=== PATIENT | male | born 1940 | race Caucasian/White ===

== ENCOUNTER 2016-07-08 01:36 | Inpatient (IN) | payer MEDICARE ==
[2016-07-08] MEDS ORDERED: SODIUM CHLORIDE 0.9% 1,000 ML IV STA (01:37)
[2016-07-08] MEDS ORDERED: ONDANSETRON 4 MG/2 ML VIAL IVP STA (01:37)
[2016-07-08] MEDS ORDERED: SODIUM CHLORIDE 0.9% 500 ML IV STA (01:37)
[2016-07-08] MEDS ORDERED: PANTOPRAZOLE 40 MG/10 ML VIAL IVP STA (01:37)
[2016-07-08] MEDS ORDERED: SODIUM CHLORIDE 0.9% 1,000 ML IV ONE (01:37)
[2016-07-08 02:16] LABS: Basophils % (A) 0 %; CH 30.3; CHCM 32.5; Eosinophils # (A) 0.1 k/uL (0-0.7); Eosinophils % (A) 1 %; HCT 31.9 % (39.0-53.0); HDW 2.79; HGB 10.3 gm/dL (13.0-17.5); Luc # (Auto) 0.19; Luc % (Auto) 2; Lymphocytes # (A) 1.7 k/uL (1.0-4.8); Lymphocytes % (A) 16 %; MCH 30.3 pg (25.0-35.0); MCHC 32.3 g/dL (31.0-37.0); MCV 93.8 fL (80.0-100.0); Mean Platelet Volume 8.6; Monocytes # (A) 0.4 k/uL (0-1.0); Monocytes % (A) 4 %; Neutrophils # (A) 8.7 k/uL (1.3-7.7); Neutrophils % (A) 78 %; RDW 13.3 % (11.5-15.5); WBC 11.1 k/uL (3.8-10.6); WBC (Perox) 11.36
--- NOTE | 2016-07-08 02:27 | ED ---
General Adult HPI - General Chief complaint: GI Bleed Stated complaint: Syncope Time Seen by Provider: 07/08/16 01:37 Source: patient, EMS, RN notes reviewed, old records reviewed Mode of arrival: EMS Limitations: no limitations - History of Present Illness Initial comments: This is a 75-year-old male the ER status post syncopal event. Patient also admits to blood in his stool. States he has history of hemorrhoids, history of a flutter, recent secondary to dizziness was diagnosed with a TIA and started on low-dose aspirin. Patient states he hasn't been feeling well throughout the day. Mild headache from fall he did fall on his left forehead. Patient states he fell and passed out before hitting his head. Currently patient is complaining of mild headache, and just generalized overall weakness, states he tried to get up and walk to be very weak and likely pass out or fall again. - Related Data Allergies Allergy/AdvReac Type Severity Reaction Status Date / Time latex Allergy Unknown Verified 07/08/16 02:10 penicillin V Allergy Unknown Verified 07/08/16 02:10 Review of Systems ROS Statement: Those systems with pertinent positive or pertinent negative responses have been documented in the HPI. ROS Other: All systems not noted in ROS Statement are negative. Past Medical History Past Medical History: Atrial Flutter, Diabetes Mellitus, Hypertension Additional Past Medical History / Comment(s): hemorroids History of Any Multi-Drug Resistant Organisms: None Reported Past Surgical History: Cholecystectomy Past Psychological History: No Psychological Hx Reported Smoking Status: Never smoker Past Alcohol Use History: None Reported Past Drug Use History: None Reported General Exam Limitations: no limitations General appearance: alert, in no apparent distress Head exam: Present: normocephalic, normal inspection. Absent: atraumatic (Left thigh abrasion) Eye exam: Present: normal appearance, PERRL, EOMI. Absent: scleral icterus, conjunctival injection, periorbital swelling ENT exam: Present: normal exam, mucous membranes moist Neck exam: Present: normal inspection. Absent: tenderness, meningismus, lymphadenopathy Respiratory exam: Present: normal lung sounds bilaterally. Absent: respiratory distress, wheezes, rales, rhonchi, stridor Cardiovascular Exam: Present: regular rate, normal rhythm, normal heart sounds. Absent: systolic murmur, diastolic murmur, rubs, gallop, clicks GI/Abdominal exam: Present: soft, normal bowel sounds. Absent: distended, tenderness, guarding, rebound, rigid Extremities exam: Present: normal inspection, full ROM, normal capillary refill. Absent: tenderness, pedal edema, joint swelling, calf tenderness Back exam: Present: normal inspection Neurological exam: Present: alert, oriented X3, CN II-XII intact Psychiatric exam: Present: normal affect, normal mood Skin exam: Present: warm, dry, intact, normal color. Absent: rash Course Vital Signs 07/08/16 01:42 Temperature 96.9 F L Pulse Rate 99 Respiratory 20 Rate Blood Pressure 140/74 O2 Sat by Pulse 98 Oximetry - Reevaluation(s) Reevaluation #1: 07/08/16 03:06 no syncope here in ED, still feeling weak and lightheaded EKG Findings - EKG Comments: EKG Findings:: EKG shows sinus rhythm at 95, PA 138, QRS 112, QTC 467 Medical Decision Making - Medical Decision Making 75 no ear status post syncopal event with positive GI bleed. Hemoglobin from 15 -10, patient admitted for monitoring of bleeding, IV hydration and cardiac nurse specialist. - Lab Data Result diagrams: 07/08/16 02:03 07/08/16 02:03 Lab Results 07/08/16 07/08/16 07/08/16 Range/Units 02:03 02:03 02:03 WBC 11.1 H (3.8-10.6) k/uL RBC 3.40 L (4.30-5.90) m/uL Hgb 10.3 L (13.0-17.5) gm/dL Hct 31.9 L (39.0-53.0) % MCV 93.8 (80.0-100.0) fL MCH 30.3 (25.0-35.0) pg MCHC 32.3 (31.0-37.0) g/dL RDW 13.3 (11.5-15.5) % Plt Count 228 (150-450) k/uL Neutrophils % 78 % Lymphocytes % 16 % Monocytes % 4 % Eosinophils % 1 % Basophils % 0 % Neutrophils # 8.7 H (1.3-7.7) k/uL Lymphocytes # 1.7 (1.0-4.8) k/uL Monocytes # 0.4 (0-1.0) k/uL Eosinophils # 0.1 (0-0.7) k/uL Basophils # 0.0 (0-0.2) k/uL PT 11.1 (9.0-12.0) sec INR 1.1 (<1.1) APTT 21.0 L (22.0-30.0) sec Sodium 139 (137-145) mmol/L Potassium 5.0 (3.5-5.1) mmol/L Chloride 109 H (98-107) mmol/L Carbon Dioxide 20 L (22-30) mmol/L Anion Gap 10 mmol/L BUN 18 (9-20) mg/dL Creatinine 0.90 (0.66-1.25) mg/dL Est GFR (MDRD) Af Amer >60 (>60 ml/min/1.73 sqM) Est GFR (MDRD) Non-Af >60 (>60 ml/min/1.73 sqM) Glucose 258 H (74-99) mg/dL Calcium 8.7 (8.4-10.2) mg/dL Magnesium 1.8 (1.6-2.3) mg/dL Total Bilirubin 0.7 (0.2-1.3) mg/dL AST 32 (17-59) U/L ALT 44 (21-72) U/L Alkaline Phosphatase 42 (38-126) U/L Total Protein 5.5 L (6.3-8.2) g/dL Albumin 3.0 L (3.5-5.0) g/dL Lipase 102 (23-300) U/L - Radiology Data Radiology results: report reviewed (CT brain, CT c spine - negative for acute ) , image reviewed Disposition Clinical Impression: Syncope, Fall, Anemia, Gastrointestinal hemorrhage Disposition: HOME SELF-CARE Condition: Serious Referrals: Davy Eldridge MD [Primary Care Provider] - 1-2 days
[2016-07-08 02:31] LABS: Anion Gap 10 mmol/L; Calcium 8.7 mg/dL (8.4-10.2); Carbon Dioxide 20 mmol/L (22-30); Chloride 109 mmol/L (98-107); Glucose 258 mg/dL (74-99); Non-African American GFR(MDRD) >60 (>60 ml/min/1.73 sqM); Sodium 139 mmol/L (137-145); Total Bilirubin 0.7 mg/dL (0.2-1.3); Total Protein 5.5 g/dL (6.3-8.2)
[2016-07-08 02:33] LABS: ALT 44 U/L (21-72); AST 32 U/L (17-59); Alkaline Phosphatase 42 U/L (38-126); Blood Urea Nitrogen 18 mg/dL (9-20); INR 1.1 (<1.1); Magnesium 1.8 mg/dL (1.6-2.3); Prothrombin Time 11.1 sec (9.0-12.0)
[2016-07-08 02:50] LABS: Creatine Kinase 54 U/L (55-170)
--- NOTE | 2016-07-08 02:58 | CT ---
EXAM: CT Head Without Intravenous Contrast. CLINICAL HISTORY: Reason: Pain TECHNIQUE: Axial computed tomography images of the head/brain without intravenous contrast. CTDI is 57.40 mGy and DLP is 1150.50 mGy-cm This CT exam was performed using one or more of the following dose reduction techniques: automated exposure control, adjustment of the mA and/or kV according to patient size, and/or use of iterative reconstruction technique. COMPARISON: None FINDINGS: Brain: No acute infarct or hemorrhage idenitified. No extra-axial fluid collection. No mass effect or midline shift. Scattered areas of hypoattenuation in the supratentorial white matter likely represent chronic small vessel ischemic changes. Involutional changes. Ventricles and sulci: Prominence of the ventricles and sulci is likely secondary to cerebral volume loss. Skull: Normal. No bony lesion or fracture. Subcutaneous tissues: Normal. Sinuses: Opacification of the maxillary sinuses with hyperdense polyp versus mucous retention cyst in the left maxillary sinus. Fluid seen in the nasal cavity and nasopharynx with multiple round hyperdensities which may represent polyps. Moderate to severe opacification of the ethmoid air cells. Mucosal thickening of left sphenoid sinus. Opacification of the right frontal sinus with hyperdense material which may represent inspissated secretions. Orbits: Bilateral lens implants. IMPRESSION: 1. No acute intracranial abnormality. 2. Chronic small vessel ischemic changes and cerebral volume loss. 3. Paranasal sinus disease as described above. Hyperdense material within the sinuses may represent inspissated secretions. Fungal disease is a consideration, but no bony erosion identified. EXAM: CT Cervical Spine Without Intravenous Contrast. CLINICAL HISTORY: Reason: Pain TECHNIQUE: Axial computed tomography images of the cervical spine without intravenous contrast. CTDI is 21.80 mGy and DLP is 464.50 mGy-cm This CT exam was performed using one or more of the following dose reduction techniques: automated exposure control, adjustment of the mA and/or kV according to patient size, and/or use of iterative reconstruction technique. COMPARISON: None FINDINGS: Bones: No acute fracture or bony lesion. Disc spaces: No subluxation. Multilevel degenerative disc disease. No spinal canal stenosis. Multiple levels of neural foraminal stenoses. Soft tissues: Normal. Other: Paranasal sinus disease, better evaluated on accompanying CT head. IMPRESSION: 1. No acute traumatic abnormality. 2. Multilevel degenerative disc disease without spinal canal stenosis. Multiple levels of neural foraminal stenoses.
[2016-07-08 03:01] LABS: Troponin I <0.012 ng/mL (0.000-0.034)
--- NOTE | 2016-07-08 04:07 | ED ---
Medical Decision Making - Lab Data Result diagrams: 07/08/16 02:03 07/08/16 02:03 Lab Results 07/08/16 07/08/16 07/08/16 Range/Units 02:03 02:03 02:03 WBC 11.1 H (3.8-10.6) k/uL RBC 3.40 L (4.30-5.90) m/uL Hgb 10.3 L (13.0-17.5) gm/dL Hct 31.9 L (39.0-53.0) % MCV 93.8 (80.0-100.0) fL MCH 30.3 (25.0-35.0) pg MCHC 32.3 (31.0-37.0) g/dL RDW 13.3 (11.5-15.5) % Plt Count 228 (150-450) k/uL Neutrophils % 78 % Lymphocytes % 16 % Monocytes % 4 % Eosinophils % 1 % Basophils % 0 % Neutrophils # 8.7 H (1.3-7.7) k/uL Lymphocytes # 1.7 (1.0-4.8) k/uL Monocytes # 0.4 (0-1.0) k/uL Eosinophils # 0.1 (0-0.7) k/uL Basophils # 0.0 (0-0.2) k/uL PT (9.0-12.0) sec INR (<1.1) APTT (22.0-30.0) sec Sodium 139 (137-145) mmol/L Potassium 5.0 (3.5-5.1) mmol/L Chloride 109 H (98-107) mmol/L Carbon Dioxide 20 L (22-30) mmol/L Anion Gap 10 mmol/L BUN 18 (9-20) mg/dL Creatinine 0.90 (0.66-1.25) mg/dL Est GFR (MDRD) Af Amer >60 (>60 ml/min/1.73 sqM) Est GFR (MDRD) Non-Af >60 (>60 ml/min/1.73 sqM) Glucose 258 H (74-99) mg/dL Calcium 8.7 (8.4-10.2) mg/dL Magnesium 1.8 (1.6-2.3) mg/dL Total Bilirubin 0.7 (0.2-1.3) mg/dL AST 32 (17-59) U/L ALT 44 (21-72) U/L Alkaline Phosphatase 42 (38-126) U/L Total Creatine Kinase 54 L (55-170) U/L CK-MB (CK-2) 1.0 (0.0-2.4) ng/mL CK-MB (CK-2) Rel Index 1.9 Troponin I <0.012 (0.000-0.034) ng/mL Total Protein 5.5 L (6.3-8.2) g/dL Albumin 3.0 L (3.5-5.0) g/dL Lipase 102 (23-300) U/L 07/08/16 Range/Units 02:03 WBC (3.8-10.6) k/uL RBC (4.30-5.90) m/uL Hgb (13.0-17.5) gm/dL Hct (39.0-53.0) % MCV (80.0-100.0) fL MCH (25.0-35.0) pg MCHC (31.0-37.0) g/dL RDW (11.5-15.5) % Plt Count (150-450) k/uL Neutrophils % % Lymphocytes % % Monocytes % % Eosinophils % % Basophils % % Neutrophils # (1.3-7.7) k/uL Lymphocytes # (1.0-4.8) k/uL Monocytes # (0-1.0) k/uL Eosinophils # (0-0.7) k/uL Basophils # (0-0.2) k/uL PT 11.1 (9.0-12.0) sec INR 1.1 (<1.1) APTT 21.0 L (22.0-30.0) sec Sodium (137-145) mmol/L Potassium (3.5-5.1) mmol/L Chloride (98-107) mmol/L Carbon Dioxide (22-30) mmol/L Anion Gap mmol/L BUN (9-20) mg/dL Creatinine (0.66-1.25) mg/dL Est GFR (MDRD) Af Amer (>60 ml/min/1.73 sqM) Est GFR (MDRD) Non-Af (>60 ml/min/1.73 sqM) Glucose (74-99) mg/dL Calcium (8.4-10.2) mg/dL Magnesium (1.6-2.3) mg/dL Total Bilirubin (0.2-1.3) mg/dL AST (17-59) U/L ALT (21-72) U/L Alkaline Phosphatase (38-126) U/L Total Creatine Kinase (55-170) U/L CK-MB (CK-2) (0.0-2.4) ng/mL CK-MB (CK-2) Rel Index Troponin I (0.000-0.034) ng/mL Total Protein (6.3-8.2) g/dL Albumin (3.5-5.0) g/dL Lipase (23-300) U/L Disposition Clinical Impression: Syncope, Fall, Anemia, Gastrointestinal hemorrhage Disposition: ADMITTED IP TO THIS HOSP Condition: Serious Referrals: Davy Eldridge MD [Primary Care Provider] - 1-2 days
[2016-07-08] MEDS: SODIUM CHLORIDE 0.9% 1,000 ML IV SCH ×2 (08:00→18:32)
[2016-07-08] MEDS ORDERED: ONDANSETRON 4 MG/2 ML VIAL IVP PRN (08:43)
[2016-07-08] MEDS ORDERED: amLODIPine 5 MG TAB PO SCH (09:00)
--- NOTE | 2016-07-08 10:29 | P.HPIM ---
History of Present Illness H&P Date: 07/08/16 Chief Complaint: Blood in stools and passing out This is a 75-year-old male with a known past medical history of TIA, diabetes mellitus type 2, hypertension, hemorrhoids and a previous episode of atrial flutter. Patient presents to the emergency room with complaints of blood in his stool and passing out. Around 10:00 last night patient reports she started having bloody bowel movements. He had about 4 stools with large amounts of bright red blood. He was in the bathroom having another BM. He got up to leave the bathroom and passed out. He lost consciousness for just a few seconds. His came to help him. EMS was called. Patient did have also a small pool of blood near his rectum on the floor. There is no loss of bowel or bladder control. No seizure activity. Patient does have large hemorrhoids she is told. And does use Anusol at home. On admission he did have a hemoglobin of 10.3. He's had no further bloody stools. GI service has been consulted for possible colonoscopy. Last colonoscopy was about [address] Tejeda and at that time he was told he had severe large hemorrhoids. No surgical intervention was done in hemorrhoids. Cardiology will also be consulted in regards to the syncopal episode. He's been placed on telemetry monitoring. Echo and carotid have been ordered. Patient denies any chest pain or shortness of breath. Denies any headache or vision changes. Denies any nausea or vomiting. Denies any burning with urination. Denies any fevers chills or sweats. Patient is still having some dizziness with sitting up in bed. He did have a computed tomography scan of the brain completed showing no acute intracranial abnormality. Chronic small vessel ischemic changes and cerebral volume loss. Paranasal sinus disease. Hyperdense material within the sinuses. He also had a computed tomography scan of the cervical spine showing no acute abnormality. Does reveal multilevel degenerative disc disease without spinal canal stenosis. Noted have multiple level of neural foraminal stenosis. Patient denies any numbness or tingling in his arms or hands. Denies any weakness in his hands. Denies any neck pain. Does report having generalized weakness throughout the body. Note the patient did have an episode of nausea in the emergency room and received Zofran. Nausea resolved. Review of Systems Please refer to HPI otherwise unremarkable Past Medical History Past Medical History: Atrial Flutter, Cancer, CVA/TIA, Diabetes Mellitus, Hypertension Additional Past Medical History / Comment(s): A couple weeks ago-difficulty getting OOB and was leaning to one side-pt saw physician who thought possible TIA, NIDDM type II, lower GI bleed yrs ago, divertiulitis, colon polypectomy, melanoma removals head and nose, hemorroids History of Any Multi-Drug Resistant Organisms: None Reported Past Surgical History: Cholecystectomy Additional Past Surgical History / Comment(s): colonoscopies/benign polypectomies, 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 Past Anesthesia/Blood Transfusion Reactions: No Reported Reaction Past Psychological History: No Psychological Hx Reported Additional Psychological History / Comment(s): Pt resides with his spouse of 55 yrs. He used a walker a couple weeks ago for a brief time. He drives. Smoking Status: Never smoker Past Alcohol Use History: Rare Past Drug Use History: None Reported - Past Family History Father Additional Family Medical History / Comment(s): Father at the age of 33 yrs from encephalitis. Mother Family Medical History: Myocardial Infarction (MN) Additional Family Medical History / Comment(s): Mother had a MN at the age of 60yrs. She at the age of 90yrs. Medications and Allergies Home Medications Medication Instructions Recorded Confirmed Type Aspirin EC [Ecotrin Low Dose] 81 mg PO DAILY 07/08/16 07/08/16 History Atenolol 25 mg PO DAILY 07/08/16 07/08/16 History Colesevelam [Welchol] 625 mg PO BID 07/08/16 07/08/16 History Ergocalciferol [Vitamin D2] 50,000 unit PO TU 07/08/16 07/08/16 History Ramipril [Altace] 5 mg PO DAILY 07/08/16 07/08/16 History amLODIPine BESYLATE/BENAZEPRIL 1 cap PO DAILY 07/08/16 07/08/16 History [Amlodipine-Benazepril 5-10 mg] glipiZIDE [Glipizide Xl] 5 mg PO AC-BID 07/08/16 07/08/16 History metFORMIN HCL [Glucophage] 1,000 mg PO AC-BRKFST 07/08/16 07/08/16 History metFORMIN HCL [Glucophage] 500 mg PO AC-SUPPER 07/08/16 07/08/16 History Allergies Allergy/AdvReac Type Severity Reaction Status Date / Time latex Allergy Unknown Verified 07/08/16 08:05 penicillin V Allergy Unknown Verified 07/08/16 08:05 Physical Exam Vitals: Vital Signs Temp Pulse Pulse Resp BP BP Pulse Ox 07/08/16 07:47 97.7 F 54 L 16 124/75 98 07/08/16 06:37 98 16 147/82 98 07/08/16 05:02 92 16 156/79 100 07/08/16 03:56 94 18 154/62 99 07/08/16 01:42 96.9 F L 99 20 140/74 98 Intake and Output 07/07/16 07/08/16 07/08/16 22:59 06:59 14:59 Other: Weight 100 kg Head normocephalic. 1 cm laceration above the left eyebrow. Scabbing in place. No swelling or drainage. Some mild bruising. Neck supple Lungs clear to auscultation bilaterally no wheezing or crackles Heart regular rate and rhythm S1-S2, no rub or gallop Abdomen is soft nontender nondistended positive bowel sounds no hepatosplenomegaly Extremities no edema Neuro alert and orientated to 3 Results CBC & Chem 7: 07/08/16 02:03 07/08/16 02:03 Labs: Abnormal Lab Results - Last 24 Hours (Table) 07/08/16 07/08/16 07/08/16 Range/Units 02:03 02:03 02:03 WBC 11.1 H (3.8-10.6) k/uL RBC 3.40 L (4.30-5.90) m/uL Hgb 10.3 L (13.0-17.5) gm/dL Hct 31.9 L (39.0-53.0) % Neutrophils # 8.7 H (1.3-7.7) k/uL APTT (22.0-30.0) sec Chloride 109 H (98-107) mmol/L Carbon Dioxide 20 L (22-30) mmol/L Glucose 258 H (74-99) mg/dL Total Creatine Kinase 54 L (55-170) U/L Total Protein 5.5 L (6.3-8.2) g/dL Albumin 3.0 L (3.5-5.0) g/dL 07/08/16 Range/Units 02:03 WBC (3.8-10.6) k/uL RBC (4.30-5.90) m/uL Hgb (13.0-17.5) gm/dL Hct (39.0-53.0) % Neutrophils # (1.3-7.7) k/uL APTT 21.0 L (22.0-30.0) sec Chloride (98-107) mmol/L Carbon Dioxide (22-30) mmol/L Glucose (74-99) mg/dL Total Creatine Kinase (55-170) U/L Total Protein (6.3-8.2) g/dL Albumin (3.5-5.0) g/dL Thrombosis Risk Factor Assmnt - Choose All That Apply Any of the Below Risk Factors Present?: Yes Each Factor Represents 1 point: Obesity (BMI >25) Other Risk Factors: Yes Each Risk Factor Represents 2 Points: Malignancy Each Risk Factor Represents 3 Points: Elevated anticardiolipin antibodies Other congenital or acquired thrombophilia - If yes, enter type in comment: No Thrombosis Risk Factor Assessment Total Risk Factor Score: 6 Thrombosis Risk Factor Assessment Level: High Risk Assessment and Plan Plan: 1. Syncopal episode: Possibly related to acute blood loss from GI bleed. However will monitor. Cardiology has been consulted. Check echo and carotid. Continue with telemetry monitoring. EKG shows sinus rhythm with PVCs and incomplete left bundle branch block. 2. Acute lower GI bleed with known history of hemorrhoids. GI service has been consulted for possible colonoscopy. Start patient on Anusol suppository. Hold aspirin. Hemoglobin 10.3 on admission. Continue to monitor CBC. Check stool for occult blood. Continue IV Protonix 3. Acute blood loss anemia: Hemoglobin 10.3 continue to monitor. Secondary to GI bleed 4. History of TIA: Aspirin placed on hold 5. Diabetes mellitus type 2: Resume glipizide. Hold metformin during hospitalization. Add sliding scale coverage. 6. Essential hypertension: Blood pressure stable continue with the lisinopril and Norvasc 7. Acute sinusitis: With paranasal sinus disease noted on CAT scan as well as hyperdense material within the sinuses. We'll place patient on Rocephin 1 g IV daily. Likely will discharge him home with Ceftin. And will have him follow up with Dr. Gutierrez, ENT specialist in the outpatient setting. Penicillin ALLERGY listed. However, patient reports never actually taking penicillin. 8. Leukocytosis: Possibly related to the sinusitis or reactive from the GI bleed and syncope. We'll repeat CBC in a.m. GI prophylaxis IV Protonix daily. DVT prophylaxis SCDs. Time with Patient: Greater than 30 (Greater than 50% of the total time spent in counseling and coordination of care.I performed an examination of the patient and discussed their management with the physician Infantry Officer. I have reviewed the Physician Infantry Officer's notes and agree with the documented findings and plan of care)
[2016-07-08] MEDS: HYDROCORTISONE SUPPOSITORY 25 MG SUPP RECTAL SCH (11:20)
[2016-07-08 11:56] LABS: Glucose,Whole Blood 241 mg/dL (75-99)
[2016-07-08] MEDS: PANTOPRAZOLE 40 MG/10 ML VIAL IVP SCH (12:24)
--- NOTE | 2016-07-08 12:29 | US ---
EXAMINATION TYPE: US carotid duplex BILAT DATE OF EXAM: 07/08/2016 12:08 PM COMPARISON: US on PACS CLINICAL HISTORY: syncope. EXAM MEASUREMENTS: RIGHT: Peak Systolic Velocity (PSV) cm/sec ----- Right CCA: 108.1 ----- Right ICA: 164.7 ----- Right ECA: 143.7 ICA/CCA ratio: 1.5 RIGHT: End Diastole cm/sec ----- Right CCA: 25.7 ----- Right ICA: 46.2 ----- Right ECA: 9.7 LEFT: Peak Systolic Velocity (PSV) cm/sec ----- Left CCA: 120.6 ----- Left ICA: 183.3 ----- Left ECA: 141.5 ICA/CCA ratio: 1.5 LEFT: End Diastole cm/sec ----- Left CCA: 25.3 ----- Left ICA: 36.9 ----- Left ECA: 6.7 VERTEBRALS (direction of flow): Right Vertebral: antegrade Left Vertebral: antegrade bilateral calcified plaque in bulbs and ICA's R>L. IMPRESSION: 1. 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 2. ELEVATED FLOW, BOTH ECAS. Criteria for Assigning % of Stenosis / Diameter reduction (Estimation based on the indirect measurements of the internal carotid artery velocities (ICA PSV). 1. Normal (no stenosis)=ICA PSV < 125 cm/s: ratio < 2.0: ICA EDV<40 cm/s. 2. Less than 50% stenosis=ICA PSV < 125 cm/s: ratio < 2.0: ICA EDV<40 cm/s. 3. 50 to 69% stenosis=ICA PSV of 125 to 230 cm/s: ration 2.0 ? 4.0: ICA EDV 40-100 cm/s. 4. Greater than 70% stenosis to near occlusion= ICA PSV > 230 cm/s: ratio > 4.0: ICA EDV > 100 cm/s. 5. Near occlusion= ICA PSV velocities may be low or undetectable: variable ratio and ICA EDV. 6. Total occlusion=unable to detect flow.
[2016-07-08] MEDS: INSULIN LISPRO (humaLOG) 300 UNIT/3 ML VIAL SQ SCH ×3 (13:31→21:49)
[2016-07-08] MEDS: ATENOLOL 25 MG TAB PO SCH (13:45)
[2016-07-08] MEDS: LISINOPRIL 20 MG TAB PO SCH (13:46)
[2016-07-08] MEDS: amLODIPine 5 MG TAB PO SCH (13:46)
[2016-07-08 14:09] LABS: Hemoglobin A1C 7.7 % (4.2-6.1)
[2016-07-08 17:10] LABS: Glucose,Whole Blood 187 mg/dL (75-99)
[2016-07-08] MEDS: glipiZIDE 5 MG TAB PO SCH (17:14)
[2016-07-08] MEDS: COLESEVELAM 625 MG TAB PO SCH (17:14)
--- NOTE | 2016-07-08 17:30 | CONS ---
DATE OF CONSULTATION: Mr. Pace is a 75-year-old male who presented with syncopal episode. He was at home and had evidence of lower gastrointestinal bleeding from hemorrhoids, he was in the bathroom had a bowel movement that was bleeding and when he got up he had a syncopal episode lasting for a few seconds not associated with any palpitation. He had no change in his breathing. He had no tonic-clonic activity afterward or loss of bladder control. He denies any history of cardiac disease. He is not very active physically, but he has no dyspnea on exertion. No chest pain. No palpitation. No syncope except an episode similar to this a few years ago. He has no PND. No orthopnea. Prior episode of lower GI bleeding related to the hemorrhoids and has been followed by Dr. Tejeda in the past. He has no PND or orthopnea. No peripheral edema. His coronary risk factors are remarkable for diabetes, hyperlipidemia and hypertension. He is a nonsmoker. His medications include: 1. Atenolol. 2. Amlodipine. 3. Benazepril 5 to 10 mg daily. 4. Metformin. 5. Glipizide. 6. WelChol. 7. Vitamin D. 8. Atenolol 25 mg daily. 9. Aspirin 81 mg daily. REVIEW OF SYSTEMS: RESPIRATORY SYSTEM: He has no recent wheezing. No cough. No history of obstructive lung disease. GI system: He had a hemorrhoids and GI bleeding. system: No dysuria or hematuria. Nervous system: No stroke or seizure. PHYSICAL EXAMINATION: A 75-year-old male, alert, oriented, in no apparent distress. Blood pressure 124/70 with a heart in the 60s. HEAD: Normocephalic. EYES: Sclerae anicteric. NECK: Good upstroke. No bruit. No jugular venous distention. LUNGS: Clear to auscultation. HEART: Regular rate and rhythm. S1, S2, no S3, with systolic murmur at the base. No diastolic murmur. No rub. ABDOMEN: Soft, nontender, positive bowel sounds. No organomegaly. EXTREMITIES: No edema. Intact distal pulses. 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 His EKG revealed a sinus mechanism with frequent PVCs, left axis deviation and borderline intraventricular conduction delay. His lab data revealed troponin less than 0.012. BUN and creatinine of 18 and 0.9. Potassium 5.0. Hemoglobin of 10.3. IMPRESSION: 1. Syncopal episode, most likely related to gastrointestinal bleeding and orthostatic hypotension. 2. History of hypertension. 3. History of hyperlipidemia. 4. Diabetes mellitus. RECOMMENDATIONS: From the cardiac standpoint, I do not see any evidence to suggest active ischemic issue. I agree with your plan of obtaining an echocardiogram and depending on those results further recommendations will be made. Thank you for this consult. We will follow with you.
[2016-07-08 21:16] LABS: Glucose,Whole Blood 221 mg/dL (75-99)
[2016-07-09 07:24] LABS: Glucose,Whole Blood 184 mg/dL (75-99)
[2016-07-09] MEDS: COLESEVELAM 625 MG TAB PO SCH ×2 (08:20→18:00)
[2016-07-09] MEDS: LISINOPRIL 20 MG TAB PO SCH (08:21)
[2016-07-09] MEDS: ATENOLOL 25 MG TAB PO SCH (08:21)
[2016-07-09] MEDS: amLODIPine 5 MG TAB PO SCH (08:21)
[2016-07-09] MEDS: HYDROCORTISONE SUPPOSITORY 25 MG SUPP RECTAL SCH (08:21)
[2016-07-09] MEDS: PANTOPRAZOLE 40 MG/10 ML VIAL IVP SCH (08:21)
[2016-07-09] MEDS: glipiZIDE 5 MG TAB PO SCH ×2 (08:21→18:00)
[2016-07-09] MEDS: INSULIN LISPRO (humaLOG) 300 UNIT/3 ML VIAL SQ SCH ×4 (08:22→21:05)
--- NOTE | 2016-07-09 08:30 | CONS ---
DATE OF CONSULTATION: 07/08/2016 REASON FOR CONSULTATION: Acute GI bleed. HISTORY OF PRESENT ILLNESS: The patient is a 75-year-old pleasant white male who was admitted to the hospital with multiple episodes of bright red blood per rectum. His symptoms started around 10:00 p.m. the night before and he had at least 5 or 6 large amount of bright red blood per rectum and apparently he passed out. After a few seconds he regained consciousness. His called the EMS. In the meantime he had another 2 or 3 episodes of bright red blood per rectum. ( ) subsequently admitted to the hospital with hemoglobin of 10.3 g/dL. Patient says that these episodes of bleeding continued for another 4 or 5 times and then since yesterday afternoon he did not have any further episodes of bleeding. He denies any abdominal pain. He reports no nausea or vomiting. Denies any fever, chills or night sweats. He states that he had similar episode about 4 years ago and a colonoscopy done by Dr. Tejeda and was told that he had large ( ). Past medical history is significant for atrial flutter, diabetes mellitus, CVA/TIA in the past, hypertension, diabetes mellitus. PAST SURGICAL HISTORY: Removal of melanoma, colonoscopy 4 years ago, bilateral cataract surgery. SOCIAL HISTORY: No history of smoking, no alcohol. FAMILY HISTORY: Unremarkable. REVIEW OF SYSTEMS: CARDIOPULMONARY: No chest pain or shortness of breath. GENITOURINARY: No dysuria. MUSCULOSKELETAL: Unremarkable. ( ) PSYCHIATRIC: Unremarkable. NEUROLOGY: Unremarkable. ENT/VISION: Unremarkable. CONSTITUTIONAL: No recent weight loss. No recent night sweats. Medications at home include aspirin, atenolol, WelChol, vitamin D3, ( ), glipizide, metformin. ALLERGIES: LATEX AND PENICILLIN. PHYSICAL EXAMINATION: He appears comfortable in no apparent distress. Vitals as are stable. Blood pressure is 143/74, pulse rate 99, temperature 96. HEENT EXAMINATION: Unremarkable. Conjunctivae pink. Sclerae anicteric. Oral cavity no lesions. NECK: No JVD or lymph node enlargement. CHEST: Clear to auscultation. HEART: Regular rate and rhythm. ABDOMEN: Soft. It was nontender, nondistended. Liver and spleen were not palpable. Bowel sounds are positive. No organomegaly. EXTREMITIES: No pedal edema. SKIN: No rashes. NEURO: He is alert and oriented x3. No focal deficits. LABS: WBC 11.1, hemoglobin 10.2, platelets are normal. BUN and creatinine are within normal limits. Basic metabolic panel is normal. PT, INR is within normal. IMPRESSION: Acute lower gastrointestinal bleed. Most likely diverticular in nature, but possibility of colitis or colorectal neoplasia cannot be excluded. The patient said that he had a colonoscopy about [address] Tejeda ( ) neoplasms, internal hemorrhoids and ( ) hemorrhoids; however, ( ). I doubt that we are dealing with internal hemorrhoid bleeding at the present time; however he has been stable for the last 12 hours, no further episodes of bleeding. Last hemoglobin was 10.3 g/dL. RECOMMENDATIONS: I discussed with the patient possibility of colonoscopy tomorrow, however, after discussing the risks, benefits, and complications, the patient elected to have this done on an outpatient basis. ( ) if he does not have any further episodes of bleeding. Hence, I will start him on a clear liquid diet today. Repeat CBC in the morning and if he remains stable and he has no further episodes of bleeding he can be discharged home with outpatient colonoscopy in the next 1 or 2 weeks. Thank you for this consultation.
[2016-07-09 08:44] LABS: Basophils # (A) 0.1 k/uL (0-0.2); Basophils % (A) 1 %; CH 30.4; CHCM 32.6; Eosinophils # (A) 0.1 k/uL (0-0.7); Eosinophils % (A) 1 %; HCT 24.2 % (39.0-53.0); HDW 2.81; Luc # (Auto) 0.13; Luc % (Auto) 2; Lymphocytes # (A) 1.2 k/uL (1.0-4.8); Lymphocytes % (A) 17 %; MCH 29.9 pg (25.0-35.0); MCHC 31.8 g/dL (31.0-37.0); Mean Platelet Volume 8.3; Monocytes # (A) 0.2 k/uL (0-1.0); Monocytes % (A) 3 %; Neutrophils # (A) 5.2 k/uL (1.3-7.7); Neutrophils % (A) 76 %; RBC 2.57 m/uL (4.30-5.90); RDW 13.7 % (11.5-15.5); WBC 6.8 k/uL (3.8-10.6); WBC (Perox) 7.13
[2016-07-09 08:46] LABS: HGB 7.7 gm/dL (13.0-17.5)
[2016-07-09 08:50] LABS: ALT 40 U/L (21-72); AST 21 U/L (17-59); Alkaline Phosphatase 50 U/L (38-126); Anion Gap 7 mmol/L; Blood Urea Nitrogen 10 mg/dL (9-20); Calcium 7.8 mg/dL (8.4-10.2); Carbon Dioxide 23 mmol/L (22-30); Chloride 111 mmol/L (98-107); Glucose 168 mg/dL (74-99); Non-African American GFR(MDRD) >60 (>60 ml/min/1.73 sqM); Potassium 4.2 mmol/L (3.5-5.1); Sodium 141 mmol/L (137-145); Total Bilirubin 0.5 mg/dL (0.2-1.3); Total Protein 5.1 g/dL (6.3-8.2)
--- NOTE | 2016-07-09 09:57 | P.PN ---
Subjective Principal diagnosis: Rectal bleeding 75-year-old male with a history of large hemorrhoids presents with rectal bleeding suspect diverticular in nature. Last colonoscopy 4 years ago however upon review of [facility] medical records colonoscopy was performed in 2007 with findings of extensive diverticulosis of the entire colon. No recurrence of GI bleeding for more than 24 hours. Tolerating clear liquids. Colonoscopy recommended and discussed yesterday however patient declined and once to proceed on an outpatient basis. Hemoglobin 7.7 today down from 10.3 yesterday. Objective - Vital Signs Vital signs: Vital Signs Temp 98.5 F 07/09/16 07:00 Pulse 62 07/09/16 07:00 Resp 16 07/09/16 07:00 BP 150/78 07/09/16 07:00 Pulse Ox 95 07/09/16 07:00 Intake & Output 07/08/16 07/09/16 07/09/16 18:59 06:59 18:59 Intake Total 800 Balance 800 Intake: Intake, IV Titration 800 Amount Sodium Chloride 0.9% 1, 800 000 ml @ 100 mls/hr IV . Q10H [facility] Rx#:[id number] Other: Voiding Method Urinal Urinal Urinal # Voids 1 1 - Exam General appearance: The patient is alert, oriented, in no acute distress. HET: Head is normocephalic and atraumatic. Pupils are equal and reactive. Oropharynx is clear without lesions. Neck: Supple without lymphadenopathy. Trachea midline. Heart: S1 S2. Regular rate and rhythm. Lungs: No crackles or wheezes are heard. Abdomen: Soft, nontender, nondistended with bowel sounds. No peritoneal signs. No palpable organomegaly or masses. Extremities: Normal skin color and turgor. No cyanosis, rash, ulceration, clubbing, or edema. Radial and pedal pulses are 2/4 bilaterally. Neurological: No focal deficits. Strength and sensation are grossly intact. - Labs CBC & Chem 7: 07/09/16 08:02 07/09/16 08:02 Labs: Abnormal Lab Results - Last 24 Hours (Table) 07/08/16 07/08/16 07/08/16 Range/Units 07:01 11:34 17:08 RBC (4.30-5.90) m/uL Hgb (13.0-17.5) gm/dL Hct (39.0-53.0) % Chloride (98-107) mmol/L Glucose (74-99) mg/dL POC Glucose (mg/dL) 241 H 187 H (75-99) mg/dL Hemoglobin A1c 7.7 H (4.2-6.1) % Calcium (8.4-10.2) mg/dL Total Protein (6.3-8.2) g/dL Albumin (3.5-5.0) g/dL 07/08/16 07/09/16 07/09/16 Range/Units 21:11 07:15 08:02 RBC 2.57 L (4.30-5.90) m/uL Hgb 7.7 L D (13.0-17.5) gm/dL Hct 24.2 L (39.0-53.0) % Chloride (98-107) mmol/L Glucose (74-99) mg/dL POC Glucose (mg/dL) 221 H 184 H (75-99) mg/dL Hemoglobin A1c (4.2-6.1) % Calcium (8.4-10.2) mg/dL Total Protein (6.3-8.2) g/dL Albumin (3.5-5.0) g/dL 07/09/16 Range/Units 08:02 RBC (4.30-5.90) m/uL Hgb (13.0-17.5) gm/dL Hct (39.0-53.0) % Chloride 111 H (98-107) mmol/L Glucose 168 H (74-99) mg/dL POC Glucose (mg/dL) (75-99) mg/dL Hemoglobin A1c (4.2-6.1) % Calcium 7.8 L (8.4-10.2) mg/dL Total Protein 5.1 L (6.3-8.2) g/dL Albumin 2.8 L (3.5-5.0) g/dL Assessment and Plan (1) Acute lower GI bleeding Narrative/Plan: Suspect diverticular in nature however other pathology cannot be excluded. Patient reports a colonoscopy performed in 2003 however medical records indicate colonoscopy performed in 2007 with findings of extensive diverticulosis of the entire colon Status: Acute (2) Acute blood loss anemia Status: Acute (3) History of hemorrhoids Status: Acute Plan: 1. Hold discharge today. Outpatient colonoscopy tentatively scheduled for 07/12/2016; pending clinical course may need to be done sooner. 2. Clear liquid diet. 3. Blood Transfusion if agreeable with attending. 4. CBC at 1800. Assessment and plan a care discussed with Dr. Pulido.
[2016-07-09] MEDS: SODIUM CHLORIDE 0.9% 1,000 ML IV SCH ×3 (10:45→23:16)
[2016-07-09 11:39] LABS: Glucose,Whole Blood 172 mg/dL (75-99)
[2016-07-09] MEDS ORDERED: ERGOCALCIFEROL 50,000 UNIT CAP PO SCH (12:00)
--- NOTE | 2016-07-09 13:30 | P.PN ---
Subjective Principal diagnosis: syncope and lower gastrointestinal bleeding patient is a 75-year-old male who presented to [facility] after having a bloody bowel movement and having an episode of syncope was falling to the floor on his bathroom he was evaluated in the emergency room and was admitted to medical floor he was evaluated by gastroenterology. Since yesterday hemoglobin has dropped from 10.3-7.7 patient denies having any further bleeding at this time Objective - Vital Signs Vital signs: Vital Signs Temp 98.5 F 07/09/16 07:00 Pulse 62 07/09/16 07:00 Resp 16 07/09/16 07:00 BP 150/78 07/09/16 07:00 Pulse Ox 95 07/09/16 07:00 Intake & Output 07/08/16 07/09/16 07/09/16 18:59 06:59 18:59 Intake Total 800 Balance 800 Intake: Intake, IV Titration 800 Amount Sodium Chloride 0.9% 1, 800 000 ml @ 100 mls/hr IV . Q10H [facility] Rx#:[id number] Other: Voiding Method Urinal Urinal Urinal # Voids 1 1 - Exam HEENT head normocephalic and atraumatic Neck is supple no JVD no goiter no lymphadenopathy Chest is clear to auscultation no wheezing Cardiac exam reveals regular heart sounds no murmurs Abdomen is soft nontender no organomegaly Extremity exam reveals no edema no cyanosis or clubbing - Labs CBC & Chem 7: 07/09/16 08:02 07/09/16 08:02 Labs: Abnormal Lab Results - Last 24 Hours (Table) 07/08/16 07/08/16 07/08/16 Range/Units 07:01 17:08 21:11 RBC (4.30-5.90) m/uL Hgb (13.0-17.5) gm/dL Hct (39.0-53.0) % Chloride (98-107) mmol/L Glucose (74-99) mg/dL POC Glucose (mg/dL) 187 H 221 H (75-99) mg/dL Hemoglobin A1c 7.7 H (4.2-6.1) % Calcium (8.4-10.2) mg/dL Total Protein (6.3-8.2) g/dL Albumin (3.5-5.0) g/dL 07/09/16 07/09/16 07/09/16 Range/Units 07:15 08:02 08:02 RBC 2.57 L (4.30-5.90) m/uL Hgb 7.7 L D (13.0-17.5) gm/dL Hct 24.2 L (39.0-53.0) % Chloride 111 H (98-107) mmol/L Glucose 168 H (74-99) mg/dL POC Glucose (mg/dL) 184 H (75-99) mg/dL Hemoglobin A1c (4.2-6.1) % Calcium 7.8 L (8.4-10.2) mg/dL Total Protein 5.1 L (6.3-8.2) g/dL Albumin 2.8 L (3.5-5.0) g/dL 07/09/16 Range/Units 11:25 RBC (4.30-5.90) m/uL Hgb (13.0-17.5) gm/dL Hct (39.0-53.0) % Chloride (98-107) mmol/L Glucose (74-99) mg/dL POC Glucose (mg/dL) 172 H (75-99) mg/dL Hemoglobin A1c (4.2-6.1) % Calcium (8.4-10.2) mg/dL Total Protein (6.3-8.2) g/dL Albumin (3.5-5.0) g/dL Assessment and Plan Plan: 1. Syncopal episode: Possibly related to acute blood loss from GI bleed. However will monitor. Cardiology has been consulted. patient was seen by Dr. Campoverde consult reviewed Check echo and carotid. Continue with telemetry monitoring. EKG shows sinus rhythm with PVCs and incomplete left bundle branch block. 2. Acute lower GI bleed with known history of hemorrhoids. GI service has been consulted for possible colonoscopy. Start patient on Anusol suppository. Hold aspirin. Hemoglobin 10.3 on admission. down to 7.7 today Will transfuse 1 unit of red blood cells, Continue to monitor CBC. Continue IV Protonix 3. Acute blood loss anemia: Hemoglobin 10.3 continue to monitor. Secondary to GI bleed 4. History of TIA: Aspirin placed on hold 5. Diabetes mellitus type 2: Resume glipizide. Hold metformin during hospitalization. Add sliding scale coverage. 6. Essential hypertension: Blood pressure stable continue with the lisinopril and Norvasc 7. Acute sinusitis: With paranasal sinus disease noted on CAT scan as well as hyperdense material within the sinuses. We'll place patient on Rocephin 1 g IV daily. Likely will discharge him home with Ceftin. And will have him follow up with Dr. Gutierrez, ENT specialist in the outpatient setting. Penicillin ALLERGY listed. However, patient reports never actually taking penicillin. 8. Leukocytosis: Possibly related to the sinusitis or reactive from the GI bleed and syncope. We'll repeat CBC in a.m. GI prophylaxis IV Protonix daily. DVT prophylaxis SCDs.
--- NOTE | 2016-07-09 15:02 | PN ---
Mr. Pace is a 75-year-old male who presented with significant lower GI bleeding and had a syncopal episode after a bowel movement. He is doing well this morning. He denies any symptoms of chest pain. He has no further active bleeding. He has got out of the bed and did not feel dizzy. He denies any dizziness, palpitation. He denies any syncope. He denies any nausea or vomiting. He continues to be at this time on atenolol 25 mg daily, lisinopril 20 mg daily, Protonix, amlodipine 5 mg daily and glipizide. PHYSICAL EXAMINATION: Blood pressure running in the 150s with a heart rate in the 60s. LUNGS: Clear. HEART: Regular rate and rhythm. S1, S2 with extrasystole and a systolic murmur. No diastolic murmur. ABDOMEN: Soft, nontender. EXTREMITIES: No edema. Lab data revealed hemoglobin of 7.7, BUN and creatinine 10 and 0.85. IMPRESSION: 1. Syncopal episode related to orthostatic hypotension and possible an element of vasovagal syncope after gastrointestinal bleeding. 2. Acute gastrointestinal bleeding with significant anemia. 3. Hypertension. 4. Hyperlipidemia. RECOMMENDATION: Will review the results of his echocardiogram. On the monitor, he had occasional PVCs. Will follow that and depending on his blood pressure and his heart rate, further adjustment of his medical regimen will be done.
[2016-07-09 17:01] LABS: Glucose,Whole Blood 158 mg/dL (75-99)
[2016-07-09 19:33] LABS: Basophils % (A) 1 %; CH 30.7; CHCM 33.5; Eosinophils # (A) 0.2 k/uL (0-0.7); Eosinophils % (A) 2 %; HCT 26.4 % (39.0-53.0); HDW 3.12; HGB 8.9 gm/dL (13.0-17.5); Luc # (Auto) 0.15; Luc % (Auto) 2; Lymphocytes # (A) 1.5 k/uL (1.0-4.8); Lymphocytes % (A) 20 %; MCH 31.2 pg (25.0-35.0); MCHC 33.9 g/dL (31.0-37.0); MCV 92.2 fL (80.0-100.0); Mean Platelet Volume 8.2; Monocytes # (A) 0.3 k/uL (0-1.0); Monocytes % (A) 4 %; Neutrophils # (A) 5.3 k/uL (1.3-7.7); Neutrophils % (A) 71 %; RBC 2.87 m/uL (4.30-5.90); RDW 14.3 % (11.5-15.5); WBC 7.5 k/uL (3.8-10.6); WBC (Perox) 7.86
[2016-07-09 19:56] LABS: Glucose,Whole Blood 227 mg/dL (75-99)
[2016-07-10 01:06] LABS: Basophils % (A) 1 %; CH 30.6; CHCM 33.2; Eosinophils # (A) 0.2 k/uL (0-0.7); Eosinophils % (A) 2 %; HDW 3.24; HGB 8.5 gm/dL (13.0-17.5); Luc # (Auto) 0.14; Luc % (Auto) 2; Lymphocytes # (A) 1.7 k/uL (1.0-4.8); Lymphocytes % (A) 23 %; MCH 31.5 pg (25.0-35.0); MCV 92.8 fL (80.0-100.0); Mean Platelet Volume 7.4; Monocytes # (A) 0.5 k/uL (0-1.0); Monocytes % (A) 6 %; Neutrophils # (A) 4.8 k/uL (1.3-7.7); Neutrophils % (A) 66 %; RBC 2.69 m/uL (4.30-5.90); RDW 14.3 % (11.5-15.5); WBC 7.2 k/uL (3.8-10.6); WBC (Perox) 7.19
[2016-07-10] MEDS: SODIUM CHLORIDE 0.9% 1,000 ML IV SCH ×2 (01:45→22:23)
[2016-07-10 07:37] LABS: Glucose,Whole Blood 142 mg/dL (75-99)
[2016-07-10 07:56] LABS: Basophils % (A) 1 %; CH 30.7; CHCM 33.2; Eosinophils # (A) 0.2 k/uL (0-0.7); Eosinophils % (A) 3 %; HCT 29.2 % (39.0-53.0); HDW 3.32; HGB 9.6 gm/dL (13.0-17.5); Luc # (Auto) 0.17; Luc % (Auto) 3; Lymphocytes # (A) 1.3 k/uL (1.0-4.8); Lymphocytes % (A) 19 %; MCH 30.8 pg (25.0-35.0); MCV 93.4 fL (80.0-100.0); Mean Platelet Volume 8.3; Monocytes # (A) 0.3 k/uL (0-1.0); Monocytes % (A) 5 %; Neutrophils # (A) 4.8 k/uL (1.3-7.7); Neutrophils % (A) 71 %; RBC 3.12 m/uL (4.30-5.90); RDW 14.8 % (11.5-15.5); WBC 6.7 k/uL (3.8-10.6); WBC (Perox) 7.23
[2016-07-10 08:02] LABS: ALT 41 U/L (21-72); AST 24 U/L (17-59); Alkaline Phosphatase 62 U/L (38-126); Anion Gap 10 mmol/L; Blood Urea Nitrogen 5 mg/dL (9-20); Calcium 8.3 mg/dL (8.4-10.2); Carbon Dioxide 24 mmol/L (22-30); Chloride 110 mmol/L (98-107); Glucose 139 mg/dL (74-99); Non-African American GFR(MDRD) >60 (>60 ml/min/1.73 sqM); Potassium 3.9 mmol/L (3.5-5.1); Sodium 144 mmol/L (137-145); Total Bilirubin 0.9 mg/dL (0.2-1.3); Total Protein 5.8 g/dL (6.3-8.2)
[2016-07-10] MEDS: COLESEVELAM 625 MG TAB PO SCH ×2 (08:47→18:12)
[2016-07-10] MEDS: INSULIN LISPRO (humaLOG) 300 UNIT/3 ML VIAL SQ SCH ×4 (08:48→21:28)
[2016-07-10] MEDS: PANTOPRAZOLE 40 MG TABLET PO SCH (08:48)
[2016-07-10] MEDS: amLODIPine 5 MG TAB PO SCH (08:48)
[2016-07-10] MEDS: ATENOLOL 25 MG TAB PO SCH ×2 (08:48→21:28)
[2016-07-10] MEDS: glipiZIDE 5 MG TAB PO SCH ×2 (08:48→18:12)
[2016-07-10] MEDS: LISINOPRIL 20 MG TAB PO SCH (08:49)
--- NOTE | 2016-07-10 09:58 | P.PN ---
Subjective Principal diagnosis: Rectal bleeding 75-year-old male with a history of large hemorrhoids presents with rectal bleeding suspect diverticular in nature. Last colonoscopy 4 years ago at [facility]: novoa diverticulosis. Denies abdominal pain. Bloody BM x 1 last night; asymptomatic. Transfused 1 unit blood. Tolerating clear liquids. Objective - Vital Signs Vital signs: Vital Signs Temp 98.2 F 07/10/16 07:00 Pulse 86 07/10/16 07:00 Resp 18 07/10/16 07:00 BP 125/70 07/10/16 07:00 Pulse Ox 93 L 07/10/16 07:00 Intake & Output 07/09/16 07/10/16 07/10/16 18:59 06:59 18:59 Intake Total 310 1150 Balance 310 1150 Intake: Intake, IV Titration 1150 Amount Sodium Chloride 0.9% 1, 750 000 ml @ 100 mls/hr IV . Q10H [facility] Rx#:[id number] cefTRIAXone 1,000 mg In 400 Sodium Chloride 0.9% 50 ml @ 100 mls/hr IVPB Q24HR [facility] Rx#:[id number] Blood Product 310 Rc As-3 Unit 310 [id number] Other: Voiding Method Urinal Toilet Toilet Urinal Urinal # Voids 2 1 # Bowel Movements 1 - Exam General appearance: The patient is alert, oriented, in no acute distress. HET: Head is normocephalic and atraumatic. Pupils are equal and reactive. Oropharynx is clear without lesions. Neck: Supple without lymphadenopathy. Trachea midline. Heart: S1 S2. Regular rate and rhythm. Lungs: No crackles or wheezes are heard. Abdomen: Soft, nontender, nondistended with bowel sounds. No peritoneal signs. No palpable organomegaly or masses. Extremities: Normal skin color and turgor. No cyanosis, rash, ulceration, clubbing, or edema. Radial and pedal pulses are 2/4 bilaterally. Neurological: No focal deficits. Strength and sensation are grossly intact. - Labs CBC & Chem 7: 07/10/16 07:00 07/10/16 07:00 Labs: Abnormal Lab Results - Last 24 Hours (Table) 07/08/16 07/09/16 07/09/16 Range/Units 07:01 11:25 16:52 RBC (4.30-5.90) m/uL Hgb (13.0-17.5) gm/dL Hct (39.0-53.0) % Chloride (98-107) mmol/L BUN (9-20) mg/dL Glucose (74-99) mg/dL POC Glucose (mg/dL) 172 H 158 H (75-99) mg/dL Calcium (8.4-10.2) mg/dL Total Protein (6.3-8.2) g/dL Albumin (3.5-5.0) g/dL Crossmatch See Detail 07/09/16 07/09/16 07/10/16 Range/Units 19:17 19:53 00:55 RBC 2.87 L 2.69 L (4.30-5.90) m/uL Hgb 8.9 L 8.5 L (13.0-17.5) gm/dL Hct 26.4 L 25.0 L (39.0-53.0) % Chloride (98-107) mmol/L BUN (9-20) mg/dL Glucose (74-99) mg/dL POC Glucose (mg/dL) 227 H (75-99) mg/dL Calcium (8.4-10.2) mg/dL Total Protein (6.3-8.2) g/dL Albumin (3.5-5.0) g/dL Crossmatch 07/10/16 07/10/16 07/10/16 Range/Units 07:00 07:00 07:09 RBC 3.12 L (4.30-5.90) m/uL Hgb 9.6 L (13.0-17.5) gm/dL Hct 29.2 L (39.0-53.0) % Chloride 110 H (98-107) mmol/L BUN 5 L (9-20) mg/dL Glucose 139 H (74-99) mg/dL POC Glucose (mg/dL) 142 H (75-99) mg/dL Calcium 8.3 L (8.4-10.2) mg/dL Total Protein 5.8 L (6.3-8.2) g/dL Albumin 3.2 L (3.5-5.0) g/dL Crossmatch Assessment and Plan (1) Acute lower GI bleeding Narrative/Plan: Suspect diverticular in nature. Novoa colonic diverticulosis. Status: Acute (2) Acute blood loss anemia Status: Acute (3) History of hemorrhoids Status: Acute Plan: 1. Colonoscopy tomorrow. 2. Clear liquid diet. 3. Blood Transfusion as indicated. 4. CBC am. Assessment and plan a care discussed with Dr. Pulido.
[2016-07-10] MEDS ORDERED: MAGNESIUM CITRATE 296 ML BOTTLE PO ONE (10:12)
[2016-07-10] MEDS ORDERED: BISACODYL 5 MG TABLET.DR PO STA (10:12)
[2016-07-10] MEDS: HYDROCORTISONE SUPPOSITORY 25 MG SUPP RECTAL SCH (10:17)
[2016-07-10 12:05] LABS: Glucose,Whole Blood 226 mg/dL (75-99)
--- NOTE | 2016-07-10 12:45 | PN ---
Mr. Pace is a 75-year-old male who presented with syncope following a bowel movement and large GI bleeding. He is feeling better this morning. He had an episode of bleeding yesterday that could be old blood. He denies any more dizziness. No palpitation. His breathing has been stable. He denies any nausea. He is scheduled to undergo colonoscopy tomorrow. On the monitor, he has been having single PVCs. He continues on Tenormin 25 mg daily, Welchol, lisinopril 20 mg daily and amlodipine 5 mg a day in addition to glipizide. PHYSICAL EXAMINATION: Blood pressure 125/70 with the heart rate in the 80s. LUNGS: Clear. HEART: Regular rate rhythm. S1, S2, no S3, with an extrasystole and a systolic murmur. ABDOMEN: Soft, nontender. EXTREMITIES: No edema. Lab data revealed a hemoglobin of 9.6. BUN and creatinine are 5 and 0.67. IMPRESSION: 1. Episode of gastrointestinal bleeding related to hemorrhoids. Could be diverticular disease. Scheduled to undergo colonoscopy tomorrow. 2. Ventricular ectopic activity, asymptomatic. 3. Hypertension. 4. Diabetes. 5. Hyperlipidemia. RECOMMENDATION: I will increase the dose of his beta vashti and follow his rhythm and depending on his progress, further recommendation will be made.
[2016-07-10] MEDS ORDERED: PEG 3350-NA SULF,BICARB,CL/KCL 4,000 ML BOTTLE PO ONE (15:00)
--- NOTE | 2016-07-10 16:09 | P.PN ---
Subjective Principal diagnosis: syncope and lower gastrointestinal bleeding patient is a 75-year-old male who presented to [facility] after having a bloody bowel movement and having an episode of syncope was falling to the floor on his bathroom he was evaluated in the emergency room and was admitted to medical floor he was evaluated by gastroenterology. Since yesterday hemoglobin has dropped from 10.3-7.7 patient denies having any further bleeding at this time Objective - Vital Signs Vital signs: Vital Signs Temp 98.2 F 07/10/16 15:00 Pulse 71 07/10/16 15:00 Resp 18 07/10/16 15:00 BP 158/72 07/10/16 15:00 Pulse Ox 95 07/10/16 15:00 Intake & Output 07/09/16 07/10/16 07/10/16 18:59 06:59 18:59 Intake Total 310 1150 Balance 310 1150 Intake: Intake, IV Titration 1150 Amount Sodium Chloride 0.9% 1, 750 000 ml @ 100 mls/hr IV . Q10H [facility] Rx#:[id number] cefTRIAXone 1,000 mg In 400 Sodium Chloride 0.9% 50 ml @ 100 mls/hr IVPB Q24HR [facility] Rx#:[id number] Blood Product 310 Rc As-3 Unit 310 [id number] Other: Voiding Method Urinal Toilet Toilet Urinal Urinal # Voids 2 1 # Bowel Movements 1 - Exam HEENT head normocephalic and atraumatic Neck is supple no JVD no goiter no lymphadenopathy Chest is clear to auscultation no wheezing Cardiac exam reveals regular heart sounds no murmurs Abdomen is soft nontender no organomegaly Extremity exam reveals no edema no cyanosis or clubbing - Labs CBC & Chem 7: 07/10/16 07:00 07/10/16 07:00 Labs: Abnormal Lab Results - Last 24 Hours (Table) 07/08/16 07/09/16 07/09/16 Range/Units 07:01 16:52 19:17 RBC 2.87 L (4.30-5.90) m/uL Hgb 8.9 L (13.0-17.5) gm/dL Hct 26.4 L (39.0-53.0) % Chloride (98-107) mmol/L BUN (9-20) mg/dL Glucose (74-99) mg/dL POC Glucose (mg/dL) 158 H (75-99) mg/dL Calcium (8.4-10.2) mg/dL Total Protein (6.3-8.2) g/dL Albumin (3.5-5.0) g/dL Crossmatch See Detail 07/09/16 07/10/16 07/10/16 Range/Units 19:53 00:55 07:00 RBC 2.69 L 3.12 L (4.30-5.90) m/uL Hgb 8.5 L 9.6 L (13.0-17.5) gm/dL Hct 25.0 L 29.2 L (39.0-53.0) % Chloride (98-107) mmol/L BUN (9-20) mg/dL Glucose (74-99) mg/dL POC Glucose (mg/dL) 227 H (75-99) mg/dL Calcium (8.4-10.2) mg/dL Total Protein (6.3-8.2) g/dL Albumin (3.5-5.0) g/dL Crossmatch 07/10/16 07/10/16 07/10/16 Range/Units 07:00 07:09 11:55 RBC (4.30-5.90) m/uL Hgb (13.0-17.5) gm/dL Hct (39.0-53.0) % Chloride 110 H (98-107) mmol/L BUN 5 L (9-20) mg/dL Glucose 139 H (74-99) mg/dL POC Glucose (mg/dL) 142 H 226 H (75-99) mg/dL Calcium 8.3 L (8.4-10.2) mg/dL Total Protein 5.8 L (6.3-8.2) g/dL Albumin 3.2 L (3.5-5.0) g/dL Crossmatch Assessment and Plan Plan: 1. Syncopal episode: Possibly related to acute blood loss from GI bleed. However will monitor. Cardiology has been consulted. patient was seen by Dr. Campoverde consult reviewed Check echo and carotid. Continue with telemetry monitoring. EKG shows sinus rhythm with PVCs and incomplete left bundle branch block. 2. Acute lower GI bleed with known history of hemorrhoids. Start patient on Anusol suppository. Hold aspirin. Hemoglobin 10.3 on admission. down to 7.7 today Will transfuse 1 unit of red blood cells, Continue to monitor CBC. Continue IV Protonix, plan is to proceed was colonoscopy tomorrow 3. Acute blood loss anemia: Hemoglobin 9.7 continue to monitor. Secondary to GI bleed 4. History of TIA: Aspirin placed on hold 5. Diabetes mellitus type 2: Resume glipizide. Hold metformin during hospitalization. Add sliding scale coverage. 6. Essential hypertension: Blood pressure stable continue with the lisinopril and Norvasc 7. Acute sinusitis: With paranasal sinus disease noted on CAT scan as well as hyperdense material within the sinuses. We'll place patient on Rocephin 1 g IV daily. Likely will discharge him home with Ceftin. And will have him follow up with Dr. Gutierrez, ENT specialist in the outpatient setting. Penicillin ALLERGY listed. However, patient reports never actually taking penicillin. 8. Leukocytosis: Possibly related to the sinusitis or reactive from the GI bleed and syncope. We'll repeat CBC in a.m. GI prophylaxis IV Protonix daily. DVT prophylaxis SCDs.
[2016-07-10 16:55] LABS: Glucose,Whole Blood 150 mg/dL (75-99)
[2016-07-10 17:40] LABS: Basophils % (A) 1 %; CH 30.4; CHCM 32.5; Eosinophils # (A) 0.1 k/uL (0-0.7); Eosinophils % (A) 2 %; HCT 29.5 % (39.0-53.0); HDW 3.25; HGB 9.9 gm/dL (13.0-17.5); Luc % (Auto) 3; Lymphocytes # (A) 1.3 k/uL (1.0-4.8); Lymphocytes % (A) 19 %; MCH 31.8 pg (25.0-35.0); MCHC 33.7 g/dL (31.0-37.0); MCV 94.4 fL (80.0-100.0); Mean Platelet Volume 8.4; Monocytes # (A) 0.4 k/uL (0-1.0); Monocytes % (A) 6 %; Neutrophils # (A) 4.7 k/uL (1.3-7.7); Neutrophils % (A) 69 %; RBC 3.12 m/uL (4.30-5.90); RDW 14.8 % (11.5-15.5); WBC 6.8 k/uL (3.8-10.6); WBC (Perox) 6.61
[2016-07-10 20:52] LABS: Glucose,Whole Blood 133 mg/dL (75-99)
[2016-07-11 00:51] LABS: Basophils % (A) 1 %; CH 30.9; CHCM 33.4; Eosinophils # (A) 0.3 k/uL (0-0.7); Eosinophils % (A) 4 %; HCT 27.4 % (39.0-53.0); HDW 3.22; Luc # (Auto) 0.14; Luc % (Auto) 2; Lymphocytes # (A) 1.6 k/uL (1.0-4.8); Lymphocytes % (A) 22 %; MCH 30.7 pg (25.0-35.0); Mean Platelet Volume 7.2; Monocytes # (A) 0.4 k/uL (0-1.0); Monocytes % (A) 6 %; Neutrophils # (A) 4.9 k/uL (1.3-7.7); Neutrophils % (A) 67 %; RBC 2.94 m/uL (4.30-5.90); RDW 15.4 % (11.5-15.5); WBC 7.3 k/uL (3.8-10.6); WBC (Perox) 7.24
[2016-07-11 07:59] LABS: Glucose,Whole Blood 132 mg/dL (75-99)
[2016-07-11] MEDS: SODIUM CHLORIDE 0.9% 1,000 ML IV SCH ×2 (08:14→18:05)
[2016-07-11] MEDS: glipiZIDE 5 MG TAB PO SCH ×2 (08:15→18:35)
[2016-07-11] MEDS: INSULIN LISPRO (humaLOG) 300 UNIT/3 ML VIAL SQ SCH ×4 (08:15→21:33)
[2016-07-11] MEDS: COLESEVELAM 625 MG TAB PO SCH ×2 (08:16→18:35)
[2016-07-11] MEDS: amLODIPine 5 MG TAB PO SCH (08:16)
[2016-07-11] MEDS: ATENOLOL 25 MG TAB PO SCH ×2 (08:16→21:34)
[2016-07-11] MEDS: HYDROCORTISONE SUPPOSITORY 25 MG SUPP RECTAL SCH (08:17)
[2016-07-11] MEDS: PANTOPRAZOLE 40 MG TABLET PO SCH (08:17)
[2016-07-11] MEDS: LISINOPRIL 20 MG TAB PO SCH (08:17)
[2016-07-11 08:37] LABS: Basophils % (A) 1 %; CH 30.6; CHCM 32.8; Eosinophils # (A) 0.3 k/uL (0-0.7); Eosinophils % (A) 4 %; HCT 27.9 % (39.0-53.0); HDW 3.23; HGB 9.3 gm/dL (13.0-17.5); Luc # (Auto) 0.17; Luc % (Auto) 2; Lymphocytes # (A) 1.2 k/uL (1.0-4.8); Lymphocytes % (A) 17 %; MCH 31.5 pg (25.0-35.0); MCHC 33.5 g/dL (31.0-37.0); Mean Platelet Volume 7.5; Monocytes # (A) 0.3 k/uL (0-1.0); Monocytes % (A) 4 %; Neutrophils % (A) 72 %; RBC 2.96 m/uL (4.30-5.90); RDW 15.7 % (11.5-15.5); WBC 6.9 k/uL (3.8-10.6); WBC (Perox) 7.33
[2016-07-11 08:48] LABS: ALT 37 U/L (21-72); AST 22 U/L (17-59); Alkaline Phosphatase 63 U/L (38-126); Anion Gap 12 mmol/L; Blood Urea Nitrogen 4 mg/dL (9-20); Calcium 8.2 mg/dL (8.4-10.2); Carbon Dioxide 23 mmol/L (22-30); Chloride 109 mmol/L (98-107); Glucose 125 mg/dL (74-99); Non-African American GFR(MDRD) >60 (>60 ml/min/1.73 sqM); Potassium 3.5 mmol/L (3.5-5.1); Sodium 144 mmol/L (137-145); Total Bilirubin 0.8 mg/dL (0.2-1.3); Total Protein 5.7 g/dL (6.3-8.2)
[2016-07-11] MEDS ORDERED: LIDOCAINE 1% INJ 10MG/ML (20 ML MDV) ONE (10:28)
[2016-07-11] MEDS ORDERED: PROPOFOL 10 MG/ML 20 ML VIAL IV ONE (10:28)
[2016-07-11] MEDS ORDERED: LACTATED RINGERS 1,000 ML IV ONE (10:28)
--- NOTE | 2016-07-11 10:37 | ECHOF ---
Referral Reason:syncope MEASUREMENTS -------- HEIGHT: 180.3 cm WEIGHT: 99.8 kg BP: 145/78 RVIDd: 3.0 cm (< 3.3) IVSd: 1.4 cm (0.6 - 1.1) LVIDd: 5.0 cm (3.9 - 5.3) LVPWd: 1.4 cm (0.6 - 1.1) IVSs: 1.9 cm LVIDs: 3.8 cm LVPWs: 1.9 cm LA Diam: 3.7 cm (2.7 - 3.8) LAESV Index (A-L): 29.93 ml/m Ao Diam: 3.5 cm (2.0 - 3.7) AV Cusp: 2.1 cm (1.5 - 2.6) MV EXCURSION: 11.453 mm (> 18.000) MV EF SLOPE: 42 mm/s (70 - 150) EPSS: 1.5 cm MV E Jordan: 0.86 m/s MV DecT: 297 ms MV A Jordan: 1.09 m/s MV E/A Ratio: 0.79 AR PHT: 792 ms RAP: 5.00 mmHg RVSP: 36.87 mmHg FINDINGS -------- Sinus rhythm with extra systolic beats. This was a technically adequate study. The left ventricular size is normal. There is moderate concentric left ventricular hypertrophy. There is mild global hypokinesis of LV . Overall left ventricular systolic function is mildly impaired with, an EF between 45 - 50 %. The right ventricle is normal in size. LA is midly dilated 29-33ml/m2. The right atrium is normal in size. 1.5mg of Definity was utilized for enhancement of images There is mild aortic valve sclerosis. There is mild aortic regurgitation. Mild mitral annular calcification present. No mitral regurgitation. Mild tricuspid regurgitation present. There is mild pulmonary hypertension. The right ventricular systolic pressure, as measured by Doppler, is 36.87mmHg. The pulmonic valve was not well visualized. The aortic root size is normal. There is no pericardial effusion. CONCLUSIONS -------- 1. Sinus rhythm with extra systolic beats. 2. Mild mitral annular calcification present. 3. Mild tricuspid regurgitation present. 4. There is mild pulmonary hypertension. 5. The right ventricular systolic pressure, as measured by Doppler, is 36.87mmHg. 6. The pulmonic valve was not well visualized. 7. The aortic root size is normal. 8. There is no pericardial effusion. 9. This was a technically adequate study. 10. There is moderate concentric left ventricular hypertrophy. 11. There is mild global hypokinesis of LV . 12. Overall left ventricular systolic function is mildly impaired with, an EF between 45 - 50 %. 13. LA is midly dilated 29-33ml/m2. 14. 1.5mg of Definity was utilized for enhancement of images 15. There is mild aortic valve sclerosis. 16. There is mild aortic regurgitation. MEDICAL RECORDS ASSISTANT: Stephanie Case RDCS
--- NOTE | 2016-07-11 10:54 | P.PCN ---
Date of Procedure: 07/11/16 Procedure(s) Performed: BRIEF HISTORY: Patient is a 75-year-old pleasant white male, scheduled for a colonoscopy as a part of evaluation of acute lower GI bleed. He presented to the hospital 3 days ago with multiple episodes of bright red blood per rectum and drop his hemoglobin from 12-7.5 requiring 2 units of blood transfusion. His last hemoglobin is 9.5 g/dL. His and scheduled for colonoscopy to evaluate further. PROCEDURE PERFORMED: Colonoscopy with snare polypectomy. PREOPERATIVE DIAGNOSIS: Acute lower GI bleed. IV sedation per Anesthesia. PROCEDURE: After informed consent was obtained, the patient, was brought into the endoscopy unit. IV conscious sedation was administered by Anesthesia under continuous monitoring. Initially the Olympus CF-160 flexible video colonoscope was then inserted in the rectum, gradually advanced into the cecum without any difficulty. Careful examination was performed as the scope was gradually being withdrawn. Ileocecal valve and the appendiceal orifice were visualized and appeared normal. Prep was excellent. There was a dilated red blood noted throughout the entire colon but no active bleeding seen. Thorough irrigation was performed as the scope was gradually being withdrawn. Mucosa of the cecum, ascending colon, transverse colon, descending colon, sigmoid colon, and rectum appeared normal. There were diffuse diverticulosis noted throughout the entire colon. In the rectum just proximal to the dentate line there was a 1 cm polyp that was removed by snare polypectomy. Retroflexion was performed in the rectum and grade 2 internal hemorrhoids were seen. The patient tolerated the procedure well. IMPRESSION: Diffuse diverticulosis noted throughout the entire colon which appears to be the possible source of bleeding but no active bleeding noted 1 cm distal rectal polyp status post polypectomy Small internal hemorrhoids. RECOMMENDATIONS: Findings of this examination were discussed with the patient as well as his family. Most likely patient had a diverticular bleed which spontaneously resolved. He was advised to follow with the biopsy results. In the meantime his diet will be advanced as tolerated and repeat CBC tomorrow morning.
[2016-07-11] MEDS: LACTATED RINGERS 1,000 ML IV SCH (11:15)
[2016-07-11 12:19] LABS: Glucose,Whole Blood 146 mg/dL (75-99)
--- NOTE | 2016-07-11 13:27 | PN ---
Mr. Pace is a 75-year-old male who presented with severe GI bleeding and as well as evidence of syncope related to most likely vasovagal and orthostatic hypotension. He is feeling well today. He underwent endoscopy and was found to have diffuse diverticulosis with no active bleeding with small internal hemorrhoids. He is doing well. He is denying any chest pain. His breathing has been stable. He denies any dizziness or palpitation, although on the monitor, he has frequent ventricular ectopic activity that is asymptomatic. An echocardiogram has shown an ejection fraction of 45% to 50% with global hypokinesis of unknown etiology. He continues to be on atenolol 25 mg twice a day, WelChol, lisinopril 20 mg daily and glipizide. PHYSICAL EXAMINATION: Blood pressure 140/60 with a heart rate in the 60s and 70s. LUNGS: Clear. HEART: Regular rate and rhythm. S1, S2 with extrasystole. No rub. ABDOMEN: Soft, nontender. EXTREMITIES: No edema. Lab data revealed BUN and creatinine 4 and 0.67, hemoglobin of 9.3. IMPRESSION: 1. Gastrointestinal bleeding, stabilizing with diverticulosis. 2. Ventricular ectopic activity. 3. Cardiomyopathy of unclear etiology, could be hypertensive cardiomyopathy. 4. History of hypertension. 5. History of diabetes. 6. History of hyperlipidemia. RECOMMENDATION: From the cardiac standpoint, I will continue on the present dose of beta vashti. Patient will be followed as an outpatient to further evaluate his arrhythmia and guide his treatment. I have discussed those findings with the patient.
[2016-07-11 16:51] LABS: Glucose,Whole Blood 189 mg/dL (75-99)
[2016-07-11 17:31] VITALS: RESP 18
--- NOTE | 2016-07-11 17:55 | P.PN ---
Subjective Principal diagnosis: syncope and lower gastrointestinal bleeding patient is a 75-year-old male who presented to [facility] after having a bloody bowel movement and having an episode of syncope was falling to the floor on his bathroom he was evaluated in the emergency room and was admitted to medical floor he was evaluated by gastroenterology. Since yesterday hemoglobin has dropped from 10.3-7.7 patient denies having any further bleeding at this time Objective - Vital Signs Vital signs: Vital Signs Temp 98.1 F 07/11/16 15:40 Pulse 66 07/11/16 15:40 Resp 18 07/11/16 17:20 BP 142/68 07/11/16 15:40 Pulse Ox 94 L 07/11/16 15:40 Intake & Output 07/10/16 07/11/16 07/11/16 18:59 06:59 18:59 Intake Total 800 1150 1350 Balance 800 1150 1350 Weight 100 kg Intake: IV 800 1150 1350 Sodium Chloride 0.9% 1, 800 1150 800 000 ml @ 100 mls/hr IV . Q10H [facility] Rx#:[id number] Other: Voiding Method Toilet Toilet Toilet Urinal Urinal # Voids 1 2 - Exam HEENT head normocephalic and atraumatic Neck is supple no JVD no goiter no lymphadenopathy Chest is clear to auscultation no wheezing Cardiac exam reveals regular heart sounds no murmurs Abdomen is soft nontender no organomegaly Extremity exam reveals no edema no cyanosis or clubbing - Labs CBC & Chem 7: 07/11/16 07:54 07/11/16 07:54 Labs: Abnormal Lab Results - Last 24 Hours (Table) 07/10/16 07/11/16 07/11/16 Range/Units 20:44 00:18 07:35 RBC 2.94 L (4.30-5.90) m/uL Hgb 9.0 L (13.0-17.5) gm/dL Hct 27.4 L (39.0-53.0) % RDW (11.5-15.5) % Chloride (98-107) mmol/L BUN (9-20) mg/dL Glucose (74-99) mg/dL POC Glucose (mg/dL) 133 H 132 H (75-99) mg/dL Calcium (8.4-10.2) mg/dL Total Protein (6.3-8.2) g/dL Albumin (3.5-5.0) g/dL 07/11/16 07/11/16 07/11/16 Range/Units 07:54 07:54 12:14 RBC 2.96 L (4.30-5.90) m/uL Hgb 9.3 L (13.0-17.5) gm/dL Hct 27.9 L (39.0-53.0) % RDW 15.7 H (11.5-15.5) % Chloride 109 H (98-107) mmol/L BUN 4 L (9-20) mg/dL Glucose 125 H (74-99) mg/dL POC Glucose (mg/dL) 146 H (75-99) mg/dL Calcium 8.2 L (8.4-10.2) mg/dL Total Protein 5.7 L (6.3-8.2) g/dL Albumin 3.2 L (3.5-5.0) g/dL 07/11/16 Range/Units 16:48 RBC (4.30-5.90) m/uL Hgb (13.0-17.5) gm/dL Hct (39.0-53.0) % RDW (11.5-15.5) % Chloride (98-107) mmol/L BUN (9-20) mg/dL Glucose (74-99) mg/dL POC Glucose (mg/dL) 189 H (75-99) mg/dL Calcium (8.4-10.2) mg/dL Total Protein (6.3-8.2) g/dL Albumin (3.5-5.0) g/dL Assessment and Plan Plan: 1. Syncopal episode: Possibly related to acute blood loss from GI bleed. However will monitor. Cardiology has been consulted. patient was seen by Dr. Campoverde consult reviewed Check echo and carotid. Continue with telemetry monitoring. EKG shows sinus rhythm with PVCs and incomplete left bundle branch block. 2. Acute lower GI bleed with known history of hemorrhoids. Start patient on Anusol suppository. Hold aspirin. Hemoglobin 10.3 on admission. down to 7.7 today Will transfuse 1 unit of red blood cells, Continue to monitor CBC. Continue IV Protonix, patient had a colonoscopy today which revealed evidence of extensive diverticulosis and a distal rectal polyp which was removed currently no evidence of bleeding will recheck CBC in a.m. if stable patient can be discharged home 3. Acute blood loss anemia: Hemoglobin 9.3 continue to monitor. Secondary to GI bleed 4. History of TIA: Aspirin placed on hold 5. Diabetes mellitus type 2: Resume glipizide. Hold metformin during hospitalization. Add sliding scale coverage. 6. Essential hypertension: Blood pressure stable continue with the lisinopril and Norvasc 7. Acute sinusitis: With paranasal sinus disease noted on CAT scan as well as hyperdense material within the sinuses. We'll place patient on Rocephin 1 g IV daily. Likely will discharge him home with Ceftin. And will have him follow up with Dr. Gutierrez, ENT specialist in the outpatient setting. Penicillin ALLERGY listed. However, patient reports never actually taking penicillin. 8. Leukocytosis: Possibly related to the sinusitis or reactive from the GI bleed and syncope. We'll repeat CBC in a.m. GI prophylaxis IV Protonix daily. DVT prophylaxis SCDs.
[2016-07-11 21:06] LABS: Glucose,Whole Blood 243 mg/dL (75-99)
[2016-07-12] MEDS: SODIUM CHLORIDE 0.9% 1,000 ML IV SCH ×2 (05:16→12:01)
[2016-07-12 07:26] LABS: Glucose,Whole Blood 130 mg/dL (75-99)
[2016-07-12 07:41] VITALS: BP 143/84; PULSE 78; TEMP 97.7
[2016-07-12] MEDS: LACTATED RINGERS 1,000 ML IV SCH (07:55)
--- NOTE | 2016-07-12 07:56 | P.PN ---
Subjective Principal diagnosis: Rectal bleeding 75-year-old male admitted with rectal bleeding status post colonoscopy yesterday with findings of novoa diverticulosis felt to be the source of his bleeding with rectal polypectomy. No recurrence of bleeding since procedure. Denies abdominal pain. Tolerating full liquids. CBC pending. Objective - Vital Signs Vital signs: Vital Signs Temp 97.7 F 07/12/16 07:00 Pulse 78 07/12/16 07:00 Resp 18 07/12/16 07:00 BP 143/84 07/12/16 07:00 Pulse Ox 96 07/12/16 07:00 Intake & Output 07/11/16 07/12/16 07/12/16 18:59 06:59 18:59 Intake Total 1350 1150 Output Total 200 Balance 1150 1150 Intake: IV 1350 1150 Sodium Chloride 0.9% 1, 800 1150 000 ml @ 100 mls/hr IV . Q10H [facility] Rx#:[id number] Output: Urine 200 Other: Voiding Method Toilet Toilet # Voids 1 2 - Exam General appearance: The patient is alert, oriented, in no acute distress. HET: Head is normocephalic and atraumatic. Pupils are equal and reactive. Oropharynx is clear without lesions. Neck: Supple without lymphadenopathy. Trachea midline. Heart: S1 S2. Regular rate and rhythm. Lungs: No crackles or wheezes are heard. Abdomen: Soft, nontender, nondistended with bowel sounds. No peritoneal signs. No palpable organomegaly or masses. Extremities: Normal skin color and turgor. No cyanosis, rash, ulceration, clubbing, or edema. Radial and pedal pulses are 2/4 bilaterally. Neurological: No focal deficits. Strength and sensation are grossly intact. - Labs CBC & Chem 7: 07/11/16 07:54 07/11/16 07:54 Labs: Abnormal Lab Results - Last 24 Hours (Table) 07/11/16 07/11/16 07/11/16 Range/Units 07:35 07:54 07:54 RBC 2.96 L (4.30-5.90) m/uL Hgb 9.3 L (13.0-17.5) gm/dL Hct 27.9 L (39.0-53.0) % RDW 15.7 H (11.5-15.5) % Chloride 109 H (98-107) mmol/L BUN 4 L (9-20) mg/dL Glucose 125 H (74-99) mg/dL POC Glucose (mg/dL) 132 H (75-99) mg/dL Calcium 8.2 L (8.4-10.2) mg/dL Total Protein 5.7 L (6.3-8.2) g/dL Albumin 3.2 L (3.5-5.0) g/dL 07/11/16 07/11/16 07/11/16 Range/Units 12:14 16:48 21:00 RBC (4.30-5.90) m/uL Hgb (13.0-17.5) gm/dL Hct (39.0-53.0) % RDW (11.5-15.5) % Chloride (98-107) mmol/L BUN (9-20) mg/dL Glucose (74-99) mg/dL POC Glucose (mg/dL) 146 H 189 H 243 H (75-99) mg/dL Calcium (8.4-10.2) mg/dL Total Protein (6.3-8.2) g/dL Albumin (3.5-5.0) g/dL 07/12/16 Range/Units 07:21 RBC (4.30-5.90) m/uL Hgb (13.0-17.5) gm/dL Hct (39.0-53.0) % RDW (11.5-15.5) % Chloride (98-107) mmol/L BUN (9-20) mg/dL Glucose (74-99) mg/dL POC Glucose (mg/dL) 130 H (75-99) mg/dL Calcium (8.4-10.2) mg/dL Total Protein (6.3-8.2) g/dL Albumin (3.5-5.0) g/dL Assessment and Plan (1) Acute lower GI bleeding Narrative/Plan: Diverticular in nature. Novoa colonic diverticulosis. Status: Acute (2) Acute blood loss anemia Status: Acute (3) History of hemorrhoids Status: Acute Plan: 1. Agreeable for discharge of CBC is stable today. 2. Low residue diet. 3. Return to office in 2 weeks for reevaluation and discussion of biopsy results. Assessment and plan of care discussed with Dr. Khalil.
[2016-07-12] MEDS: COLESEVELAM 625 MG TAB PO SCH (07:57)
[2016-07-12] MEDS: HYDROCORTISONE SUPPOSITORY 25 MG SUPP RECTAL SCH ×2 (07:57→08:03)
[2016-07-12] MEDS: amLODIPine 5 MG TAB PO SCH (07:57)
[2016-07-12] MEDS: PANTOPRAZOLE 40 MG TABLET PO SCH (07:57)
[2016-07-12] MEDS: LISINOPRIL 20 MG TAB PO SCH (07:57)
[2016-07-12] MEDS: glipiZIDE 5 MG TAB PO SCH (07:57)
[2016-07-12] MEDS: INSULIN LISPRO (humaLOG) 300 UNIT/3 ML VIAL SQ SCH ×2 (07:58→12:04)
[2016-07-12] MEDS: ATENOLOL 25 MG TAB PO SCH (07:58)
[2016-07-12 08:16] LABS: Anisocytosis Slight; Basophils % (A) 1 %; CHCM 33.2; Eosinophils # (A) 0.4 k/uL (0-0.7); Eosinophils % (A) 6 %; HCT 29.8 % (39.0-53.0); HDW 3.31; HGB 9.7 gm/dL (13.0-17.5); Luc % (Auto) 1; Lymphocytes # (A) 1.5 k/uL (1.0-4.8); Lymphocytes % (A) 21 %; MCH 30.8 pg (25.0-35.0); MCHC 32.6 g/dL (31.0-37.0); MCV 94.5 fL (80.0-100.0); Mean Platelet Volume 8.6; Monocytes # (A) 0.4 k/uL (0-1.0); Monocytes % (A) 6 %; Neutrophils # (A) 4.7 k/uL (1.3-7.7); Neutrophils % (A) 66 %; RBC 3.15 m/uL (4.30-5.90); RDW 16.9 % (11.5-15.5); WBC 7.2 k/uL (3.8-10.6); WBC (Perox) 7.55
[2016-07-12 08:52] LABS: ALT 40 U/L (21-72); AST 20 U/L (17-59); Alkaline Phosphatase 60 U/L (38-126); Anion Gap 10 mmol/L; Blood Urea Nitrogen 4 mg/dL (9-20); Calcium 8.6 mg/dL (8.4-10.2); Carbon Dioxide 23 mmol/L (22-30); Chloride 111 mmol/L (98-107); Glucose 137 mg/dL (74-99); Non-African American GFR(MDRD) >60 (>60 ml/min/1.73 sqM); Potassium 3.9 mmol/L (3.5-5.1); Sodium 144 mmol/L (137-145); Total Bilirubin 0.7 mg/dL (0.2-1.3); Total Protein 5.8 g/dL (6.3-8.2)
[2016-07-12 11:53] LABS: Glucose,Whole Blood 199 mg/dL (75-99)
--- NOTE | 2016-07-12 13:15 | P.DS ---
Providers Date of admission: 07/08/16 01:38 Expected date of discharge: 07/12/16 Attending physician: Davy Eldridge Consults: 07/08/16 10:15 Consult Physician Routine Consulting Provider: Allie Campoverde Consult Reason/Comments: syncope Do you want consulting provider notified?: Yes Primary care physician: Davy Chente [facility] Course: diagnosis on discharge #1 lower gastrointestinal bleeding likely related to diverticulosis #2 anemia, Acute blood loss #3 acute sinusitis #4 syncopal episode on admission #5 cardiomyopathy was decreased ejection fraction to 45-50% with global hypokinesis unknown etiology #6 underlying history of hypertension #7 underlying history of diabetes mellitus Hospital course patient is a 75-year-old male who presented to [facility] emergency room was a chief complaint of lower gastrointestinal bleeding patient states that he had a bloody bowel movement at home shortly thereafter he had a syncopal episode when he fell to the floor in his home his called EMS patient regained consciousness spontaneously within less than 1 minute he was brought into the emergency room and was admitted to medical floor he was seen by gastroenterology and underwent a colonoscopy which revealed evidence of rectal polyp which was removed and evidence of extensive diverticulosis which may be the cause of his bleeding. Bleeding stopped spontaneously CBC was stable for 2 days and patient was discharged home. During this admission patient was evaluated by cardiology due to episode of syncope he underwent and echocardiograms that revealed evidence of cardiomyopathy with decreased ejection fraction to 45-50% cause is unclear most likely related to remote history of untreated hypertension patient was evaluated by Dr. Campoverde he would follow up with him in the next couple of weeks On admission patient had a computed tomography scan of the brain due to episode of syncope and he had evidence of extensive sinusitis he was given Rocephin 1 g IV every 24 hours during this admission. At the time of discharge he was given a prescription for Ceftin 500 mg twice daily for 10 days will reevaluate as outpatient and recheck computed tomography scan of the sinuses as outpatient. Follow-up with me in the office within 1 week Patient Condition at Discharge: Serious Plan - Discharge Summary New Discharge Prescriptions: Cefuroxime Axetil [Ceftin] 500 mg PO BID #20 tab Peg 3350-Na Sulf,Bicarb,Cl/KCl [Golytely Lavage] 4,000 ml PO DIRECTED #1 bottle Discharge Medication List Aspirin EC [Ecotrin Low Dose] 81 mg PO DAILY 07/08/16 [History] Atenolol 25 mg PO DAILY 07/08/16 [History] Colesevelam [Welchol] 625 mg PO BID 07/08/16 [History] Ergocalciferol [Vitamin D2 (DRISDOL)] 50,000 unit PO TU 07/08/16 [History] Ramipril [Altace] 5 mg PO DAILY 07/08/16 [History] amLODIPine BESYLATE/BENAZEPRIL [Amlodipine-Benazepril 5-10 mg] 1 cap PO DAILY [History] glipiZIDE [Glipizide Xl] 5 mg PO AC-BID 07/08/16 [History] metFORMIN HCL [Glucophage] 1,000 mg PO AC-BRKFST 07/08/16 [History] metFORMIN HCL [Glucophage] 500 mg PO AC-SUPPER 07/08/16 [History] Peg 3350-Na Sulf,Bicarb,Cl/KCl [Golytely Lavage] 4,000 ml PO DIRECTED #1 bottle 07/09/16 [Rx] Cefuroxime Axetil [Ceftin] 500 mg PO BID #20 tab 07/12/16 [Rx] Follow up Appointment(s)/Referral(s): Allie Campoverde MD [STAFF PHYSICIAN] - 3 Weeks Lou Pulido MD [STAFF PHYSICIAN] - 2 Weeks Davy Eldridge MD [Primary Care Provider] - 1-2 days Activity/Diet/Wound Care/Special Instructions: Soft diet until then start clear liquids for breakfast. Nothing by mouth after midnight for colonoscopy on 07/12/[email or web address]. Presurgical screening to notify patient with additional instructions and time. No aspirin or NSAIDs prior to colonoscopy.
== END 2016-07-12 14:35 | disposition home or self-care (01) | DRG 378 ==
LOC: EC 01:36 → 4MS4W 01:38 → 5MS5E 06:18
PROVIDERS: ADMIT Internal Medicine; ATTEND Internal Medicine
PROC: 30233N1 Transfusion of Nonautologous Red Blood Cells into Peripheral Vein, Percutaneous Approach (ICD-10-PCS; 2016-07-09)
PROC: 0DBP8ZX Excision of Rectum, Via Natural or Artificial Opening Endoscopic, Diagnostic (ICD-10-PCS; principal; 2016-07-11 12:05)
DX: K57.31 Diverticulosis of large intestine without perforation or abscess with bleeding (principal); D62 Acute posthemorrhagic anemia; I48.92 Unspecified atrial flutter; I43 Cardiomyopathy in diseases classified elsewhere; I11.9 Hypertensive heart disease without heart failure; E11.9 Type 2 diabetes mellitus without complications; J01.90 Acute sinusitis, unspecified; E78.5 Hyperlipidemia, unspecified; I44.7 Left bundle-branch block, unspecified; K64.1 Second degree hemorrhoids; K62.1 Rectal polyp; I95.1 Orthostatic hypotension; M48.00 Spinal stenosis, site unspecified; Z88.0 Allergy status to penicillin; Z86.73 Personal history of transient ischemic attack (TIA), and cerebral infarction without residual deficits; Z85.820 Personal history of malignant melanoma of skin; Z90.49 Acquired absence of other specified parts of digestive tract; Z79.84 Long term (current) use of oral hypoglycemic drugs; Z79.82 Long term (current) use of aspirin; Z79.899 Other long term (current) drug therapy; W18.30XA Fall on same level, unspecified, initial encounter
CPT/HCPCS: 36415; 45385; 70450; 72125; 80053; 82272; 82550; 82553; 83036; 83690; 83735; 84484; 85025; 85610; 85730; 86850; 86900; 86901; 86920; 88305; 93005; 93306; 93880; 96361; 96374; 96375; 99285

== ENCOUNTER → 2016-09-18 | Outpatient (CLI) | payer MEDICARE ==
[2016-09-18 10:45] LABS: CH 27.7; CHCM 30.4; HCT 46.2 % (39.0-53.0); HDW 2.87; HGB 14.6 gm/dL (13.0-17.5); Hypochromasia Moderate; MCH 28.8 pg (25.0-35.0); MCHC 31.5 g/dL (31.0-37.0); MCV 91.3 fL (80.0-100.0); RBC 5.06 m/uL (4.30-5.90); RDW 13.7 % (11.5-15.5)
[2016-09-18 11:06] LABS: Anion Gap 11 mmol/L; Blood Urea Nitrogen 15 mg/dL (9-20); Carbon Dioxide 26 mmol/L (22-30); Chloride 105 mmol/L (98-107); Non-African American GFR(MDRD) >60 (>60 ml/min/1.73 sqM); Potassium 4.6 mmol/L (3.5-5.1); Sodium 142 mmol/L (137-145)
== END | disposition home or self-care (01) ==
LOC: LABPAT 09:28
PROVIDERS: ATTEND Internal Medicine Interventional Cardiology
DX: Z01.812 Encounter for preprocedural laboratory examination (principal); I42.9 Cardiomyopathy, unspecified
CPT/HCPCS: 80051; 82565; 84520; 85027

== ENCOUNTER 2016-10-03 06:22 | Day surgery (SDC) | payer MEDICARE ==
[~2016-10-03 06:22] MED LIST: ALPRAZolam 0.25 MG TAB PO PRN; ALPRAZolam 0.5 MG TAB PO PRN; ASPIRIN 325 MG TAB PO STA; ATORVASTATIN 80 MG TAB PO STA; NITROGLYCERIN SL TABS 0.4 MG TAB SUBLINGUAL PRN; SODIUM CHLORIDE 0.9% 1,000 ML in EMPTY BAG 1 BAG IV ONE
[2016-10-03 07:12] LABS: Glucose,Whole Blood 197 mg/dL (75-99)
[2016-10-03] MEDS ORDERED: LIDOCAINE 2% INJ 20 MG/ML (20 ML MDV) ONE (07:20)
[2016-10-03] MEDS ORDERED: fentaNYL (PF) 50 MCG/ML 2 ML AMP ONE (07:21)
[2016-10-03] MEDS ORDERED: VERAPAMIL 2.5 MG/ML 2 ML AMP ONE (07:22)
[2016-10-03] MEDS ORDERED: fentaNYL (PF) 50 MCG/ML 2 ML AMP IV ONE (08:02)
[2016-10-03] MEDS ORDERED: LIDOCAINE 2% INJ 20 MG/ML SQ ONE (08:07)
[2016-10-03] MEDS ORDERED: VERAPAMIL SYRINGE (5 MG/10 ML) INTRAARTER ONE (08:08)
[2016-10-03] MEDS ORDERED: HEPARIN SODIUM 1,000 UN/ML (10ML VL) ONE (08:09)
[2016-10-03] MEDS ORDERED: HEPARIN SODIUM 1,000 UN/ML (10ML VL) IV ONE (08:10)
[2016-10-03] MEDS ORDERED: IOHEXOL 350 MG/ML 125ML BOTTLE INJ ONE (08:17)
[2016-10-03] MEDS ORDERED: RX INFO: IV CONTRAST WAS GIVEN 1 EACH MISC MISCELLANE PRN (08:38)
[2016-10-03] MEDS ORDERED: SODIUM CHLORIDE 0.9% 1,000 ML IV SCH (08:45)
[2016-10-03 10:25] VITALS: BP 168/86; PULSE 73; RESP 18
[2016-10-03 11:49] LABS: Appearance,Urine Clear (Clear); Bilirubin,Urine Negative (Negative); Glucose,Urine (UA) 2+ (Negative); Leukocyte Esterase,Urine Negative (Negative); Nitrite,Urine Negative (Negative); PH, Urine 7.5 (5.0-8.0); Protein,Urine Negative (Negative); Specific Gravity,Urine 1.017 (1.001-1.035); UA Billing (MACRO vs. MICRO) CHEM; Urobilinogen,Urine <2.0 mg/dL (<2.0)
[2016-10-03 12:10] LABS: ALT 51 U/L (21-72); AST 37 U/L (17-59); Alkaline Phosphatase 72 U/L (38-126); Anion Gap 11 mmol/L; Blood Urea Nitrogen 10 mg/dL (9-20); Calcium 8.9 mg/dL (8.4-10.2); Carbon Dioxide 24 mmol/L (22-30); Chloride 107 mmol/L (98-107); Cholesterol 177 mg/dL (<200); Glucose 178 mg/dL (74-99); HDL Cholesterol 42 mg/dL (40-60); Magnesium 1.9 mg/dL (1.6-2.3); Non-African American GFR(MDRD) >60 (>60 ml/min/1.73 sqM); Sodium 142 mmol/L (137-145); Total Bilirubin 0.6 mg/dL (0.2-1.3); Total Protein 6.8 g/dL (6.3-8.2); Triglycerides 92 mg/dL (<150)
[2016-10-03 12:13] LABS: Partial Thromboplastin Time 25.3 sec (22.0-30.0); Prothrombin Time 10.5 sec (9.0-12.0)
--- NOTE | 2016-10-03 12:26 | ECHOF ---
Referral Reason:preop cabg MEASUREMENTS -------- HEIGHT: 181.6 cm WEIGHT: 99.8 kg BP: 168/86 RVIDd: 3.1 cm (< 3.3) IVSd: 1.2 cm (0.6 - 1.1) LVIDd: 5.6 cm (3.9 - 5.3) LVPWd: 1.2 cm (0.6 - 1.1) IVSs: 1.8 cm LVIDs: 3.9 cm LVPWs: 1.7 cm LA Diam: 4.0 cm (2.7 - 3.8) LAESV Index (A-L): 30.28 ml/m Ao Diam: 3.8 cm (2.0 - 3.7) AV Cusp: 2.2 cm (1.5 - 2.6) MV EXCURSION: 15.987 mm (> 18.000) MV EF SLOPE: 50 mm/s (70 - 150) EPSS: 1.8 cm MV E Jordan: 0.75 m/s MV DecT: 287 ms MV A Jordan: 0.75 m/s MV E/A Ratio: 0.99 RAP: 5.00 mmHg RVSP: 44.77 mmHg FINDINGS -------- Sinus rhythm with extra systolic beats. This was a technically adequate study. The left ventricular size is normal. There is borderline concentric left ventricular hypertrophy. Overall left ventricular systolic function is mild-moderately impaired with, an EF between 40 - 45 %. The right ventricle is normal in size. LA is midly dilated 29-33ml/m2. The right atrium is normal in size. 1.5mg of Definity was utilized for enhancement of images There is mild aortic valve sclerosis. There is mild aortic regurgitation. Mild mitral annular calcification present. There is trace to mild mitral regurgitation. Mild tricuspid regurgitation present. There is mild pulmonary hypertension. The right ventricular systolic pressure, as measured by Doppler, is 44.77mmHg. Trace/mild (physiologic) pulmonic regurgitation. The aortic root is dilated measuring 3.8cm. IVC Not well visulized. The pericardium is normal. CONCLUSIONS -------- 1. Sinus rhythm with extra systolic beats. 2. Mild mitral annular calcification present. 3. There is trace to mild mitral regurgitation. 4. Mild tricuspid regurgitation present. 5. There is mild pulmonary hypertension. 6. The right ventricular systolic pressure, as measured by Doppler, is 44.77mmHg. 7. Trace/mild (physiologic) pulmonic regurgitation. 8. The aortic root is dilated measuring 3.8cm. 9. The pericardium is normal. 10. This was a technically adequate study. 11. The left ventricular size is normal. 12. There is borderline concentric left ventricular hypertrophy. 13. The right ventricle is normal in size. 14. LA is midly dilated 29-33ml/m2. 15. 1.5mg of Definity was utilized for enhancement of images 16. There is mild aortic valve sclerosis. 17. There is mild aortic regurgitation. [employer]SEMBLY LINE DRIVER: Stephanie Case RDCS
[2016-10-03 12:39] LABS: Basophils % (A) 1 %; CH 28.4; CHCM 30.8; Eosinophils # (A) 0.1 k/uL (0-0.7); Eosinophils % (A) 1 %; HCT 46.8 % (39.0-53.0); HDW 2.57; HGB 14.4 gm/dL (13.0-17.5); Hypochromasia Slight; Luc % (Auto) 1; Lymphocytes # (A) 1.2 k/uL (1.0-4.8); Lymphocytes % (A) 17 %; MCH 28.4 pg (25.0-35.0); MCHC 30.8 g/dL (31.0-37.0); MCV 92.2 fL (80.0-100.0); Mean Platelet Volume 8.1; Monocytes # (A) 0.2 k/uL (0-1.0); Monocytes % (A) 3 %; Neutrophils # (A) 5.5 k/uL (1.3-7.7); Neutrophils % (A) 77 %; RBC 5.08 m/uL (4.30-5.90); RDW 14.5 % (11.5-15.5); WBC 7.1 k/uL (3.8-10.6); WBC (Perox) 6.88
--- NOTE | 2016-10-03 12:44 | XR ---
EXAMINATION TYPE: XR chest 2V DATE OF EXAM: 10/03/2016 COMPARISON: NONE TECHNIQUE: PA and lateral views submitted. HISTORY: PreOp Cardiac Surgery FINDINGS: The lungs are clear and there is no pneumothorax, pleural effusion, or focal pneumonia. The heart i s prominent. Surgical clips in the right upper quadrant of the abdomen. Atherosclerotic change aorta. No overt failure. Hypertrophic and mild degenerative change of the spine. 5 mm nodular density right apex. IMPRESSION: 1. No acute process. 5 mm nodular density right apex could be correlated with chest.
[2016-10-03 13:15] LABS: Hemoglobin A1C 7.1 % (4.2-6.1)
[2016-10-03 13:23] LABS: Hepatitis B Surface Ag Index 0.05
[2016-10-03 13:29] LABS: Hepatitis B Core IgM Index 0.02
[2016-10-03 13:41] LABS: Hepatitis C Virus IgG Ab Negative (Negative); Hepatitis C Virus IgG Index 0.02
[2016-10-03 15:05] LABS: Ketones,Urine 2+ (Negative)
--- NOTE | 2016-10-03 15:43 | P.GSCN ---
History of Present Illness Consult date: 10/03/16 Reason for Consult: Multivessel coronary artery disease, recommendations for surgical revascularization. Requesting physician: Allie Campoverde History of present illness: This 76-year-old gentleman with a history of diabetes, hyperlipidemia, hypertension, prior TIA, atrial flutter as a young man, and family history of premature coronary artery disease was admitted in June, for GI bleed with syncopal episode. Part of his workup included an echocardiogram which demonstrated an ejection fraction of 45-50%, mildly impaired left ventricular systolic function with mild global hypokinesia of the left ventricle and moderate concentric left ventricular hypertrophy. His cardiomyopathy was from an unknown origin, possibly from hypertension per cardiology. He also had carotid Dopplers done demonstrating 50-69% stenosis of bilateral internal carotid arteries. Once discharged he followed up in the office with Dr. Campoverde and had a stress test which demonstrated an abnormal myocardial perfusion with evidence of global hypokinesis and no clear evidence of a defect that could be suggestive of nonischemic cardiomyopathy as well as frequent PVCs with couplets and triplets. Due to the results of the stress test a heart catheterization was recommended and was completed this morning. Heart catheterization demonstrated left main stenosis 50-60%, right coronary artery stenosis 30%, circumflex stenosis 40%, proximal LAD stenosis 80%, mid LAD stenosis 30%. Dr. Gonzales from cardiothoracic surgery was consulted regarding recommendations for surgical revascularization. Review of Systems 14 point review systems was completed and was negative except as noted. - Cardiovascular Denies chest pain, Denies claudication, Denies decreased exercise tolerance, Denies dyspnea on exertion, Denies edema, Denies leg edema, Denies lightheadedness, Denies paroxysmal nocturnal dyspnea, Denies shortness of breath Past Medical History Past Medical History: Atrial Flutter, Cancer, CVA/TIA, Diabetes Mellitus, Hypertension Additional Past Medical History / Comment(s): June: IP ADM FOR GI BLEED. Possible TIA, NIDDM type II, lower GI bleed yrs ago, divertiulitis, colon polypectomy, melanoma removals head and nose, hemorroids History of Any Multi-Drug Resistant Organisms: None Reported Past Surgical History: Cholecystectomy Additional Past Surgical History / Comment(s): colonoscopies/benign polypectomies, 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 Past Anesthesia/Blood Transfusion Reactions: No Reported Reaction Past Psychological History: No Psychological Hx Reported Additional Psychological History / Comment(s): Pt resides with his spouse of 55 yrs. He used a walker a couple weeks ago for a brief time. He drives. Smoking Status: Never smoker Past Alcohol Use History: Rare Past Drug Use History: None Reported - Past Family History Father Additional Family Medical History / Comment(s): Father at the age of 33 yrs from encephalitis. Mother Family Medical History: Myocardial Infarction (CA) Additional Family Medical History / Comment(s): Mother had a CA at the age of 60yrs. She at the age of 90yrs. Medications and Allergies Home Medications Medication Instructions Recorded Confirmed Type Aspirin EC [Ecotrin Low Dose] 81 mg PO DAILY 07/08/16 10/03/16 History Atenolol 25 mg PO DAILY 07/08/16 10/03/16 History Colesevelam [Welchol] 625 mg PO BID 07/08/16 10/03/16 History Ergocalciferol [Vitamin D2 50,000 unit PO TU 07/08/16 10/03/16 History (DRISDOL)] amLODIPine BESYLATE/BENAZEPRIL 1 cap PO DAILY 07/08/16 10/03/16 History [Amlodipine-Benazepril 5-10 mg] glipiZIDE [Glipizide Xl] 5 mg PO AC-BID 07/08/16 10/02/16 History metFORMIN HCL [Glucophage] 1,000 mg PO AC-BRKFST 07/08/16 10/02/16 History metFORMIN HCL [Glucophage] 500 mg PO AC-SUPPER 07/08/16 10/02/16 History Allergies Allergy/AdvReac Type Severity Reaction Status Date / Time latex Allergy Unknown Verified 10/02/16 08:19 penicillin V Allergy Unknown Verified 10/02/16 08:19 Surgical - Exam Vital Signs Pulse Resp BP Pulse Ox 68 18 186/91 96 10/03/16 07:03 10/03/16 07:03 10/03/16 07:03 10/03/16 07:03 - General well developed, well nourished, no distress, no pain - Eyes PERRL, normal ocular movement - ENT no hearing loss - Neck trachea midline - Respiratory normal expansion, normal respiratory effort, clear to auscultation - Cardiovascular Rhythm: regular Heart Sounds: normal: S1, S2 - Abdomen Abdomen: soft, non tender, bowel sounds - Genitourinary Deferred - Rectum Deferred - Integumentary no rash, no growths - Neurologic normal coordination, normal sensation - Musculoskeletal normal gait, normal posture - Psychiatric oriented to time, oriented to person, oriented to place, speech is normal, memory intact Results - Labs 10/03/16 11:21 10/03/16 11:21 Abnormal Lab Results - Last 24 Hours (Table) 10/03/16 10/03/16 10/03/16 Range/Units 06:57 10:30 11:21 MCHC 30.8 L (31.0-37.0) g/dL Glucose (74-99) mg/dL POC Glucose (mg/dL) 197 H (75-99) mg/dL Hemoglobin A1c (4.2-6.1) % LDL Cholesterol, Calc (0-99) mg/dL Urine Glucose (UA) 2+ H (Negative) Urine Ketones 2+ H (Negative) 10/03/16 10/03/16 Range/Units 11:21 11:21 MCHC (31.0-37.0) g/dL Glucose 178 H (74-99) mg/dL POC Glucose (mg/dL) (75-99) mg/dL Hemoglobin A1c 7.1 H (4.2-6.1) % LDL Cholesterol, Calc 117 H (0-99) mg/dL Urine Glucose (UA) (Negative) Urine Ketones (Negative) Diabetes panel 10/03/16 10/03/16 Range/Units 11:21 11:21 Sodium 142 (137-145) mmol/L Potassium 4.0 (3.5-5.1) mmol/L Chloride 107 (98-107) mmol/L Carbon Dioxide 24 (22-30) mmol/L BUN 10 (9-20) mg/dL Creatinine 0.70 (0.66-1.25) mg/dL Glucose 178 H (74-99) mg/dL Hemoglobin A1c 7.1 H (4.2-6.1) % Calcium 8.9 (8.4-10.2) mg/dL AST 37 (17-59) U/L ALT 51 (21-72) U/L Alkaline Phosphatase 72 (38-126) U/L Total Protein 6.8 (6.3-8.2) g/dL Albumin 4.1 (3.5-5.0) g/dL Triglycerides 92 (<150) mg/dL HDL Cholesterol 42 (40-60) mg/dL Thyroid panel 10/03/16 Range/Units 11:21 TSH 3.070 (0.465-4.680) mIU/L Calcium panel 10/03/16 Range/Units 11:21 Calcium 8.9 (8.4-10.2) mg/dL Albumin 4.1 (3.5-5.0) g/dL Pituitary panel 10/03/16 Range/Units 11:21 Sodium 142 (137-145) mmol/L Potassium 4.0 (3.5-5.1) mmol/L Chloride 107 (98-107) mmol/L Carbon Dioxide 24 (22-30) mmol/L BUN 10 (9-20) mg/dL Creatinine 0.70 (0.66-1.25) mg/dL Glucose 178 H (74-99) mg/dL Calcium 8.9 (8.4-10.2) mg/dL TSH 3.070 (0.465-4.680) mIU/L Adrenal panel 10/03/16 Range/Units 11:21 Sodium 142 (137-145) mmol/L Potassium 4.0 (3.5-5.1) mmol/L Chloride 107 (98-107) mmol/L Carbon Dioxide 24 (22-30) mmol/L BUN 10 (9-20) mg/dL Creatinine 0.70 (0.66-1.25) mg/dL Glucose 178 H (74-99) mg/dL Calcium 8.9 (8.4-10.2) mg/dL Total Bilirubin 0.6 (0.2-1.3) mg/dL AST 37 (17-59) U/L ALT 51 (21-72) U/L Alkaline Phosphatase 72 (38-126) U/L Total Protein 6.8 (6.3-8.2) g/dL Albumin 4.1 (3.5-5.0) g/dL - Imaging Chest x-ray: image reviewed Additional studies: PFTs, vein mapping, prior carotid Dopplers reviewed Assessment and Plan (1) Coronary artery disease Status: Acute (2) Hypertension Status: Acute (3) Hyperlipidemia Status: Acute (4) History of syncope Status: Acute (5) History of atrial flutter Status: Acute (6) Diabetes mellitus type 2 in obese Status: Acute (7) Family history of coronary artery disease in mother Status: Acute (8) History of TIA (transient ischemic attack) Status: Acute Plan: 1. Continue aspirin, statin, beta vashti, [place]. 2. Preoperative testing ordered. 3. Preoperative teaching initiated and reinforced. 4. Plan for coronary artery bypass grafting surgery 10/17/2016 pending testing results. 5. Patient did have 5 mm nodule in his right lung per radiologist read on his chest x-ray, CT of the chest with contrast prescription given to patient, scheduled for 10/11/2016. Thank you Dr. Campoverde for the consult. We look forward to working with you in the care of your patient. Time with Patient: Greater than 30
[2016-10-03] MEDS ORDERED: GLIPIZIDE 5 MG PO SCH (17:30)
--- NOTE | 2016-10-03 18:42 | CC ---
DATE OF SERVICE: Mr. Pace is a 76-year-old male with a history of hypertension, hyperlipidemia, diabetes mellitus, who had evidence of cardiomyopathy and frequent ventricular ectopic activity. In view of that, he underwent a stress test which revealed global hypokinesis. Because of his multiple risk factors and his presentation, recommendation was made regarding cardiac catheterization. The procedure as well as its risks and complications were discussed with the patient, who was in full understanding and agreement. PROCEDURE: Patient was brought to the cardiac cathead operator in a fasting, semi-sedated state after receiving fentanyl and Benadryl and achieving moderate conscious sedated state. Using Xylocaine anesthesia and Seldinger technique, a 6 [place] sheath was introduced in the right radial artery. Selective right and left coronary angiography was performed using 5 [place] 3-1/2 [place] right and left Fidelia catheters. Multiple views were taken of the arteries, including hemiaxial views. Following that, a 5 [place] tight pigtail catheter was introduced in the left ventricle and a 30-degree LUNA view of the left ventricle was obtained. Following that, catheter and sheath were removed. Hemostasis was obtained with deployment of a TR band. There were no immediate complications. Patient was returned to his room in stable condition. Of note, the patient received 5000 units of intravenous heparin as well as intra-arterial Verapamil. FINDINGS FLUOROSCOPY: There is calcification involving the left main, LAD and the right coronary artery. LEFT MAIN: This is a large-sized vessel bifurcating into left circumflex, left anterior descending artery. Left main coronary artery has a 50% to 60% plaque distally at the bifurcation. LAD: This is a large-sized vessel reaching toward the apex giving rise to 3 diagonal branches. The third one is the largest in caliber. The left anterior descending artery at the ostium has an 80% stenosis. The rest of the vessel has no high-grade stenosis. LEFT CIRCUMFLEX: This is a non-dominant vessel giving rise to a large obtuse marginal branch. The left circumflex obtuse marginal branch has a 30% to 40% plaque proximally. The rest of the vessel has no high-grade stenosis. RIGHT CORONARY ARTERY: This is a large dominant vessel bifurcating distally into PDA, posterolateral segment and branches. The right coronary artery in its mid segment has a 20% to 30% plaque. There is mild intimal disease throughout the arteries. LEFT VENTRICULOGRAM: Left ventriculogram was performed in 30-degree LUNA view and revealed global hypokinesis with an ejection fraction estimated at 40% to 45%. There was 1+ mitral regurgitation. HEMODYNAMICS: There was no gradient across the aortic valve. The left ventricular end-diastolic pressure was 20 mmHg. CONCLUSION: 1. Calcified coronary arteries. 2. Significant distal left main disease. 3. Critical ostial LAD lesion. 4. Mild disease in the right coronary artery and left circumflex. 5. Mildly impaired left ventricular systolic function. RECOMMENDATIONS: In view of the findings and the anatomy, I have recommended proceeding with evaluation for coronary artery bypass grafting. Those findings and recommendations were discussed with the patient and his family, who are in full understanding and agreement.
--- NOTE | 2016-10-03 18:44 | LTR ---
October 03, 2016 RE: KatelynnCoopery Ubaldo Dear Dr. Eldridge, I had the pleasure of performing cardiac catheterization on Mr. Pace at [facility] on October 03, and a full copy of the procedure note will be forwarded to you. In brief, he was found to have significant distal left main and critical ostial LAD lesion. Based on those findings, I have recommended proceeding with evaluation for coronary artery bypass grafting. I will keep you updated on his progress. Thank you again for allowing me to participate in his care. Please feel free to call with any questions. Sincerely, CAITY PIKE MD
[2016-10-03] MEDS ORDERED: COLESEVELAM 625 MG TAB PO SCH (21:00)
[2016-10-04] MEDS ORDERED: [UNRECOGNIZED DRUG - OTHER] PO SCH (09:00)
[2016-10-04] MEDS ORDERED: NON-FORMULARY DRUG (Aspirin Ec 81 MG) PO SCH (09:00)
[2016-10-04] MEDS ORDERED: ATORVASTATIN 40 MG TAB PO SCH (09:00)
[2016-10-04] MEDS ORDERED: BENAZEPRIL PO SCH (09:00)
[2016-10-04] MEDS ORDERED: AMLODIPINE BESYLATE PO SCH (09:00)
[2016-10-04] MEDS ORDERED: ATENOLOL 25 MG TAB PO SCH (09:00)
[2016-10-08] MEDS ORDERED: ERGOCALCIFEROL 50,000 UNIT CAP PO SCH (09:00)
--- NOTE | 2016-10-09 16:23 | P.VSCSTY ---
Greater Saphenous Vein Mapping This is bilateral lower extremity greater saphenous vein mapping. Date of service 10/03/2016 Vein quality and ultrasound appearance pre-CABG. Vein size groin right 6.9 x 9.8 groin left 5.5 x 6.2 High thigh right 3.9 x 4.8 high thigh left 3.2 x 3.5 Mid thigh right 3.5 x 4.0 mid thigh left 2.6 x 2.8 Above-knee right 3.4 x 4.4 above- knee left 2.8 x 3.8 Below knee right 2.7 x 3.3 below-knee left 2.6 x 3.4 Mid calf right 2.9 x 2.9 mid calf left 3.0 x 3.5 Ankle right 3.1 x 2.7 ankle left 2.6 x 3.8 Impression usable bilateral great saphenous vein.
== END 2016-10-03 13:55 | disposition home or self-care (01) ==
LOC: CATHCVL 06:22
PROVIDERS: ATTEND Internal Medicine Interventional Cardiology
DX: I25.10 Atherosclerotic heart disease of native coronary artery without angina pectoris (principal); I10 Essential (primary) hypertension; I25.84 Coronary atherosclerosis due to calcified coronary lesion; I51.7 Cardiomegaly; I49.3 Ventricular premature depolarization; I08.3 Combined rheumatic disorders of mitral, aortic and tricuspid valves; I27.2 Other secondary pulmonary hypertension; I37.1 Nonrheumatic pulmonary valve insufficiency; E78.2 Mixed hyperlipidemia; Z82.49 Family history of ischemic heart disease and other diseases of the circulatory system; E11.9 Type 2 diabetes mellitus without complications; Z79.84 Long term (current) use of oral hypoglycemic drugs; I73.9 Peripheral vascular disease, unspecified; Z79.82 Long term (current) use of aspirin; Z79.899 Other long term (current) drug therapy; Z88.0 Allergy status to penicillin; Z91.040 Latex allergy status; R91.1 Solitary pulmonary nodule
CPT/HCPCS: 94150; 93458; 86900; 86901; 83880; 80061; 80053; 80074; 84443; 83036; 83735; 85025; 85610; 85730; 86850; 81003; 87070; 87086; 71020; 93970; C8929; C1769 ×2; C1894; J2001; J3010; Q9957; J1644; Q9967; 93306

== ENCOUNTER → 2016-10-11 | Outpatient (CLI) | payer MEDICARE ==
--- NOTE | 2016-10-11 21:12 | CT ---
EXAMINATION TYPE: CT chest w con DATE OF EXAM: 10/11/2016 COMPARISON: 05/15/2012 HISTORY: Nodule on CXR. CT DLP: 942.3 mGycm Automated exposure control for dose reduction was used. CONTRAST: CT scan of the chest is performed with IV Contrast, patient injected with 100 mL of Omnipaque 300. FINDINGS: There is patchy linear density at the lung bases consistent with scarring and atelectasis. There is n o sign of a pulmonary mass. I see no evidence of a pulmonary nodule. There is no mediastinal adenopat hy. Thoracic aorta is atheromatous. There is atherosclerotic vascular calcification. There are no hil ar masses. There is no pericardial effusion. Heart size is normal. IMPRESSION: Fibrotic changes and atelectasis at the lung bases are increased compared to old CT scan . No evidence of a right upper lobe nodule.
== END | disposition home or self-care (01) ==
LOC: RADCTMAIN 19:16
PROVIDERS: ATTEND Nurse Practitioner Acute Care
DX: J98.11 Atelectasis (principal); J84.10 Pulmonary fibrosis, unspecified
CPT/HCPCS: 71260; Q9967

== ENCOUNTER 2016-10-16 05:48 | Inpatient (IN) | payer MEDICARE ==
[~2016-10-16 05:48] MED LIST changes: +ALBUMIN HUMAN 25% 50 ML IV ONE; +ALBUMIN HUMAN 5% 500 ML IVPB ONE; -ALPRAZolam 0.25 MG TAB PO PRN; -ALPRAZolam 0.5 MG TAB PO PRN; +AMINOCAPROIC ACID 250 MG/ML 20 ML VIAL IV ONE; +AMINOCAPROIC ACID 5,000 MG in DEXTROSE 5% IN WATER 50 ML IV ONE; +ASPIRIN 325 MG TAB PO ONE; -ASPIRIN 325 MG TAB PO STA; +ATORVASTATIN 10 MG TAB PO ONE; -ATORVASTATIN 80 MG TAB PO STA; +CALCIUM CHLORIDE 100 MG/ML 10 ML SYRINGE IV ONE; +CHLORHEXIDINE GLUCONATE 15 ML CUP MUCOUS MEM ONE; +CLEVIDIPINE BUTYRATE 25 MG in EMPTY BAG 1 BAG IV ONE; +DEXTROSE 5% IN WATER 1,000 ML with POTASSIUM CHLORIDE 110 MEQ, MAGNESIUM SULFATE 16 MEQ... IV ONE; +DEXTROSE 5% IN WATER 1,000 ML with POTASSIUM CHLORIDE 25 MEQ, SODIUM CHLORIDE 4MEQ/ML V... IV ONE; +HEPARIN SODIUM 1,000 UN/ML (10ML VL) IV ONE; +HEPARIN SODIUM,PORCINE 5,000 UNIT in SODIUM CHLORIDE 0.9% 500 ML IV ONE; +INSULIN REGULAR 100 UNIT in SODIUM CHLORIDE 0.9% 100 ML IV ONE; +LACTATED RINGERS 1,000 ML IV ONE; +LACTATED RINGERS 1,000 ML IV SCH; +MAGNESIUM SULFATE MG 500 MG/ML VIAL IV ONE; +MANNITOL 25% 12.5 GM/50 ML VIAL IV ONE; +MIDAZOLAM 2 MG/2 ML VIAL IV PRN; +MUPIROCIN 2% OINT 22 GM TUBE NASAL ONE; -NITROGLYCERIN SL TABS 0.4 MG TAB SUBLINGUAL PRN; +NITROGLYCERIN-D5W PMX 25 MG/250 ML BTL IV ONE; +NITROGLYCERIN-D5W PMX 50 MG in DEXTROSE/WATER 1 250ML.BAG IV ONE; +NOREPINEPHRIN 4 MG-0.9% NS PMX 4 MG/250 ML ML IV ONE; +PAPAVERINE 360 MG in SODIUM CHLORIDE 0.9% 90 ML IV ONE; +PHENYLEPHRINE 40 MG in SODIUM CHLORIDE 0.9% 250 ML IV ONE; +PHENYLEPHRINE-0.9% NACL SYG 1 MG/10 ML SYRINGE IV ONE; +PROPOFOL 50 ML IV ONE; +PROTAMINE SULFATE 10 MG/ML 25 ML VIAL IV ONE; +PROTAMINE SULFATE 250 MG in EMPTY BAG 1 BAG IV ONE; +SODIUM BICARB 8.4% 50 ML SYR (1 MEQ/ML) IV ONE; +SODIUM CHLORIDE 0.9% 1,000 ML IV ONE; -SODIUM CHLORIDE 0.9% 1,000 ML in EMPTY BAG 1 BAG IV ONE; +ceFAZolin 1,000 MG in SODIUM CHLORIDE 0.9% IRRIGATIO 1,000 ML IRRIGATION ONE; +ceFAZolin 2,000 MG in SODIUM CHLORIDE 0.9% 30 ML IVPB ONE
[2016-10-16 06:34] LABS: Glucose,Whole Blood 151 mg/dL (75-99)
[2016-10-16] MEDS: METOPROLOL TARTRATE 12.5 MG TAB PO ONE ×2 (06:50→07:15)
[2016-10-16] MEDS ORDERED: MIDAZOLAM 2 MG/2 ML VIAL ONE (08:27)
[2016-10-16] MEDS ORDERED: LIDOCAINE 2% SYG (PF) 100 MG/5 ML ONE (08:27)
[2016-10-16] MEDS ORDERED: HEPARIN SODIUM 1,000 UN/ML (10ML VL) ONE (08:27)
[2016-10-16] MEDS ORDERED: fentaNYL (PF) 50 MCG/ML 50 ML VIAL ONE (08:27)
[2016-10-16] MEDS ORDERED: VECURONIUM 10 MG VIAL IV ONE (08:27)
[2016-10-16] MEDS ORDERED: PROTAMINE SULFATE 10 MG/ML 25 ML VIAL IV ONE (08:27)
[2016-10-16] MEDS ORDERED: ALBUMIN HUMAN 5% 500 ML VIAL IVPB ONE (08:27)
[2016-10-16] MEDS ORDERED: PROPOFOL 10 MG/ML 20 ML VIAL IV ONE (08:27)
[2016-10-16] MEDS ORDERED: HEPARIN SODIUM,PORCINE 10,000 UNIT/ML 1 ML VIAL ONE (08:27)
[2016-10-16] MEDS ORDERED: CALCIUM CHLORIDE 100 MG/ML 10 ML SYRINGE ONE (08:27)
[2016-10-16] MEDS ORDERED: fentaNYL (PF) 50 MCG/ML 2 ML AMP ONE (08:27)
[2016-10-16] MEDS ORDERED: MAGNESIUM SULFATE 4 MEQ/ML 2 ML VIAL ONE (08:27)
[2016-10-16 09:07] LABS: Glucose,Whole Blood 173 mg/dL (75-99)
[2016-10-16 10:23] LABS: Glucose,Whole Blood 206 mg/dL (75-99)
[2016-10-16 11:27] LABS: Glucose,Whole Blood 265 mg/dL (75-99)
[2016-10-16 12:05] LABS: Glucose,Whole Blood 244 mg/dL (75-99)
[2016-10-16 12:41] LABS: Glucose,Whole Blood 263 mg/dL (75-99)
[2016-10-16 14:11] LABS: Glucose,Whole Blood 173 mg/dL (75-99)
[2016-10-16] MEDS ORDERED: METOCLOPRAMIDE 5 MG/ML 2 ML VIAL IVP PRN (14:11)
[2016-10-16] MEDS ORDERED: MORPHINE SULFATE 2 MG/ML SYRINGE IVP PRN (14:11)
[2016-10-16] MEDS ORDERED: Potassium Replacement Protocol 1 EACH MISC MISCELLANE PRN (14:11)
[2016-10-16] MEDS ORDERED: Magnesium Replacement Protocol 1 EACH MISC MISCELLANE PRN (14:11)
[2016-10-16] MEDS ORDERED: ONDANSETRON 4 MG/2 ML VIAL IVP PRN (14:11)
[2016-10-16] MEDS ORDERED: NITROGLYCERIN-D5W PMX 50 MG in DEXTROSE/WATER 1 250ML.BAG IV SCH (14:11)
[2016-10-16] MEDS ORDERED: BENZOCAINE/MENTHOL LOZENG 1 EACH LOZENGE MUCOUS MEM PRN (14:11)
[2016-10-16] MEDS ORDERED: PROPOFOL 500 MG in EMPTY BAG 1 BAG IV SCH (14:11)
[2016-10-16] MEDS ORDERED: CALCIUM GLUCONATE 2,000 MG in SODIUM CHLORIDE 0.9% 100 ML IVPB PRN (14:11)
[2016-10-16] MEDS ORDERED: Phosphorus Replacement Protoco 1 EACH MISC MISCELLANE PRN (14:11)
--- NOTE | 2016-10-16 16:03 | XR ---
EXAMINATION TYPE: XR chest 1V portable DATE OF EXAM: 10/16/2016 HISTORY: Post Op CABG COMPARISON: 10/03/2016 TECHNIQUE: Single view of the chest is submitted. FINDINGS: Endotracheal tube, NG tube, SG catheter, mediastianal drains and chest tubes are appropriately placed . Post operative changes of CABG. No sizeable pneumothorax. Scattered Pleural-parencymal opacities may reflect atelectasis. The heart is not enlarged. IMPRESSION: 1. Post operative changes of CABG.
[2016-10-16 16:12] LABS: Ionized Calcium 5.1 mg/dL (4.5-5.3)
[2016-10-16 16:12] LABS: Glucose,Whole Blood 90 mg/dL (75-99)
[2016-10-16 16:13] LABS: Basophils % (A) 0 %; CH 27.3; CHCM 31.4; Eosinophils # (A) 0.1 k/uL (0-0.7); Eosinophils % (A) 1 %; HCT 27.2 % (39.0-53.0); HDW 2.61; Hypochromasia Slight; Luc # (Auto) 0.07; Luc % (Auto) 1; Lymphocytes # (A) 0.9 k/uL (1.0-4.8); Lymphocytes % (A) 14 %; MCH 28.7 pg (25.0-35.0); MCHC 32.9 g/dL (31.0-37.0); MCV 87.3 fL (80.0-100.0); Mean Platelet Volume 9.4; Monocytes # (A) 0.2 k/uL (0-1.0); Monocytes % (A) 4 %; Neutrophils # (A) 5.6 k/uL (1.3-7.7); Neutrophils % (A) 81 %; RBC 3.12 m/uL (4.30-5.90); RDW 14.5 % (11.5-15.5); WBC 6.9 k/uL (3.8-10.6); WBC (Perox) 7.07
[2016-10-16 16:18] LABS: INR 1.3 (<1.1); Partial Thromboplastin Time 30.6 sec (22.0-30.0)
[2016-10-16] MEDS: CLEVIDIPINE BUTYRATE 25 MG in EMPTY BAG 1 BAG IV SCH (16:20)
[2016-10-16 16:21] LABS: ALT 34 U/L (21-72); AST 47 U/L (17-59); Alkaline Phosphatase 33 U/L (38-126); Anion Gap 7 mmol/L; Blood Urea Nitrogen 10 mg/dL (9-20); Carbon Dioxide 23 mmol/L (22-30); Chloride 111 mmol/L (98-107); Glucose 81 mg/dL (74-99); Magnesium 2.5 mg/dL (1.6-2.3); Non-African American GFR(MDRD) >60 (>60 ml/min/1.73 sqM); Potassium 3.7 mmol/L (3.5-5.1); Sodium 141 mmol/L (137-145); Total Bilirubin 0.5 mg/dL (0.2-1.3); Total Protein 4.3 g/dL (6.3-8.2)
[2016-10-16] MEDS: LACTATED RINGERS 1,000 ML IV SCH (16:21)
[2016-10-16] MEDS: ceFAZolin 2 GM in SODIUM CHLORIDE 0.9% 100 ML IVPB SCH (16:22)
[2016-10-16] MEDS: ALBUMIN HUMAN 5% 250 ML in EMPTY BAG 1 BAG IVPB PRN ×2 (16:26→20:47)
[2016-10-16 16:29] LABS: ABG Base Excess -1.3 mmol/L; ABG HCO3 23 mmol/L (21-25); ABG PCO2 40 mmHg (35-45); ABG PH 7.38 (7.35-7.45); ABG PO2 215 mmHg (83-108); ABG TCO2 24 mmol/L (19-24)
[2016-10-16 16:55] LABS: Glucose,Whole Blood 70 mg/dL (75-99)
[2016-10-16] MEDS ORDERED: POTASSIUM CHLORIDE ORAL LIQUID 40 MEQ/30 ML CUP NG-TUBE SCH (17:00)
[2016-10-16 17:44] LABS: Glucose,Whole Blood 93 mg/dL (75-99)
[2016-10-16] MEDS: ACETAMINOPHEN IV (For NPO) 1,000 MG in EMPTY BAG 1 BAG IVPB SCH (18:27)
[2016-10-16 18:53] LABS: Glucose,Whole Blood 139 mg/dL (75-99)
[2016-10-16] MEDS: INSULIN REGULAR 100 UNIT in SODIUM CHLORIDE 0.9% 100 ML IV SCH (18:59)
[2016-10-16] MEDS: IPRATROPIUM-ALBUTEROL 3 ML NEB INHALATION SCH ×2 (19:13)
[2016-10-16 19:35] LABS: Basophils % (A) 0 %; CH 27.7; CHCM 31.4; Eosinophils # (A) 0.1 k/uL (0-0.7); Eosinophils % (A) 1 %; HCT 30.4 % (39.0-53.0); HGB 9.9 gm/dL (13.0-17.5); Hypochromasia Slight; Luc # (Auto) 0.13; Luc % (Auto) 1; Lymphocytes # (A) 1.4 k/uL (1.0-4.8); Lymphocytes % (A) 13 %; MCH 28.7 pg (25.0-35.0); MCHC 32.4 g/dL (31.0-37.0); MCV 88.6 fL (80.0-100.0); Mean Platelet Volume 8.3; Monocytes # (A) 0.5 k/uL (0-1.0); Monocytes % (A) 5 %; Neutrophils # (A) 8.3 k/uL (1.3-7.7); Neutrophils % (A) 80 %; RBC 3.43 m/uL (4.30-5.90); RDW 14.7 % (11.5-15.5); WBC 10.5 k/uL (3.8-10.6); WBC (Perox) 10.12
[2016-10-16 20:11] LABS: Glucose,Whole Blood 179 mg/dL (75-99)
[2016-10-16 21:06] LABS: Glucose,Whole Blood 198 mg/dL (75-99)
--- NOTE | 2016-10-16 21:26 | OP ---
DATE OF SURGERY: 10/16/2016 PREOPERATIVE DIAGNOSIS: Coronary artery disease. POSTOPERATIVE DIAGNOSIS: Coronary artery disease. PROCEDURE: 1. Coronary artery bypass grafting x3 vessels (left internal mammary artery to left anterior descending artery, saphenous vein graft to diagonal artery, saphenous vein graft to obtuse marginal artery). 2. Endoscopic vein harvest, right greater saphenous vein. 3. Epiaortic ultrasound. 4. Transesophageal echocardiogram. SURGEON: Dong Gonzales M.D. ASSISTANTS: 1. ISHA Villalobos 2. ISHA Guido 3. Alise Leone, Nurse Practitioner ANESTHESIA: General. SPECIMEN: None. COMPLICATIONS: None. INDICATION: The patient is a 76-year-old male whose past medical history is significant for diabetes mellitus, hypertension, hyperlipidemia, prior TIA, and GI bleed who was diagnosed with multi-vessel coronary artery disease, including left main artery disease. A coronary artery bypass was recommended. The risks, benefits and alternatives of this procedure were discussed with the patient. All questions were answered. Informed consent was obtained. FINDINGS: The left internal mammary artery was a good conduit with brisk flow. The saphenous vein was a good conduit. All coronary arteries had diffuse calcification. The left anterior descending artery measured 1.5 mm. The obtuse marginal artery measured 1.5 mm. The diagonal artery measured 1.3 mm. PROCEDURE IN DETAIL: The patient was taken to the operating room and placed supine on the operating room table. After the induction of general anesthesia, he was prepped and draped in the usual sterile fashion. Transesophageal echocardiogram was performed which revealed preserved ejection fraction of the left ventricle. There was trivial to mild mitral regurgitation. A median sternotomy was performed. The left internal mammary artery was harvested in the standard fashion, taking care to clip all branches. Intravenous heparin was administered and the vessel was transected distally revealing brisk flow. Simultaneously, greater saphenous vein was harvested from the right lower extremity using endoscopic technique. All branches were tied. The vein was of good caliber. A pericardial cradle was created. The ascending aorta was palpated. It was soft to touch. There were no calcific deposits appreciated. Epiaortic ultrasound was then performed. There was no significant atheromatous disease or calcific plaque noted. An arterial cannula was placed in the distal ascending aorta. A venous cannula was placed into the right atrial appendage and directed into the IVC. Both antegrade and retrograde catheters were placed as well. The patient was then placed on cardiopulmonary bypass with good decompression of the heart. The aortic crossclamp was applied. Cold blood potassium cardioplegia was delivered in both antegrade and retrograde fashion to achieve arrest of the heart. Of note, cardioplegia was delivered every 15 to 20 minutes while the patient remained under crossclamp. I began by inspecting the lateral wall. The obtuse marginal artery was identified. A soft spot for bypass was chosen. A small arteriotomy was created. A 1.5 probe was passed both proximally and distally. Using saphenous vein in a reverse fashion, an end-to-side anastomosis was created. This was performed using running 7-0 Prolene suture. The anastomosis was hemostatic and the graft had great flow. Next I identified both the diagonal artery and the LAD. The LAD had a significant amount of calcium and stuttering disease. A soft spot for bypass was noted in the mid portion. I also identified the diagonal artery. I could also palpate calcium in this vessel proximally. A soft spot was noted distally in the diagonal artery. An arteriotomy was created here. Using saphenous vein in a reverse fashion, an end-to-side anastomosis was created. This was performed using a running 7-0 Prolene suture. The vessel accepted a 1 mm proximally and distally. The graft was hemostatic and had great flow. Finally, the LAD was opened. This vessel accepted a 1.5 mm probe. Using the left internal mammary artery, an end-to-side anastomosis was created. This was performed using running 8-0 Prolene suture. The graft was hemostatic. The mammary pedicle was tacked down to the anterior surface of the heart. Attention was then turned to the proximal anastomoses. These were performed to the ascending aorta in an end-to-side fashion using running 6-0 Prolene sutures. Both grafts were hemostatic. One liter of warm blood was infiltrated in retrograde fashion. Both lidocaine and magnesium were administered as well. The aortic crossclamp was removed. The grafts were de-aired in the standard fashion. Distal anastomoses were inspected and appeared to be hemostatic. Temporary atrial and ventricular pacing wires were placed. The retrograde catheter was removed. The patient was then weaned off cardiopulmonary bypass. He without difficulty. The antegrade catheter was removed. Follow-up transesophageal echocardiogram revealed a preserved left ventricular ejection fraction with no change in the mitral regurgitation. Protamine was administered. There were no adverse reactions. The remaining cannulas were removed. The mediastinum was then copiously irrigated with warm saline solution. All surgical sites were inspected and appeared to be hemostatic. Reinforcement sutures were placed as needed. Soft tissue was reapproximated over the apex of the heart as well as over the ascending aorta. A straight 32 [place] chest tube was placed in the left pleural space. Two additional straight 32 [place] chest tubes were placed and directed into the mediastinum. These were all secured to the skin. The sternum was then reapproximated with stainless steel wires in a [id number] fashion. The remainder of the wound was closed in layers. A sterile dressing was applied. The patient appeared to tolerate the procedure well. There were no immediate complications. He returned to the ICU in critical but stable condition. TRACEY
[2016-10-16 22:14] LABS: Glucose,Whole Blood 182 mg/dL (75-99)
[2016-10-16] MEDS: HEPARIN SODIUM,PORCINE 5,000 UNIT/ML 1 ML VIAL SQ SCH (22:16)
[2016-10-16 22:30] LABS: CH 27.1; CHCM 30.9; HCT 29.4 % (39.0-53.0); HDW 2.65; HGB 9.5 gm/dL (13.0-17.5); Hypochromasia Slight; MCH 28.4 pg (25.0-35.0); MCHC 32.2 g/dL (31.0-37.0); MCV 88.1 fL (80.0-100.0); Mean Platelet Volume 9.1; RBC 3.33 m/uL (4.30-5.90); RDW 14.4 % (11.5-15.5); WBC (Perox) 9.19
[2016-10-16 22:41] LABS: INR 1.2 (<1.1); Partial Thromboplastin Time 33.3 sec (22.0-30.0); Prothrombin Time 11.9 sec (9.0-12.0)
[2016-10-16 22:47] LABS: Ionized Calcium 4.9 mg/dL (4.5-5.3)
[2016-10-16 22:54] LABS: ALT 24 U/L (21-72); AST 48 U/L (17-59); Alkaline Phosphatase 46 U/L (38-126); Anion Gap 9 mmol/L; Blood Urea Nitrogen 10 mg/dL (9-20); Calcium 8.1 mg/dL (8.4-10.2); Carbon Dioxide 21 mmol/L (22-30); Chloride 109 mmol/L (98-107); Glucose 169 mg/dL (74-99); Magnesium 2.1 mg/dL (1.6-2.3); Non-African American GFR(MDRD) >60 (>60 ml/min/1.73 sqM); Phosphorous 3.1 mg/dL (2.5-4.5); Potassium 4.1 mmol/L (3.5-5.1); Sodium 139 mmol/L (137-145); Total Bilirubin 1.3 mg/dL (0.2-1.3); Total Protein 5.1 g/dL (6.3-8.2)
[2016-10-16 23:06] LABS: Add Differential Manual Differential
[2016-10-16 23:07] LABS: Glucose,Whole Blood 175 mg/dL (75-99)
[2016-10-16 23:08] LABS: Nucleated Red Blood Cells 0 /100 WBC (0-0); Total Cells Counted 100
[2016-10-16 23:31] LABS: ABG Base Excess -3.7 mmol/L; ABG HCO3 21 mmol/L (21-25); ABG PCO2 36 mmHg (35-45); ABG PH 7.38 (7.35-7.45); ABG PO2 91 mmHg (83-108); ABG TCO2 22 mmol/L (19-24)
[2016-10-16 23:32] LABS: ABG Oxygen Saturation 96.9 % (94-97)
[2016-10-17 00:24] LABS: Glucose,Whole Blood 157 mg/dL (75-99)
[2016-10-17] MEDS: ACETAMINOPHEN IV (For NPO) 1,000 MG in EMPTY BAG 1 BAG IVPB SCH ×4 (00:26→18:57)
[2016-10-17] MEDS: ceFAZolin 2 GM in SODIUM CHLORIDE 0.9% 100 ML IVPB SCH ×2 (00:26→08:44)
[2016-10-17 01:13] LABS: Glucose,Whole Blood 157 mg/dL (75-99)
[2016-10-17 02:03] LABS: Glucose,Whole Blood 165 mg/dL (75-99)
[2016-10-17 03:10] LABS: Glucose,Whole Blood 165 mg/dL (75-99)
[2016-10-17 04:12] LABS: Glucose,Whole Blood 179 mg/dL (75-99)
[2016-10-17 05:08] LABS: Glucose,Whole Blood 180 mg/dL (75-99)
[2016-10-17 05:15] LABS: Basophils % (A) 0 %; CH 27.3; CHCM 30.8; Eosinophils % (A) 0 %; HCT 30.3 % (39.0-53.0); HDW 2.66; HGB 9.7 gm/dL (13.0-17.5); Hypochromasia Slight; Luc # (Auto) 0.06; Luc % (Auto) 1; Lymphocytes # (A) 0.3 k/uL (1.0-4.8); Lymphocytes % (A) 3 %; MCH 28.5 pg (25.0-35.0); MCV 88.9 fL (80.0-100.0); Mean Platelet Volume 9.1; Monocytes # (A) 0.4 k/uL (0-1.0); Monocytes % (A) 4 %; Neutrophils # (A) 9.9 k/uL (1.3-7.7); Neutrophils % (A) 93 %; RDW 14.4 % (11.5-15.5); WBC 10.7 k/uL (3.8-10.6); WBC (Perox) 11.02
[2016-10-17 05:36] LABS: Ionized Calcium 5.1 mg/dL (4.5-5.3)
[2016-10-17 05:47] LABS: ALT 35 U/L (21-72); AST 47 U/L (17-59); Alkaline Phosphatase 44 U/L (38-126); Anion Gap 9 mmol/L; Blood Urea Nitrogen 9 mg/dL (9-20); Calcium 8.4 mg/dL (8.4-10.2); Carbon Dioxide 23 mmol/L (22-30); Chloride 109 mmol/L (98-107); Glucose 172 mg/dL (74-99); Non-African American GFR(MDRD) >60 (>60 ml/min/1.73 sqM); Potassium 4.6 mmol/L (3.5-5.1); Sodium 141 mmol/L (137-145); Total Bilirubin 0.8 mg/dL (0.2-1.3); Total Protein 5.1 g/dL (6.3-8.2)
--- NOTE | 2016-10-17 07:08 | XR ---
EXAMINATION TYPE: XR chest 1V portable DATE OF EXAM: 10/17/2016 HISTORY: Post Operative Cardiac Surgery. REFERENCE: Previous study dated 10/16/2016. FINDINGS: There has been a midline sternotomy. 3 left pleural drains remain in place. The [place]-Fabian c atheter is in place via a right internal jugular approach. Its tip is in the pulmonary outflow tract. Patient has been extubated. The patient is NG tube is been removed. The heart is enlarged. There is left basilar airspace disease. There are bilateral effusions. There i s vascular congestion without kwabena edema. IMPRESSION: CONTINUING POSTOPERATIVE CHANGE.
[2016-10-17 07:12] LABS: Glucose,Whole Blood 208 mg/dL (75-99)
[2016-10-17 08:07] LABS: Glucose,Whole Blood 193 mg/dL (75-99)
[2016-10-17] MEDS ORDERED: CALCIUM CHLORIDE 100 MG/ML 10 ML SYRINGE ONE (08:27)
[2016-10-17] MEDS ORDERED: fentaNYL (PF) 50 MCG/ML 50 ML VIAL ONE (08:27)
[2016-10-17] MEDS ORDERED: PROPOFOL 10 MG/ML 20 ML VIAL IV ONE (08:27)
[2016-10-17] MEDS ORDERED: HEPARIN SODIUM 1,000 UN/ML (10ML VL) ONE (08:27)
[2016-10-17] MEDS ORDERED: ELECTROLYTE-R (PH 7.4) 1,000 ML IV.SOLN IV ONE (08:27)
[2016-10-17] MEDS ORDERED: ALBUMIN HUMAN 5% 500 ML VIAL IVPB ONE (08:27)
[2016-10-17] MEDS ORDERED: MIDAZOLAM 2 MG/2 ML VIAL ONE (08:27)
[2016-10-17] MEDS ORDERED: LIDOCAINE 2% SYG (PF) 100 MG/5 ML ONE (08:27)
[2016-10-17] MEDS ORDERED: PROTAMINE SULFATE 10 MG/ML 5 ML VIAL IV ONE (08:27)
[2016-10-17] MEDS ORDERED: SODIUM CHLORIDE 0.9% IRRIG 1,000 ML BTL IRRIGATION ONE (08:27)
[2016-10-17] MEDS ORDERED: HEPARIN SODIUM,PORCINE 10,000 UNIT/ML 1 ML VIAL ONE (08:27)
[2016-10-17] MEDS ORDERED: fentaNYL (PF) 50 MCG/ML 2 ML AMP ONE (08:27)
[2016-10-17] MEDS ORDERED: VECURONIUM 10 MG VIAL IV ONE (08:27)
[2016-10-17] MEDS ORDERED: MAGNESIUM SULFATE 4 MEQ/ML 2 ML VIAL ONE (08:27)
[2016-10-17] MEDS: ASPIRIN 325 MG TAB PO SCH (08:44)
[2016-10-17] MEDS: HEPARIN SODIUM,PORCINE 5,000 UNIT/ML 1 ML VIAL SQ SCH ×2 (08:44→18:38)
[2016-10-17] MEDS: CLOPIDOGREL 75 MG TAB PO SCH (08:44)
[2016-10-17] MEDS: ATORVASTATIN 40 MG TAB PO SCH (08:45)
[2016-10-17] MEDS: PANTOPRAZOLE 40 MG TABLET PO SCH (08:47)
[2016-10-17] MEDS ORDERED: METOPROLOL TARTRATE 12.5 MG TAB PO SCH (09:00)
[2016-10-17] MEDS ORDERED: PANTOPRAZOLE 40 MG/10 ML VIAL IVP SCH (09:00)
[2016-10-17 09:10] LABS: Glucose,Whole Blood 206 mg/dL (75-99)
--- NOTE | 2016-10-17 09:29 | P.CONS ---
History of Present Illness - Reason for Consult Consult date: 10/17/16 Medical management Requesting physician: Dong Gonzales - Chief Complaint Status post triple-vessel coronary artery bypass graft - History of Present Illness This is a 76-year-old male with a known history of diabetes, hypertension, hyperlipidemia, TIA, and multivessel coronary artery disease. And therefore was scheduled for coronary artery bypass graft. Patient underwent triple- vessel coronary artery bypass graft with Dr. Gonzales on 10/16/2016. Tolerated surgery well. Currently in the ICU sitting at bedside chair. We have been consulted for medical management. Patient denies any chest pain. Denies any shortness of breath. Denies any nausea or vomiting. Had a bowel movement yesterday prior to procedure. Patient is on insulin drip. Blood sugars have been ranging in the high 100s to 200. His oral hypoglycemics are currently on hold Review of Systems Please refer to HPI otherwise unremarkable Past Medical History Past Medical History: Atrial Flutter, Cancer, CVA/TIA, Diabetes Mellitus, Hypertension Additional Past Medical History / Comment(s): Possible TIA, lower GI bleed yrs ago, diverticulitis, colon polypectomy, melanoma removals head and nose, hemorroids History of Any Multi-Drug Resistant Organisms: None Reported Past Surgical History: Cholecystectomy, Heart Catheterization Additional Past Surgical History / Comment(s): colonoscopies/benign polypectomies, bilateral cataract removal. Past Anesthesia/Blood Transfusion Reactions: No Reported Reaction Smoking Status: Never smoker - Past Family History Father Additional Family Medical History / Comment(s): Father at the age of 33 yrs from encephalitis. Mother Family Medical History: Myocardial Infarction (AZ) Additional Family Medical History / Comment(s): Mother had a AZ at the age of 60yrs. She at the age of 90yrs. Medications and Allergies Home Medications Medication Instructions Recorded Confirmed Type Aspirin EC [Ecotrin Low Dose] 81 mg PO DAILY 07/08/16 10/16/16 History Atenolol 25 mg PO DAILY 07/08/16 10/16/16 History Colesevelam [Welchol] 625 mg PO BID 07/08/16 10/16/16 History Ergocalciferol [Vitamin D2 50,000 unit PO TU 07/08/16 10/16/16 History (PIA)] amLODIPine BESYLATE/BENAZEPRIL 1 cap PO DAILY 07/08/16 10/16/16 History [Amlodipine-Benazepril 5-10 mg] glipiZIDE [Glipizide Xl] 5 mg PO AC-BID 07/08/16 10/16/16 History metFORMIN HCL [Glucophage] 1,000 mg PO AC-BRKFST 07/08/16 10/16/16 History metFORMIN HCL [Glucophage] 500 mg PO AC-SUPPER 07/08/16 10/16/16 History Aspirin 364 mg PO ONCE 10/16/16 10/16/16 History Allergies Allergy/AdvReac Type Severity Reaction Status Date / Time latex Allergy Unknown Verified 10/16/16 06:09 penicillin V Allergy Unknown Verified 10/16/16 06:09 Physical Exam Vitals: Vital Signs Temp Pulse Resp BP Pulse Ox 10/17/16 07:00 84 14 94 L 10/17/16 06:45 81 20 90 L 10/17/16 06:30 85 26 H 97 10/17/16 06:15 88 16 98 10/17/16 06:00 88 14 99 10/17/16 05:45 82 15 97 10/17/16 05:30 83 16 98 10/17/16 05:15 85 12 97 10/17/16 05:00 87 12 97 10/17/16 04:45 81 9 L 96 10/17/16 04:30 81 18 95 10/17/16 04:15 84 13 96 10/17/16 04:00 98.9 F 81 13 96 10/17/16 03:45 78 16 96 10/17/16 03:30 82 14 96 10/17/16 03:15 80 10 L 96 10/17/16 03:00 75 13 96 10/17/16 02:45 77 12 96 10/17/16 02:30 81 16 95 10/17/16 02:15 80 14 97 10/17/16 02:00 79 14 96 10/17/16 01:45 77 13 94 L 10/17/16 01:30 81 15 93 L 10/17/16 01:15 80 11 L 93 L 10/17/16 01:00 71 22 94 L 10/17/16 00:45 84 18 94 L 10/17/16 00:30 82 18 94 L 10/17/16 00:15 77 20 94 L 10/17/16 00:00 78 16 94 L 10/16/16 23:45 81 20 95 10/16/16 23:30 80 22 96 10/16/16 23:22 95 10/16/16 23:15 75 20 95 10/16/16 23:00 71 18 95 10/16/16 22:45 81 18 95 10/16/16 22:30 77 16 95 10/16/16 22:15 75 20 95 10/16/16 22:00 73 18 95 10/16/16 21:45 75 18 95 10/16/16 21:30 75 14 95 10/16/16 21:15 76 18 96 10/16/16 21:00 75 22 95 10/16/16 20:45 75 20 94 L 10/16/16 20:30 71 20 95 10/16/16 20:15 77 20 94 L 10/16/16 20:00 73 18 95 10/16/16 19:45 74 18 96 10/16/16 19:30 75 14 96 10/16/16 19:27 76 10/16/16 19:15 82 14 93 L 10/16/16 19:00 97.3 F L 84 22 102/53 97 10/16/16 18:45 58 L 20 91/57 99 10/16/16 18:30 70 22 91/57 100 10/16/16 18:15 73 17 91/57 99 10/16/16 18:00 96.8 F L 72 14 91/57 99 10/16/16 17:45 68 14 91/57 99 10/16/16 17:30 71 17 91/57 100 10/16/16 17:15 69 16 100 10/16/16 17:00 95.9 F L 68 14 100 10/16/16 16:45 64 14 99 10/16/16 16:30 61 14 100 10/16/16 16:15 61 14 100 10/16/16 16:00 96.1 F L 57 L 14 100 10/16/16 15:45 95.5 F L 82 14 100 10/16/16 15:43 14 99 10/16/16 15:40 100 Intake and Output 10/16/16 10/17/16 10/17/16 22:59 06:59 14:59 Intake Total 1166.854 779.225 87.191 Output Total 1427 1043 232 Balance -260.146 -263.775 -144.809 Intake: IV 1135.5 746.0 54.5 ACETAMINOPHEN IV (For NPO 100 200 ) 1,000 mg In Empty Bag 1 bag @ 400 mls/hr IVPB Q6HR [facility] Rx#:[id number] Albumin Human 5% 250 ml 500 In Empty Bag 1 bag @ 250 mls/hr IVPB Q1HR PRN Rx#: [id number] Kate 15 24 3 CO/CI 60 10 Lactated Ringers 1,000 ml 350 400 50 @ 50 mls/hr IV .Q20H [facility] Rx#:[id number] Nitroglycerin-D5w Pmx 50 10.5 12.0 1.5 mg In Dextrose/Water 1 250ml.bag @ 5 MCG/MIN 1.5 mls/hr IV .Q24H [facility]IG[facility] Rx#: [id number] ceFAZolin 2 gm In Sodium 100 100 Chloride 0.9% 100 ml @ 100 mls/hr IVPB Q8HR [facility] Rx#:[id number] Intake, IV Titration 31.354 33.225 32.691 Amount Insulin Regular 100 unit 3.631 33.225 32.691 In Sodium Chloride 0.9% 100 ml @ Per Protocol IV .Q0M [facility] Rx#:[id number] Propofol 500 mg In Empty 27.723 Bag 1 bag @ Titrate IV . Q0M [facility] Rx#:[id number] Output: Chest Tube Drainage 447 346 200 Bilateral Mediastinal 332 290 140 Left Lateral Chest 115 56 60 Gastric Drainage 350 150 Urine 630 547 32 Other: Voiding Method Indwelling Catheter Indwelling Catheter Weight 102 kg ABP, PAP, CO, CI - Last 8 Hours Arterial Blood Pressure 116/30 Arterial Blood Pressure 150/50 Arterial Blood Pressure 149/54 Arterial Blood Pressure 162/57 Arterial Blood Pressure 162/66 Arterial Blood Pressure 156/58 Arterial Blood Pressure 146/57 Arterial Blood Pressure 137/60 Arterial Blood Pressure 150/58 Arterial Blood Pressure 119/52 Arterial Blood Pressure 95/63 Arterial Blood Pressure 131/51 Arterial Blood Pressure 137/54 Arterial Blood Pressure 145/52 Arterial Blood Pressure 121/51 Arterial Blood Pressure 119/48 Arterial Blood Pressure 131/54 Arterial Blood Pressure 123/48 Arterial Blood Pressure 123/50 Arterial Blood Pressure 113/49 Arterial Blood Pressure 119/51 Arterial Blood Pressure 106/61 Arterial Blood Pressure 131/55 Pulmonary Artery Pressure 21/7 Pulmonary Artery Pressure 28/8 Pulmonary Artery Pressure 30/11 Pulmonary Artery Pressure 36/17 Pulmonary Artery Pressure 39/20 Pulmonary Artery Pressure 38/18 Pulmonary Artery Pressure 37/18 Pulmonary Artery Pressure 37/20 Pulmonary Artery Pressure 38/20 Pulmonary Artery Pressure 41/21 Pulmonary Artery Pressure 40/20 Pulmonary Artery Pressure 38/21 Pulmonary Artery Pressure 42/22 Pulmonary Artery Pressure 44/22 Pulmonary Artery Pressure 45/22 Pulmonary Artery Pressure 44/21 Pulmonary Artery Pressure 36/15 Pulmonary Artery Pressure 39/18 Pulmonary Artery Pressure 46/23 Pulmonary Artery Pressure 42/21 Pulmonary Artery Pressure 36/16 Pulmonary Artery Pressure 39/21 Pulmonary Artery Pressure 38/20 Cardiac Output 8.7 Cardiac Output 8.7 Cardiac Output 8.7 Cardiac Output 8.7 Cardiac Output 8.7 Cardiac Output 8.7 Cardiac Output 8.7 Cardiac Output 8.7 Cardiac Output 8.7 Cardiac Output 8 Cardiac Output 8 Cardiac Output 8 Cardiac Output 8 Cardiac Output 8 Cardiac Output 8 Cardiac Output 8 Cardiac Output 8 Cardiac Output 8 Cardiac Output 8 Cardiac Output 8 Cardiac Output 8 Cardiac Output 8 Cardiac Output 8 Cardiac Index 3.9 Head normocephalic Neck supple Lungs clear to auscultation bilaterally no wheezing or crackles. 2 chest tubes Heart regular rate and rhythm S1-S2, no rub or gallop Abdomen is soft nontender nondistended positive bowel sounds no hepatosplenomegaly Extremities no edema. DENISSE hose in place Neuro alert and orientated to 3. Sitting up in bedside chair Results CBC & Chem 7: 10/17/16 05:05 10/17/16 05:05 Labs: Abnormal Lab Results - Last 24 Hours (Table) 10/11/16 10/16/16 10/16/16 Range/Units 20:30 10:19 11:25 WBC (3.8-10.6) k/uL RBC (4.30-5.90) m/uL Hgb (13.0-17.5) gm/dL Hct (39.0-53.0) % Plt Count (150-450) k/uL Neutrophils # (1.3-7.7) k/uL Neutrophils # (Manual) (1.3-7.7) k/uL Lymphocytes # (1.0-4.8) k/uL Lymphocytes # (Manual) (1.0-4.8) k/uL PT (9.0-12.0) sec APTT (22.0-30.0) sec ABG pO2 (83-108) mmHg ABG O2 Saturation (94-97) % Chloride (98-107) mmol/L Carbon Dioxide (22-30) mmol/L Glucose (74-99) mg/dL POC Glucose (mg/dL) 206 H 265 H (75-99) mg/dL Calcium (8.4-10.2) mg/dL Magnesium (1.6-2.3) mg/dL Alkaline Phosphatase (38-126) U/L Total Protein (6.3-8.2) g/dL Albumin (3.5-5.0) g/dL Crossmatch See Detail 10/16/16 10/16/16 10/16/16 Range/Units 11:50 12:26 13:57 WBC (3.8-10.6) k/uL RBC (4.30-5.90) m/uL Hgb (13.0-17.5) gm/dL Hct (39.0-53.0) % Plt Count (150-450) k/uL Neutrophils # (1.3-7.7) k/uL Neutrophils # (Manual) (1.3-7.7) k/uL Lymphocytes # (1.0-4.8) k/uL Lymphocytes # (Manual) (1.0-4.8) k/uL PT (9.0-12.0) sec APTT (22.0-30.0) sec ABG pO2 (83-108) mmHg ABG O2 Saturation (94-97) % Chloride (98-107) mmol/L Carbon Dioxide (22-30) mmol/L Glucose (74-99) mg/dL POC Glucose (mg/dL) 244 H 263 H 173 H (75-99) mg/dL Calcium (8.4-10.2) mg/dL Magnesium (1.6-2.3) mg/dL Alkaline Phosphatase (38-126) U/L Total Protein (6.3-8.2) g/dL Albumin (3.5-5.0) g/dL Crossmatch 10/16/16 10/16/16 10/16/16 Range/Units 15:50 15:50 15:50 WBC (3.8-10.6) k/uL RBC 3.12 L (4.30-5.90) m/uL Hgb 9.0 L D (13.0-17.5) gm/dL Hct 27.2 L (39.0-53.0) % Plt Count 88 L (150-450) k/uL Neutrophils # (1.3-7.7) k/uL Neutrophils # (Manual) (1.3-7.7) k/uL Lymphocytes # 0.9 L (1.0-4.8) k/uL Lymphocytes # (Manual) (1.0-4.8) k/uL PT 13.0 H (9.0-12.0) sec APTT 30.6 H (22.0-30.0) sec ABG pO2 (83-108) mmHg ABG O2 Saturation (94-97) % Chloride 111 H (98-107) mmol/L Carbon Dioxide (22-30) mmol/L Glucose (74-99) mg/dL POC Glucose (mg/dL) (75-99) mg/dL Calcium 8.0 L (8.4-10.2) mg/dL Magnesium 2.5 H (1.6-2.3) mg/dL Alkaline Phosphatase 33 L (38-126) U/L Total Protein 4.3 L (6.3-8.2) g/dL Albumin 2.5 L (3.5-5.0) g/dL Crossmatch 10/16/16 10/16/16 10/16/16 Range/Units 16:20 16:35 18:50 WBC (3.8-10.6) k/uL RBC (4.30-5.90) m/uL Hgb (13.0-17.5) gm/dL Hct (39.0-53.0) % Plt Count (150-450) k/uL Neutrophils # (1.3-7.7) k/uL Neutrophils # (Manual) (1.3-7.7) k/uL Lymphocytes # (1.0-4.8) k/uL Lymphocytes # (Manual) (1.0-4.8) k/uL PT (9.0-12.0) sec APTT (22.0-30.0) sec ABG pO2 215 H (83-108) mmHg ABG O2 Saturation 99.0 H (94-97) % Chloride (98-107) mmol/L Carbon Dioxide (22-30) mmol/L Glucose (74-99) mg/dL POC Glucose (mg/dL) 70 L 139 H (75-99) mg/dL Calcium (8.4-10.2) mg/dL Magnesium (1.6-2.3) mg/dL Alkaline Phosphatase (38-126) U/L Total Protein (6.3-8.2) g/dL Albumin (3.5-5.0) g/dL Crossmatch 10/16/16 10/16/16 10/16/16 Range/Units 19:32 20:08 21:04 WBC (3.8-10.6) k/uL RBC 3.43 L (4.30-5.90) m/uL Hgb 9.9 L (13.0-17.5) gm/dL Hct 30.4 L (39.0-53.0) % Plt Count 111 L (150-450) k/uL Neutrophils # 8.3 H (1.3-7.7) k/uL Neutrophils # (Manual) (1.3-7.7) k/uL Lymphocytes # (1.0-4.8) k/uL Lymphocytes # (Manual) (1.0-4.8) k/uL PT (9.0-12.0) sec APTT (22.0-30.0) sec ABG pO2 (83-108) mmHg ABG O2 Saturation (94-97) % Chloride (98-107) mmol/L Carbon Dioxide (22-30) mmol/L Glucose (74-99) mg/dL POC Glucose (mg/dL) 179 H 198 H (75-99) mg/dL Calcium (8.4-10.2) mg/dL Magnesium (1.6-2.3) mg/dL Alkaline Phosphatase (38-126) U/L Total Protein (6.3-8.2) g/dL Albumin (3.5-5.0) g/dL Crossmatch 10/16/16 10/16/16 10/16/16 Range/Units 22:13 22:13 22:13 WBC (3.8-10.6) k/uL RBC 3.33 L (4.30-5.90) m/uL Hgb 9.5 L (13.0-17.5) gm/dL Hct 29.4 L (39.0-53.0) % Plt Count 97 L (150-450) k/uL Neutrophils # (1.3-7.7) k/uL Neutrophils # (Manual) 8.6 H (1.3-7.7) k/uL Lymphocytes # (1.0-4.8) k/uL Lymphocytes # (Manual) 0.1 L (1.0-4.8) k/uL PT (9.0-12.0) sec APTT (22.0-30.0) sec ABG pO2 (83-108) mmHg ABG O2 Saturation (94-97) % Chloride 109 H (98-107) mmol/L Carbon Dioxide 21 L (22-30) mmol/L Glucose 169 H (74-99) mg/dL POC Glucose (mg/dL) 182 H (75-99) mg/dL Calcium 8.1 L (8.4-10.2) mg/dL Magnesium (1.6-2.3) mg/dL Alkaline Phosphatase (38-126) U/L Total Protein 5.1 L (6.3-8.2) g/dL Albumin 3.2 L (3.5-5.0) g/dL Crossmatch 10/16/16 10/16/16 10/17/16 Range/Units 22:13 23:06 00:22 WBC (3.8-10.6) k/uL RBC (4.30-5.90) m/uL Hgb (13.0-17.5) gm/dL Hct (39.0-53.0) % Plt Count (150-450) k/uL Neutrophils # (1.3-7.7) k/uL Neutrophils # (Manual) (1.3-7.7) k/uL Lymphocytes # (1.0-4.8) k/uL Lymphocytes # (Manual) (1.0-4.8) k/uL PT (9.0-12.0) sec APTT 33.3 H (22.0-30.0) sec ABG pO2 (83-108) mmHg ABG O2 Saturation (94-97) % Chloride (98-107) mmol/L Carbon Dioxide (22-30) mmol/L Glucose (74-99) mg/dL POC Glucose (mg/dL) 175 H 157 H (75-99) mg/dL Calcium (8.4-10.2) mg/dL Magnesium (1.6-2.3) mg/dL Alkaline Phosphatase (38-126) U/L Total Protein (6.3-8.2) g/dL Albumin (3.5-5.0) g/dL Crossmatch 10/17/16 10/17/16 10/17/16 Range/Units 01:11 02:02 03:06 WBC (3.8-10.6) k/uL RBC (4.30-5.90) m/uL Hgb (13.0-17.5) gm/dL Hct (39.0-53.0) % Plt Count (150-450) k/uL Neutrophils # (1.3-7.7) k/uL Neutrophils # (Manual) (1.3-7.7) k/uL Lymphocytes # (1.0-4.8) k/uL Lymphocytes # (Manual) (1.0-4.8) k/uL PT (9.0-12.0) sec APTT (22.0-30.0) sec ABG pO2 (83-108) mmHg ABG O2 Saturation (94-97) % Chloride (98-107) mmol/L Carbon Dioxide (22-30) mmol/L Glucose (74-99) mg/dL POC Glucose (mg/dL) 157 H 165 H 165 H (75-99) mg/dL Calcium (8.4-10.2) mg/dL Magnesium (1.6-2.3) mg/dL Alkaline Phosphatase (38-126) U/L Total Protein (6.3-8.2) g/dL Albumin (3.5-5.0) g/dL Crossmatch 10/17/16 10/17/16 10/17/16 Range/Units 04:11 05:05 05:05 WBC 10.7 H (3.8-10.6) k/uL RBC 3.40 L (4.30-5.90) m/uL Hgb 9.7 L (13.0-17.5) gm/dL Hct 30.3 L (39.0-53.0) % Plt Count 94 L (150-450) k/uL Neutrophils # 9.9 H (1.3-7.7) k/uL Neutrophils # (Manual) (1.3-7.7) k/uL Lymphocytes # 0.3 L (1.0-4.8) k/uL Lymphocytes # (Manual) (1.0-4.8) k/uL PT (9.0-12.0) sec APTT (22.0-30.0) sec ABG pO2 (83-108) mmHg ABG O2 Saturation (94-97) % Chloride 109 H (98-107) mmol/L Carbon Dioxide (22-30) mmol/L Glucose 172 H (74-99) mg/dL POC Glucose (mg/dL) 179 H (75-99) mg/dL Calcium (8.4-10.2) mg/dL Magnesium (1.6-2.3) mg/dL Alkaline Phosphatase (38-126) U/L Total Protein 5.1 L (6.3-8.2) g/dL Albumin 3.2 L (3.5-5.0) g/dL Crossmatch 10/17/16 10/17/16 10/17/16 Range/Units 05:05 07:11 08:04 WBC (3.8-10.6) k/uL RBC (4.30-5.90) m/uL Hgb (13.0-17.5) gm/dL Hct (39.0-53.0) % Plt Count (150-450) k/uL Neutrophils # (1.3-7.7) k/uL Neutrophils # (Manual) (1.3-7.7) k/uL Lymphocytes # (1.0-4.8) k/uL Lymphocytes # (Manual) (1.0-4.8) k/uL PT (9.0-12.0) sec APTT (22.0-30.0) sec ABG pO2 (83-108) mmHg ABG O2 Saturation (94-97) % Chloride (98-107) mmol/L Carbon Dioxide (22-30) mmol/L Glucose (74-99) mg/dL POC Glucose (mg/dL) 180 H 208 H 193 H (75-99) mg/dL Calcium (8.4-10.2) mg/dL Magnesium (1.6-2.3) mg/dL Alkaline Phosphatase (38-126) U/L Total Protein (6.3-8.2) g/dL Albumin (3.5-5.0) g/dL Crossmatch 10/17/16 Range/Units 09:07 WBC (3.8-10.6) k/uL RBC (4.30-5.90) m/uL Hgb (13.0-17.5) gm/dL Hct (39.0-53.0) % Plt Count (150-450) k/uL Neutrophils # (1.3-7.7) k/uL Neutrophils # (Manual) (1.3-7.7) k/uL Lymphocytes # (1.0-4.8) k/uL Lymphocytes # (Manual) (1.0-4.8) k/uL PT (9.0-12.0) sec APTT (22.0-30.0) sec ABG pO2 (83-108) mmHg ABG O2 Saturation (94-97) % Chloride (98-107) mmol/L Carbon Dioxide (22-30) mmol/L Glucose (74-99) mg/dL POC Glucose (mg/dL) 206 H (75-99) mg/dL Calcium (8.4-10.2) mg/dL Magnesium (1.6-2.3) mg/dL Alkaline Phosphatase (38-126) U/L Total Protein (6.3-8.2) g/dL Albumin (3.5-5.0) g/dL Crossmatch Assessment and Plan Plan: 1. 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 Diabetes mellitus type 2: Continue insulin drip for tight blood pressure control. Metformin and glipizide on hold for now 3. Essential hypertension: Blood pressure stable. Continue metoprolol 4. Hyperlipidemia continue Lipitor 5. History of TIA continue aspirin 6. History of a diverticular bleed. Active bleeding at this time. Hemoglobin 9.7 GI prophylaxis Protonix and DVT prophylaxis subcu heparin Thank you for this consultation. We will continue to follow along with. Time with Patient: Greater than 30 (Greater than 50% of the total time spent in counseling and coordination of care.I performed an examination of the patient and discussed their management with the physician Seal Skinner. I have reviewed the Physician Seal Skinner's notes and agree with the documented findings and plan of care)
[2016-10-17 10:10] LABS: Glucose,Whole Blood 176 mg/dL (75-99)
[2016-10-17] MEDS: ALBUMIN HUMAN 5% 250 ML in EMPTY BAG 1 BAG IVPB PRN (10:17)
[2016-10-17] MEDS: INSULIN REGULAR 100 UNIT in SODIUM CHLORIDE 0.9% 100 ML IV SCH (10:19)
--- NOTE | 2016-10-17 10:19 | P.CNPUL ---
History of Present Illness Consult date: 10/17/16 Requesting physician: Dong Gonzales Reason for consult: other (Patient is status post CABG, ICU management.) Chief complaint: Status post triple vessel coronary artery bypass graft History of present illness: This is a 76-year-old white male with multiple medical problems including hypertension and diabetes, and multivessel coronary artery disease. Patient underwent triple vessel coronary artery bypass surgery on 10/16/2016, postoperatively I was asked to see the patient on consultation. I reviewed his chest x-ray I also reviewed his ventilator settings, a few hours after arrival to the ICU, patient was extubated to nasal cannula. His postoperative course has been relatively uneventful. Patient is sitting in a chair, in no form of respiratory distress, doing quite well with incentive spirometry. Denies any chest pain, no shortness of breath, no fever, no chills. No nausea no vomiting. Chest x-ray showed minimal left basilar atelectasis. Review of Systems Constitutional: No weight loss, no fever, no chills. HEENT: No headache, no blurred vision, no dizziness, no diplopia, no sore throat. No earaches. Pulmonary: No cough no wheezing no shortness of breath. Cardiac: No chest pain, no palpitations, patient is status post CABG. GI: No nausea no vomiting no abdominal pain no melena no hematemesis. Genitourinary: No dysuria, no frequency, no urgency. Muscular skeletal: No aches and pains. Neurologic: No headache, no blurred vision, no ataxia. No seizures. Hematologic: No bleeding, no clubbing, no bruising. Psychiatric: No symptoms of active depression. Endocrine: History of diabetes, well-controlled. Past Medical History Past Medical History: Atrial Flutter, Cancer, CVA/TIA, Diabetes Mellitus, Hypertension Additional Past Medical History / Comment(s): Possible TIA, lower GI bleed yrs ago, diverticulitis, colon polypectomy, melanoma removals head and nose, hemorroids History of Any Multi-Drug Resistant Organisms: None Reported Past Surgical History: Cholecystectomy, Heart Catheterization Additional Past Surgical History / Comment(s): colonoscopies/benign polypectomies, bilateral cataract removal. Past Anesthesia/Blood Transfusion Reactions: No Reported Reaction Smoking Status: Never smoker - Past Family History Father Additional Family Medical History / Comment(s): Father at the age of 33 yrs from encephalitis. Mother Family Medical History: Myocardial Infarction (SC) Additional Family Medical History / Comment(s): Mother had a SC at the age of 60yrs. She at the age of 90yrs. Medications and Allergies Home Medications Medication Instructions Recorded Confirmed Type Aspirin EC [Ecotrin Low Dose] 81 mg PO DAILY 07/08/16 10/16/16 History Atenolol 25 mg PO DAILY 07/08/16 10/16/16 History Colesevelam [Welchol] 625 mg PO BID 07/08/16 10/16/16 History Ergocalciferol [Vitamin D2 50,000 unit PO TU 07/08/16 10/16/16 History (DRISDOL)] amLODIPine BESYLATE/BENAZEPRIL 1 cap PO DAILY 07/08/16 10/16/16 History [Amlodipine-Benazepril 5-10 mg] glipiZIDE [Glipizide Xl] 5 mg PO AC-BID 07/08/16 10/16/16 History metFORMIN HCL [Glucophage] 1,000 mg PO AC-BRKFST 07/08/16 10/16/16 History metFORMIN HCL [Glucophage] 500 mg PO AC-SUPPER 07/08/16 10/16/16 History Aspirin 364 mg PO ONCE 10/16/16 10/16/16 History Allergies Allergy/AdvReac Type Severity Reaction Status Date / Time latex Allergy Unknown Verified 10/16/16 06:09 penicillin V Allergy Unknown Verified 10/16/16 06:09 Physical Exam Vitals: Vital Signs Temp Pulse Resp BP Pulse Ox 10/17/16 09:00 84 16 95 10/17/16 08:00 80 9 L 94 L 10/17/16 07:00 84 14 94 L 10/17/16 06:45 81 20 90 L 10/17/16 06:30 85 26 H 97 10/17/16 06:15 88 16 98 10/17/16 06:00 88 14 99 10/17/16 05:45 82 15 97 10/17/16 05:30 83 16 98 10/17/16 05:15 85 12 97 10/17/16 05:00 87 12 97 10/17/16 04:45 81 9 L 96 10/17/16 04:30 81 18 95 10/17/16 04:15 84 13 96 10/17/16 04:00 98.9 F 81 13 96 10/17/16 03:45 78 16 96 10/17/16 03:30 82 14 96 10/17/16 03:15 80 10 L 96 10/17/16 03:00 75 13 96 10/17/16 02:45 77 12 96 10/17/16 02:30 81 16 95 10/17/16 02:15 80 14 97 10/17/16 02:00 79 14 96 10/17/16 01:45 77 13 94 L 10/17/16 01:30 81 15 93 L 10/17/16 01:15 80 11 L 93 L 10/17/16 01:00 71 22 94 L 10/17/16 00:45 84 18 94 L 10/17/16 00:30 82 18 94 L 10/17/16 00:15 77 20 94 L 10/17/16 00:00 78 16 94 L 10/16/16 23:45 81 20 95 10/16/16 23:30 80 22 96 10/16/16 23:22 95 10/16/16 23:15 75 20 95 10/16/16 23:00 71 18 95 10/16/16 22:45 81 18 95 10/16/16 22:30 77 16 95 10/16/16 22:15 75 20 95 10/16/16 22:00 73 18 95 10/16/16 21:45 75 18 95 10/16/16 21:30 75 14 95 10/16/16 21:15 76 18 96 10/16/16 21:00 75 22 95 10/16/16 20:45 75 20 94 L 10/16/16 20:30 71 20 95 10/16/16 20:15 77 20 94 L 10/16/16 20:00 73 18 95 10/16/16 19:45 74 18 96 10/16/16 19:30 75 14 96 10/16/16 19:27 76 05 19:15 82 14 93 L 10/16/16 19:00 97.3 F L 84 22 102/53 97 10/16/16 18:45 58 L 20 91/57 99 10/16/16 18:30 70 22 91/57 100 10/16/16 18:15 73 17 91/57 99 10/16/16 18:00 96.8 F L 72 14 91/57 99 10/16/16 17:45 68 14 91/57 99 10/16/16 17:30 71 17 91/57 100 10/16/16 17:15 69 16 100 10/16/16 17:00 95.9 F L 68 14 100 10/16/16 16:45 64 14 99 10/16/16 16:30 61 14 100 10/16/16 16:15 61 14 100 10/16/16 16:00 96.1 F L 57 L 14 100 10/16/16 15:45 95.5 F L 82 14 100 10/16/16 15:43 14 99 10/16/16 15:40 100 Intake and Output 10/16/16 10/17/16 10/17/16 22:59 06:59 14:59 Intake Total 1166.854 779.225 296.191 Output Total 1427 1043 262 Balance -260.146 -263.775 34.191 Intake: IV 1135.5 746.0 263.5 ACETAMINOPHEN IV (For NPO 100 200 ) 1,000 mg In Empty Bag 1 bag @ 400 mls/hr IVPB Q6HR [facility] Rx#:[id number] Albumin Human 5% 250 ml 500 In Empty Bag 1 bag @ 250 mls/hr IVPB Q1HR PRN Rx#: [id number] Kate 15 24 12 CO/CI 60 10 30 Lactated Ringers 1,000 ml 350 400 120 @ 20 mls/hr IV .Q24H [facility]IG[facility] Rx#:[id number] Nitroglycerin-D5w Pmx 50 10.5 12.0 1.5 mg In Dextrose/Water 1 250ml.bag @ 5 MCG/MIN 1.5 mls/hr IV .Q24H [facility]IG[facility] Rx#: [id number] ceFAZolin 2 gm In Sodium 100 100 100 Chloride 0.9% 100 ml @ 100 mls/hr IVPB Q8HR [facility] Rx#:[id number] Intake, IV Titration 31.354 33.225 32.691 Amount Insulin Regular 100 unit 3.631 33.225 32.691 In Sodium Chloride 0.9% 100 ml @ Per Protocol IV .Q0M [facility] Rx#:[id number] Propofol 500 mg In Empty 27.723 Bag 1 bag @ Titrate IV . Q0M [facility] Rx#:[id number] Output: Chest Tube Drainage 447 346 210 Bilateral Mediastinal 332 290 150 Left Lateral Chest 115 56 60 Gastric Drainage 350 150 Urine 630 547 52 Other: Voiding Method Indwelling Catheter Indwelling Catheter Indwelling Catheter Weight 102 kg ABP, PAP, CO, CI - Last 8 Hours Arterial Blood Pressure 132/49 Arterial Blood Pressure 116/30 Arterial Blood Pressure 150/50 Arterial Blood Pressure 149/54 Arterial Blood Pressure 162/57 Arterial Blood Pressure 162/66 Arterial Blood Pressure 156/58 Arterial Blood Pressure 146/57 Arterial Blood Pressure 137/60 Arterial Blood Pressure 150/58 Arterial Blood Pressure 119/52 Arterial Blood Pressure 95/63 Arterial Blood Pressure 131/51 Arterial Blood Pressure 137/54 Arterial Blood Pressure 145/52 Arterial Blood Pressure 121/51 Arterial Blood Pressure 119/48 Arterial Blood Pressure 131/54 Arterial Blood Pressure 123/48 Arterial Blood Pressure 123/50 Arterial Blood Pressure 113/49 Pulmonary Artery Pressure 30/13 Pulmonary Artery Pressure 21/7 Pulmonary Artery Pressure 28/8 Pulmonary Artery Pressure 30/11 Pulmonary Artery Pressure 36/17 Pulmonary Artery Pressure 39/20 Pulmonary Artery Pressure 38/18 Pulmonary Artery Pressure 37/18 Pulmonary Artery Pressure 37/20 Pulmonary Artery Pressure 38/20 Pulmonary Artery Pressure 41/21 Pulmonary Artery Pressure 40/20 Pulmonary Artery Pressure 38/21 Pulmonary Artery Pressure 42/22 Pulmonary Artery Pressure 44/22 Pulmonary Artery Pressure 45/22 Pulmonary Artery Pressure 44/21 Pulmonary Artery Pressure 36/15 Pulmonary Artery Pressure 39/18 Pulmonary Artery Pressure 46/23 Pulmonary Artery Pressure 42/21 Cardiac Output 5.3 Cardiac Output 8.7 Cardiac Output 8.7 Cardiac Output 8.7 Cardiac Output 8.7 Cardiac Output 8.7 Cardiac Output 8.7 Cardiac Output 8.7 Cardiac Output 8.7 Cardiac Output 8.7 Cardiac Output 8.7 Cardiac Output 8 Cardiac Output 8 Cardiac Output 8 Cardiac Output 8 Cardiac Output 8 Cardiac Output 8 Cardiac Output 8 Cardiac Output 8 Cardiac Output 8 Cardiac Output 8 Cardiac Output 8 Cardiac Index 2.4 Cardiac Index 3.9 Physical Exam: Revealed a 76-year-old white male, in no form of respiratory distress. 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: [Diminished breath sounds and crackles at the left base, no rhonchi, no wheezes.] Cardiac Exam: [Normal S1 and S2, no S3 gallop, no murmur.] Abdomen: [Soft, nontender, no megaly, no rebound, no guarding, normal bowel sounds.] Extremities: [No clubbing, no edema, no cyanosis. DENISSE hose in place.] Neurological Exam: [No focal neurologic deficit.] Results - Laboratory Findings CBC and BMP: 10/17/16 05:05 10/17/16 05:05 ABG ABG pH 7.38 (7.35-7.45) 10/16/16 23:05 ABG pCO2 36 mmHg (35-45) 10/16/16 23:05 ABG pO2 91 mmHg (83-108) 10/16/16 23:05 ABG O2 Saturation 96.9 % (94-97) 10/16/16 23:05 PT/INR, D-dimer PT 11.9 sec (9.0-12.0) 10/16/16 22:13 INR 1.2 (<1.1) 10/16/16 22:13 Abnormal lab findings: Abnormal Labs 10/11/16 10/16/16 10/16/16 20:30 06:32 09:03 WBC RBC Hgb Hct Plt Count Neutrophils # Neutrophils # (Manual) Lymphocytes # Lymphocytes # (Manual) PT APTT ABG pO2 ABG O2 Saturation Chloride Carbon Dioxide Glucose POC Glucose (mg/dL) 151 H 173 H Calcium Magnesium Alkaline Phosphatase Total Protein Albumin Crossmatch See Detail 10/16/16 10/16/16 10/16/16 10:19 11:25 11:50 WBC RBC Hgb Hct Plt Count Neutrophils # Neutrophils # (Manual) Lymphocytes # Lymphocytes # (Manual) PT APTT ABG pO2 ABG O2 Saturation Chloride Carbon Dioxide Glucose POC Glucose (mg/dL) 206 H 265 H 244 H Calcium Magnesium Alkaline Phosphatase Total Protein Albumin Crossmatch 10/16/16 10/16/16 10/16/16 12:26 13:57 15:50 WBC RBC 3.12 L Hgb 9.0 L D Hct 27.2 L Plt Count 88 L Neutrophils # Neutrophils # (Manual) Lymphocytes # 0.9 L Lymphocytes # (Manual) PT APTT ABG pO2 ABG O2 Saturation Chloride Carbon Dioxide Glucose POC Glucose (mg/dL) 263 H 173 H Calcium Magnesium Alkaline Phosphatase Total Protein Albumin Crossmatch 10/16/16 10/16/16 10/16/16 15:50 15:50 16:20 WBC RBC Hgb Hct Plt Count Neutrophils # Neutrophils # (Manual) Lymphocytes # Lymphocytes # (Manual) PT 13.0 H APTT 30.6 H ABG pO2 215 H ABG O2 Saturation 99.0 H Chloride 111 H Carbon Dioxide Glucose POC Glucose (mg/dL) Calcium 8.0 L Magnesium 2.5 H Alkaline Phosphatase 33 L Total Protein 4.3 L Albumin 2.5 L Crossmatch 10/16/16 10/16/16 10/16/16 16:35 18:50 19:32 WBC RBC 3.43 L Hgb 9.9 L Hct 30.4 L Plt Count 111 L Neutrophils # 8.3 H Neutrophils # (Manual) Lymphocytes # Lymphocytes # (Manual) PT APTT ABG pO2 ABG O2 Saturation Chloride Carbon Dioxide Glucose POC Glucose (mg/dL) 70 L 139 H Calcium Magnesium Alkaline Phosphatase Total Protein Albumin Crossmatch 10/16/16 10/16/16 10/16/16 20:08 21:04 22:13 WBC RBC Hgb Hct Plt Count Neutrophils # Neutrophils # (Manual) Lymphocytes # Lymphocytes # (Manual) PT APTT ABG pO2 ABG O2 Saturation Chloride Carbon Dioxide Glucose POC Glucose (mg/dL) 179 H 198 H 182 H Calcium Magnesium Alkaline Phosphatase Total Protein Albumin Crossmatch 10/16/16 10/16/16 10/16/16 22:13 22:13 22:13 WBC RBC 3.33 L Hgb 9.5 L Hct 29.4 L Plt Count 97 L Neutrophils # Neutrophils # (Manual) 8.6 H Lymphocytes # Lymphocytes # (Manual) 0.1 L PT APTT 33.3 H ABG pO2 ABG O2 Saturation Chloride 109 H Carbon Dioxide 21 L Glucose 169 H POC Glucose (mg/dL) Calcium 8.1 L Magnesium Alkaline Phosphatase Total Protein 5.1 L Albumin 3.2 L Crossmatch 10/16/16 10/17/16 10/17/16 23:06 00:22 01:11 WBC RBC Hgb Hct Plt Count Neutrophils # Neutrophils # (Manual) Lymphocytes # Lymphocytes # (Manual) PT APTT ABG pO2 ABG O2 Saturation Chloride Carbon Dioxide Glucose POC Glucose (mg/dL) 175 H 157 H 157 H Calcium Magnesium Alkaline Phosphatase Total Protein Albumin Crossmatch 10/17/16 10/17/16 10/17/16 02:02 03:06 04:11 WBC RBC Hgb Hct Plt Count Neutrophils # Neutrophils # (Manual) Lymphocytes # Lymphocytes # (Manual) PT APTT ABG pO2 ABG O2 Saturation Chloride Carbon Dioxide Glucose POC Glucose (mg/dL) 165 H 165 H 179 H Calcium Magnesium Alkaline Phosphatase Total Protein Albumin Crossmatch 10/17/16 10/17/16 10/17/16 05:05 05:05 05:05 WBC 10.7 H RBC 3.40 L Hgb 9.7 L Hct 30.3 L Plt Count 94 L Neutrophils # 9.9 H Neutrophils # (Manual) Lymphocytes # 0.3 L Lymphocytes # (Manual) PT APTT ABG pO2 ABG O2 Saturation Chloride 109 H Carbon Dioxide Glucose 172 H POC Glucose (mg/dL) 180 H Calcium Magnesium Alkaline Phosphatase Total Protein 5.1 L Albumin 3.2 L Crossmatch 10/17/16 10/17/16 10/17/16 07:11 08:04 09:07 WBC RBC Hgb Hct Plt Count Neutrophils # Neutrophils # (Manual) Lymphocytes # Lymphocytes # (Manual) PT APTT ABG pO2 ABG O2 Saturation Chloride Carbon Dioxide Glucose POC Glucose (mg/dL) 208 H 193 H 206 H Calcium Magnesium Alkaline Phosphatase Total Protein Albumin Crossmatch 10/17/16 10:09 WBC RBC Hgb Hct Plt Count Neutrophils # Neutrophils # (Manual) Lymphocytes # Lymphocytes # (Manual) PT APTT ABG pO2 ABG O2 Saturation Chloride Carbon Dioxide Glucose POC Glucose (mg/dL) 176 H Calcium Magnesium Alkaline Phosphatase Total Protein Albumin Crossmatch - Diagnostic Findings Chest x-ray: image reviewed (Postoperative changes, otherwise unremarkable, minimal postoperative left lower lobe atelectasis is noted. Small bilateral effusions also noted.) Assessment and Plan Plan: Impression: 1 status post CABG, triple-vessel coronary artery disease, postoperative day #1. 2 multiple comorbidities including diabetes, essential hypertension, hyperlipidemia, history of atrial flutter, history of TIA, history of diverticular disease. 3 postoperative atelectasis and small pleural effusions. Recommendation: Patient was extubated last night uneventfully, tolerated the extubation quite well, presently, relatively asymptomatic, hence the patient will be continued on incentive spirometry, bronchodilators, early ambulation, and we will continue to follow. Time with Patient: Greater than 30
[2016-10-17] MEDS ORDERED: METOPROLOL TARTRATE 12.5 MG TAB PO STA (10:36)
[2016-10-17] MEDS ORDERED: FUROSEMIDE 10 MG/ML 2 ML VIAL IV ONE (10:36)
[2016-10-17 10:38] LABS: Hemoglobin A1C 7.6 % (4.2-6.1)
--- NOTE | 2016-10-17 10:44 | P.PN ---
<Alise Leone - Last Filed: 10/17/16 10:43> Subjective Principal diagnosis: Coronary artery disease. History of paroxysmal atrial flutter. History of CVA. Type 2 diabetes mellitus. Hypertension. History of lower GI bleed. Diverticulitis. History of melanoma with removal. POD #1 coronary artery bypass grafting 3 vessels (left internal mammary artery to left anterior descending artery, reverse saphenous vein graft to diagonal artery, reverse saphenous vein graft to obtuse marginal artery). Endoscopic vein harvest, right greater saphenous vein. Epi-aortic ultrasound. Intraoperative transesophageal echocardiogram. Patient currently sitting up in a recliner in no acute distress. Was extubated last night to a Ventimask, now on room air. States he has no pain. Objective - Vital Signs Vital signs: Vital Signs Temp 98.9 F 10/17/16 04:00 Pulse 84 10/17/16 07:00 Resp 14 10/17/16 07:00 BP 102/53 10/16/16 19:00 Pulse Ox 94 L 10/17/16 07:00 Intake & Output 10/16/16 10/17/16 10/17/16 18:59 06:59 18:59 Intake Total 411.548 6617.630 69.465 Output Total 3064 1906 232 Balance -2476.551 -484.370 -162.535 Weight 102 kg Intake: IV 567.5 1377.0 54.5 ACETAMINOPHEN IV (For NPO 300 ) 1,000 mg In Empty Bag 1 bag @ 400 mls/hr IVPB Q6HR [facility] Rx#:[id number] Albumin Human 5% 250 ml 250 250 In Empty Bag 1 bag @ 250 mls/hr IVPB Q1HR PRN Rx#: [id number] Kate 39 3 CO/CI 70 Lactated Ringers 1,000 ml 150 600 50 @ 50 mls/hr IV .Q20H [facility] Rx#:[id number] Nitroglycerin-D5w Pmx 50 4.5 18.0 1.5 mg In Dextrose/Water 1 250ml.bag @ 5 MCG/MIN 1.5 mls/hr IV .Q24H [facility] Rx#: [id number] ceFAZolin 2 gm In Sodium 100 100 Chloride 0.9% 100 ml @ 100 mls/hr IVPB Q8HR [facility] Rx#:[id number] Intake, IV Titration 19.949 44.630 14.965 Amount Insulin Regular 100 unit 36.856 14.965 In Sodium Chloride 0.9% 100 ml @ Per Protocol IV .Q0M [facility] Rx#:[id number] Propofol 500 mg In Empty 19.949 7.774 Bag 1 bag @ Titrate IV . Q0M [facility] Rx#:[id number] Output: Chest Tube Drainage 237 556 200 Bilateral Mediastinal 162 460 140 Left Lateral Chest 75 96 60 Gastric Drainage 500 Urine 1327 850 32 Estimated Blood Loss 1500 Other: Voiding Method Indwelling Catheter Indwelling Catheter ABP, PAP, CO, CI - Last Documented Arterial Blood Pressure 116/30 Pulmonary Artery Pressure 21/7 Cardiac Output 8.7 Cardiac Index 3.9 - Constitutional General appearance: Present: cooperative, no acute distress - Respiratory Details: Lungs sounds diminished bilaterally. Respirations even, nonlabored. Currently on room air with oxygen saturation 93-94%. Able to achieve 1500 mL on his incentive spirometer. Mediastinal chest tube to -20 cm wall suction, 210 mL serosanguineous drainage overnight, 600 mL since surgery, positive intermittent air leak present. Left pleural chest tube to -20 cm wall suction, 45 mL serosanguineous drainage overnight, 210 mL since surgery, no air leak present. - Cardiovascular Details: Hancock, S2 present. Regular rate and rhythm, sinus rhythm with occasional PVCs on telemetry. Sternum stable. Heart hugger in place with patient demonstrating appropriate use. A/V epicardial pacemaker wires present, attached to generator, VVI with backup rate 50 bpm. Left radial arterial line, right IJ/Hancock-Fabian catheter present. Teds/SCDs present. - Gastrointestinal Gastrointestinal Comment(s): Plan soft, nontender, nondistended. Hypoactive bowel sounds present. Tolerating clear liquids. - Genitourinary Genitourinary Comment(s): Tyson present draining clear, yellow urine. Output 25-30 mL/h overnight with 350 mL output at 6 AM. - Integumentary Integumentary Comment(s): Anterior chest incision well approximated and covered with dry intact dressing. Right lower extremity EVH site well approximated. - Musculoskeletal Musculoskeletal: Present: strength equal bilaterally - Psychiatric Psychiatric: Present: A&O x's 3, appropriate affect, intact judgment & insight - Allied health notes Allied health notes reviewed: nursing - Labs CBC & Chem 7: 10/17/16 05:05 10/17/16 05:05 Labs: Abnormal Lab Results - Last 24 Hours (Table) 10/11/16 10/16/16 10/16/16 Range/Units 20:30 09:03 10:19 WBC (3.8-10.6) k/uL RBC (4.30-5.90) m/uL Hgb (13.0-17.5) gm/dL Hct (39.0-53.0) % Plt Count (150-450) k/uL Neutrophils # (1.3-7.7) k/uL Neutrophils # (Manual) (1.3-7.7) k/uL Lymphocytes # (1.0-4.8) k/uL Lymphocytes # (Manual) (1.0-4.8) k/uL PT (9.0-12.0) sec APTT (22.0-30.0) sec ABG pO2 (83-108) mmHg ABG O2 Saturation (94-97) % Chloride (98-107) mmol/L Carbon Dioxide (22-30) mmol/L Glucose (74-99) mg/dL POC Glucose (mg/dL) 173 H 206 H (75-99) mg/dL Calcium (8.4-10.2) mg/dL Magnesium (1.6-2.3) mg/dL Alkaline Phosphatase (38-126) U/L Total Protein (6.3-8.2) g/dL Albumin (3.5-5.0) g/dL Crossmatch See Detail 10/16/16 10/16/16 10/16/16 Range/Units 11:25 11:50 12:26 WBC (3.8-10.6) k/uL RBC (4.30-5.90) m/uL Hgb (13.0-17.5) gm/dL Hct (39.0-53.0) % Plt Count (150-450) k/uL Neutrophils # (1.3-7.7) k/uL Neutrophils # (Manual) (1.3-7.7) k/uL Lymphocytes # (1.0-4.8) k/uL Lymphocytes # (Manual) (1.0-4.8) k/uL PT (9.0-12.0) sec APTT (22.0-30.0) sec ABG pO2 (83-108) mmHg ABG O2 Saturation (94-97) % Chloride (98-107) mmol/L Carbon Dioxide (22-30) mmol/L Glucose (74-99) mg/dL POC Glucose (mg/dL) 265 H 244 H 263 H (75-99) mg/dL Calcium (8.4-10.2) mg/dL Magnesium (1.6-2.3) mg/dL Alkaline Phosphatase (38-126) U/L Total Protein (6.3-8.2) g/dL Albumin (3.5-5.0) g/dL Crossmatch 10/16/16 10/16/16 10/16/16 Range/Units 13:57 15:50 15:50 WBC (3.8-10.6) k/uL RBC 3.12 L (4.30-5.90) m/uL Hgb 9.0 L D (13.0-17.5) gm/dL Hct 27.2 L (39.0-53.0) % Plt Count 88 L (150-450) k/uL Neutrophils # (1.3-7.7) k/uL Neutrophils # (Manual) (1.3-7.7) k/uL Lymphocytes # 0.9 L (1.0-4.8) k/uL Lymphocytes # (Manual) (1.0-4.8) k/uL PT (9.0-12.0) sec APTT (22.0-30.0) sec ABG pO2 (83-108) mmHg ABG O2 Saturation (94-97) % Chloride 111 H (98-107) mmol/L Carbon Dioxide (22-30) mmol/L Glucose (74-99) mg/dL POC Glucose (mg/dL) 173 H (75-99) mg/dL Calcium 8.0 L (8.4-10.2) mg/dL Magnesium 2.5 H (1.6-2.3) mg/dL Alkaline Phosphatase 33 L (38-126) U/L Total Protein 4.3 L (6.3-8.2) g/dL Albumin 2.5 L (3.5-5.0) g/dL Crossmatch 10/16/16 10/16/1617 Range/Units 15:50 16:20 16:35 WBC (3.8-10.6) k/uL RBC (4.30-5.90) m/uL Hgb (13.0-17.5) gm/dL Hct (39.0-53.0) % Plt Count (150-450) k/uL Neutrophils # (1.3-7.7) k/uL Neutrophils # (Manual) (1.3-7.7) k/uL Lymphocytes # (1.0-4.8) k/uL Lymphocytes # (Manual) (1.0-4.8) k/uL PT 13.0 H (9.0-12.0) sec APTT 30.6 H (22.0-30.0) sec ABG pO2 215 H (83-108) mmHg ABG O2 Saturation 99.0 H (94-97) % Chloride (98-107) mmol/L Carbon Dioxide (22-30) mmol/L Glucose (74-99) mg/dL POC Glucose (mg/dL) 70 L (75-99) mg/dL Calcium (8.4-10.2) mg/dL Magnesium (1.6-2.3) mg/dL Alkaline Phosphatase (38-126) U/L Total Protein (6.3-8.2) g/dL Albumin (3.5-5.0) g/dL Crossmatch 10/16/16 10/16/16 10/16/16 Range/Units 18:50 19:32 20:08 WBC (3.8-10.6) k/uL RBC 3.43 L (4.30-5.90) m/uL Hgb 9.9 L (13.0-17.5) gm/dL Hct 30.4 L (39.0-53.0) % Plt Count 111 L (150-450) k/uL Neutrophils # 8.3 H (1.3-7.7) k/uL Neutrophils # (Manual) (1.3-7.7) k/uL Lymphocytes # (1.0-4.8) k/uL Lymphocytes # (Manual) (1.0-4.8) k/uL PT (9.0-12.0) sec APTT (22.0-30.0) sec ABG pO2 (83-108) mmHg ABG O2 Saturation (94-97) % Chloride (98-107) mmol/L Carbon Dioxide (22-30) mmol/L Glucose (74-99) mg/dL POC Glucose (mg/dL) 139 H 179 H (75-99) mg/dL Calcium (8.4-10.2) mg/dL Magnesium (1.6-2.3) mg/dL Alkaline Phosphatase (38-126) U/L Total Protein (6.3-8.2) g/dL Albumin (3.5-5.0) g/dL Crossmatch 10/16/16 10/16/16 10/16/16 Range/Units 21:04 22:13 22:13 WBC (3.8-10.6) k/uL RBC 3.33 L (4.30-5.90) m/uL Hgb 9.5 L (13.0-17.5) gm/dL Hct 29.4 L (39.0-53.0) % Plt Count 97 L (150-450) k/uL Neutrophils # (1.3-7.7) k/uL Neutrophils # (Manual) 8.6 H (1.3-7.7) k/uL Lymphocytes # (1.0-4.8) k/uL Lymphocytes # (Manual) 0.1 L (1.0-4.8) k/uL PT (9.0-12.0) sec APTT (22.0-30.0) sec ABG pO2 (83-108) mmHg ABG O2 Saturation (94-97) % Chloride (98-107) mmol/L Carbon Dioxide (22-30) mmol/L Glucose (74-99) mg/dL POC Glucose (mg/dL) 198 H 182 H (75-99) mg/dL Calcium (8.4-10.2) mg/dL Magnesium (1.6-2.3) mg/dL Alkaline Phosphatase (38-126) U/L Total Protein (6.3-8.2) g/dL Albumin (3.5-5.0) g/dL Crossmatch 10/16/16 10/16/16 10/16/16 Range/Units 22:13 22:13 23:06 WBC (3.8-10.6) k/uL RBC (4.30-5.90) m/uL Hgb (13.0-17.5) gm/dL Hct (39.0-53.0) % Plt Count (150-450) k/uL Neutrophils # (1.3-7.7) k/uL Neutrophils # (Manual) (1.3-7.7) k/uL Lymphocytes # (1.0-4.8) k/uL Lymphocytes # (Manual) (1.0-4.8) k/uL PT (9.0-12.0) sec APTT 33.3 H (22.0-30.0) sec ABG pO2 (83-108) mmHg ABG O2 Saturation (94-97) % Chloride 109 H (98-107) mmol/L Carbon Dioxide 21 L (22-30) mmol/L Glucose 169 H (74-99) mg/dL POC Glucose (mg/dL) 175 H (75-99) mg/dL Calcium 8.1 L (8.4-10.2) mg/dL Magnesium (1.6-2.3) mg/dL Alkaline Phosphatase (38-126) U/L Total Protein 5.1 L (6.3-8.2) g/dL Albumin 3.2 L (3.5-5.0) g/dL Crossmatch 10/17/16 10/17/16 10/17/16 Range/Units 00:22 01:11 02:02 WBC (3.8-10.6) k/uL RBC (4.30-5.90) m/uL Hgb (13.0-17.5) gm/dL Hct (39.0-53.0) % Plt Count (150-450) k/uL Neutrophils # (1.3-7.7) k/uL Neutrophils # (Manual) (1.3-7.7) k/uL Lymphocytes # (1.0-4.8) k/uL Lymphocytes # (Manual) (1.0-4.8) k/uL PT (9.0-12.0) sec APTT (22.0-30.0) sec ABG pO2 (83-108) mmHg ABG O2 Saturation (94-97) % Chloride (98-107) mmol/L Carbon Dioxide (22-30) mmol/L Glucose (74-99) mg/dL POC Glucose (mg/dL) 157 H 157 H 165 H (75-99) mg/dL Calcium (8.4-10.2) mg/dL Magnesium (1.6-2.3) mg/dL Alkaline Phosphatase (38-126) U/L Total Protein (6.3-8.2) g/dL Albumin (3.5-5.0) g/dL Crossmatch 10/17/16 10/17/16 10/17/16 Range/Units 03:06 04:11 05:05 WBC 10.7 H (3.8-10.6) k/uL RBC 3.40 L (4.30-5.90) m/uL Hgb 9.7 L (13.0-17.5) gm/dL Hct 30.3 L (39.0-53.0) % Plt Count 94 L (150-450) k/uL Neutrophils # 9.9 H (1.3-7.7) k/uL Neutrophils # (Manual) (1.3-7.7) k/uL Lymphocytes # 0.3 L (1.0-4.8) k/uL Lymphocytes # (Manual) (1.0-4.8) k/uL PT (9.0-12.0) sec APTT (22.0-30.0) sec ABG pO2 (83-108) mmHg ABG O2 Saturation (94-97) % Chloride (98-107) mmol/L Carbon Dioxide (22-30) mmol/L Glucose (74-99) mg/dL POC Glucose (mg/dL) 165 H 179 H (75-99) mg/dL Calcium (8.4-10.2) mg/dL Magnesium (1.6-2.3) mg/dL Alkaline Phosphatase (38-126) U/L Total Protein (6.3-8.2) g/dL Albumin (3.5-5.0) g/dL Crossmatch 10/17/16 10/17/16 10/17/16 Range/Units 05:05 05:05 07:11 WBC (3.8-10.6) k/uL RBC (4.30-5.90) m/uL Hgb (13.0-17.5) gm/dL Hct (39.0-53.0) % Plt Count (150-450) k/uL Neutrophils # (1.3-7.7) k/uL Neutrophils # (Manual) (1.3-7.7) k/uL Lymphocytes # (1.0-4.8) k/uL Lymphocytes # (Manual) (1.0-4.8) k/uL PT (9.0-12.0) sec APTT (22.0-30.0) sec ABG pO2 (83-108) mmHg ABG O2 Saturation (94-97) % Chloride 109 H (98-107) mmol/L Carbon Dioxide (22-30) mmol/L Glucose 172 H (74-99) mg/dL POC Glucose (mg/dL) 180 H 208 H (75-99) mg/dL Calcium (8.4-10.2) mg/dL Magnesium (1.6-2.3) mg/dL Alkaline Phosphatase (38-126) U/L Total Protein 5.1 L (6.3-8.2) g/dL Albumin 3.2 L (3.5-5.0) g/dL Crossmatch - Imaging and Cardiology Chest x-ray: report reviewed, image reviewed Assessment and Plan (1) History of melanoma Status: Acute (2) Coronary artery disease Status: Acute (3) Family history of coronary artery disease in mother Status: Acute (4) History of TIA (transient ischemic attack) Status: Acute (5) History of atrial flutter Status: Acute (6) History of hemorrhoids Status: Acute (7) History of syncope Status: Acute (8) Hyperlipidemia Status: Acute (9) Hypertension Status: Acute Plan: 1. Continue aspirin, Lipitor, Plavix, heparin, Lopressor. Will maximize beta vashti therapy as tolerated. 2. Encourage incentive spirometry use. Will give lasix 20 mg IVP x 1 today 3. Increase activity, out of bed to chair. Physical therapy to follow. 4. Will discontinue Hancock. Will ground epicardial pacemaker wires. 5. Insulin drip/diabetic management per primary care service. 6. GI/DVT prophylaxis. 7. Will monitor daily labs, chest x-rays. 8. More recommendations as patient progresses. Time with Patient: Greater than 30 <Dong Gonzales - Last Filed: 10/17/16 17:33> Objective - Vital Signs Vital signs: Vital Signs Temp 98.9 F 10/17/16 04:00 Pulse 74 10/17/16 15:00 Resp 12 10/17/16 15:00 BP 121/55 10/17/16 12:00 Pulse Ox 96 10/17/16 15:53 Intake & Output 10/16/16 10/17/16 10/17/16 18:59 06:59 18:59 Intake Total 409.730 7033.630 465.298 Output Total 3064 1906 590 Balance -2476.551 -484.370 -124.702 Weight 102 kg Intake: IV 567.5 1377.0 383.5 ACETAMINOPHEN IV (For NPO 300 ) 1,000 mg In Empty Bag 1 bag @ 400 mls/hr IVPB Q6HR [facility] Rx#:[id number] Albumin Human 5% 250 ml 250 250 In Empty Bag 1 bag @ 250 mls/hr IVPB Q1HR PRN Rx#: [id number] [place] 39 12 CO/CI 70 30 Lactated Ringers 1,000 ml 150 600 240 @ 20 mls/hr IV .Q24H [facility] Rx#:[id number] Nitroglycerin-D5w Pmx 50 4.5 18.0 1.5 mg In Dextrose/Water 1 250ml.bag @ 5 MCG/MIN 1.5 mls/hr IV .Q24H [facility] Rx#: [id number] ceFAZolin 2 gm In Sodium 100 100 100 Chloride 0.9% 100 ml @ 100 mls/hr IVPB Q8HR [facility] Rx#:[id number] Intake, IV Titration 19.949 44.630 81.798 Amount Insulin Regular 100 unit 36.856 71.798 In Sodium Chloride 0.9% 100 ml @ Per Protocol IV .Q0M [facility] Rx#:[id number] Insulin Regular 100 unit 10 In Sodium Chloride 0.9% 100 ml @ Per Protocol IV ONCE ONE Rx#:[id number] Propofol 500 mg In Empty 19.949 7.774 Bag 1 bag @ Titrate IV . Q0M [facility] Rx#:[id number] Output: Chest Tube Drainage 237 556 350 Bilateral Mediastinal 162 460 230 Left Lateral Chest 75 96 120 Gastric Drainage 500 Urine 1327 850 240 Estimated Blood Loss 1500 Other: Voiding Method Indwelling Catheter Indwelling Catheter Indwelling Catheter ABP, PAP, CO, CI - Last Documented Arterial Blood Pressure 118/43 Pulmonary Artery Pressure 27/14 Cardiac Output 5.3 Cardiac Index 2.4 - Labs CBC & Chem 7: 10/17/16 05:05 10/17/16 05:05 Labs: Abnormal Lab Results - Last 24 Hours (Table) 10/11/16 10/16/16 10/16/16 Range/Units 20:30 18:50 19:32 WBC (3.8-10.6) k/uL RBC 3.43 L (4.30-5.90) m/uL Hgb 9.9 L (13.0-17.5) gm/dL Hct 30.4 L (39.0-53.0) % Plt Count 111 L (150-450) k/uL Neutrophils # 8.3 H (1.3-7.7) k/uL Neutrophils # (Manual) (1.3-7.7) k/uL Lymphocytes # (1.0-4.8) k/uL Lymphocytes # (Manual) (1.0-4.8) k/uL APTT (22.0-30.0) sec Chloride (98-107) mmol/L Carbon Dioxide (22-30) mmol/L Glucose (74-99) mg/dL POC Glucose (mg/dL) 139 H (75-99) mg/dL Hemoglobin A1c (4.2-6.1) % Calcium (8.4-10.2) mg/dL Total Protein (6.3-8.2) g/dL Albumin (3.5-5.0) g/dL Crossmatch See Detail 10/16/16 10/16/16 10/16/16 Range/Units 20:08 21:04 22:13 WBC (3.8-10.6) k/uL RBC (4.30-5.90) m/uL Hgb (13.0-17.5) gm/dL Hct (39.0-53.0) % Plt Count (150-450) k/uL Neutrophils # (1.3-7.7) k/uL Neutrophils # (Manual) (1.3-7.7) k/uL Lymphocytes # (1.0-4.8) k/uL Lymphocytes # (Manual) (1.0-4.8) k/uL APTT (22.0-30.0) sec Chloride (98-107) mmol/L Carbon Dioxide (22-30) mmol/L Glucose (74-99) mg/dL POC Glucose (mg/dL) 179 H 198 H 182 H (75-99) mg/dL Hemoglobin A1c (4.2-6.1) % Calcium (8.4-10.2) mg/dL Total Protein (6.3-8.2) g/dL Albumin (3.5-5.0) g/dL Crossmatch 10/16/16 10/16/16 10/16/16 Range/Units 22:13 22:13 22:13 WBC (3.8-10.6) k/uL RBC 3.33 L (4.30-5.90) m/uL Hgb 9.5 L (13.0-17.5) gm/dL Hct 29.4 L (39.0-53.0) % Plt Count 97 L (150-450) k/uL Neutrophils # (1.3-7.7) k/uL Neutrophils # (Manual) 8.6 H (1.3-7.7) k/uL Lymphocytes # (1.0-4.8) k/uL Lymphocytes # (Manual) 0.1 L (1.0-4.8) k/uL APTT 33.3 H (22.0-30.0) sec Chloride 109 H (98-107) mmol/L Carbon Dioxide 21 L (22-30) mmol/L Glucose 169 H (74-99) mg/dL POC Glucose (mg/dL) (75-99) mg/dL Hemoglobin A1c (4.2-6.1) % Calcium 8.1 L (8.4-10.2) mg/dL Total Protein 5.1 L (6.3-8.2) g/dL Albumin 3.2 L (3.5-5.0) g/dL Crossmatch 10/16/16 10/17/16 10/17/16 Range/Units 23:06 00:22 01:11 WBC (3.8-10.6) k/uL RBC (4.30-5.90) m/uL Hgb (13.0-17.5) gm/dL Hct (39.0-53.0) % Plt Count (150-450) k/uL Neutrophils # (1.3-7.7) k/uL Neutrophils # (Manual) (1.3-7.7) k/uL Lymphocytes # (1.0-4.8) k/uL Lymphocytes # (Manual) (1.0-4.8) k/uL APTT (22.0-30.0) sec Chloride (98-107) mmol/L Carbon Dioxide (22-30) mmol/L Glucose (74-99) mg/dL POC Glucose (mg/dL) 175 H 157 H 157 H (75-99) mg/dL Hemoglobin A1c (4.2-6.1) % Calcium (8.4-10.2) mg/dL Total Protein (6.3-8.2) g/dL Albumin (3.5-5.0) g/dL Crossmatch 10/17/16 10/17/16 10/17/16 Range/Units 02:02 03:06 04:11 WBC (3.8-10.6) k/uL RBC (4.30-5.90) m/uL Hgb (13.0-17.5) gm/dL Hct (39.0-53.0) % Plt Count (150-450) k/uL Neutrophils # (1.3-7.7) k/uL Neutrophils # (Manual) (1.3-7.7) k/uL Lymphocytes # (1.0-4.8) k/uL Lymphocytes # (Manual) (1.0-4.8) k/uL APTT (22.0-30.0) sec Chloride (98-107) mmol/L Carbon Dioxide (22-30) mmol/L Glucose (74-99) mg/dL POC Glucose (mg/dL) 165 H 165 H 179 H (75-99) mg/dL Hemoglobin A1c (4.2-6.1) % Calcium (8.4-10.2) mg/dL Total Protein (6.3-8.2) g/dL Albumin (3.5-5.0) g/dL Crossmatch 10/17/16 10/17/16 10/17/16 Range/Units 05:05 05:05 05:05 WBC 10.7 H (3.8-10.6) k/uL RBC 3.40 L (4.30-5.90) m/uL Hgb 9.7 L (13.0-17.5) gm/dL Hct 30.3 L (39.0-53.0) % Plt Count 94 L (150-450) k/uL Neutrophils # 9.9 H (1.3-7.7) k/uL Neutrophils # (Manual) (1.3-7.7) k/uL Lymphocytes # 0.3 L (1.0-4.8) k/uL Lymphocytes # (Manual) (1.0-4.8) k/uL APTT (22.0-30.0) sec Chloride 109 H (98-107) mmol/L Carbon Dioxide (22-30) mmol/L Glucose 172 H (74-99) mg/dL POC Glucose (mg/dL) (75-99) mg/dL Hemoglobin A1c 7.6 H (4.2-6.1) % Calcium (8.4-10.2) mg/dL Total Protein 5.1 L (6.3-8.2) g/dL Albumin 3.2 L (3.5-5.0) g/dL Crossmatch 10/17/16 10/17/16 10/17/16 Range/Units 05:05 07:11 08:04 WBC (3.8-10.6) k/uL RBC (4.30-5.90) m/uL Hgb (13.0-17.5) gm/dL Hct (39.0-53.0) % Plt Count (150-450) k/uL Neutrophils # (1.3-7.7) k/uL Neutrophils # (Manual) (1.3-7.7) k/uL Lymphocytes # (1.0-4.8) k/uL Lymphocytes # (Manual) (1.0-4.8) k/uL APTT (22.0-30.0) sec Chloride (98-107) mmol/L Carbon Dioxide (22-30) mmol/L Glucose (74-99) mg/dL POC Glucose (mg/dL) 180 H 208 H 193 H (75-99) mg/dL Hemoglobin A1c (4.2-6.1) % Calcium (8.4-10.2) mg/dL Total Protein (6.3-8.2) g/dL Albumin (3.5-5.0) g/dL Crossmatch 10/17/16 10/17/16 10/17/16 Range/Units 09:07 10:09 11:10 WBC (3.8-10.6) k/uL RBC (4.30-5.90) m/uL Hgb (13.0-17.5) gm/dL Hct (39.0-53.0) % Plt Count (150-450) k/uL Neutrophils # (1.3-7.7) k/uL Neutrophils # (Manual) (1.3-7.7) k/uL Lymphocytes # (1.0-4.8) k/uL Lymphocytes # (Manual) (1.0-4.8) k/uL APTT (22.0-30.0) sec Chloride (98-107) mmol/L Carbon Dioxide (22-30) mmol/L Glucose (74-99) mg/dL POC Glucose (mg/dL) 206 H 176 H 147 H (75-99) mg/dL Hemoglobin A1c (4.2-6.1) % Calcium (8.4-10.2) mg/dL Total Protein (6.3-8.2) g/dL Albumin (3.5-5.0) g/dL Crossmatch 10/17/16 10/17/16 10/17/16 Range/Units 11:53 12:57 14:59 WBC (3.8-10.6) k/uL RBC (4.30-5.90) m/uL Hgb (13.0-17.5) gm/dL Hct (39.0-53.0) % Plt Count (150-450) k/uL Neutrophils # (1.3-7.7) k/uL Neutrophils # (Manual) (1.3-7.7) k/uL Lymphocytes # (1.0-4.8) k/uL Lymphocytes # (Manual) (1.0-4.8) k/uL APTT (22.0-30.0) sec Chloride (98-107) mmol/L Carbon Dioxide (22-30) mmol/L Glucose (74-99) mg/dL POC Glucose (mg/dL) 129 H 102 H 114 H (75-99) mg/dL Hemoglobin A1c (4.2-6.1) % Calcium (8.4-10.2) mg/dL Total Protein (6.3-8.2) g/dL Albumin (3.5-5.0) g/dL Crossmatch 10/17/16 10/17/16 Range/Units 16:05 17:05 WBC (3.8-10.6) k/uL RBC (4.30-5.90) m/uL Hgb (13.0-17.5) gm/dL Hct (39.0-53.0) % Plt Count (150-450) k/uL Neutrophils # (1.3-7.7) k/uL Neutrophils # (Manual) (1.3-7.7) k/uL Lymphocytes # (1.0-4.8) k/uL Lymphocytes # (Manual) (1.0-4.8) k/uL APTT (22.0-30.0) sec Chloride (98-107) mmol/L Carbon Dioxide (22-30) mmol/L Glucose (74-99) mg/dL POC Glucose (mg/dL) 119 H 147 H (75-99) mg/dL Hemoglobin A1c (4.2-6.1) % Calcium (8.4-10.2) mg/dL Total Protein (6.3-8.2) g/dL Albumin (3.5-5.0) g/dL Crossmatch Assessment and Plan Plan: The patient was seen and examined. I agree with the above assessment and plan. Overall he looks good. We will discontinue his Hancock-Fabian catheter. We will increase his beta vashti. We will give him a dose of Lasix this morning. We will get him up to a chair. His pain appears to be well controlled today.
[2016-10-17 11:11] LABS: Glucose,Whole Blood 147 mg/dL (75-99)
[2016-10-17 11:55] LABS: Glucose,Whole Blood 129 mg/dL (75-99)
[2016-10-17 13:03] LABS: Glucose,Whole Blood 102 mg/dL (75-99)
[2016-10-17] MEDS ORDERED: HYDROcodone/APAP 5-325MG 1 EACH TAB PO PRN (13:33)
[2016-10-17] MEDS ORDERED: IPRATROPIUM-ALBUTEROL 3 ML NEB INHALATION PRN (13:34)
[2016-10-17] MEDS ORDERED: BISACODYL 10 MG SUPP RECTAL PRN (13:34)
[2016-10-17] MEDS ORDERED: MAGNESIUM HYDROXIDE 2,400 MG/10 ML CUP PO PRN (13:34)
[2016-10-17 13:54] LABS: Glucose,Whole Blood 96 mg/dL (75-99)
[2016-10-17 15:00] LABS: Glucose,Whole Blood 114 mg/dL (75-99)
[2016-10-17] MEDS: CLEVIDIPINE BUTYRATE 25 MG in EMPTY BAG 1 BAG IV SCH (15:25)
[2016-10-17 16:07] LABS: Glucose,Whole Blood 119 mg/dL (75-99)
[2016-10-17 17:06] LABS: Glucose,Whole Blood 147 mg/dL (75-99)
[2016-10-17 18:09] LABS: Glucose,Whole Blood 127 mg/dL (75-99)
[2016-10-17] MEDS: LACTATED RINGERS 1,000 ML IV SCH (18:33)
[2016-10-17 18:53] LABS: Glucose,Whole Blood 164 mg/dL (75-99)
[2016-10-17 20:03] LABS: Glucose,Whole Blood 126 mg/dL (75-99)
[2016-10-17] MEDS: METOPROLOL TARTRATE 25 MG TAB PO SCH (21:32)
[2016-10-17] MEDS: SENNOSIDES-DOCUSATE SODIUM 1 EACH TAB PO SCH (21:35)
[2016-10-17 22:00] LABS: Glucose,Whole Blood 59 mg/dL (75-99)
[2016-10-17 22:05] LABS: Glucose,Whole Blood 58 mg/dL (75-99)
[2016-10-17 22:16] LABS: Glucose,Whole Blood 56 mg/dL (75-99)
[2016-10-17 22:30] LABS: Glucose,Whole Blood 86 mg/dL (75-99)
[2016-10-17 23:16] LABS: Glucose,Whole Blood 124 mg/dL (75-99)
[2016-10-18 00:09] LABS: Glucose,Whole Blood 164 mg/dL (75-99)
[2016-10-18] MEDS: HEPARIN SODIUM,PORCINE 5,000 UNIT/ML 1 ML VIAL SQ SCH ×4 (00:42→23:39)
[2016-10-18 01:09] LABS: Glucose,Whole Blood 156 mg/dL (75-99)
[2016-10-18 02:20] LABS: Glucose,Whole Blood 143 mg/dL (75-99)
[2016-10-18 03:05] LABS: Glucose,Whole Blood 127 mg/dL (75-99)
[2016-10-18] MEDS: INSULIN REGULAR 100 UNIT in SODIUM CHLORIDE 0.9% 100 ML IV SCH (03:06)
[2016-10-18 04:30] LABS: Glucose,Whole Blood 106 mg/dL (75-99)
[2016-10-18 04:30] LABS: Glucose,Whole Blood 57 mg/dL (75-99)
[2016-10-18 05:23] LABS: Glucose,Whole Blood 110 mg/dL (75-99)
[2016-10-18 05:32] LABS: Basophils % (A) 0 %; CH 27.6; CHCM 31.1; Eosinophils # (A) 0.1 k/uL (0-0.7); Eosinophils % (A) 1 %; HCT 31.1 % (39.0-53.0); HGB 9.7 gm/dL (13.0-17.5); Hypochromasia Slight; Luc # (Auto) 0.17; Luc % (Auto) 2; Lymphocytes # (A) 1.1 k/uL (1.0-4.8); Lymphocytes % (A) 11 %; MCH 27.8 pg (25.0-35.0); MCHC 31.2 g/dL (31.0-37.0); MCV 88.9 fL (80.0-100.0); Mean Platelet Volume 9.2; Monocytes # (A) 0.5 k/uL (0-1.0); Monocytes % (A) 5 %; Neutrophils # (A) 7.6 k/uL (1.3-7.7); Neutrophils % (A) 80 %; RBC 3.49 m/uL (4.30-5.90); RDW 14.8 % (11.5-15.5); WBC 9.5 k/uL (3.8-10.6)
[2016-10-18 05:36] LABS: INR 1.2 (<1.1); Prothrombin Time 11.6 sec (9.0-12.0)
[2016-10-18 05:37] LABS: Ionized Calcium 5.1 mg/dL (4.5-5.3)
[2016-10-18 05:45] LABS: ALT 30 U/L (21-72); AST 33 U/L (17-59); Alkaline Phosphatase 53 U/L (38-126); Anion Gap 5 mmol/L; Blood Urea Nitrogen 18 mg/dL (9-20); Calcium 8.2 mg/dL (8.4-10.2); Carbon Dioxide 26 mmol/L (22-30); Chloride 108 mmol/L (98-107); Glucose 125 mg/dL (74-99); Magnesium 2.2 mg/dL (1.6-2.3); Non-African American GFR(MDRD) >60 (>60 ml/min/1.73 sqM); Sodium 139 mmol/L (137-145); Total Bilirubin 0.2 mg/dL (0.2-1.3); Total Protein 4.8 g/dL (6.3-8.2)
[2016-10-18] MEDS: HYDROcodone/APAP 5-325MG 1 EACH TAB PO PRN ×2 (05:54→21:46)
[2016-10-18 06:06] LABS: Glucose,Whole Blood 153 mg/dL (75-99)
[2016-10-18 06:45] LABS: Glucose,Whole Blood 169 mg/dL (75-99)
[2016-10-18] MEDS ORDERED: POTASSIUM CHLORIDE ER 20 MEQ TAB.ER PO SCH (07:00)
--- NOTE | 2016-10-18 07:17 | XR ---
EXAMINATION TYPE: XR chest 1V portable DATE OF EXAM: 10/18/2016 HISTORY: Post Operative Cardiac Surgery. REFERENCE: Previous study dated 10/17/2016. FINDINGS: There has been a previous midline sternotomy. The patient's Refugio-Fabian catheter has been rem melia. The right internal jugular sheath remains in place. There are [address] in place. T here is left basilar airspace disease. This is similar to previous. The heart remains enlarged. There is a left effusion and a smaller right effusion. IMPRESSION: NO SIGNIFICANT INTERVAL CHANGE IN THE APPEARANCE OF THE CHEST.
[2016-10-18 07:52] LABS: Glucose,Whole Blood 166 mg/dL (75-99)
[2016-10-18] MEDS: ATORVASTATIN 40 MG TAB PO SCH (09:00)
[2016-10-18] MEDS: METOPROLOL TARTRATE 25 MG TAB PO SCH ×2 (09:00→21:46)
[2016-10-18] MEDS: CLOPIDOGREL 75 MG TAB PO SCH (09:01)
[2016-10-18] MEDS: PANTOPRAZOLE 40 MG TABLET PO SCH (09:01)
[2016-10-18] MEDS: ASPIRIN 325 MG TAB PO SCH (09:01)
[2016-10-18 09:21] LABS: Glucose,Whole Blood 138 mg/dL (75-99)
[2016-10-18] MEDS ORDERED: FUROSEMIDE 10 MG/ML 4 ML VIAL IV STA (09:55)
[2016-10-18 10:08] LABS: ABG Base Excess -0.5 mmol/L; ABG HCO3 23 mmol/L (21-25); ABG Oxygen Saturation 99.5 % (94-97); ABG PCO2 37 mmHg (35-45); ABG PH 7.41 (7.35-7.45); ABG PO2 166 mmHg (83-108); ABG TCO2 24 mmol/L (19-24)
[2016-10-18 10:08] LABS: Glucose,Whole Blood 131 mg/dL (75-99)
[2016-10-18 10:09] LABS: ABG Base Excess -1.3 mmol/L; ABG HCO3 24 mmol/L (21-25); ABG Oxygen Saturation 98.1 % (94-97); ABG PCO2 44 mmHg (35-45); ABG PH 7.35 (7.35-7.45); ABG PO2 111 mmHg (83-108); ABG TCO2 25 mmol/L (19-24)
[2016-10-18 10:10] LABS: ABG Base Excess -1.7 mmol/L; ABG HCO3 25 mmol/L (21-25); ABG Oxygen Saturation 99.9 % (94-97); ABG PCO2 53 mmHg (35-45); ABG PH 7.29 (7.35-7.45); ABG PO2 313 mmHg (83-108); ABG TCO2 26 mmol/L (19-24)
[2016-10-18 10:11] LABS: ABG Base Excess -0.7 mmol/L; ABG HCO3 23 mmol/L (21-25); ABG Oxygen Saturation 99.8 % (94-97); ABG PCO2 37 mmHg (35-45); ABG PH 7.41 (7.35-7.45); ABG PO2 240 mmHg (83-108); ABG TCO2 24 mmol/L (19-24)
[2016-10-18 10:12] LABS: ABG Base Excess -0.4 mmol/L; ABG HCO3 25 mmol/L (21-25); ABG Oxygen Saturation 99.9 % (94-97); ABG PCO2 45 mmHg (35-45); ABG PH 7.36 (7.35-7.45); ABG PO2 344 mmHg (83-108); ABG TCO2 26 mmol/L (19-24)
[2016-10-18 10:13] LABS: ABG Base Excess -1.6 mmol/L; ABG HCO3 23 mmol/L (21-25); ABG Oxygen Saturation 99.7 % (94-97); ABG PCO2 40 mmHg (35-45); ABG PH 7.38 (7.35-7.45); ABG PO2 209 mmHg (83-108); ABG TCO2 24 mmol/L (19-24)
--- NOTE | 2016-10-18 10:35 | CONS ---
Mr. Pace is a 76-year-old gentleman who is seen following coronary artery bypass surgery. Patient's medical records reviewed. This patient has a history of hypertension, diabetes and recently was found to have multivessel coronary artery disease and the patient underwent triple vessel coronary artery bypass surgery. This is postop day one. The patient is at present comfortable. There is no respiratory distress. He is not having any chest pain. The patient is extubated. The patient denies any symptoms of shortness of breath. Past medical history includes history of possible TIA or stroke, history of lower GI bleed several years ago, colon polypectomy, melanoma removed, history of cholecystectomy and a recent cardiac catheterization. SMOKING STATUS: The patient was never a smoker. Patient's home medications included aspirin, atenolol 25 mg daily, Lotrel once a day, glipizide 5 mg twice a day, metformin 500 mg a.c. supper. Physical examination at present reveals a 76-year-old gentleman who is lying comfortable in bed without any respiratory distress. Blood pressure is 118/43 mmHg. Heart rate is 74 per minute. Respiratory rate is 12. Oxygen saturation is 94%. Head and ENT examination is negative. Neck is supple. There is no increase in jugular venous pressure. Both the carotid pulses are felt. There is no bruit. Chest is symmetrical. HEART: First and second heart sounds are normal. There is possible pericardial rub noted. Lungs reveal a few scattered wheezes. Abdomen is soft. EXTREMITIES: There is no evidence of any leg edema. Patient's chest x-ray does not show any significant heart failure Hemoglobin is 9.7. Electrolytes are normal and creatinine is 0.7. FINAL IMPRESSION: This patient is status post coronary artery bypass surgery. The patient is extubated at present. The patient is not in any cardiorespiratory distress. Patient ( ) hemodynamically stable. No arrhythmias are noted. We will recommend to continue the current treatment. COTYD
[2016-10-18 11:13] LABS: Glucose,Whole Blood 121 mg/dL (75-99)
--- NOTE | 2016-10-18 11:38 | P.PN ---
Subjective Patient was seen and evaluated by me today. He is awake and alert. He appeared cheerful and does not have any concerns. I am following him for medical management. No issues brought up by nursing staff. Objective - Vital Signs Vital signs: Vital Signs Temp 98.1 F 10/18/16 08:00 Pulse 89 10/18/16 11:00 Resp 20 10/18/16 11:00 BP 119/56 10/18/16 11:00 Pulse Ox 96 10/18/16 11:00 Intake & Output 10/17/16 10/18/16 10/18/16 18:59 06:59 18:59 Intake Total 539.465 925.113 274.904 Output Total 790 539 395 Balance -250.535 386.113 -120.096 Weight 103 kg Intake: IV 443.5 770 230 [place] 12 30 CO/CI 30 Lactated Ringers 1,000 ml 300 740 230 @ 20 mls/hr IV .Q24H [facility] Rx#:[id number] Nitroglycerin-D5w Pmx 50 1.5 mg In Dextrose/Water 1 250ml.bag @ 5 MCG/MIN 1.5 mls/hr IV .Q24H [facility] Rx#: [id number] ceFAZolin 2 gm In Sodium 100 Chloride 0.9% 100 ml @ 100 mls/hr IVPB Q8HR [facility] Rx#:[id number] Intake, IV Titration 95.965 55.113 44.904 Amount Insulin Regular 100 unit 85.965 55.113 44.904 In Sodium Chloride 0.9% 100 ml @ Per Protocol IV .Q0M [facility] Rx#:[id number] Insulin Regular 100 unit 10 In Sodium Chloride 0.9% 100 ml @ Per Protocol IV ONCE ONE Rx#:[id number] Oral 100 Output: Chest Tube Drainage 440 224 180 Bilateral Mediastinal 320 160 90 Left Lateral Chest 120 64 90 Urine 350 315 215 Other: Voiding Method Indwelling Catheter Indwelling Catheter Indwelling Catheter ABP, PAP, CO, CI - Last Documented Arterial Blood Pressure 19/9 Pulmonary Artery Pressure 27/14 Cardiac Output 5.3 Cardiac Index 2.4 - Exam General: The patient is awake and alert, in no distress Eye: there is normal conjunctiva bilaterally. Neck: The neck is supple, there is no JVD. Cardiovascular: Normal S1-S2, no S3-S4, no murmurs. Respiratory: Lungs clear to auscultation bilaterally Gastrointestinal: Abdomen is soft, nontender Musculoskeletal: There is no pedal edema. Neurological:. Speech is normal. Skin: Skin is warm and dry - Labs CBC & Chem 7: 10/18/16 05:22 10/18/16 05:22 Labs: Abnormal Lab Results - Last 24 Hours (Table) 10/16/16 10/16/16 10/16/16 Range/Units 09:03 10:19 11:25 RBC (4.30-5.90) m/uL Hgb (13.0-17.5) gm/dL Hct (39.0-53.0) % Plt Count (150-450) k/uL ABG pH 7.29 L (7.35-7.45) ABG pCO2 53 H (35-45) mmHg ABG pO2 166 H 111 H 313 H (83-108) mmHg ABG Total CO2 25 H 26 H (19-24) mmol/L ABG O2 Saturation 99.5 H 98.1 H 99.9 H (94-97) % ABG Hematocrit 47 H 30 L (34.0-46.0) % ABG Potassium 5.2 H (3.4-4.5) mmol/L Chloride (98-107) mmol/L Glucose (74-99) mg/dL POC Glucose (mg/dL) (75-99) mg/dL Calcium (8.4-10.2) mg/dL Total Protein (6.3-8.2) g/dL Albumin (3.5-5.0) g/dL Arterial Blood Potassium 5.2 H (3.4-4.5) mmol/L 10/16/16 10/16/16 10/16/16 Range/Units 11:50 12:26 13:58 RBC (4.30-5.90) m/uL Hgb (13.0-17.5) gm/dL Hct (39.0-53.0) % Plt Count (150-450) k/uL ABG pH (7.35-7.45) ABG pCO2 (35-45) mmHg ABG pO2 240 H 344 H 209 H (83-108) mmHg ABG Total CO2 26 H (19-24) mmol/L ABG O2 Saturation 99.8 H 99.9 H 99.7 H (94-97) % ABG Hematocrit 32 L (34.0-46.0) % ABG Potassium 5.0 H 4.9 H (3.4-4.5) mmol/L Chloride (98-107) mmol/L Glucose (74-99) mg/dL POC Glucose (mg/dL) (75-99) mg/dL Calcium (8.4-10.2) mg/dL Total Protein (6.3-8.2) g/dL Albumin (3.5-5.0) g/dL Arterial Blood Potassium 5.0 H 4.9 H (3.4-4.5) mmol/L 10/17/16 10/17/16 10/17/16 Range/Units 11:53 12:57 14:59 RBC (4.30-5.90) m/uL Hgb (13.0-17.5) gm/dL Hct (39.0-53.0) % Plt Count (150-450) k/uL ABG pH (7.35-7.45) ABG pCO2 (35-45) mmHg ABG pO2 (83-108) mmHg ABG Total CO2 (19-24) mmol/L ABG O2 Saturation (94-97) % ABG Hematocrit (34.0-46.0) % ABG Potassium (3.4-4.5) mmol/L Chloride (98-107) mmol/L Glucose (74-99) mg/dL POC Glucose (mg/dL) 129 H 102 H 114 H (75-99) mg/dL Calcium (8.4-10.2) mg/dL Total Protein (6.3-8.2) g/dL Albumin (3.5-5.0) g/dL Arterial Blood Potassium (3.4-4.5) mmol/L 10/17/16 10/17/16 10/17/16 Range/Units 16:05 17:05 18:06 RBC (4.30-5.90) m/uL Hgb (13.0-17.5) gm/dL Hct (39.0-53.0) % Plt Count (150-450) k/uL ABG pH (7.35-7.45) ABG pCO2 (35-45) mmHg ABG pO2 (83-108) mmHg ABG Total CO2 (19-24) mmol/L ABG O2 Saturation (94-97) % ABG Hematocrit (34.0-46.0) % ABG Potassium (3.4-4.5) mmol/L Chloride (98-107) mmol/L Glucose (74-99) mg/dL POC Glucose (mg/dL) 119 H 147 H 127 H (75-99) mg/dL Calcium (8.4-10.2) mg/dL Total Protein (6.3-8.2) g/dL Albumin (3.5-5.0) g/dL Arterial Blood Potassium (3.4-4.5) mmol/L 10/17/16 10/17/16 10/17/16 Range/Units 18:52 20:01 21:58 RBC (4.30-5.90) m/uL Hgb (13.0-17.5) gm/dL Hct (39.0-53.0) % Plt Count (150-450) k/uL ABG pH (7.35-7.45) ABG pCO2 (35-45) mmHg ABG pO2 (83-108) mmHg ABG Total CO2 (19-24) mmol/L ABG O2 Saturation (94-97) % ABG Hematocrit (34.0-46.0) % ABG Potassium (3.4-4.5) mmol/L Chloride (98-107) mmol/L Glucose (74-99) mg/dL POC Glucose (mg/dL) 164 H 126 H 59 L (75-99) mg/dL Calcium (8.4-10.2) mg/dL Total Protein (6.3-8.2) g/dL Albumin (3.5-5.0) g/dL Arterial Blood Potassium (3.4-4.5) mmol/L 10/17/16 10/17/16 10/17/16 Range/Units 22:03 22:14 23:15 RBC (4.30-5.90) m/uL Hgb (13.0-17.5) gm/dL Hct (39.0-53.0) % Plt Count (150-450) k/uL ABG pH (7.35-7.45) ABG pCO2 (35-45) mmHg ABG pO2 (83-108) mmHg ABG Total CO2 (19-24) mmol/L ABG O2 Saturation (94-97) % ABG Hematocrit (34.0-46.0) % ABG Potassium (3.4-4.5) mmol/L Chloride (98-107) mmol/L Glucose (74-99) mg/dL POC Glucose (mg/dL) 58 L 56 L 124 H (75-99) mg/dL Calcium (8.4-10.2) mg/dL Total Protein (6.3-8.2) g/dL Albumin (3.5-5.0) g/dL Arterial Blood Potassium (3.4-4.5) mmol/L 10/18/16 10/18/16 10/18/16 Range/Units 00:06 01:06 02:18 RBC (4.30-5.90) m/uL Hgb (13.0-17.5) gm/dL Hct (39.0-53.0) % Plt Count (150-450) k/uL ABG pH (7.35-7.45) ABG pCO2 (35-45) mmHg ABG pO2 (83-108) mmHg ABG Total CO2 (19-24) mmol/L ABG O2 Saturation (94-97) % ABG Hematocrit (34.0-46.0) % ABG Potassium (3.4-4.5) mmol/L Chloride (98-107) mmol/L Glucose (74-99) mg/dL POC Glucose (mg/dL) 164 H 156 H 143 H (75-99) mg/dL Calcium (8.4-10.2) mg/dL Total Protein (6.3-8.2) g/dL Albumin (3.5-5.0) g/dL Arterial Blood Potassium (3.4-4.5) mmol/L 10/18/16 10/18/16 10/18/16 Range/Units 03:03 04:26 04:27 RBC (4.30-5.90) m/uL Hgb (13.0-17.5) gm/dL Hct (39.0-53.0) % Plt Count (150-450) k/uL ABG pH (7.35-7.45) ABG pCO2 (35-45) mmHg ABG pO2 (83-108) mmHg ABG Total CO2 (19-24) mmol/L ABG O2 Saturation (94-97) % ABG Hematocrit (34.0-46.0) % ABG Potassium (3.4-4.5) mmol/L Chloride (98-107) mmol/L Glucose (74-99) mg/dL POC Glucose (mg/dL) 127 H 57 L 106 H (75-99) mg/dL Calcium (8.4-10.2) mg/dL Total Protein (6.3-8.2) g/dL Albumin (3.5-5.0) g/dL Arterial Blood Potassium (3.4-4.5) mmol/L 10/18/16 10/18/16 10/18/16 Range/Units 05:17 05:22 05:22 RBC 3.49 L (4.30-5.90) m/uL Hgb 9.7 L (13.0-17.5) gm/dL Hct 31.1 L (39.0-53.0) % Plt Count 104 L (150-450) k/uL ABG pH (7.35-7.45) ABG pCO2 (35-45) mmHg ABG pO2 (83-108) mmHg ABG Total CO2 (19-24) mmol/L ABG O2 Saturation (94-97) % ABG Hematocrit (34.0-46.0) % ABG Potassium (3.4-4.5) mmol/L Chloride 108 H (98-107) mmol/L Glucose 125 H (74-99) mg/dL POC Glucose (mg/dL) 110 H (75-99) mg/dL Calcium 8.2 L (8.4-10.2) mg/dL Total Protein 4.8 L (6.3-8.2) g/dL Albumin 2.8 L (3.5-5.0) g/dL Arterial Blood Potassium (3.4-4.5) mmol/L 10/18/16 10/18/16 10/18/16 Range/Units 06:05 06:44 07:50 RBC (4.30-5.90) m/uL Hgb (13.0-17.5) gm/dL Hct (39.0-53.0) % Plt Count (150-450) k/uL ABG pH (7.35-7.45) ABG pCO2 (35-45) mmHg ABG pO2 (83-108) mmHg ABG Total CO2 (19-24) mmol/L ABG O2 Saturation (94-97) % ABG Hematocrit (34.0-46.0) % ABG Potassium (3.4-4.5) mmol/L Chloride (98-107) mmol/L Glucose (74-99) mg/dL POC Glucose (mg/dL) 153 H 169 H 166 H (75-99) mg/dL Calcium (8.4-10.2) mg/dL Total Protein (6.3-8.2) g/dL Albumin (3.5-5.0) g/dL Arterial Blood Potassium (3.4-4.5) mmol/L 10/18/16 10/18/16 10/18/16 Range/Units 09:19 10:06 11:12 RBC (4.30-5.90) m/uL Hgb (13.0-17.5) gm/dL Hct (39.0-53.0) % Plt Count (150-450) k/uL ABG pH (7.35-7.45) ABG pCO2 (35-45) mmHg ABG pO2 (83-108) mmHg ABG Total CO2 (19-24) mmol/L ABG O2 Saturation (94-97) % ABG Hematocrit (34.0-46.0) % ABG Potassium (3.4-4.5) mmol/L Chloride (98-107) mmol/L Glucose (74-99) mg/dL POC Glucose (mg/dL) 138 H 131 H 121 H (75-99) mg/dL Calcium (8.4-10.2) mg/dL Total Protein (6.3-8.2) g/dL Albumin (3.5-5.0) g/dL Arterial Blood Potassium (3.4-4.5) mmol/L Assessment and Plan Plan: 1. 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 Diabetes mellitus type 2: Discontinue IV insulin drip. Start Lantus 15 units right now and continue sliding scale insulin. Continue to hold Metformin and glipizide for now 3. Essential hypertension: Blood pressure stable. Continue metoprolol 4. Hyperlipidemia continue Lipitor 5. History of TIA continue aspirin 6. History of a diverticular bleed. Active bleeding at this time. Hemoglobin 9.7 GI prophylaxis Protonix and DVT prophylaxis subcu heparin
--- NOTE | 2016-10-18 11:57 | P.PN ---
Subjective Principal diagnosis: Status post CABG, postoperative day #2 This is a 76-year-old white male with multiple medical problems including hypertension and diabetes, and multivessel coronary artery disease. Patient underwent triple vessel coronary artery bypass surgery on 10/16/2016, postoperatively I was asked to see the patient on consultation. I reviewed his chest x-ray I also reviewed his ventilator settings, a few hours after arrival to the ICU, patient was extubated to nasal cannula. His postoperative course has been relatively uneventful. Patient is sitting in a chair, in no form of respiratory distress, doing quite well with incentive spirometry. Denies any chest pain, no shortness of breath, no fever, no chills. No nausea no vomiting. Chest x-ray showed minimal left basilar atelectasis. Patient was reevaluated today on 10/18/2016, continues to do relatively well, asymptomatic, no cough no wheezing no shortness of breath. Chest x-ray showed mild interstitial edema, and by basilar atelectasis, patient is receiving Lasix as ordered by the surgeon earlier this morning. Clinically, the patient is doing great. Chest x-ray was reviewed, labs were reviewed, hemoglobin is 9.7. Basic metabolic profile is normal, renal profile is normal blood sugar is 121. Objective - Vital Signs Vital signs: Vital Signs Temp 98.1 F 10/18/16 08:00 Pulse 89 10/18/16 11:00 Resp 20 10/18/16 11:00 BP 119/56 10/18/16 11:00 Pulse Ox 96 10/18/16 11:00 Intake & Output 10/17/16 10/18/16 10/18/16 18:59 06:59 18:59 Intake Total 539.465 925.113 274.904 Output Total 790 539 395 Balance -250.535 386.113 -120.096 Weight 103 kg Intake: IV 443.5 770 230 [place] 12 30 CO/CI 30 Lactated Ringers 1,000 ml 300 740 230 @ 20 mls/hr IV .Q24H [facility] Rx#:[id number] Nitroglycerin-D5w Pmx 50 1.5 mg In Dextrose/Water 1 250ml.bag @ 5 MCG/MIN 1.5 mls/hr IV .Q24H [facility] Rx#: [id number] ceFAZolin 2 gm In Sodium 100 Chloride 0.9% 100 ml @ 100 mls/hr IVPB Q8HR [facility] Rx#:[id number] Intake, IV Titration 95.965 55.113 44.904 Amount Insulin Regular 100 unit 85.965 55.113 44.904 In Sodium Chloride 0.9% 100 ml @ Per Protocol IV .Q0M [facility] Rx#:[id number] Insulin Regular 100 unit 10 In Sodium Chloride 0.9% 100 ml @ Per Protocol IV ONCE ONE Rx#:[id number] Oral 100 Output: Chest Tube Drainage 440 224 180 Bilateral Mediastinal 320 160 90 Left Lateral Chest 120 64 90 Urine 350 315 215 Other: Voiding Method Indwelling Catheter Indwelling Catheter Indwelling Catheter ABP, PAP, CO, CI - Last Documented Arterial Blood Pressure 19/9 Pulmonary Artery Pressure 27/14 Cardiac Output 5.3 Cardiac Index 2.4 - Exam Physical Exam: Revealed a 76-year-old in no distress. 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: [Manager Car breath sounds and crackles at the bases..] Cardiac Exam: [Normal S1 and S2, no S3 gallop, no murmur.] Abdomen: [Soft, nontender, no megaly, no rebound, no guarding, normal bowel sounds.] Extremities: [No clubbing, no edema, no cyanosis.] Neurological Exam: [No focal neurologic deficit.] - Labs CBC & Chem 7: 10/18/16 05:22 10/18/16 05:22 Labs: Abnormal Lab Results - Last 24 Hours (Table) 10/16/16 10/16/16 10/16/16 Range/Units 09:03 10:19 11:25 RBC (4.30-5.90) m/uL Hgb (13.0-17.5) gm/dL Hct (39.0-53.0) % Plt Count (150-450) k/uL ABG pH 7.29 L (7.35-7.45) ABG pCO2 53 H (35-45) mmHg ABG pO2 166 H 111 H 313 H (83-108) mmHg ABG Total CO2 25 H 26 H (19-24) mmol/L ABG O2 Saturation 99.5 H 98.1 H 99.9 H (94-97) % ABG Hematocrit 47 H 30 L (34.0-46.0) % ABG Potassium 5.2 H (3.4-4.5) mmol/L Chloride (98-107) mmol/L Glucose (74-99) mg/dL POC Glucose (mg/dL) (75-99) mg/dL Calcium (8.4-10.2) mg/dL Total Protein (6.3-8.2) g/dL Albumin (3.5-5.0) g/dL Arterial Blood Potassium 5.2 H (3.4-4.5) mmol/L 10/16/16 10/16/16 10/16/16 Range/Units 11:50 12:26 13:58 RBC (4.30-5.90) m/uL Hgb (13.0-17.5) gm/dL Hct (39.0-53.0) % Plt Count (150-450) k/uL ABG pH (7.35-7.45) ABG pCO2 (35-45) mmHg ABG pO2 240 H 344 H 209 H (83-108) mmHg ABG Total CO2 26 H (19-24) mmol/L ABG O2 Saturation 99.8 H 99.9 H 99.7 H (94-97) % ABG Hematocrit 32 L (34.0-46.0) % ABG Potassium 5.0 H 4.9 H (3.4-4.5) mmol/L Chloride (98-107) mmol/L Glucose (74-99) mg/dL POC Glucose (mg/dL) (75-99) mg/dL Calcium (8.4-10.2) mg/dL Total Protein (6.3-8.2) g/dL Albumin (3.5-5.0) g/dL Arterial Blood Potassium 5.0 H 4.9 H (3.4-4.5) mmol/L 10/17/16 10/17/16 10/17/16 Range/Units 11:53 12:57 14:59 RBC (4.30-5.90) m/uL Hgb (13.0-17.5) gm/dL Hct (39.0-53.0) % Plt Count (150-450) k/uL ABG pH (7.35-7.45) ABG pCO2 (35-45) mmHg ABG pO2 (83-108) mmHg ABG Total CO2 (19-24) mmol/L ABG O2 Saturation (94-97) % ABG Hematocrit (34.0-46.0) % ABG Potassium (3.4-4.5) mmol/L Chloride (98-107) mmol/L Glucose (74-99) mg/dL POC Glucose (mg/dL) 129 H 102 H 114 H (75-99) mg/dL Calcium (8.4-10.2) mg/dL Total Protein (6.3-8.2) g/dL Albumin (3.5-5.0) g/dL Arterial Blood Potassium (3.4-4.5) mmol/L 10/17/16 10/17/16 10/17/16 Range/Units 16:05 17:05 18:06 RBC (4.30-5.90) m/uL Hgb (13.0-17.5) gm/dL Hct (39.0-53.0) % Plt Count (150-450) k/uL ABG pH (7.35-7.45) ABG pCO2 (35-45) mmHg ABG pO2 (83-108) mmHg ABG Total CO2 (19-24) mmol/L ABG O2 Saturation (94-97) % ABG Hematocrit (34.0-46.0) % ABG Potassium (3.4-4.5) mmol/L Chloride (98-107) mmol/L Glucose (74-99) mg/dL POC Glucose (mg/dL) 119 H 147 H 127 H (75-99) mg/dL Calcium (8.4-10.2) mg/dL Total Protein (6.3-8.2) g/dL Albumin (3.5-5.0) g/dL Arterial Blood Potassium (3.4-4.5) mmol/L 10/17/16 10/17/16 10/17/16 Range/Units 18:52 20:01 21:58 RBC (4.30-5.90) m/uL Hgb (13.0-17.5) gm/dL Hct (39.0-53.0) % Plt Count (150-450) k/uL ABG pH (7.35-7.45) ABG pCO2 (35-45) mmHg ABG pO2 (83-108) mmHg ABG Total CO2 (19-24) mmol/L ABG O2 Saturation (94-97) % ABG Hematocrit (34.0-46.0) % ABG Potassium (3.4-4.5) mmol/L Chloride (98-107) mmol/L Glucose (74-99) mg/dL POC Glucose (mg/dL) 164 H 126 H 59 L (75-99) mg/dL Calcium (8.4-10.2) mg/dL Total Protein (6.3-8.2) g/dL Albumin (3.5-5.0) g/dL Arterial Blood Potassium (3.4-4.5) mmol/L 10/17/16 10/17/16 10/17/16 Range/Units 22:03 22:14 23:15 RBC (4.30-5.90) m/uL Hgb (13.0-17.5) gm/dL Hct (39.0-53.0) % Plt Count (150-450) k/uL ABG pH (7.35-7.45) ABG pCO2 (35-45) mmHg ABG pO2 (83-108) mmHg ABG Total CO2 (19-24) mmol/L ABG O2 Saturation (94-97) % ABG Hematocrit (34.0-46.0) % ABG Potassium (3.4-4.5) mmol/L Chloride (98-107) mmol/L Glucose (74-99) mg/dL POC Glucose (mg/dL) 58 L 56 L 124 H (75-99) mg/dL Calcium (8.4-10.2) mg/dL Total Protein (6.3-8.2) g/dL Albumin (3.5-5.0) g/dL Arterial Blood Potassium (3.4-4.5) mmol/L 10/18/16 10/18/16 10/18/16 Range/Units 00:06 01:06 02:18 RBC (4.30-5.90) m/uL Hgb (13.0-17.5) gm/dL Hct (39.0-53.0) % Plt Count (150-450) k/uL ABG pH (7.35-7.45) ABG pCO2 (35-45) mmHg ABG pO2 (83-108) mmHg ABG Total CO2 (19-24) mmol/L ABG O2 Saturation (94-97) % ABG Hematocrit (34.0-46.0) % ABG Potassium (3.4-4.5) mmol/L Chloride (98-107) mmol/L Glucose (74-99) mg/dL POC Glucose (mg/dL) 164 H 156 H 143 H (75-99) mg/dL Calcium (8.4-10.2) mg/dL Total Protein (6.3-8.2) g/dL Albumin (3.5-5.0) g/dL Arterial Blood Potassium (3.4-4.5) mmol/L 10/18/16 10/18/16 10/18/16 Range/Units 03:03 04:26 04:27 RBC (4.30-5.90) m/uL Hgb (13.0-17.5) gm/dL Hct (39.0-53.0) % Plt Count (150-450) k/uL ABG pH (7.35-7.45) ABG pCO2 (35-45) mmHg ABG pO2 (83-108) mmHg ABG Total CO2 (19-24) mmol/L ABG O2 Saturation (94-97) % ABG Hematocrit (34.0-46.0) % ABG Potassium (3.4-4.5) mmol/L Chloride (98-107) mmol/L Glucose (74-99) mg/dL POC Glucose (mg/dL) 127 H 57 L 106 H (75-99) mg/dL Calcium (8.4-10.2) mg/dL Total Protein (6.3-8.2) g/dL Albumin (3.5-5.0) g/dL Arterial Blood Potassium (3.4-4.5) mmol/L 10/18/16 10/18/16 10/18/16 Range/Units 05:17 05:22 05:22 RBC 3.49 L (4.30-5.90) m/uL Hgb 9.7 L (13.0-17.5) gm/dL Hct 31.1 L (39.0-53.0) % Plt Count 104 L (150-450) k/uL ABG pH (7.35-7.45) ABG pCO2 (35-45) mmHg ABG pO2 (83-108) mmHg ABG Total CO2 (19-24) mmol/L ABG O2 Saturation (94-97) % ABG Hematocrit (34.0-46.0) % ABG Potassium (3.4-4.5) mmol/L Chloride 108 H (98-107) mmol/L Glucose 125 H (74-99) mg/dL POC Glucose (mg/dL) 110 H (75-99) mg/dL Calcium 8.2 L (8.4-10.2) mg/dL Total Protein 4.8 L (6.3-8.2) g/dL Albumin 2.8 L (3.5-5.0) g/dL Arterial Blood Potassium (3.4-4.5) mmol/L 10/18/16 10/18/16 10/18/16 Range/Units 06:05 06:44 07:50 RBC (4.30-5.90) m/uL Hgb (13.0-17.5) gm/dL Hct (39.0-53.0) % Plt Count (150-450) k/uL ABG pH (7.35-7.45) ABG pCO2 (35-45) mmHg ABG pO2 (83-108) mmHg ABG Total CO2 (19-24) mmol/L ABG O2 Saturation (94-97) % ABG Hematocrit (34.0-46.0) % ABG Potassium (3.4-4.5) mmol/L Chloride (98-107) mmol/L Glucose (74-99) mg/dL POC Glucose (mg/dL) 153 H 169 H 166 H (75-99) mg/dL Calcium (8.4-10.2) mg/dL Total Protein (6.3-8.2) g/dL Albumin (3.5-5.0) g/dL Arterial Blood Potassium (3.4-4.5) mmol/L 10/18/16 10/18/16 10/18/16 Range/Units 09:19 10:06 11:12 RBC (4.30-5.90) m/uL Hgb (13.0-17.5) gm/dL Hct (39.0-53.0) % Plt Count (150-450) k/uL ABG pH (7.35-7.45) ABG pCO2 (35-45) mmHg ABG pO2 (83-108) mmHg ABG Total CO2 (19-24) mmol/L ABG O2 Saturation (94-97) % ABG Hematocrit (34.0-46.0) % ABG Potassium (3.4-4.5) mmol/L Chloride (98-107) mmol/L Glucose (74-99) mg/dL POC Glucose (mg/dL) 138 H 131 H 121 H (75-99) mg/dL Calcium (8.4-10.2) mg/dL Total Protein (6.3-8.2) g/dL Albumin (3.5-5.0) g/dL Arterial Blood Potassium (3.4-4.5) mmol/L Assessment and Plan Plan: Impression: 1 status post CABG, triple-vessel coronary artery disease, postoperative day #2 2 multiple comorbidities including diabetes, essential hypertension, hyperlipidemia, history of atrial flutter, history of TIA, history of diverticular disease. 3 postoperative atelectasis and small pleural effusions. Patient continues incentive spirometry and his receiving Lasix as ordered by thoracic surgery. Recommendation: Continue incentive spirometry, bronchodilators, early ambulation , diuretics, will continue to follow. Time with Patient: Less than 30
[2016-10-18 12:44] LABS: Glucose,Whole Blood 131 mg/dL (75-99)
[2016-10-18] MEDS: INSULIN GLARGINE 100 UNIT/ML 10 ML VIAL SQ SCH (12:56)
--- NOTE | 2016-10-18 13:34 | P.PN ---
Subjective Principal diagnosis: Coronary artery disease. History of paroxysmal atrial flutter. History of CVA. Type 2 diabetes mellitus. Hypertension. History of lower GI bleed. Diverticulitis. History of melanoma with removal. POD #2 coronary artery bypass grafting 3 vessels (left internal mammary artery to left anterior descending artery, reverse saphenous vein graft to diagonal artery, reverse saphenous vein graft to obtuse marginal artery). Endoscopic vein harvest, right greater saphenous vein. Epi-aortic ultrasound. Intraoperative transesophageal echocardiogram. Patient currently sitting up in a recliner in no acute distress. States his pain is well-controlled. Arterial line, Cordis discontinued as they were not functioning. Patient is in good spirits and tolerating his diet. Objective - Vital Signs Vital signs: Vital Signs Temp 98.1 F 10/18/16 08:00 Pulse 81 10/18/16 10:00 Resp 19 10/18/16 10:00 BP 137/64 10/18/16 10:00 Pulse Ox 95 10/18/16 10:00 Intake & Output 10/17/16 10/18/16 10/18/16 18:59 06:59 18:59 Intake Total 539.465 925.113 253.726 Output Total 790 539 215 Balance -250.535 386.113 38.726 Weight 103 kg Intake: IV 443.5 770 210 [place] 12 30 CO/CI 30 Lactated Ringers 1,000 ml 300 740 210 @ 20 mls/hr IV .Q24H [facility] Rx#:[id number] Nitroglycerin-D5w Pmx 50 1.5 mg In Dextrose/Water 1 250ml.bag @ 5 MCG/MIN 1.5 mls/hr IV .Q24H [facility] Rx#: [id number] ceFAZolin 2 gm In Sodium 100 Chloride 0.9% 100 ml @ 100 mls/hr IVPB Q8HR [facility] Rx#:[id number] Intake, IV Titration 95.965 55.113 43.726 Amount Insulin Regular 100 unit 85.965 55.113 43.726 In Sodium Chloride 0.9% 100 ml @ Per Protocol IV .Q0M [facility] Rx#:[id number] Insulin Regular 100 unit 10 In Sodium Chloride 0.9% 100 ml @ Per Protocol IV ONCE ONE Rx#:[id number] Oral 100 Output: Chest Tube Drainage 440 224 140 Bilateral Mediastinal 320 160 70 Left Lateral Chest 120 64 70 Urine 350 315 75 Other: Voiding Method Indwelling Catheter Indwelling Catheter Indwelling Catheter ABP, PAP, CO, CI - Last Documented Arterial Blood Pressure 19/9 Pulmonary Artery Pressure 27/14 Cardiac Output 5.3 Cardiac Index 2.4 - Constitutional General appearance: Present: cooperative, no acute distress - Respiratory Details: Lung sounds much bilaterally. Respirations even, nonlabored. Currently on 4 L nasal cannula with oxygen saturation 93%. Able to achieve 1250 mL on his incentive spirometer. Mediastinal chest tube to -20 cm wall suction, 130 mL serous and was drainage overnight, 350 mL in the last 24 hours. Left pleural chest tube to -20 cm wall suction, 70 mL serous and was drainage overnight, 140 mL in the last 24 hours. No air leaks present. - Cardiovascular Details: S1, S2 present. Regular rate and rhythm, normal sinus rhythm with occasional PVCs on telemetry. Sternum stable. Heart hugger in place with patient showing appropriate use. No edema present. Teds/SCDs present. A/V epicardial pacemaker wires present, grounded. - Gastrointestinal Gastrointestinal Comment(s): Abdomen soft, nontender, nondistended. Hypoactive bowel sounds present 4 quadrants. Negative flatus. Tolerating diet. - Genitourinary Genitourinary Comment(s): Tyson present draining clear, yellow urine. Output 10-35 mL/h overnight. - Integumentary Integumentary Comment(s): Anterior chest incision well approximated and covered with dry intact dressing. Right lower extremity EVH site well approximated. - Musculoskeletal Musculoskeletal: Present: gait normal, strength equal bilaterally - Psychiatric Psychiatric: Present: A&O x's 3, appropriate affect - Allied health notes Allied health notes reviewed: nursing - Labs CBC & Chem 7: 10/18/16 05:22 10/18/16 05:22 Labs: Abnormal Lab Results - Last 24 Hours (Table) 10/16/16 10/16/16 10/16/16 Range/Units 09:03 10:19 11:25 RBC (4.30-5.90) m/uL Hgb (13.0-17.5) gm/dL Hct (39.0-53.0) % Plt Count (150-450) k/uL ABG pH 7.29 L (7.35-7.45) ABG pCO2 53 H (35-45) mmHg ABG pO2 166 H 111 H 313 H (83-108) mmHg ABG Total CO2 25 H 26 H (19-24) mmol/L ABG O2 Saturation 99.5 H 98.1 H 99.9 H (94-97) % ABG Hematocrit 47 H 30 L (34.0-46.0) % ABG Potassium 5.2 H (3.4-4.5) mmol/L Chloride (98-107) mmol/L Glucose (74-99) mg/dL POC Glucose (mg/dL) (75-99) mg/dL Hemoglobin A1c (4.2-6.1) % Calcium (8.4-10.2) mg/dL Total Protein (6.3-8.2) g/dL Albumin (3.5-5.0) g/dL Arterial Blood Potassium 5.2 H (3.4-4.5) mmol/L 10/16/16 10/16/16 10/16/16 Range/Units 11:50 12:26 13:58 RBC (4.30-5.90) m/uL Hgb (13.0-17.5) gm/dL Hct (39.0-53.0) % Plt Count (150-450) k/uL ABG pH (7.35-7.45) ABG pCO2 (35-45) mmHg ABG pO2 240 H 344 H 209 H (83-108) mmHg ABG Total CO2 26 H (19-24) mmol/L ABG O2 Saturation 99.8 H 99.9 H 99.7 H (94-97) % ABG Hematocrit 32 L (34.0-46.0) % ABG Potassium 5.0 H 4.9 H (3.4-4.5) mmol/L Chloride (98-107) mmol/L Glucose (74-99) mg/dL POC Glucose (mg/dL) (75-99) mg/dL Hemoglobin A1c (4.2-6.1) % Calcium (8.4-10.2) mg/dL Total Protein (6.3-8.2) g/dL Albumin (3.5-5.0) g/dL Arterial Blood Potassium 5.0 H 4.9 H (3.4-4.5) mmol/L 10/17/16 10/17/16 10/17/16 Range/Units 05:05 11:10 11:53 RBC (4.30-5.90) m/uL Hgb (13.0-17.5) gm/dL Hct (39.0-53.0) % Plt Count (150-450) k/uL ABG pH (7.35-7.45) ABG pCO2 (35-45) mmHg ABG pO2 (83-108) mmHg ABG Total CO2 (19-24) mmol/L ABG O2 Saturation (94-97) % ABG Hematocrit (34.0-46.0) % ABG Potassium (3.4-4.5) mmol/L Chloride (98-107) mmol/L Glucose (74-99) mg/dL POC Glucose (mg/dL) 147 H 129 H (75-99) mg/dL Hemoglobin A1c 7.6 H (4.2-6.1) % Calcium (8.4-10.2) mg/dL Total Protein (6.3-8.2) g/dL Albumin (3.5-5.0) g/dL Arterial Blood Potassium (3.4-4.5) mmol/L 10/17/16 10/17/16 10/17/16 Range/Units 12:57 14:59 16:05 RBC (4.30-5.90) m/uL Hgb (13.0-17.5) gm/dL Hct (39.0-53.0) % Plt Count (150-450) k/uL ABG pH (7.35-7.45) ABG pCO2 (35-45) mmHg ABG pO2 (83-108) mmHg ABG Total CO2 (19-24) mmol/L ABG O2 Saturation (94-97) % ABG Hematocrit (34.0-46.0) % ABG Potassium (3.4-4.5) mmol/L Chloride (98-107) mmol/L Glucose (74-99) mg/dL POC Glucose (mg/dL) 102 H 114 H 119 H (75-99) mg/dL Hemoglobin A1c (4.2-6.1) % Calcium (8.4-10.2) mg/dL Total Protein (6.3-8.2) g/dL Albumin (3.5-5.0) g/dL Arterial Blood Potassium (3.4-4.5) mmol/L 10/17/16 10/17/16 10/17/16 Range/Units 17:05 18:06 18:52 RBC (4.30-5.90) m/uL Hgb (13.0-17.5) gm/dL Hct (39.0-53.0) % Plt Count (150-450) k/uL ABG pH (7.35-7.45) ABG pCO2 (35-45) mmHg ABG pO2 (83-108) mmHg ABG Total CO2 (19-24) mmol/L ABG O2 Saturation (94-97) % ABG Hematocrit (34.0-46.0) % ABG Potassium (3.4-4.5) mmol/L Chloride (98-107) mmol/L Glucose (74-99) mg/dL POC Glucose (mg/dL) 147 H 127 H 164 H (75-99) mg/dL Hemoglobin A1c (4.2-6.1) % Calcium (8.4-10.2) mg/dL Total Protein (6.3-8.2) g/dL Albumin (3.5-5.0) g/dL Arterial Blood Potassium (3.4-4.5) mmol/L 10/17/16 10/17/16 10/17/16 Range/Units 20:01 21:58 22:03 RBC (4.30-5.90) m/uL Hgb (13.0-17.5) gm/dL Hct (39.0-53.0) % Plt Count (150-450) k/uL ABG pH (7.35-7.45) ABG pCO2 (35-45) mmHg ABG pO2 (83-108) mmHg ABG Total CO2 (19-24) mmol/L ABG O2 Saturation (94-97) % ABG Hematocrit (34.0-46.0) % ABG Potassium (3.4-4.5) mmol/L Chloride (98-107) mmol/L Glucose (74-99) mg/dL POC Glucose (mg/dL) 126 H 59 L 58 L (75-99) mg/dL Hemoglobin A1c (4.2-6.1) % Calcium (8.4-10.2) mg/dL Total Protein (6.3-8.2) g/dL Albumin (3.5-5.0) g/dL Arterial Blood Potassium (3.4-4.5) mmol/L 10/17/16 10/17/16 10/18/16 Range/Units 22:14 23:15 00:06 RBC (4.30-5.90) m/uL Hgb (13.0-17.5) gm/dL Hct (39.0-53.0) % Plt Count (150-450) k/uL ABG pH (7.35-7.45) ABG pCO2 (35-45) mmHg ABG pO2 (83-108) mmHg ABG Total CO2 (19-24) mmol/L ABG O2 Saturation (94-97) % ABG Hematocrit (34.0-46.0) % ABG Potassium (3.4-4.5) mmol/L Chloride (98-107) mmol/L Glucose (74-99) mg/dL POC Glucose (mg/dL) 56 L 124 H 164 H (75-99) mg/dL Hemoglobin A1c (4.2-6.1) % Calcium (8.4-10.2) mg/dL Total Protein (6.3-8.2) g/dL Albumin (3.5-5.0) g/dL Arterial Blood Potassium (3.4-4.5) mmol/L 10/18/16 10/18/16 10/18/16 Range/Units 01:06 02:18 03:03 RBC (4.30-5.90) m/uL Hgb (13.0-17.5) gm/dL Hct (39.0-53.0) % Plt Count (150-450) k/uL ABG pH (7.35-7.45) ABG pCO2 (35-45) mmHg ABG pO2 (83-108) mmHg ABG Total CO2 (19-24) mmol/L ABG O2 Saturation (94-97) % ABG Hematocrit (34.0-46.0) % ABG Potassium (3.4-4.5) mmol/L Chloride (98-107) mmol/L Glucose (74-99) mg/dL POC Glucose (mg/dL) 156 H 143 H 127 H (75-99) mg/dL Hemoglobin A1c (4.2-6.1) % Calcium (8.4-10.2) mg/dL Total Protein (6.3-8.2) g/dL Albumin (3.5-5.0) g/dL Arterial Blood Potassium (3.4-4.5) mmol/L 10/18/16 10/18/16 10/18/16 Range/Units 04:26 04:27 05:17 RBC (4.30-5.90) m/uL Hgb (13.0-17.5) gm/dL Hct (39.0-53.0) % Plt Count (150-450) k/uL ABG pH (7.35-7.45) ABG pCO2 (35-45) mmHg ABG pO2 (83-108) mmHg ABG Total CO2 (19-24) mmol/L ABG O2 Saturation (94-97) % ABG Hematocrit (34.0-46.0) % ABG Potassium (3.4-4.5) mmol/L Chloride (98-107) mmol/L Glucose (74-99) mg/dL POC Glucose (mg/dL) 57 L 106 H 110 H (75-99) mg/dL Hemoglobin A1c (4.2-6.1) % Calcium (8.4-10.2) mg/dL Total Protein (6.3-8.2) g/dL Albumin (3.5-5.0) g/dL Arterial Blood Potassium (3.4-4.5) mmol/L 10/18/16 10/18/16 10/18/16 Range/Units 05:22 05:22 06:05 RBC 3.49 L (4.30-5.90) m/uL Hgb 9.7 L (13.0-17.5) gm/dL Hct 31.1 L (39.0-53.0) % Plt Count 104 L (150-450) k/uL ABG pH (7.35-7.45) ABG pCO2 (35-45) mmHg ABG pO2 (83-108) mmHg ABG Total CO2 (19-24) mmol/L ABG O2 Saturation (94-97) % ABG Hematocrit (34.0-46.0) % ABG Potassium (3.4-4.5) mmol/L Chloride 108 H (98-107) mmol/L Glucose 125 H (74-99) mg/dL POC Glucose (mg/dL) 153 H (75-99) mg/dL Hemoglobin A1c (4.2-6.1) % Calcium 8.2 L (8.4-10.2) mg/dL Total Protein 4.8 L (6.3-8.2) g/dL Albumin 2.8 L (3.5-5.0) g/dL Arterial Blood Potassium (3.4-4.5) mmol/L 10/18/16 10/18/16 10/18/16 Range/Units 06:44 07:50 09:19 RBC (4.30-5.90) m/uL Hgb (13.0-17.5) gm/dL Hct (39.0-53.0) % Plt Count (150-450) k/uL ABG pH (7.35-7.45) ABG pCO2 (35-45) mmHg ABG pO2 (83-108) mmHg ABG Total CO2 (19-24) mmol/L ABG O2 Saturation (94-97) % ABG Hematocrit (34.0-46.0) % ABG Potassium (3.4-4.5) mmol/L Chloride (98-107) mmol/L Glucose (74-99) mg/dL POC Glucose (mg/dL) 169 H 166 H 138 H (75-99) mg/dL Hemoglobin A1c (4.2-6.1) % Calcium (8.4-10.2) mg/dL Total Protein (6.3-8.2) g/dL Albumin (3.5-5.0) g/dL Arterial Blood Potassium (3.4-4.5) mmol/L 10/18/16 Range/Units 10:06 RBC (4.30-5.90) m/uL Hgb (13.0-17.5) gm/dL Hct (39.0-53.0) % Plt Count (150-450) k/uL ABG pH (7.35-7.45) ABG pCO2 (35-45) mmHg ABG pO2 (83-108) mmHg ABG Total CO2 (19-24) mmol/L ABG O2 Saturation (94-97) % ABG Hematocrit (34.0-46.0) % ABG Potassium (3.4-4.5) mmol/L Chloride (98-107) mmol/L Glucose (74-99) mg/dL POC Glucose (mg/dL) 131 H (75-99) mg/dL Hemoglobin A1c (4.2-6.1) % Calcium (8.4-10.2) mg/dL Total Protein (6.3-8.2) g/dL Albumin (3.5-5.0) g/dL Arterial Blood Potassium (3.4-4.5) mmol/L - Imaging and Cardiology Chest x-ray: report reviewed, image reviewed Assessment and Plan (1) History of melanoma Status: Acute (2) Coronary artery disease Status: Acute (3) Family history of coronary artery disease in mother Status: Acute (4) History of TIA (transient ischemic attack) Status: Acute (5) History of atrial flutter Status: Acute (6) History of hemorrhoids Status: Acute (7) History of syncope Status: Acute (8) Hyperlipidemia Status: Acute (9) Hypertension Status: Acute Plan: 1. Continue aspirin, Lipitor, Plavix, heparin, Lopressor. Will maximize beta vashti therapy as tolerated. 2. Encourage incentive spirometry use. Will give lasix 40 mg IVP x 1 today 3. Increase activity, out of bed to chair. Physical therapy to follow. 4. Arterial line, Cordis discontinued. 5. Insulin drip/diabetic management per primary care service. 6. GI/DVT prophylaxis. 7. Will monitor daily labs, chest x-rays. 8. More recommendations as patient progresses. Time with Patient: Greater than 30
[2016-10-18] MEDS: INSULIN LISPRO (humaLOG) 300 UNIT/3 ML VIAL SQ SCH ×3 (13:47→21:47)
[2016-10-18] MEDS: CLEVIDIPINE BUTYRATE 25 MG in EMPTY BAG 1 BAG IV SCH (15:06)
[2016-10-18] MEDS: LACTATED RINGERS 1,000 ML IV SCH (15:06)
[2016-10-18 17:13] LABS: Glucose,Whole Blood 254 mg/dL (75-99)
[2016-10-18 21:03] LABS: Glucose,Whole Blood 220 mg/dL (75-99)
[2016-10-18] MEDS ORDERED: INSULIN LISPRO (humaLOG) 300 UNIT/3 ML VIAL SQ ONE (21:24)
[2016-10-18] MEDS: SENNOSIDES-DOCUSATE SODIUM 1 EACH TAB PO SCH (21:46)
[2016-10-18] MEDS ORDERED: DEXTROSE 5% IN WATER 100 ML with AMIODARONE 150 MG IV ONE (23:28)
[2016-10-18] MEDS ORDERED: AMIODARONE 450 MG in DEXTROSE 5% IN WATER 250 ML IV SCH ×2 (23:29)
[2016-10-19 05:36] LABS: Basophils % (A) 0 %; CH 27.8; CHCM 31.1; Eosinophils # (A) 0.3 k/uL (0-0.7); Eosinophils % (A) 4 %; HCT 31.2 % (39.0-53.0); HGB 10.2 gm/dL (13.0-17.5); Hypochromasia Slight; Luc # (Auto) 0.18; Luc % (Auto) 2; Lymphocytes % (A) 12 %; MCH 29.4 pg (25.0-35.0); MCHC 32.8 g/dL (31.0-37.0); MCV 89.5 fL (80.0-100.0); Mean Platelet Volume 9.2; Monocytes # (A) 0.4 k/uL (0-1.0); Monocytes % (A) 5 %; Neutrophils # (A) 6.6 k/uL (1.3-7.7); Neutrophils % (A) 77 %; RBC 3.48 m/uL (4.30-5.90); WBC 8.5 k/uL (3.8-10.6); WBC (Perox) 8.91
[2016-10-19 05:46] LABS: ALT 15 U/L (21-72); AST 23 U/L (17-59); Alkaline Phosphatase 52 U/L (38-126); Anion Gap 9 mmol/L; Blood Urea Nitrogen 20 mg/dL (9-20); Calcium 8.2 mg/dL (8.4-10.2); Carbon Dioxide 22 mmol/L (22-30); Chloride 107 mmol/L (98-107); Glucose 168 mg/dL (74-99); Magnesium 1.9 mg/dL (1.6-2.3); Non-African American GFR(MDRD) >60 (>60 ml/min/1.73 sqM); Phosphorous 2.7 mg/dL (2.5-4.5); Potassium 4.4 mmol/L (3.5-5.1); Sodium 138 mmol/L (137-145); Total Bilirubin 0.7 mg/dL (0.2-1.3); Total Protein 5.2 g/dL (6.3-8.2)
--- NOTE | 2016-10-19 07:27 | XR ---
EXAMINATION TYPE: XR chest 1V portable DATE OF EXAM: 10/19/2016 Comparison: 10/18/2016 Clinical History: 76-year-old male Post Operative Cardiac Surgery Findings: The heart remains upper limits of normal in size. Median sternotomy wires are present with post-CABG clips in the mediastinum. There is slight increased patchy left upper lobe opacity and continued patc hy left basilar and retrocardiac opacity. Left chest tube remains in place without appreciable pneumo thorax. Degenerative changes at the right shoulder and to a lesser extent on the left. Impression: 1. Continued patchy left basilar postoperative atelectasis. 2. Increasing left upper lobe opacity could represent infiltrate/atelectasis or changes relating to m ild CHF.
[2016-10-19] MEDS: PANTOPRAZOLE 40 MG TABLET PO SCH (07:53)
[2016-10-19] MEDS: INSULIN LISPRO (humaLOG) 300 UNIT/3 ML VIAL SQ SCH ×7 (07:53→21:46)
[2016-10-19 08:06] LABS: Glucose,Whole Blood 220 mg/dL (75-99)
[2016-10-19] MEDS: ASPIRIN 325 MG TAB PO SCH (08:32)
[2016-10-19] MEDS: HEPARIN SODIUM,PORCINE 5,000 UNIT/ML 1 ML VIAL SQ SCH ×3 (08:32→23:20)
[2016-10-19] MEDS: ATORVASTATIN 40 MG TAB PO SCH (08:33)
[2016-10-19] MEDS: METOPROLOL TARTRATE 25 MG TAB PO SCH ×3 (08:33→21:46)
[2016-10-19] MEDS: CLOPIDOGREL 75 MG TAB PO SCH (08:33)
[2016-10-19] MEDS: INSULIN GLARGINE 100 UNIT/ML 10 ML VIAL SQ SCH (08:39)
[2016-10-19] MEDS ORDERED: AMIODARONE 200 MG TAB PO SCH (09:30)
--- NOTE | 2016-10-19 09:32 | P.PN ---
<Alise Leone - Last Filed: 10/19/16 09:25> Subjective Principal diagnosis: Coronary artery disease. History of paroxysmal atrial flutter. History of CVA. Type 2 diabetes mellitus. Hypertension. History of lower GI bleed. Diverticulitis. History of melanoma with removal. POD #3 coronary artery bypass grafting 3 vessels (left internal mammary artery to left anterior descending artery, reverse saphenous vein graft to diagonal artery, reverse saphenous vein graft to obtuse marginal artery). Endoscopic vein harvest, right greater saphenous vein. Epi-aortic ultrasound. Intraoperative transesophageal echocardiogram. Postoperative atrial fibrillation with rapid ventricular response, and expected outcome of surgery. Patient currently sitting up in bed in no acute distress. Was transferred to [address] [place] [address] this morning. Went into atrial fibrillation with rapid ventricular response overnight, amiodarone bolus given and drip started, currently in normal sinus rhythm. Denies pain, states he is doing very well. Objective - Vital Signs Vital signs: Vital Signs Temp 97.9 F 10/19/16 07:25 Pulse 75 10/19/16 07:25 Resp 17 10/19/16 07:25 BP 165/82 10/19/16 07:25 Pulse Ox 93 L 10/19/16 07:25 Intake & Output 10/18/16 10/19/16 10/19/16 18:59 06:59 18:59 Intake Total 225.621 404.98 Output Total 685 620 Balance -459.379 -215.02 Weight 104.4 kg Intake: IV 180 0 Lactated Ringers 1,000 ml 180 0 @ 20 mls/hr IV .Q24H [facility] Rx#:[id number] Intake, IV Titration 45.621 204.98 Amount Amiodarone 450 mg In 204.98 Dextrose 5% in Water 250 ml @ 1 MG/MIN 33.33 mls/ hr IV .Q7H31M [facility] Rx#: [id number] Insulin Regular 100 unit 45.621 In Sodium Chloride 0.9% 100 ml @ Per Protocol IV .Q0M [facility] Rx#:[id number] Oral 200 Output: Chest Tube Drainage 200 170 Bilateral Mediastinal 100 Left Lateral Chest 100 170 Urine 485 450 Other: Voiding Method Indwelling Catheter Indwelling Catheter ABP, PAP, CO, CI - Last Documented Arterial Blood Pressure 19/9 Pulmonary Artery Pressure 27/14 Cardiac Output 5.3 Cardiac Index 2.4 - Constitutional General appearance: Present: cooperative, no acute distress - Respiratory Details: Lungs sounds diminished bilaterally. Respirations even, nonlabored. Currently on room air with oxygen saturations 95%. Able to achieve 1250 mL on his incentive spirometer. Left pleural chest tube to -20 cm wall suction, 80 mL of serous drainage overnight, 250 mL the last 24 hours. No air leak present. - Cardiovascular Details: S1, S2 present. Regular rate and rhythm, normal sinus rhythm on telemetry. Sternum stable. A/B epicardial pacemaker wires present, grounded. Heart hugger in place patient demonstrating appropriate use. Teds/SCDs present. - Gastrointestinal Gastrointestinal Comment(s): Abdomen soft, nontender, nondistended. Active bowel sounds 4 quadrants. Positive flatus. Tolerating diet. - Genitourinary Genitourinary Comment(s): Tyson discontinued yesterday. Positive void. - Integumentary Integumentary Comment(s): Anterior chest incision well approximated and covered with dry intact dressing. - Musculoskeletal Musculoskeletal: Present: gait normal, strength equal bilaterally - Psychiatric Psychiatric: Present: A&O x's 3, appropriate affect, intact judgment & insight - Allied health notes Allied health notes reviewed: nursing - Labs CBC & Chem 7: 10/19/16 04:37 10/19/16 04:37 Labs: Abnormal Lab Results - Last 24 Hours (Table) 10/16/16 10/16/16 10/16/16 Range/Units 09:03 10:19 11:25 RBC (4.30-5.90) m/uL Hgb (13.0-17.5) gm/dL Hct (39.0-53.0) % Plt Count (150-450) k/uL ABG pH 7.29 L (7.35-7.45) ABG pCO2 53 H (35-45) mmHg ABG pO2 166 H 111 H 313 H (83-108) mmHg ABG Total CO2 25 H 26 H (19-24) mmol/L ABG O2 Saturation 99.5 H 98.1 H 99.9 H (94-97) % ABG Hematocrit 47 H 30 L (34.0-46.0) % ABG Potassium 5.2 H (3.4-4.5) mmol/L Glucose (74-99) mg/dL POC Glucose (mg/dL) (75-99) mg/dL Calcium (8.4-10.2) mg/dL ALT (21-72) U/L Total Protein (6.3-8.2) g/dL Albumin (3.5-5.0) g/dL Arterial Blood Potassium 5.2 H (3.4-4.5) mmol/L 10/16/16 10/16/16 10/16/16 Range/Units 11:50 12:26 13:58 RBC (4.30-5.90) m/uL Hgb (13.0-17.5) gm/dL Hct (39.0-53.0) % Plt Count (150-450) k/uL ABG pH (7.35-7.45) ABG pCO2 (35-45) mmHg ABG pO2 240 H 344 H 209 H (83-108) mmHg ABG Total CO2 26 H (19-24) mmol/L ABG O2 Saturation 99.8 H 99.9 H 99.7 H (94-97) % ABG Hematocrit 32 L (34.0-46.0) % ABG Potassium 5.0 H 4.9 H (3.4-4.5) mmol/L Glucose (74-99) mg/dL POC Glucose (mg/dL) (75-99) mg/dL Calcium (8.4-10.2) mg/dL ALT (21-72) U/L Total Protein (6.3-8.2) g/dL Albumin (3.5-5.0) g/dL Arterial Blood Potassium 5.0 H 4.9 H (3.4-4.5) mmol/L 10/18/16 10/18/16 10/18/16 Range/Units 10:06 11:12 12:40 RBC (4.30-5.90) m/uL Hgb (13.0-17.5) gm/dL Hct (39.0-53.0) % Plt Count (150-450) k/uL ABG pH (7.35-7.45) ABG pCO2 (35-45) mmHg ABG pO2 (83-108) mmHg ABG Total CO2 (19-24) mmol/L ABG O2 Saturation (94-97) % ABG Hematocrit (34.0-46.0) % ABG Potassium (3.4-4.5) mmol/L Glucose (74-99) mg/dL POC Glucose (mg/dL) 131 H 121 H 131 H (75-99) mg/dL Calcium (8.4-10.2) mg/dL ALT (21-72) U/L Total Protein (6.3-8.2) g/dL Albumin (3.5-5.0) g/dL Arterial Blood Potassium (3.4-4.5) mmol/L 10/18/16 10/18/16 10/19/16 Range/Units 17:11 21:00 04:37 RBC 3.48 L (4.30-5.90) m/uL Hgb 10.2 L (13.0-17.5) gm/dL Hct 31.2 L (39.0-53.0) % Plt Count 108 L (150-450) k/uL ABG pH (7.35-7.45) ABG pCO2 (35-45) mmHg ABG pO2 (83-108) mmHg ABG Total CO2 (19-24) mmol/L ABG O2 Saturation (94-97) % ABG Hematocrit (34.0-46.0) % ABG Potassium (3.4-4.5) mmol/L Glucose (74-99) mg/dL POC Glucose (mg/dL) 254 H 220 H (75-99) mg/dL Calcium (8.4-10.2) mg/dL ALT (21-72) U/L Total Protein (6.3-8.2) g/dL Albumin (3.5-5.0) g/dL Arterial Blood Potassium (3.4-4.5) mmol/L 10/19/16 10/19/16 Range/Units 04:37 07:53 RBC (4.30-5.90) m/uL Hgb (13.0-17.5) gm/dL Hct (39.0-53.0) % Plt Count (150-450) k/uL ABG pH (7.35-7.45) ABG pCO2 (35-45) mmHg ABG pO2 (83-108) mmHg ABG Total CO2 (19-24) mmol/L ABG O2 Saturation (94-97) % ABG Hematocrit (34.0-46.0) % ABG Potassium (3.4-4.5) mmol/L Glucose 168 H (74-99) mg/dL POC Glucose (mg/dL) 220 H (75-99) mg/dL Calcium 8.2 L (8.4-10.2) mg/dL ALT 15 L (21-72) U/L Total Protein 5.2 L (6.3-8.2) g/dL Albumin 2.8 L (3.5-5.0) g/dL Arterial Blood Potassium (3.4-4.5) mmol/L - Imaging and Cardiology Chest x-ray: image reviewed Assessment and Plan (1) History of melanoma Status: Acute (2) Coronary artery disease Status: Acute (3) Family history of coronary artery disease in mother Status: Acute (4) History of TIA (transient ischemic attack) Status: Acute (5) History of atrial flutter Status: Acute (6) History of hemorrhoids Status: Acute (7) History of syncope Status: Acute (8) Hyperlipidemia Status: Acute (9) Hypertension Status: Acute Plan: 1. Continue aspirin, Lipitor, Plavix, heparin, Lopressor. Will maximize beta vashti therapy as tolerated. 2. Continue amiodarone for atrial fibrillation prophylaxis. Continue IV amiodarone until current bag is empty. Transition to oral amiodarone. 3. Encourage incentive spirometry use. 4. Increase activity, ambulate in hallway. Physical therapy to follow. 5. Diabetic management per primary care service. 6. GI/DVT prophylaxis. 7. Will monitor daily labs, chest x-rays. 8. More recommendations as patient progresses. Time with Patient: Greater than 30 <Dong Gonzales - Last Filed: 10/19/16 10:20> Objective - Vital Signs Vital signs: Vital Signs Temp 97.9 F 10/19/16 07:25 Pulse 75 10/19/16 07:25 Resp 17 10/19/16 07:25 BP 165/82 10/19/16 07:25 Pulse Ox 93 L 10/19/16 07:25 Intake & Output 10/18/16 10/19/16 10/19/16 18:59 06:59 18:59 Intake Total 225.621 404.98 200 Output Total 685 620 Balance -459.379 -215.02 200 Weight 104.4 kg Intake: IV 180 0 Lactated Ringers 1,000 ml 180 0 @ 20 mls/hr IV .Q24H [facility] Rx#:[id number] Intake, IV Titration 45.621 204.98 Amount Amiodarone 450 mg In 204.98 Dextrose 5% in Water 250 ml @ 1 MG/MIN 33.33 mls/ hr IV .Q7H31M [facility] Rx#: [id number] Insulin Regular 100 unit 45.621 In Sodium Chloride 0.9% 100 ml @ Per Protocol IV .Q0M [facility] Rx#:[id number] Oral 200 200 Output: Chest Tube Drainage 200 170 Bilateral Mediastinal 100 Left Lateral Chest 100 170 Urine 485 450 Other: Voiding Method Indwelling Catheter Indwelling Catheter ABP, PAP, CO, CI - Last Documented Arterial Blood Pressure 19/9 Pulmonary Artery Pressure 27/14 Cardiac Output 5.3 Cardiac Index 2.4 - Labs CBC & Chem 7: 10/19/16 04:37 10/19/16 04:37 Labs: Abnormal Lab Results - Last 24 Hours (Table) 10/18/16 10/18/16 10/18/16 Range/Units 11:12 12:40 17:11 RBC (4.30-5.90) m/uL Hgb (13.0-17.5) gm/dL Hct (39.0-53.0) % Plt Count (150-450) k/uL Glucose (74-99) mg/dL POC Glucose (mg/dL) 121 H 131 H 254 H (75-99) mg/dL Calcium (8.4-10.2) mg/dL ALT (21-72) U/L Total Protein (6.3-8.2) g/dL Albumin (3.5-5.0) g/dL 10/18/16 10/19/16 10/19/16 Range/Units 21:00 04:37 04:37 RBC 3.48 L (4.30-5.90) m/uL Hgb 10.2 L (13.0-17.5) gm/dL Hct 31.2 L (39.0-53.0) % Plt Count 108 L (150-450) k/uL Glucose 168 H (74-99) mg/dL POC Glucose (mg/dL) 220 H (75-99) mg/dL Calcium 8.2 L (8.4-10.2) mg/dL ALT 15 L (21-72) U/L Total Protein 5.2 L (6.3-8.2) g/dL Albumin 2.8 L (3.5-5.0) g/dL 10/19/16 Range/Units 07:53 RBC (4.30-5.90) m/uL Hgb (13.0-17.5) gm/dL Hct (39.0-53.0) % Plt Count (150-450) k/uL Glucose (74-99) mg/dL POC Glucose (mg/dL) 220 H (75-99) mg/dL Calcium (8.4-10.2) mg/dL ALT (21-72) U/L Total Protein (6.3-8.2) g/dL Albumin (3.5-5.0) g/dL Assessment and Plan Plan: The patient was seen and examined. I agree with the above assessment and plan. Overall he looks good. He did go into atrial fibrillation with rapid ventricular response last night. He was started on IV amiodarone and has converted to normal sinus rhythm this morning. We will change him to oral amiodarone. Otherwise we will increase his beta vashti. We will discontinue his remaining pleural chest tube. We'll continue to encourage ambulation and incentive spirometry.
--- NOTE | 2016-10-19 10:57 | P.PN ---
Subjective Principal diagnosis: Status post CABG, postoperative day #3 This is a 76-year-old white male with multiple medical problems including hypertension and diabetes, and multivessel coronary artery disease. Patient underwent triple vessel coronary artery bypass surgery on 10/16/2016, postoperatively I was asked to see the patient on consultation. I reviewed his chest x-ray I also reviewed his ventilator settings, a few hours after arrival to the ICU, patient was extubated to nasal cannula. His postoperative course has been relatively uneventful. Patient is sitting in a chair, in no form of respiratory distress, doing quite well with incentive spirometry. Denies any chest pain, no shortness of breath, no fever, no chills. No nausea no vomiting. Chest x-ray showed minimal left basilar atelectasis. Patient was reevaluated today on 10/18/2016, continues to do relatively well, asymptomatic, no cough no wheezing no shortness of breath. Chest x-ray showed mild interstitial edema, and by basilar atelectasis, patient is receiving Lasix as ordered by the surgeon earlier this morning. Clinically, the patient is doing great. Chest x-ray was reviewed, labs were reviewed, hemoglobin is 9.7. Basic metabolic profile is normal, renal profile is normal blood sugar is 121. Reevaluated today on 10/19/2016, patient is doing relatively well, asymptomatic, chest x-ray is showing areas of atelectasis especially in the left upper lobe and in the left lower lobe. Patient is compliant with incentive spirometry, and he is already ambulatory in the room, today he will likely be ambulated in the hallway. Labs showed hemoglobin of 10.2 renal profile is normal. Chest x-ray was discussed with the patient. Objective - Vital Signs Vital signs: Vital Signs Temp 97.9 F 10/19/16 07:25 Pulse 75 10/19/16 07:25 Resp 17 10/19/16 07:25 BP 165/82 10/19/16 07:25 Pulse Ox 93 L 10/19/16 07:25 Intake & Output 10/18/16 10/19/16 10/19/16 18:59 06:59 18:59 Intake Total 225.621 404.98 200 Output Total 685 620 Balance -459.379 -215.02 200 Weight 104.4 kg Intake: IV 180 0 Lactated Ringers 1,000 ml 180 0 @ 20 mls/hr IV .Q24H [facility] Rx#:[id number] Intake, IV Titration 45.621 204.98 Amount Amiodarone 450 mg In 204.98 Dextrose 5% in Water 250 ml @ 1 MG/MIN 33.33 mls/ hr IV .Q7H31M [facility] Rx#: [id number] Insulin Regular 100 unit 45.621 In Sodium Chloride 0.9% 100 ml @ Per Protocol IV .Q0M [facility] Rx#:[id number] Oral 200 200 Output: Chest Tube Drainage 200 170 Bilateral Mediastinal 100 Left Lateral Chest 100 170 Urine 485 450 Other: Voiding Method Indwelling Catheter Indwelling Catheter ABP, PAP, CO, CI - Last Documented Arterial Blood Pressure 19/9 Pulmonary Artery Pressure 27/14 Cardiac Output 5.3 Cardiac Index 2.4 - Exam Physical Exam: Revealed a 76-year-old in no distress. 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: [[employer] Ha[employer] breath sounds and crackles at the bases..] Cardiac Exam: [Normal S1 and S2, no S3 gallop, no murmur.] Abdomen: [Soft, nontender, no megaly, no rebound, no guarding, normal bowel sounds.] Extremities: [No clubbing, no edema, no cyanosis.] Neurological Exam: [No focal neurologic deficit.] - Labs CBC & Chem 7: 10/19/16 04:37 10/19/16 04:37 Labs: Abnormal Lab Results - Last 24 Hours (Table) 10/18/16 10/18/16 10/18/16 Range/Units 11:12 12:40 17:11 RBC (4.30-5.90) m/uL Hgb (13.0-17.5) gm/dL Hct (39.0-53.0) % Plt Count (150-450) k/uL Glucose (74-99) mg/dL POC Glucose (mg/dL) 121 H 131 H 254 H (75-99) mg/dL Calcium (8.4-10.2) mg/dL ALT (21-72) U/L Total Protein (6.3-8.2) g/dL Albumin (3.5-5.0) g/dL 10/18/16 10/19/16 10/19/16 Range/Units 21:00 04:37 04:37 RBC 3.48 L (4.30-5.90) m/uL Hgb 10.2 L (13.0-17.5) gm/dL Hct 31.2 L (39.0-53.0) % Plt Count 108 L (150-450) k/uL Glucose 168 H (74-99) mg/dL POC Glucose (mg/dL) 220 H (75-99) mg/dL Calcium 8.2 L (8.4-10.2) mg/dL ALT 15 L (21-72) U/L Total Protein 5.2 L (6.3-8.2) g/dL Albumin 2.8 L (3.5-5.0) g/dL 10/19/16 Range/Units 07:53 RBC (4.30-5.90) m/uL Hgb (13.0-17.5) gm/dL Hct (39.0-53.0) % Plt Count (150-450) k/uL Glucose (74-99) mg/dL POC Glucose (mg/dL) 220 H (75-99) mg/dL Calcium (8.4-10.2) mg/dL ALT (21-72) U/L Total Protein (6.3-8.2) g/dL Albumin (3.5-5.0) g/dL Assessment and Plan Plan: Impression: 1 status post CABG, triple-vessel coronary artery disease, postoperative day #3 2 multiple comorbidities including diabetes, essential hypertension, hyperlipidemia, history of atrial flutter, history of TIA, history of diverticular disease. 3 postoperative atelectasis and small pleural effusions. Patient continues incentive spirometry and ambulate patient today. Recommendation: Continue incentive spirometry, bronchodilators, early ambulation, diuretics, will continue to follow. Time with Patient: Less than 30
[2016-10-19 12:04] LABS: Glucose,Whole Blood 259 mg/dL (75-99)
--- NOTE | 2016-10-19 12:34 | PN ---
This patient is status post coronary artery bypass surgery. The patient's electronic medical records, vitals signs and hemodynamics over the last 24 hours reviewed. The patient remains stable. Hemodynamically he is not having any significant chest pain or shortness of breath. Occasional PVCs are noted. The patient is afebrile. Blood pressure is 137/77 mmHg. The respirations are not labored. First and second heart sounds are normal. Lungs are fairly clear to auscultation and percussion. LFTs and electrolytes are normal. Creatinine is 0.9. Hemoglobin is 9.7. We will continue the current medications. MTDD
[2016-10-19] MEDS: AMIODARONE 450 MG in DEXTROSE 5% IN WATER 250 ML IV SCH ×2 (13:38)
[2016-10-19] MEDS: AMIODARONE 200 MG TAB PO SCH ×2 (13:43→21:46)
--- NOTE | 2016-10-19 13:51 | P.PN ---
Subjective Principal diagnosis: Status post coronary artery bypass grafting surgery This is a pleasant 76-year-old gentleman who is status post coronary artery bypass grafting surgery. He is progressing quite well, reaching 1500 on his incentive spirometry and using a 10 times an hour. He did have another episode of atrial fib through the night last night and is currently on IV amiodarone. Hemoglobin today 10.2, potassium 4.4, BUN 20, creatinine 0.7. Breathing overall is stable, he denies any chest discomfort. Appetite is good, in normal sinus rhythm. Objective - Vital Signs Vital signs: Vital Signs Temp 96.3 F L 10/19/16 08:00 Pulse 75 10/19/16 08:00 Resp 16 10/19/16 08:00 BP 163/78 10/19/16 08:00 Pulse Ox 95 10/19/16 08:00 Intake & Output 10/18/16 10/19/16 10/19/16 18:59 06:59 18:59 Intake Total 225.621 404.98 200 Output Total 685 620 Balance -459.379 -215.02 200 Weight 104.4 kg Intake: IV 180 0 Lactated Ringers 1,000 ml 180 0 @ 20 mls/hr IV .Q24H [facility] Rx#:[id number] Intake, IV Titration 45.621 204.98 Amount Amiodarone 450 mg In 204.98 Dextrose 5% in Water 250 ml @ 1 MG/MIN 33.33 mls/ hr IV .Q7H31M [facility] Rx#: [id number] Insulin Regular 100 unit 45.621 In Sodium Chloride 0.9% 100 ml @ Per Protocol IV .Q0M [facility] Rx#:[id number] Oral 200 200 Output: Chest Tube Drainage 200 170 Bilateral Mediastinal 100 Left Lateral Chest 100 170 Urine 485 450 Other: Voiding Method Indwelling Catheter Indwelling Catheter Indwelling Catheter ABP, PAP, CO, CI - Last Documented Arterial Blood Pressure 19/9 Pulmonary Artery Pressure 27/14 Cardiac Output 5.3 Cardiac Index 2.4 - Exam PHYSICAL EXAMINATION: HEENT: Head is atraumatic, normocephalic. Pupils equal, round. Neck is supple. There is no elevated jugular venous pressure. HEART EXAMINATION: Heart S1, S2 normal. No murmur or gallop heard. CHEST EXAMINATION: Lungs are clear anteriorly ABDOMEN: Soft, nontender. Bowel sounds are heard. No organomegaly noted. EXTREMITIES:[ 2+ peripheral pulses with trace evidence of peripheral edema and no calf tenderness noted]. Venodyne's in place. NEUROLOGIC [patient is awake, alert and oriented -3.] . - Labs CBC & Chem 7: 10/19/16 04:37 10/19/16 04:37 Labs: Abnormal Lab Results - Last 24 Hours (Table) 10/18/16 10/18/16 10/19/16 Range/Units 17:11 21:00 04:37 RBC 3.48 L (4.30-5.90) m/uL Hgb 10.2 L (13.0-17.5) gm/dL Hct 31.2 L (39.0-53.0) % Plt Count 108 L (150-450) k/uL Glucose (74-99) mg/dL POC Glucose (mg/dL) 254 H 220 H (75-99) mg/dL Calcium (8.4-10.2) mg/dL ALT (21-72) U/L Total Protein (6.3-8.2) g/dL Albumin (3.5-5.0) g/dL 10/19/16 10/19/16 10/19/16 Range/Units 04:37 07:53 11:47 RBC (4.30-5.90) m/uL Hgb (13.0-17.5) gm/dL Hct (39.0-53.0) % Plt Count (150-450) k/uL Glucose 168 H (74-99) mg/dL POC Glucose (mg/dL) 220 H 259 H (75-99) mg/dL Calcium 8.2 L (8.4-10.2) mg/dL ALT 15 L (21-72) U/L Total Protein 5.2 L (6.3-8.2) g/dL Albumin 2.8 L (3.5-5.0) g/dL Assessment and Plan (1) Paroxysmal a-fib Status: Acute (2) S/P CABG (coronary artery bypass graft) Status: Acute (3) Anemia Status: Acute (4) Diabetes mellitus type 2 in obese Status: Acute (5) Family history of coronary artery disease in mother Status: Acute (6) Hyperlipidemia Status: Acute (7) Hypertension Status: Acute Plan: Radiology's perspective, we'll continue the patient on his current medications. Overall he is progressing very well. DNP note has been reviewed, I agree with a documented findings and plan of care. Patient was seen and examined.
--- NOTE | 2016-10-19 14:01 | P.PN ---
Subjective Patient is doing well today. He was up in the chair. Blood glucose not well controlled. Objective - Vital Signs Vital signs: Vital Signs Temp 96.3 F L 10/19/16 08:00 Pulse 75 10/19/16 08:00 Resp 16 10/19/16 08:00 BP 163/78 10/19/16 08:00 Pulse Ox 95 10/19/16 08:00 Intake & Output 10/18/16 10/19/16 10/19/16 18:59 06:59 18:59 Intake Total 225.621 404.98 200 Output Total 685 620 Balance -459.379 -215.02 200 Weight 104.4 kg Intake: IV 180 0 Lactated Ringers 1,000 ml 180 0 @ 20 mls/hr IV .Q24H [facility] Rx#:[id number] Intake, IV Titration 45.621 204.98 Amount Amiodarone 450 mg In 204.98 Dextrose 5% in Water 250 ml @ 1 MG/MIN 33.33 mls/ hr IV .Q7H31M [facility] Rx#: [id number] Insulin Regular 100 unit 45.621 In Sodium Chloride 0.9% 100 ml @ Per Protocol IV .Q0M [facility] Rx#:[id number] Oral 200 200 Output: Chest Tube Drainage 200 170 Bilateral Mediastinal 100 Left Lateral Chest 100 170 Urine 485 450 Other: Voiding Method Indwelling Catheter Indwelling Catheter Indwelling Catheter ABP, PAP, CO, CI - Last Documented Arterial Blood Pressure 19/9 Pulmonary Artery Pressure 27/14 Cardiac Output 5.3 Cardiac Index 2.4 - Exam General: The patient is awake and alert, in no distress Eye: there is normal conjunctiva bilaterally. Neck: The neck is supple, there is no JVD. Cardiovascular: Normal S1-S2, no S3-S4, no murmurs. Respiratory: Lungs clear to auscultation bilaterally Gastrointestinal: Abdomen is soft, nontender Musculoskeletal: There is no pedal edema. Neurological:. Speech is normal. Skin: Skin is warm and dry - Labs CBC & Chem 7: 10/19/16 04:37 10/19/16 04:37 Labs: Abnormal Lab Results - Last 24 Hours (Table) 10/18/16 10/18/16 10/19/16 Range/Units 17:11 21:00 04:37 RBC 3.48 L (4.30-5.90) m/uL Hgb 10.2 L (13.0-17.5) gm/dL Hct 31.2 L (39.0-53.0) % Plt Count 108 L (150-450) k/uL Glucose (74-99) mg/dL POC Glucose (mg/dL) 254 H 220 H (75-99) mg/dL Calcium (8.4-10.2) mg/dL ALT (21-72) U/L Total Protein (6.3-8.2) g/dL Albumin (3.5-5.0) g/dL 10/19/16 10/19/16 10/19/16 Range/Units 04:37 07:53 11:47 RBC (4.30-5.90) m/uL Hgb (13.0-17.5) gm/dL Hct (39.0-53.0) % Plt Count (150-450) k/uL Glucose 168 H (74-99) mg/dL POC Glucose (mg/dL) 220 H 259 H (75-99) mg/dL Calcium 8.2 L (8.4-10.2) mg/dL ALT 15 L (21-72) U/L Total Protein 5.2 L (6.3-8.2) g/dL Albumin 2.8 L (3.5-5.0) g/dL Assessment and Plan Plan: 1. 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 Diabetes mellitus type 2: Discontinue IV insulin drip. Start Lantus 15 units right now and continue sliding scale insulin. Continue to hold Metformin and glipizide for now 3. Essential hypertension: Blood pressure stable. Continue metoprolol 4. Hyperlipidemia continue Lipitor 5. History of TIA continue aspirin 6. History of a diverticular bleed. Active bleeding at this time. Hemoglobin 9.7 GI prophylaxis Protonix and DVT prophylaxis subcu heparin Blood glucose not well controlled. Continue current insulin regimen. Resume home dose of glipizide and metformin. Continue to monitor closely.
[2016-10-19 17:28] LABS: Glucose,Whole Blood 251 mg/dL (75-99)
[2016-10-19] MEDS: glipiZIDE 5 MG TAB PO SCH (17:56)
[2016-10-19] MEDS: metFORMIN 500 MG TAB PO SCH (17:57)
[2016-10-19 20:42] LABS: Glucose,Whole Blood 219 mg/dL (75-99)
[2016-10-19] MEDS: SENNOSIDES-DOCUSATE SODIUM 1 EACH TAB PO SCH (21:45)
[2016-10-20 02:11] LABS: Glucose,Whole Blood 96 mg/dL (75-99)
[2016-10-20 04:46] LABS: Glucose,Whole Blood 116 mg/dL (75-99)
[2016-10-20 05:54] LABS: Glucose,Whole Blood 124 mg/dL (75-99)
[2016-10-20 06:13] LABS: Basophils % (A) 1 %; CH 27.5; Eosinophils # (A) 0.4 k/uL (0-0.7); Eosinophils % (A) 6 %; HCT 30.5 % (39.0-53.0); HDW 2.47; HGB 9.9 gm/dL (13.0-17.5); Hypochromasia Slight; Luc # (Auto) 0.21; Luc % (Auto) 3; Lymphocytes % (A) 13 %; MCH 28.9 pg (25.0-35.0); MCHC 32.4 g/dL (31.0-37.0); MCV 89.3 fL (80.0-100.0); Mean Platelet Volume 8.5; Monocytes # (A) 0.5 k/uL (0-1.0); Monocytes % (A) 6 %; Neutrophils # (A) 5.6 k/uL (1.3-7.7); Neutrophils % (A) 72 %; RBC 3.41 m/uL (4.30-5.90); WBC 7.7 k/uL (3.8-10.6); WBC (Perox) 7.81
[2016-10-20 06:24] LABS: ALT 22 U/L (21-72); AST 20 U/L (17-59); Alkaline Phosphatase 53 U/L (38-126); Anion Gap 9 mmol/L; Blood Urea Nitrogen 17 mg/dL (9-20); Calcium 8.2 mg/dL (8.4-10.2); Carbon Dioxide 23 mmol/L (22-30); Chloride 108 mmol/L (98-107); Glucose 118 mg/dL (74-99); Magnesium 1.8 mg/dL (1.6-2.3); Non-African American GFR(MDRD) >60 (>60 ml/min/1.73 sqM); Phosphorous 2.7 mg/dL (2.5-4.5); Potassium 3.9 mmol/L (3.5-5.1); Sodium 140 mmol/L (137-145); Total Bilirubin 0.8 mg/dL (0.2-1.3); Total Protein 5.4 g/dL (6.3-8.2)
[2016-10-20] MEDS: metFORMIN 500 MG TAB PO SCH ×2 (07:17→17:07)
[2016-10-20] MEDS: glipiZIDE 5 MG TAB PO SCH ×2 (07:17→17:07)
[2016-10-20] MEDS: INSULIN LISPRO (humaLOG) 300 UNIT/3 ML VIAL SQ SCH ×7 (07:18→21:14)
[2016-10-20] MEDS: PANTOPRAZOLE 40 MG TABLET PO SCH (07:18)
--- NOTE | 2016-10-20 07:28 | XR ---
EXAMINATION TYPE: XR chest 2V DATE OF EXAM: 10/20/2016 COMPARISON: 10/19/2016 HISTORY: 76 year-old male post chest tube TECHNIQUE: Frontal and lateral views FINDINGS: Median sternotomy wires are present with post-CABG clips. The heart is borderline to mildly enlarged. Mild diffuse interstitial prominence with chronic appearance. Some patchy left basilar opacity with trace effusion remains. Left-sided chest tube has been removed in the interval. No appreciable pneumo thorax. Improved aeration at the left apex. IMPRESSION: Removal of the left-sided chest tube. No appreciable pneumothorax. Some patchy atelectasis/infiltrate and trace left effusion remain. Improved aeration at the left apex.
[2016-10-20] MEDS: AMIODARONE 450 MG in DEXTROSE 5% IN WATER 250 ML IV SCH ×2 (08:25)
[2016-10-20] MEDS: AMIODARONE 200 MG TAB PO SCH ×2 (08:27→21:14)
[2016-10-20] MEDS: ASPIRIN 325 MG TAB PO SCH (08:27)
[2016-10-20] MEDS: ATORVASTATIN 40 MG TAB PO SCH (08:28)
[2016-10-20] MEDS: METOPROLOL TARTRATE 25 MG TAB PO SCH (08:28)
[2016-10-20] MEDS: CLOPIDOGREL 75 MG TAB PO SCH (08:28)
[2016-10-20] MEDS: HEPARIN SODIUM,PORCINE 5,000 UNIT/ML 1 ML VIAL SQ SCH ×2 (08:29→17:06)
[2016-10-20] MEDS ORDERED: METOPROLOL TARTRATE 25 MG TAB PO ONE (08:45)
[2016-10-20 08:47] LABS: Glucose,Whole Blood 176 mg/dL (75-99)
--- NOTE | 2016-10-20 09:23 | P.PN ---
<Alise Leone - Last Filed: 10/20/16 09:19> Subjective Principal diagnosis: Coronary artery disease. History of paroxysmal atrial flutter. History of CVA. Type 2 diabetes mellitus. Hypertension. History of lower GI bleed. Diverticulitis. History of melanoma with removal. POD #4 coronary artery bypass grafting 3 vessels (left internal mammary artery to left anterior descending artery, reverse saphenous vein graft to diagonal artery, reverse saphenous vein graft to obtuse marginal artery). Endoscopic vein harvest, right greater saphenous vein. Epi-aortic ultrasound. Intraoperative transesophageal echocardiogram. Postoperative atrial fibrillation with rapid ventricular response, and expected outcome of surgery. Patient currently sitting up in bed in no acute distress. Denies pain, states he is doing very well. Left pleural chest tube discontinued yesterday. Patient has been up ambulating in the hallway. Objective - Vital Signs Vital signs: Vital Signs Temp 96.7 F L 10/20/16 08:00 Pulse 70 10/20/16 08:00 Resp 16 10/20/16 08:00 BP 138/69 10/20/16 08:00 Pulse Ox 96 10/20/16 04:00 Intake & Output 10/19/16 10/20/16 10/20/16 18:59 06:59 18:59 Intake Total 200 Balance 200 Weight 104.1 kg Intake: Oral 200 Other: Voiding Method Indwelling Catheter Toilet ABP, PAP, CO, CI - Last Documented Arterial Blood Pressure 19/9 Pulmonary Artery Pressure 27/14 Cardiac Output 5.3 Cardiac Index 2.4 - Constitutional General appearance: Present: cooperative, no acute distress - Respiratory Details: Lungs sounds diminished bilaterally. Respirations even, nonlabored. Currently on room air with oxygen saturation 96%. Able to achieve 1500 mL on his incentive spirometry. - Cardiovascular Details: S1, S2 present. Regular rate and rhythm, sinus rhythm with occasional PVCs on telemetry. Sternum stable. Heart hugger in place with patient demonstrating appropriate use. No edema present. Teds/SCDs present. A/V epicardial pacemaker wires present, grounded. - Gastrointestinal Gastrointestinal Comment(s): Abdomen soft, nontender, nondistended. Active bowel sounds 4 quadrants. Positive bowel movement 3 yesterday. Tolerating diet. - Genitourinary Genitourinary Comment(s): Continues to void clear, yellow urine. - Integumentary Integumentary Comment(s): Anterior chest incision well approximated and covered with dry intact dressing. - Musculoskeletal Musculoskeletal: Present: gait normal, strength equal bilaterally - Psychiatric Psychiatric: Present: A&O x's 3, appropriate affect, intact judgment & insight - Allied health notes Allied health notes reviewed: nursing - Labs CBC & Chem 7: 10/20/16 05:34 10/20/16 05:27 Labs: Abnormal Lab Results - Last 24 Hours (Table) 10/19/16 10/19/16 10/19/16 Range/Units 11:47 17:00 20:39 RBC (4.30-5.90) m/uL Hgb (13.0-17.5) gm/dL Hct (39.0-53.0) % Plt Count (150-450) k/uL Chloride (98-107) mmol/L Glucose (74-99) mg/dL POC Glucose (mg/dL) 259 H 251 H 219 H (75-99) mg/dL Calcium (8.4-10.2) mg/dL Total Protein (6.3-8.2) g/dL Albumin (3.5-5.0) g/dL 10/20/16 10/20/16 10/20/16 Range/Units 04:45 05:27 05:34 RBC 3.41 L (4.30-5.90) m/uL Hgb 9.9 L (13.0-17.5) gm/dL Hct 30.5 L (39.0-53.0) % Plt Count 134 L (150-450) k/uL Chloride 108 H (98-107) mmol/L Glucose 118 H (74-99) mg/dL POC Glucose (mg/dL) 116 H (75-99) mg/dL Calcium 8.2 L (8.4-10.2) mg/dL Total Protein 5.4 L (6.3-8.2) g/dL Albumin 2.9 L (3.5-5.0) g/dL 10/20/16 10/20/16 Range/Units 05:52 08:39 RBC (4.30-5.90) m/uL Hgb (13.0-17.5) gm/dL Hct (39.0-53.0) % Plt Count (150-450) k/uL Chloride (98-107) mmol/L Glucose (74-99) mg/dL POC Glucose (mg/dL) 124 H 176 H (75-99) mg/dL Calcium (8.4-10.2) mg/dL Total Protein (6.3-8.2) g/dL Albumin (3.5-5.0) g/dL - Imaging and Cardiology Chest x-ray: report reviewed, image reviewed Assessment and Plan (1) History of melanoma Status: Acute (2) Coronary artery disease Status: Acute (3) Family history of coronary artery disease in mother Status: Acute (4) History of TIA (transient ischemic attack) Status: Acute (5) History of atrial flutter Status: Acute (6) History of hemorrhoids Status: Acute (7) History of syncope Status: Acute (8) Hyperlipidemia Status: Acute (9) Hypertension Status: Acute Plan: 1. Continue aspirin, Lipitor, Plavix, heparinr. Will increase Lopressor to 50 mg by mouth twice a day. Will maximize beta vashti therapy as tolerated. 2. Continue amiodarone for atrial fibrillation prophylaxis. 3. Encourage incentive spirometry use. 4. Increase activity, ambulate in hallway. Physical therapy to follow. 5. Diabetic management per primary care service. 6. GI/DVT prophylaxis. 7. Will monitor daily labs, chest x-rays. 8. More recommendations as patient progresses. Anticipate discharge to home in 24-48 hours. Time with Patient: Greater than 30 <Dong Gonzales - Last Filed: 10/20/16 10:57> Objective - Vital Signs Vital signs: Vital Signs Temp 96.7 F L 10/20/16 08:00 Pulse 70 10/20/16 08:00 Resp 16 10/20/16 08:00 BP 138/69 10/20/16 08:00 Pulse Ox 96 10/20/16 04:00 Intake & Output 10/19/16 10/20/16 10/20/16 18:59 06:59 18:59 Intake Total 200 Balance 200 Weight 104.1 kg Intake: Oral 200 Other: Voiding Method Indwelling Catheter Toilet ABP, PAP, CO, CI - Last Documented Arterial Blood Pressure 19/9 Pulmonary Artery Pressure 27/14 Cardiac Output 5.3 Cardiac Index 2.4 - Labs CBC & Chem 7: 10/20/16 05:34 10/20/16 05:27 Labs: Abnormal Lab Results - Last 24 Hours (Table) 10/19/16 10/19/16 10/19/16 Range/Units 11:47 17:00 20:39 RBC (4.30-5.90) m/uL Hgb (13.0-17.5) gm/dL Hct (39.0-53.0) % Plt Count (150-450) k/uL Chloride (98-107) mmol/L Glucose (74-99) mg/dL POC Glucose (mg/dL) 259 H 251 H 219 H (75-99) mg/dL Calcium (8.4-10.2) mg/dL Total Protein (6.3-8.2) g/dL Albumin (3.5-5.0) g/dL 10/20/16 10/20/16 10/20/16 Range/Units 04:45 05:27 05:34 RBC 3.41 L (4.30-5.90) m/uL Hgb 9.9 L (13.0-17.5) gm/dL Hct 30.5 L (39.0-53.0) % Plt Count 134 L (150-450) k/uL Chloride 108 H (98-107) mmol/L Glucose 118 H (74-99) mg/dL POC Glucose (mg/dL) 116 H (75-99) mg/dL Calcium 8.2 L (8.4-10.2) mg/dL Total Protein 5.4 L (6.3-8.2) g/dL Albumin 2.9 L (3.5-5.0) g/dL 10/20/16 10/20/16 Range/Units 05:52 08:39 RBC (4.30-5.90) m/uL Hgb (13.0-17.5) gm/dL Hct (39.0-53.0) % Plt Count (150-450) k/uL Chloride (98-107) mmol/L Glucose (74-99) mg/dL POC Glucose (mg/dL) 124 H 176 H (75-99) mg/dL Calcium (8.4-10.2) mg/dL Total Protein (6.3-8.2) g/dL Albumin (3.5-5.0) g/dL Assessment and Plan Plan: The patient was seen and examined. I agree with the above assessment and plan. Overall he looks great. He has been ambulating in the hallway. He has had a bowel movement. He is resting comfortably on room air. We will give him a dose of Lasix today. His laboratory studies and chest x-ray were reviewed. We will increase his Lopressor. He will likely be discharged home tomorrow.
--- NOTE | 2016-10-20 09:37 | P.PN ---
Subjective Principal diagnosis: Status post CABG, postoperative day #4 This is a 76-year-old white male with multiple medical problems including hypertension and diabetes, and multivessel coronary artery disease. Patient underwent triple vessel coronary artery bypass surgery on 10/16/2016, postoperatively I was asked to see the patient on consultation. I reviewed his chest x-ray I also reviewed his ventilator settings, a few hours after arrival to the ICU, patient was extubated to nasal cannula. His postoperative course has been relatively uneventful. Patient is sitting in a chair, in no form of respiratory distress, doing quite well with incentive spirometry. Denies any chest pain, no shortness of breath, no fever, no chills. No nausea no vomiting. Chest x-ray showed minimal left basilar atelectasis. Patient was reevaluated today on 10/18/2016, continues to do relatively well, asymptomatic, no cough no wheezing no shortness of breath. Chest x-ray showed mild interstitial edema, and by basilar atelectasis, patient is receiving Lasix as ordered by the surgeon earlier this morning. Clinically, the patient is doing great. Chest x-ray was reviewed, labs were reviewed, hemoglobin is 9.7. Basic metabolic profile is normal, renal profile is normal blood sugar is 121. Reevaluated today on 10/19/2016, patient is doing relatively well, asymptomatic, chest x-ray is showing areas of atelectasis especially in the left upper lobe and in the left lower lobe. Patient is compliant with incentive spirometry, and he is already ambulatory in the room, today he will likely be ambulated in the hallway. Labs showed hemoglobin of 10.2 renal profile is normal. Chest x-ray was discussed with the patient. Reevaluated today on 10/20/2016, patient is doing relatively well, asymptomatic, blood sugar is fluctuating, overall the patient is doing great. Chest x-ray is showing improvement, minimal atelectasis is noted of the left base. ABC is relatively normal, hemoglobin is 9.9. Electrolytes and basic metabolic profile are normal. Blood sugar this morning is 176. Objective - Vital Signs Vital signs: Vital Signs Temp 96.7 F L 10/20/16 08:00 Pulse 70 10/20/16 08:00 Resp 16 10/20/16 08:00 BP 138/69 10/20/16 08:00 Pulse Ox 96 10/20/16 04:00 Intake & Output 10/19/16 10/20/16 10/20/16 18:59 06:59 18:59 Intake Total 200 Balance 200 Weight 104.1 kg Intake: Oral 200 Other: Voiding Method Indwelling Catheter Toilet ABP, PAP, CO, CI - Last Documented Arterial Blood Pressure 19/9 Pulmonary Artery Pressure 27/14 Cardiac Output 5.3 Cardiac Index 2.4 - Exam Physical Exam: Revealed a 76-year-old in no distress. 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 and crackles at the bases..] Cardiac Exam: [Normal S1 and S2, no S3 gallop, no murmur.] Abdomen: [Soft, nontender, no megaly, no rebound, no guarding, normal bowel sounds.] Extremities: [No clubbing, no edema, no cyanosis.] Neurological Exam: [No focal neurologic deficit.] - Labs CBC & Chem 7: 10/20/16 05:34 10/20/16 05:27 Labs: Abnormal Lab Results - Last 24 Hours (Table) 10/19/16 10/19/16 10/19/16 Range/Units 11:47 17:00 20:39 RBC (4.30-5.90) m/uL Hgb (13.0-17.5) gm/dL Hct (39.0-53.0) % Plt Count (150-450) k/uL Chloride (98-107) mmol/L Glucose (74-99) mg/dL POC Glucose (mg/dL) 259 H 251 H 219 H (75-99) mg/dL Calcium (8.4-10.2) mg/dL Total Protein (6.3-8.2) g/dL Albumin (3.5-5.0) g/dL 10/20/16 10/20/16 10/20/16 Range/Units 04:45 05:27 05:34 RBC 3.41 L (4.30-5.90) m/uL Hgb 9.9 L (13.0-17.5) gm/dL Hct 30.5 L (39.0-53.0) % Plt Count 134 L (150-450) k/uL Chloride 108 H (98-107) mmol/L Glucose 118 H (74-99) mg/dL POC Glucose (mg/dL) 116 H (75-99) mg/dL Calcium 8.2 L (8.4-10.2) mg/dL Total Protein 5.4 L (6.3-8.2) g/dL Albumin 2.9 L (3.5-5.0) g/dL 10/20/16 10/20/16 Range/Units 05:52 08:39 RBC (4.30-5.90) m/uL Hgb (13.0-17.5) gm/dL Hct (39.0-53.0) % Plt Count (150-450) k/uL Chloride (98-107) mmol/L Glucose (74-99) mg/dL POC Glucose (mg/dL) 124 H 176 H (75-99) mg/dL Calcium (8.4-10.2) mg/dL Total Protein (6.3-8.2) g/dL Albumin (3.5-5.0) g/dL Assessment and Plan Plan: Impression: 1 status post CABG, triple-vessel coronary artery disease, postoperative day #4 2 multiple comorbidities including diabetes, essential hypertension, hyperlipidemia, history of atrial flutter, history of TIA, history of diverticular disease. 3 postoperative atelectasis and small pleural effusions. Improving. Patient continues incentive spirometry and ambulate patient today. Recommendation: Continue incentive spirometry, bronchodilators, early ambulation, diuretics, will continue to follow. Possible discharge planning in the next 24 hours. Time with Patient: Less than 30
[2016-10-20] MEDS ORDERED: FUROSEMIDE 10 MG/ML 4 ML VIAL IV STA (10:56)
[2016-10-20 12:07] LABS: Glucose,Whole Blood 160 mg/dL (75-99)
[2016-10-20] MEDS: INSULIN GLARGINE 100 UNIT/ML 10 ML VIAL SQ SCH (12:22)
[2016-10-20 17:00] LABS: Glucose,Whole Blood 159 mg/dL (75-99)
--- NOTE | 2016-10-20 18:01 | P.PN ---
Subjective Patient is doing well today. No events overnight Objective - Vital Signs Vital signs: Vital Signs Temp 96.7 F L 10/20/16 08:00 Pulse 70 10/20/16 16:00 Resp 16 10/20/16 16:00 BP 144/65 10/20/16 16:00 Pulse Ox 94 L 10/20/16 16:00 Intake & Output 10/19/16 10/20/16 10/20/16 18:59 06:59 18:59 Intake Total 200 330 Output Total 1100 Balance 200 -770 Weight 104.1 kg Intake: Oral 200 330 Output: Urine 1100 Other: Voiding Method Indwelling Catheter Toilet Toilet ABP, PAP, CO, CI - Last Documented Arterial Blood Pressure 19/9 Pulmonary Artery Pressure 27/14 Cardiac Output 5.3 Cardiac Index 2.4 - Exam General: The patient is awake and alert, in no distress Eye: there is normal conjunctiva bilaterally. Neck: The neck is supple, there is no JVD. Cardiovascular: Normal S1-S2, no S3-S4, no murmurs. Respiratory: Lungs clear to auscultation bilaterally Gastrointestinal: Abdomen is soft, nontender Musculoskeletal: There is no pedal edema. Neurological:. Speech is normal. Skin: Skin is warm and dry - Labs CBC & Chem 7: 10/20/16 05:34 10/20/16 05:27 Labs: Abnormal Lab Results - Last 24 Hours (Table) 10/19/16 10/20/16 10/20/16 Range/Units 20:39 04:45 05:27 RBC (4.30-5.90) m/uL Hgb (13.0-17.5) gm/dL Hct (39.0-53.0) % Plt Count (150-450) k/uL Chloride 108 H (98-107) mmol/L Glucose 118 H (74-99) mg/dL POC Glucose (mg/dL) 219 H 116 H (75-99) mg/dL Calcium 8.2 L (8.4-10.2) mg/dL Total Protein 5.4 L (6.3-8.2) g/dL Albumin 2.9 L (3.5-5.0) g/dL 10/20/16 10/20/16 10/20/16 Range/Units 05:34 05:52 08:39 RBC 3.41 L (4.30-5.90) m/uL Hgb 9.9 L (13.0-17.5) gm/dL Hct 30.5 L (39.0-53.0) % Plt Count 134 L (150-450) k/uL Chloride (98-107) mmol/L Glucose (74-99) mg/dL POC Glucose (mg/dL) 124 H 176 H (75-99) mg/dL Calcium (8.4-10.2) mg/dL Total Protein (6.3-8.2) g/dL Albumin (3.5-5.0) g/dL 10/20/16 10/20/16 Range/Units 11:52 16:55 RBC (4.30-5.90) m/uL Hgb (13.0-17.5) gm/dL Hct (39.0-53.0) % Plt Count (150-450) k/uL Chloride (98-107) mmol/L Glucose (74-99) mg/dL POC Glucose (mg/dL) 160 H 159 H (75-99) mg/dL Calcium (8.4-10.2) mg/dL Total Protein (6.3-8.2) g/dL Albumin (3.5-5.0) g/dL Assessment and Plan Plan: 1. 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 Diabetes mellitus type 2: Continue Lantus 15 units and Humalog 4 units before each meal with sliding scale insulin. Continue Metformin and glipizide 3. Essential hypertension: Blood pressure stable. Continue metoprolol 4. Hyperlipidemia continue Lipitor 5. History of TIA continue aspirin 6. History of a diverticular bleed. no active bleeding at this time. GI prophylaxis Protonix and DVT prophylaxis subcu heparin Blood glucose not well controlled. Continue current insulin regimen. Resume home dose of glipizide and metformin. Continue to monitor closely.
[2016-10-20 20:45] LABS: Glucose,Whole Blood 176 mg/dL (75-99)
[2016-10-20] MEDS: METOPROLOL TARTRATE 50 MG TAB PO SCH (21:14)
[2016-10-20] MEDS: SENNOSIDES-DOCUSATE SODIUM 1 EACH TAB PO SCH (21:15)
[2016-10-21] MEDS ORDERED: HEPARIN SODIUM,PORCINE 5,000 UNIT/ML 1 ML VIAL ONE
[2016-10-21 02:59] LABS: Glucose,Whole Blood 115 mg/dL (75-99)
[2016-10-21 05:51] LABS: Glucose,Whole Blood 110 mg/dL (75-99)
[2016-10-21 06:21] LABS: Basophils % (A) 0 %; CH 27.9; CHCM 31.9; Eosinophils # (A) 0.3 k/uL (0-0.7); Eosinophils % (A) 4 %; HCT 32.4 % (39.0-53.0); HDW 2.59; HGB 10.9 gm/dL (13.0-17.5); Luc # (Auto) 0.14; Luc % (Auto) 2; Lymphocytes % (A) 15 %; MCH 29.6 pg (25.0-35.0); MCHC 33.6 g/dL (31.0-37.0); MCV 87.9 fL (80.0-100.0); Mean Platelet Volume 8.3; Monocytes # (A) 0.4 k/uL (0-1.0); Monocytes % (A) 6 %; Neutrophils # (A) 4.8 k/uL (1.3-7.7); Neutrophils % (A) 72 %; RBC 3.69 m/uL (4.30-5.90); RDW 15.1 % (11.5-15.5); WBC 6.7 k/uL (3.8-10.6); WBC (Perox) 6.79
[2016-10-21 06:34] LABS: Anion Gap 9 mmol/L; Blood Urea Nitrogen 17 mg/dL (9-20); Calcium 8.7 mg/dL (8.4-10.2); Carbon Dioxide 25 mmol/L (22-30); Chloride 106 mmol/L (98-107); Glucose 111 mg/dL (74-99); Magnesium 1.7 mg/dL (1.6-2.3); Non-African American GFR(MDRD) >60 (>60 ml/min/1.73 sqM); Phosphorous 2.9 mg/dL (2.5-4.5); Potassium 3.8 mmol/L (3.5-5.1); Sodium 140 mmol/L (137-145)
[2016-10-21] MEDS: glipiZIDE 5 MG TAB PO SCH (07:06)
[2016-10-21] MEDS: PANTOPRAZOLE 40 MG TABLET PO SCH (07:06)
[2016-10-21] MEDS: metFORMIN 500 MG TAB PO SCH (07:07)
[2016-10-21] MEDS: INSULIN LISPRO (humaLOG) 300 UNIT/3 ML VIAL SQ SCH ×4 (07:07→12:50)
--- NOTE | 2016-10-21 08:32 | XR ---
EXAMINATION TYPE: XR chest 2V DATE OF EXAM: 10/21/2016 COMPARISON: Prior chest x-ray 10/20/2016 HISTORY: Status post coronary artery bypass graft TECHNIQUE: Frontal and lateral views of the chest are obtained. FINDINGS: Patchy basilar density persists greater on the left. The heart remains enlarged. Patient i s post median sternotomy. There is some blunting of the right costophrenic angle. No evident pneumoth orax. There are overlying cardiac leads. IMPRESSION: Satisfactory postoperative chest x-ray. Cardiomegaly. Probable basilar atelectasis, poss ible minimal effusion
[2016-10-21] MEDS: HEPARIN SODIUM,PORCINE 5,000 UNIT/ML 1 ML VIAL SQ SCH ×2 (08:50→09:01)
[2016-10-21] MEDS: ASPIRIN 325 MG TAB PO SCH (09:01)
[2016-10-21] MEDS: METOPROLOL TARTRATE 50 MG TAB PO SCH (09:01)
[2016-10-21] MEDS: ATORVASTATIN 40 MG TAB PO SCH (09:01)
[2016-10-21] MEDS: AMIODARONE 200 MG TAB PO SCH (09:01)
[2016-10-21] MEDS: CLOPIDOGREL 75 MG TAB PO SCH (09:01)
[2016-10-21] MEDS: INSULIN GLARGINE 100 UNIT/ML 10 ML VIAL SQ SCH (09:07)
[2016-10-21 10:19] VITALS: RESP 16; TEMP 97.9
[2016-10-21 10:25] VITALS: PULSE 65
--- NOTE | 2016-10-21 10:35 | P.PN ---
<Alise Leone - Last Filed: 10/21/16 10:31> Subjective Principal diagnosis: Coronary artery disease. History of paroxysmal atrial flutter. History of CVA. Type 2 diabetes mellitus. Hypertension. History of lower GI bleed. Diverticulitis. History of melanoma with removal. POD #5 coronary artery bypass grafting 3 vessels (left internal mammary artery to left anterior descending artery, reverse saphenous vein graft to diagonal artery, reverse saphenous vein graft to obtuse marginal artery). Endoscopic vein harvest, right greater saphenous vein. Epi-aortic ultrasound. Intraoperative transesophageal echocardiogram. Postoperative atrial fibrillation with rapid ventricular response, and expected outcome of surgery. Patient currently sitting up in bed in no acute distress. Denies pain, states he is doing very well. Patient has been up ambulating in the hallway. States he is ready to go home. Objective - Vital Signs Vital signs: Vital Signs Temp 97.9 F 10/21/16 08:00 Pulse 65 10/21/16 08:00 Resp 16 10/21/16 08:00 BP 130/79 10/21/16 08:00 Pulse Ox 94 L 10/21/16 08:00 Intake & Output 10/20/16 10/21/16 10/21/16 18:59 06:59 18:59 Intake Total 560 236 Output Total 1100 Balance -540 236 Weight 103 kg Intake: Oral 560 236 Output: Urine 1100 Other: Voiding Method Toilet Toilet Toilet # Voids 2 ABP, PAP, CO, CI - Last Documented Arterial Blood Pressure 19/9 Pulmonary Artery Pressure 27/14 Cardiac Output 5.3 Cardiac Index 2.4 - Constitutional General appearance: Present: cooperative, no acute distress - Respiratory Details: Lungs sounds diminished bilaterally. Respirations even, nonlabored. Currently on room air with oxygen saturation 94%. Able to achieve 2000 mL on his incentive spirometer. - Cardiovascular Details: S1, S2 present. Regular rate and rhythm, normal sinus rhythm on telemetry. Sternum stable. Heart hugger in place with patient demonstrating appropriate use. No edema present. Teds/SCDs present. - Gastrointestinal Gastrointestinal Comment(s): Abdomen soft, nontender, nondistended. Active bowel sounds 4 quadrants. Tolerating diet. Positive bowel movement this morning. - Genitourinary Genitourinary Comment(s): Continue to void clear, yellow urine. - Integumentary Integumentary Comment(s): Anterior chest incision well approximated, covered with clean dry intact dressing. - Musculoskeletal Musculoskeletal: Present: gait normal, strength equal bilaterally - Psychiatric Psychiatric: Present: A&O x's 3, appropriate affect, intact judgment & insight - Allied health notes Allied health notes reviewed: nursing - Labs CBC & Chem 7: 10/21/16 06:02 10/21/16 06:02 Labs: Abnormal Lab Results - Last 24 Hours (Table) 10/20/16 10/20/16 10/20/16 Range/Units 11:52 16:55 20:44 RBC (4.30-5.90) m/uL Hgb (13.0-17.5) gm/dL Hct (39.0-53.0) % Glucose (74-99) mg/dL POC Glucose (mg/dL) 160 H 159 H 176 H (75-99) mg/dL 10/21/16 10/21/16 10/21/16 Range/Units 02:22 05:49 06:02 RBC (4.30-5.90) m/uL Hgb (13.0-17.5) gm/dL Hct (39.0-53.0) % Glucose 111 H (74-99) mg/dL POC Glucose (mg/dL) 115 H 110 H (75-99) mg/dL 10/21/16 Range/Units 06:02 RBC 3.69 L (4.30-5.90) m/uL Hgb 10.9 L (13.0-17.5) gm/dL Hct 32.4 L (39.0-53.0) % Glucose (74-99) mg/dL POC Glucose (mg/dL) (75-99) mg/dL - Imaging and Cardiology Chest x-ray: report reviewed, image reviewed Assessment and Plan (1) History of melanoma Status: Acute (2) Coronary artery disease Status: Acute (3) Family history of coronary artery disease in mother Status: Acute (4) History of TIA (transient ischemic attack) Status: Acute (5) History of atrial flutter Status: Acute (6) History of hemorrhoids Status: Acute (7) History of syncope Status: Acute (8) Hyperlipidemia Status: Acute (9) Hypertension Status: Acute Plan: 1. Continue aspirin, Lipitor, Plavix, Lopressor. 2. Continue amiodarone for atrial fibrillation prophylaxis. 3. Encourage incentive spirometry use. 4. Increase activity, ambulate in hallway. 5. Diabetic management per primary care service. 6. GI/DVT prophylaxis. 7. Will discontinue to home with home care today. Time with Patient: Greater than 30 <Dong Gonzales - Last Filed: 10/21/16 14:52> Objective - Vital Signs Vital signs: Vital Signs Temp 97.9 F 10/21/16 08:00 Pulse 65 10/21/16 08:00 Resp 16 10/21/16 11:20 BP 130/79 10/21/16 08:00 Pulse Ox 94 L 10/21/16 08:00 Intake & Output 10/20/16 10/21/16 10/21/16 18:59 06:59 18:59 Intake Total 560 472 Output Total 1100 Balance -540 472 Weight 103 kg 103 kg Intake: Oral 560 472 Output: Urine 1100 Other: Voiding Method Toilet Toilet Toilet # Voids 2 ABP, PAP, CO, CI - Last Documented Arterial Blood Pressure 19/9 Pulmonary Artery Pressure 27/14 Cardiac Output 5.3 Cardiac Index 2.4 - Labs CBC & Chem 7: 10/21/16 06:02 10/21/16 06:02 Labs: Abnormal Lab Results - Last 24 Hours (Table) 10/20/16 10/20/16 10/21/16 Range/Units 16:55 20:44 02:22 RBC (4.30-5.90) m/uL Hgb (13.0-17.5) gm/dL Hct (39.0-53.0) % Glucose (74-99) mg/dL POC Glucose (mg/dL) 159 H 176 H 115 H (75-99) mg/dL 10/21/16 10/21/16 10/21/16 Range/Units 05:49 06:02 06:02 RBC 3.69 L (4.30-5.90) m/uL Hgb 10.9 L (13.0-17.5) gm/dL Hct 32.4 L (39.0-53.0) % Glucose 111 H (74-99) mg/dL POC Glucose (mg/dL) 110 H (75-99) mg/dL 07/10/17 Range/Units 11:28 RBC (4.30-5.90) m/uL Hgb (13.0-17.5) gm/dL Hct (39.0-53.0) % Glucose (74-99) mg/dL POC Glucose (mg/dL) 204 H (75-99) mg/dL Assessment and Plan Plan: The patient was seen and examined. I agree with the above assessment and plan. Overall he looks great. He is currently in normal sinus rhythm and ambulating without difficulty. His laboratory studies and chest x-ray were reviewed. He will be discharged home today.
--- NOTE | 2016-10-21 11:01 | P.PN ---
Subjective Status post CABG Patient is doing well. No complaints of pain. Denies any nausea or vomiting. Reports having bowel movements. Denies any difficulty urinating. He did require 1 dose of Lasix last yesterday. Patient is eager for discharge home. He'll be going home with home care. Objective - Vital Signs Vital signs: Vital Signs Temp 97.9 F 10/21/16 08:00 Pulse 65 10/21/16 08:00 Resp 16 10/21/16 08:00 BP 130/79 10/21/16 08:00 Pulse Ox 94 L 10/21/16 08:00 Intake & Output 10/20/16 10/21/16 10/21/16 18:59 06:59 18:59 Intake Total 560 236 Output Total 1100 Balance -540 236 Weight 103 kg Intake: Oral 560 236 Output: Urine 1100 Other: Voiding Method Toilet Toilet Toilet # Voids 2 ABP, PAP, CO, CI - Last Documented Arterial Blood Pressure 19/9 Pulmonary Artery Pressure 27/14 Cardiac Output 5.3 Cardiac Index 2.4 - Exam Head normocephalic Neck supple Lungs clear to auscultation bilaterally no wheezing or crackles Heart regular rate and rhythm S1-S2, no rub or gallop Abdomen is soft nontender nondistended positive bowel sounds no hepatosplenomegaly Extremities trace edema bilaterally Neuro alert and orientated to 3 - Labs CBC & Chem 7: 10/21/16 06:02 10/21/16 06:02 Labs: Abnormal Lab Results - Last 24 Hours (Table) 10/20/16 10/20/16 10/20/16 Range/Units 11:52 16:55 20:44 RBC (4.30-5.90) m/uL Hgb (13.0-17.5) gm/dL Hct (39.0-53.0) % Glucose (74-99) mg/dL POC Glucose (mg/dL) 160 H 159 H 176 H (75-99) mg/dL 10/21/16 10/21/16 10/21/16 Range/Units 02:22 05:49 06:02 RBC (4.30-5.90) m/uL Hgb (13.0-17.5) gm/dL Hct (39.0-53.0) % Glucose 111 H (74-99) mg/dL POC Glucose (mg/dL) 115 H 110 H (75-99) mg/dL 10/21/16 Range/Units 06:02 RBC 3.69 L (4.30-5.90) m/uL Hgb 10.9 L (13.0-17.5) gm/dL Hct 32.4 L (39.0-53.0) % Glucose (74-99) mg/dL POC Glucose (mg/dL) (75-99) mg/dL Assessment and Plan Plan: 1. 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 Diabetes mellitus type 2: Continue with glipizide and metformin. We'll write a prescription for Lantus 15 units daily. We'll have patient monitor blood sugars every before meals and at bedtime. Record and bring into the office for further adjustments to his insulin. Blood sugar this morning was 110. Hemoglobin A1c is 7.6 3. Essential hypertension: Blood pressure stable. Continue metoprolol 4. Hyperlipidemia continue Lipitor 5. History of TIA continue aspirin 6. History of a diverticular bleed. Active bleeding at this time. Hemoglobin 9.7 GI prophylaxis Protonix and DVT prophylaxis subcu heparin Patient is medically stable for discharge. We'll have him follow up with Dr. Eldridge in 3 days I performed an examination of the patient and discussed their management with the physician Project Coordinator Rn. I have reviewed the Physician Project Coordinator Rn's notes and agree with the documented findings and plan of care
[2016-10-21 11:30] LABS: Glucose,Whole Blood 204 mg/dL (75-99)
--- NOTE | 2016-10-21 11:36 | P.DS ---
Providers Date of admission: 10/16/16 05:48 Attending physician: Dong Gonzales Consults: 10/16/16 14:11 Consult Physician Routine Consulting Provider: Miguel Falcon Consult Reason/Comments: Data Transcriber Consult: post cardiac surgery Do you want consulting provider notified?: Yes Consult Physician Routine Consulting Provider: Davy Eldridge Consult Reason/Comments: medical management Do you want consulting provider notified?: Yes Consult Physician Routine Consulting Provider: Allie Campoverde Consult Reason/Comments: Liquid Center Assembler Consult: post cardiac surgery Do you want consulting provider notified?: Yes Primary care physician: Stated None - Discharge Diagnosis(es) (1) History of melanoma Current Visit: Yes Status: Acute (2) Coronary artery disease Current Visit: No Status: Acute (3) Family history of coronary artery disease in mother Current Visit: No Status: Acute (4) History of TIA (transient ischemic attack) Current Visit: No Status: Acute (5) History of atrial flutter Current Visit: No Status: Acute (6) History of hemorrhoids Current Visit: No Status: Acute (7) History of syncope Current Visit: No Status: Acute (8) Hyperlipidemia Current Visit: No Status: Acute (9) Hypertension Current Visit: No Status: Acute Hospital Course: FINAL DIAGNOSIS: 1.[ Multivessel coronary artery disease] 2.[ Type 2 diabetes mellitus] 3.[ Hyperlipidemia] 4.[ Hypertension] 5.[ Prior TIA] 6.[ History of atrial flutter] 7.[ Family history of premature coronary artery disease] 8.[ History of GI bleed with syncopal episode] 9.[ Postoperative atrial fibrillation with rapid ventricular response, and expected outcome of surgery] PRINCIPAL PROCEDURE: [] 1.[ Elective coronary artery bypass grafting 3 vessels(left internal mammary artery to left anterior descending artery, reverse saphenous vein graft to diagonal artery, reverse saphenous vein graft to obtuse marginal artery ] 2.[ Endoscopic vein harvest, right greater saphenous vein] 3.[ Epi-aortic ultrasound] 4.[ Intraoperative transesophageal echocardiogram] HISTORY OF PRESENT ILLNESS: [76-year-old gentleman was admitted in June, for gastrointestinal bleed with syncopal episode. Part of the workup included an echocardiogram which demonstrated fraction of 45-50%, mildly impaired left ventricular systolic function with mild global hypokinesia of the left ventricle and moderate concentric left ventricular hypertrophy. His cardiomyopathy was from an unknown origin, possibly from hypertension per cardiology. He also had carotid Dopplers done demonstrating 50-69% stenosis of bilateral internal carotid arteries. Once discharged he followed up in the office of Dr. Campoverde and had a stress test which demonstrated an abnormal myocardial perfusion with evidence of global hypokinesis and no clear evidence of a defect that could be suggestive of nonischemic cardiomyopathy.. Due to the results of the stress test, heart catheterization was recommended and was completed which demonstrated multivessel coronary artery disease with left main disease. Dr. Gonzales from cardiothoracic surgery was consulted regarding recommendations for surgical revascularization. Surgery was explained in detail to the patient and his family, all risks and benefits were explained, and the patient agreed to proceed with surgery. The patient was discharged home in order to return from an outpatient basis.] HOSPITAL COURSE:[ patient was brought to the hospital on 10/16/2016, taken to the preoperative area, prepared in usual fashion, and subsequently taken to the operating room where Dr. Gonzales performed an elective coronary artery bypass grafting 3 vessels(left internal mammary artery to left anterior descending artery, reverse saphenous vein graft to diagonal artery, reverse saphenous vein graft to obtuse marginal artery), endoscopic vein harvest, right greater saphenous vein, epi-aortic ultrasound, and intraoperative transesophageal echocardiogram. Upon completion of surgery the patient was transferred to the cardiovascular intensive care unit where he was recovered, monitored hemodynamically, and where he progressed to cardiac rehabilitation phase 1. He was extubated, all lines, tubes, and drips were discontinued when appropriate, and he was transferred to [address] [place] [address] for further monitoring and rehabilitation. His oxygen was titrated down, he continued to work physical therapy, and was ready to be discharged home on postoperative day #5 with [facility] to follow. He received written and verbal instruction regarding his medications, activity restrictions, signs and symptoms requiring position medication, and follow-up appointments. ] COMPLICATIONS: [ The patient experienced postoperative atrial fibrillation with rapid ventricular response, an expected outcome of surgery, which was treated accordingly.] CONSULTATIONS: 1.[ Dr. Campoverde for cardiology] 2.[ Dr. Falcon for pulmonology] 3.[ Dr. Eldridge for medical management] DISCHARGE INSTRUCTIONS: 1. No driving for 4 weeks, or until physician gives their ok. 2. The patient should sleep in their own bed, no medical bed needed. 3. Stairs are not an issue. If the bedroom is upstairs, it is advised that the patient go up at night and down in the morning for the first week. Go slowly, using handrail and take 1 step at a time. 4. DENISSE hose are to be worn for 30 days or until physician discontinues. 5. Heart hugger is to be worn 100% of the time until physician discontinues.( except when showering) 6. No lifting, pushing, or pulling more than 10 pounds for 12 weeks. The physician will advise of any restriction changes. 7. The patient is expected to continue the prescribed walking program. 8. Continue pain control per as needed orders. 9. Continue with incentive spirometry and splinting/heart hugger until otherwise directed by the physician. 10. Must shower daily using liquid antibacterial soap and a separate white washcloth for each individual incision. 11. Routine sternal incision care. No powders, lotions, ointments on incisions. 12. Please call surgeon/GROUP SALES COORDINATOR for temp greater than 101 F or purulent drainage from incisions. 13. All prescriptions given by surgeon for 30 days. Refills need to be filled through product analyst/primary care physician. HOME HEALTH SERVICES TO PROVIDE: RN SKILLED HOME CARE SERVICES FOR POST-OP SURGICAL PATIENTS WITH THE FOLLOWING: Coronary Artery Bypass Surgery (CABG), Mitral Valve Replacement/ Repair ( MVR), Aortic Valve Replacement/Repair (AVR) RN TO CONTINUE EDUCATION FROM ``ROAD TO A HEALTH HEART PATIENT EDUCATION MANUAL (GIVEN TO PATIENT IN THE HOSPITAL) MEDICATION RECONCILIATION WITH EDUCATION NEEDED ON FIRST HOME VISIT EMPHASIZE IMPORTANCE OF WEARING BREAST SUPPORT/HEART HUGGER ENCOURAGE USE OF INCENTIVE SPIROMETER 10 X EVERY HOUR WHILE AWAKE ENCOURAGE UTILIZATION OF LOWER EXTREMITY COMPRESSION STOCKINGS/DENISSE HOSE and ELEVATE LEGS ABOVE LEVEL OF HEART WHILE AT REST. ENCOURAGE AMBULATION 3-5x/day INCREASING TOLERATES, WHILE AVOID EXTREMES IN TEMPERATURE FREQUENCY: RN TO OPEN THE PATIENT WITHIN 24 HOURS OF DISCHARGE FROM THE HOSPITAL WITH TELEHEALTH INSTALLED AT [facility] [place], [place], RN TO VISIT 2-3 X A WEEK FOR 4 WEEKS ESTABLISHED BY PATIENT NEEDS. LABORATORY: CBC, CMP TO BE DRAWN ON THE THIRD DAY HOME, 10/24/2016 (RAN STAT ) FAX RESULTS TO [phone]. TELEHEALTH PARAMETERS: WEIGHT: NOTIFY MD OF WEIGHT GAIN OF 2 LBS IN 24 HOURS OR 5 LBS IN ONE WEEK HR: NOTIFY MD OF HR <55 BPM OR HR>100 BPM BP: NOTIFY MD IF BP <90/55 OR BP>140/100 O2 SAT: NOTIFY MD IF PO2<93% ON ROOM AIR SEND TELEHEALTH REPORT TO CHART COMPUTER AND CARDIOVASCULAR SURGEON THE FIRST WEEK OF CARE AND THEN BI-WEEKLY. PLEASE ADDITIONALLY COMMUNICATE ANY ABNORMALS AND NEW FINDINGS TO THE SURGEONS OFFICE. Plan - Discharge Summary New Discharge Prescriptions: New Amiodarone [Cordarone] 400 mg PO BID #49 tab Aspirin 325 mg PO DAILY #30 tab Clopidogrel [Plavix] 75 mg PO DAILY #30 tab HYDROcodone/APAP 5-325MG [[place] 5-325] 1 - 2 each PO Q6HR PRN #120 tab PRN Reason: Severe Pain Metoprolol Tartrate [Lopressor] 50 mg PO BID #60 tab Pantoprazole [Protonix] 40 mg PO AC-BRKFST #30 tab Sennosides-Docusate Sodium [Senokot-S] 2 each PO HS tab Furosemide [Lasix] 20 mg PO DAILY #3 tab Potassium Chloride ER [K-Dur 20] 20 meq PO BID #6 tab Insulin Glargine [Lantus] 15 unit SQ DAILY #1 vial Continue Ergocalciferol [Vitamin D2 (DRISDOL)] 50,000 unit PO TU metFORMIN HCL [Glucophage] 1,000 mg PO AC-BRKFST metFORMIN HCL [Glucophage] 500 mg PO AC-SUPPER glipiZIDE [Glipizide Xl] 5 mg PO AC-BID Atorvastatin [Lipitor] 40 mg PO DAILY #90 tablet Discontinued Colesevelam [Welchol] 625 mg PO BID amLODIPine BESYLATE/BENAZEPRIL [Amlodipine-Benazepril 5-10 mg] 1 cap PO DAILY Atenolol 25 mg PO DAILY Aspirin EC [Ecotrin Low Dose] 81 mg PO DAILY Aspirin 364 mg PO ONCE Discharge Medication List Ergocalciferol [Vitamin D2 (DRISDOL)] 50,000 unit PO TU 07/08/16 [History] glipiZIDE [Glipizide Xl] 5 mg PO AC-BID 07/08/16 [History] metFORMIN HCL [Glucophage] 1,000 mg PO AC-BRKFST 07/08/16 [History] metFORMIN HCL [Glucophage] 500 mg PO AC-SUPPER 07/08/16 [History] Atorvastatin [Lipitor] 40 mg PO DAILY #90 tablet 10/03/16 [Rx] Amiodarone [Cordarone] 400 mg PO BID #49 tab 10/21/16 [Rx] Aspirin 325 mg PO DAILY #30 tab 10/21/16 [Rx] Clopidogrel [Plavix] 75 mg PO DAILY #30 tab 10/21/16 [Rx] Furosemide [Lasix] 20 mg PO DAILY #3 tab 10/21/16 [Rx] HYDROcodone/APAP 5-325MG [[place] 5-325] 1 - 2 each PO Q6HR PRN #120 tab 10/21/16 [Rx] Insulin Glargine [Lantus] 15 unit SQ DAILY #1 vial 10/21/16 [Rx] Metoprolol Tartrate [Lopressor] 50 mg PO BID #60 tab 10/21/16 [Rx] Pantoprazole [Protonix] 40 mg PO AC-BRKFST #30 tab 10/21/16 [Rx] Potassium Chloride ER [K-Dur 20] 20 meq PO BID #6 tab 10/21/16 [Rx] Sennosides-Docusate Sodium [Senokot-S] 2 each PO HS tab 10/21/16 [Rx] Follow up Appointment(s)/Referral(s): Alise Leone NPC [Nurse Practitioner] - 10/25/16 11:00 am Dong Gonzales MD [STAFF PHYSICIAN] - 11/15/16 10:00 am Allie Campoverde MD [STAFF PHYSICIAN] - 2 Weeks (Dr. Campoverde's office will call to set up appointment) Miguel Falcon MD [STAFF PHYSICIAN] - 11/14/16 1:00 pm Davy Eldridge MD [STAFF PHYSICIAN] - 11/01/16 11:00 am Ambulatory/Diagnostic Orders: Complete Blood Count w/diff [LAB.AMB] Time Frame: 3 Days, Location: Determined By Patient Comprehensive Metabolic Panel [LAB.AMB] Time Frame: 3 Days, Location: Determined By Patient Activity/Diet/Wound Care/Special Instructions: Check blood sugars before meals 3 times a day and at bedtime. Record blood sugars and bring into office for review with Dr. Eldridge Discharge Disposition: HOME WITH HOME HEALTH SERVICES
[2016-10-21 12:04] VITALS: BMI 31.2
--- NOTE | 2016-10-21 13:06 | P.PN ---
Subjective Principal diagnosis: Status post coronary artery bypass grafting surgery This is a pleasant 76-year-old gentleman who is status post coronary artery bypass grafting surgery. He is progressing quite well, reaching 2000 on his incentive spirometry and using a 10 times an hour. Continues to be in normal sinus rhythm this morning. Blood pressure 130/70. 94% on room air. The in the hallway without any difficulty. Objective - Vital Signs Vital signs: Vital Signs Temp 97.9 F 10/21/16 08:00 Pulse 65 10/21/16 08:00 Resp 16 10/21/16 11:20 BP 130/79 10/21/16 08:00 Pulse Ox 94 L 10/21/16 08:00 Intake & Output 10/20/16 10/21/16 10/21/16 18:59 06:59 18:59 Intake Total 560 236 Output Total 1100 Balance -540 236 Weight 103 kg 103 kg Intake: Oral 560 236 Output: Urine 1100 Other: Voiding Method Toilet Toilet Toilet # Voids 2 ABP, PAP, CO, CI - Last Documented Arterial Blood Pressure 19/9 Pulmonary Artery Pressure 27/14 Cardiac Output 5.3 Cardiac Index 2.4 - Exam PHYSICAL EXAMINATION: HEENT: Head is atraumatic, normocephalic. Pupils equal, round. Neck is supple. There is no elevated jugular venous pressure. HEART EXAMINATION: Heart S1, S2 normal. No murmur or gallop heard. CHEST EXAMINATION: Lungs are clear anteriorly ABDOMEN: Soft, nontender. Bowel sounds are heard. No organomegaly noted. EXTREMITIES:[ 2+ peripheral pulses with trace evidence of peripheral edema and no calf tenderness noted]. Venodyne's in place. NEUROLOGIC [patient is awake, alert and oriented -3.] . - Labs CBC & Chem 7: 10/21/16 06:02 10/21/16 06:02 Labs: Abnormal Lab Results - Last 24 Hours (Table) 10/20/16 10/20/16 10/21/16 Range/Units 16:55 20:44 02:22 RBC (4.30-5.90) m/uL Hgb (13.0-17.5) gm/dL Hct (39.0-53.0) % Glucose (74-99) mg/dL POC Glucose (mg/dL) 159 H 176 H 115 H (75-99) mg/dL 10/21/16 10/21/16 10/21/16 Range/Units 05:49 06:02 06:02 RBC 3.69 L (4.30-5.90) m/uL Hgb 10.9 L (13.0-17.5) gm/dL Hct 32.4 L (39.0-53.0) % Glucose 111 H (74-99) mg/dL POC Glucose (mg/dL) 110 H (75-99) mg/dL 10/21/16 Range/Units 11:28 RBC (4.30-5.90) m/uL Hgb (13.0-17.5) gm/dL Hct (39.0-53.0) % Glucose (74-99) mg/dL POC Glucose (mg/dL) 204 H (75-99) mg/dL Assessment and Plan (1) Paroxysmal a-fib Status: Acute (2) S/P CABG (coronary artery bypass graft) Status: Acute (3) Anemia Status: Acute (4) Diabetes mellitus type 2 in obese Status: Acute (5) Family history of coronary artery disease in mother Status: Acute (6) Hyperlipidemia Status: Acute (7) Hypertension Status: Acute Plan: Radiology's perspective, we'll continue the patient on his current medications. He will be discharged home today and follow-up with Dr. Campoverde in the office. DNP note has been reviewed, I agree with a documented findings and plan of care. Patient was seen and examined.
[2016-10-21 15:52] VITALS: BP 144/68
--- NOTE | 2016-10-21 16:11 | PN ---
Mr. Pace is a 76-year-old male who underwent coronary artery bypass grafting. He is doing quite well this morning; awake, alert, ambulating without difficulty. He is denying any symptoms of chest discomfort. He denies any dizziness. He continues to be in sinus mechanism. He continues to be at this time on aspirin once a day, Lipitor 40 mg daily, amiodarone 400 mg twice a day, Plavix 75 mg daily, metformin, metoprolol tartrate 50 mg twice a day. PHYSICAL EXAMINATION: Blood pressure 138/60 with a heart rate in the 70s. LUNGS: Mild decrease in the breath sounds. No wheezes. HEART: Irregular rate and rhythm. S1. S2. No S3. ABDOMEN: Soft, non-tender, obese. EXTREMITIES: No significant edema. Lab data revealed a hemoglobin of 9.9, BUN and creatinine of 17 and 0.67. IMPRESSION: 1. Status post coronary artery bypass grafting, stable. 2. Paroxysmal atrial fibrillation. Remaining in sinus rhythm. 3. Hypertension. 4. Hyperlipidemia. RECOMMENDATIONS: From the cardiac standpoint, will increase his level of activity. I expect he should be able to be discharged home within the next 24 hours. TRACEY
--- NOTE | 2016-10-22 09:32 | PN ---
This is a 76-year-old patient who is going to be discharged we believe today. He is status post bypass grafting. He is postop day #5. He is status post three vessel bypass grafting. He had a history of multiple problems including diabetes , essential hypertension, hyperlipidemia, atrial flutter, history of TIA, history diverticular disease. From the pulmonary standpoint, doing relatively well. He has been weaned off of oxygen therapy. Current vital signs include temperature of 97.5, heart rate 65, respiratory rate 16, blood pressure 130/79, mean 96, room air saturation 96%. Appears in no acute distress. HEENT examination is grossly unremarkable. Mucous membranes are moist. No oral lesions. Neck supple. No neck vein distention. No adenopathy or thyromegaly. Cardiovascular examination reveals regular rhythm rate. S1, S2 normal. S3, S4 not noted. No murmur. Heart rate 82. Lungs reveal mostly clear breath sounds but a few scattered rhonchi. No wheezes or crackles. Abdomen is soft. Bowel sounds are heard. No masses or tenderness. Extremities are intact. No cyanosis, clubbing or edema. Labs are reviewed. White count 6.7, hemoglobin 10.9, hematocrit 32.4, platelet count 190,000. Sodium, potassium, chloride, CO2 all normal. BUN and creatinine were 17 and 0.8. Chest x-ray from today shows satisfactory postoperative changes with evidence of cardiomegaly. There is some bibasilar atelectasis. Microbiology is all pending or negative. Medications are reviewed. ASSESSMENT: 1. Postop day #5 status post three vessel bypass grafting. 2. Diabetes. 3. Hypertension. 4. Hyperlipidemia. 5. History of atrial flutter. 6. History of transient ischemic attack. 7. History of diverticular disease. PLAN: The patient is doing well. No additional recommendations are made. Possible discharge home today. [facility]ITAL[facility]ab[facility]
== END 2016-10-21 16:52 | disposition home health service (06) | DRG 236 ==
LOC: 2ORMAIN 05:48 → 6ICU 11:38 → 6SEL 10-19 06:45
PROVIDERS: ADMIT Surgery; ATTEND Surgery
PROC: 06BP4ZZ Excision of Right Saphenous Vein, Percutaneous Endoscopic Approach (ICD-10-PCS; principal; 2016-10-16 08:30)
PROC: 021109W Bypass Coronary Artery, Two Arteries from Aorta with Autologous Venous Tissue, Open Approach (ICD-10-PCS; principal; 2016-10-16 08:30)
PROC: 5A1221Z Performance of Cardiac Output, Continuous (ICD-10-PCS; principal; 2016-10-16 08:30)
PROC: B246ZZ4 Ultrasonography of Right and Left Heart, Transesophageal (ICD-10-PCS; principal; 2016-10-16 08:30)
PROC: 02100Z9 Bypass Coronary Artery, One Artery from Left Internal Mammary, Open Approach (ICD-10-PCS; principal; 2016-10-16 08:30)
DX: I25.10 Atherosclerotic heart disease of native coronary artery without angina pectoris (principal); I42.9 Cardiomyopathy, unspecified; I48.0 Paroxysmal atrial fibrillation; E11.9 Type 2 diabetes mellitus without complications; D64.9 Anemia, unspecified; I10 Essential (primary) hypertension; J98.11 Atelectasis; E78.5 Hyperlipidemia, unspecified; E66.9 Obesity, unspecified; I49.3 Ventricular premature depolarization; Z79.02 Long term (current) use of antithrombotics/antiplatelets; Z79.84 Long term (current) use of oral hypoglycemic drugs; Z79.899 Other long term (current) drug therapy; Z82.49 Family history of ischemic heart disease and other diseases of the circulatory system; Z85.820 Personal history of malignant melanoma of skin; Z86.73 Personal history of transient ischemic attack (TIA), and cerebral infarction without residual deficits; Z91.040 Latex allergy status; Z88.0 Allergy status to penicillin
CPT/HCPCS: 36620; 71010; 71020; 80048; 80053; 82330; 82805; 83036; 83735; 84100; 84132; 85025; 85520; 85610; 85730; 86850; 86891; 86900; 86901; 86920; 94002; 94640

== ENCOUNTER → 2016-12-06 | Outpatient (CLI) | payer MEDICARE ==
--- NOTE | 2016-12-06 12:28 | US ---
EXAMINATION TYPE: US chest DATE OF EXAM: 12/06/2016 COMPARISON: recent CXR CLINICAL HISTORY: R91.8 Plural Effusion. Assess for left pleural effusion EXAM MEASUREMENTS: Right Pleural Effusion fluid pocket: 3.0 cm Per request by ordering physician, area on the right side is not marked as the pocket is less than 4c m. Pulmonologists are able to review the images in the patient?s EMR. IMPRESSIONS: 1. There is a very small amount of fluid on the left compatible with a small pleural effusion.
== END ==
LOC: RADUSWWP 12:05
PROVIDERS: ATTEND Internal Medicine
DX: J91.8 Pleural effusion in other conditions classified elsewhere (principal)
CPT/HCPCS: 76604

== ENCOUNTER → 2016-12-09 | Outpatient (CLI) | payer MEDICARE ==
[2016-12-09 08:01] LABS: ALT 38 U/L (21-72); AST 23 U/L (17-59); Alkaline Phosphatase 90 U/L (38-126); Anion Gap 11 mmol/L; Blood Urea Nitrogen 13 mg/dL (9-20); Calcium 9.3 mg/dL (8.4-10.2); Carbon Dioxide 27 mmol/L (22-30); Chloride 104 mmol/L (98-107); Cholesterol 119 mg/dL (<200); Glucose 69 mg/dL (74-99); HDL Cholesterol 31 mg/dL (40-60); Non-African American GFR(MDRD) >60 (>60 ml/min/1.73 sqM); Potassium 4.2 mmol/L (3.5-5.1); Sodium 142 mmol/L (137-145); Total Bilirubin 0.5 mg/dL (0.2-1.3)
== END | disposition home or self-care (01) ==
LOC: LABWHC1 06:58
PROVIDERS: ATTEND Internal Medicine Interventional Cardiology
DX: E78.2 Mixed hyperlipidemia (principal)
CPT/HCPCS: 36415; 80053; 80061

== ENCOUNTER 2021-08-07 15:27 | Observation (INO) | payer MEDICARE ==
--- NOTE | 2021-08-07 17:18 | XR ---
EXAMINATION TYPE: XR chest 2V DATE OF EXAM: 08/07/2021 COMPARISON: 12/06/2016 HISTORY: Weakness TECHNIQUE: FINDINGS: There is slight blunting left costophrenic angle. No heart failure seen. Heart size is norm al. There are sternal wires. IMPRESSION: There is small left pleural effusion or pleural reaction which is similar to the old exam . No heart failure
[2021-08-07 17:29] LABS: Basophils % (A) 0 %; Eosinophils % (A) 0 %; HCT 46.1 % (39.0-53.0); HGB 15.1 gm/dL (13.0-17.5); Lymphocytes % (A) 9 %; MCH 31.9 pg (25.0-35.0); MCHC 32.8 g/dL (31.0-37.0); MCV 97.1 fL (80.0-100.0); Mean Platelet Volume 9.2; Monocytes # (A) 0.5 k/uL (0-1.0); Monocytes % (A) 5 %; Neutrophils # (A) 8.6 k/uL (1.3-7.7); Neutrophils % (A) 83 %; Platelet Count 259 k/uL (150-450); RBC 4.75 m/uL (4.30-5.90); RDW 13.5 % (11.5-15.5); WBC 10.3 k/uL (3.8-10.6)
[2021-08-07 17:30] LABS: Albumin 3.2 g/dL (3.5-5.0); Calcium 9.2 mg/dL (8.4-10.2); Magnesium 1.8 mg/dL (1.6-2.3); Potassium 4.1 mmol/L (3.5-5.1); Total Bilirubin 0.9 mg/dL (0.2-1.3); Total Protein 6.3 g/dL (6.3-8.2)
[2021-08-07 17:32] LABS: INR 0.9 (<1.2); Partial Thromboplastin Time 25.7 sec (22.0-30.0); Prothrombin Time 10.1 sec (9.0-12.0)
--- NOTE | 2021-08-07 17:51 | ED ---
General Adult HPI - General Chief complaint: Weakness Stated complaint: Weakness Time Seen by Provider: 08/07/21 16:05 Source: patient, EMS, RN notes reviewed, old records reviewed Mode of arrival: EMS Limitations: no limitations - History of Present Illness Initial comments: Patient is an 80-year-old male with past medical history remarkable for atrial flutter no longer on anticoagulation, cancer, diabetes, hypertension who presents emergency Department complaining of a one week history of worsening generalized fatigue. Has reduced appetite. Denies any other acute complaints at this time. Family was concerned for maybe UTI. Denies falling or hitting his head. He did have a GI bleed back in June 2016. Denies any abdominal pain, nausea, vomiting, fevers, chills, shortness breath, chest pain. Only acute complaint is slightly worsening lower extremity edema that is symmetrical and is been worsening for the last 1-2 weeks. Denies any exertional dyspnea. Does endorse fatigue that is generalized. Denies PND, orthopnea. Denies any sensory deficits. His no focal weakness. His no other acute complaint at this time. Is resting comfortably at this time, was appropriately interactive with staff. - Related Data Home Medications Medication Instructions Recorded Confirmed glipiZIDE [Glipizide Xl] 5 mg PO AC-BID 07/08/16 08/07/21 metFORMIN HCL [Glucophage] 1,000 mg PO DAILY 07/08/16 08/07/21 metFORMIN HCL [Glucophage] 500 mg PO HS 07/08/16 08/07/21 Aspirin EC [Ecotrin Low Dose] 81 mg PO DAILY 08/07/21 08/07/21 Atorvastatin [Lipitor] 40 mg PO HS 08/07/21 08/07/21 Cholecalciferol [Vitamin D3 (125 125 mcg PO DAILY 08/07/21 08/07/21 Mcg = 5000 Iu)] Ferrous Sulfate [Feosol] 325 mg PO Q48H 08/07/21 08/07/21 Insulin Glargine,Hum.rec.anlog 14 unit SQ HS 08/07/21 08/07/21 [Lantus Solostar Pen] Levothyroxine Sodium [Synthroid] 25 mcg PO DAILY 08/07/21 08/07/21 Maxivision Whole Body Formula 1 cap PO BID 08/07/21 08/07/21 Metoprolol Tartrate [Lopressor] 50 mg PO BID-W/MEALS 08/07/21 08/07/21 Pantoprazole [Protonix] 40 mg PO DAILY 08/07/21 08/07/21 hydrALAZINE HCL 25 mg PO TID 08/07/21 08/07/21 hydroCHLOROthiazide [Hydrodiuril] 25 mg PO DAILY 08/07/21 08/07/21 lisinopriL [Zestril] 20 mg PO BID 08/07/21 08/07/21 Allergies Allergy/AdvReac Type Severity Reaction Status Date / Time latex Allergy Unknown Verified 08/07/21 17:36 penicillin V Allergy Unknown Verified 08/07/21 17:36 Review of Systems ROS Statement: Those systems with pertinent positive or pertinent negative responses have been documented in the HPI. Review of Systems: CONST: Denies fever EYES: Denies blurry vision ENT: Denies nasal congestion C/V: Denies Chest pain RESP: Denies shortness of breath GI: Denies abdominal pain : Denies dysuria SKIN: Denies rash. MSK: Denies joint pain. NEURO: Denies headache ROS Other: All systems not noted in ROS Statement are negative. Past Medical History Past Medical History: Atrial Flutter, Cancer, CVA/TIA, Diabetes Mellitus, Hypertension Additional Past Medical History / Comment(s): June: IP ADM FOR GI BLEED. Possible TIA, NIDDM type II, lower GI bleed yrs ago, divertiulitis, colon polypectomy, melanoma removals head and nose, hemorroids History of Any Multi-Drug Resistant Organisms: None Reported Past Surgical History: Cholecystectomy Additional Past Surgical History / Comment(s): colonoscopies/benign polypectomies, 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 Past Anesthesia/Blood Transfusion Reactions: No Reported Reaction Past Psychological History: No Psychological Hx Reported Past Alcohol Use History: Rare Past Drug Use History: None Reported - Past Family History Father Additional Family Medical History / Comment(s): Father at the age of 33 yrs from encephalitis. Mother Family Medical History: Myocardial Infarction ([place]) Additional Family Medical History / Comment(s): Mother had a [place] at the age of 60yrs. She at the age of 90yrs. General Exam - General Exam Comments Initial Comments: General: Appears in no acute distress. HEAD: Normal with no signs of head trauma. EYES: PERRLA, EOMI, conjunctiva normal, no discharge. Pupils are 3 mm and equal bilaterally. ENT: Hearing grossly intact, normal oropharynx. RESPIRATORY: Clear breath sounds bilaterally. No wheezes, rales, or rhonchi. C/V: Regular rate and rhythm. S1 and S2 auscultated. Peripheral pulses are 2+ and intact throughout. 1-2+ pitting edema that is symmetrical in bilateral lower extremities up to the level of the knee. ABD: Abd is soft, nontender, nondistended EXT: Normal range of motion, no obvious deformity SKIN: No rashes or lesions observed on exposed skin. NEURO: Alert and oriented x 4. Cranial nerves II-XII intact. No focal sensory or strength deficits. NIH of 0. GCS of 15. Limitations: no limitations Course Vital Signs 08/07/21 15:30 Temperature 98.9 F Pulse Rate 98 Respiratory 18 Rate Blood Pressure 173/97 O2 Sat by Pulse 92 L Oximetry Medical Decision Making - Medical Decision Making Patient's presentation and physical exam, he presents complaining of generalized weakness of unknown etiology. His no obvious neurological deficits. Vital signs are within normal limits. No findings on physical exam other than bilateral lower extremity edema. We will obtain a broad workup, including infectious and cardiac. He was in agreement this plan. EKG showed no signs of acute ischemia. Chest x-ray revealed no acute cardiopulmonary process. No signs of heart failure. There is a chronic small left pleural effusion that is similar on prior exams. Laboratory studies are remarkable for an AK I with the BUN/creatinine 32 and a creatinine of 1.45. GFR is reduced to 45. Troponin is indeterminate at 0.030. BNP is elevated to 1900. Albumin is slightly decreased at 3.2. Urinalysis is unremarkable. Covid is negative. On reevaluation, patient's vital signs remained within normal limits with oxygen saturations remaining 94-96% when I am at bedside. Remains unchanged. I discussed the results with him. As his only symptoms of heart failure at this time are lower extremity edema, and with his new LAURA with concern for worsening it with diuretics, I plan to hold off starting the patient on diuretics at this time as he has no respiratory symptoms at this time. Echo will be ordered. I discussed this with the patient's PCP and admitting physician Dr. Eldridge who is in agreement this plan. We will hold IV fluids. He requested cardiology be consulted and repeat labs in the morning. Patient does not require any antibiotics at this time. Patient will therefore be admitted to observation telemetry in stable condition. - Lab Data Result diagrams: 08/07/21 16:32 08/07/21 16:32 Lab Results 08/07/21 08/07/21 08/07/21 Range/Units 16:32 16:32 16:32 WBC 10.3 (3.8-10.6) k/uL RBC 4.75 (4.30-5.90) m/uL Hgb 15.1 (13.0-17.5) gm/dL Hct 46.1 (39.0-53.0) % MCV 97.1 (80.0-100.0) fL MCH 31.9 (25.0-35.0) pg MCHC 32.8 (31.0-37.0) g/dL RDW 13.5 (11.5-15.5) % Plt Count 259 (150-450) k/uL MPV 9.2 Neutrophils % 83 % Lymphocytes % 9 % Monocytes % 5 % Eosinophils % 0 % Basophils % 0 % Neutrophils # 8.6 H (1.3-7.7) k/uL Lymphocytes # 1.0 (1.0-4.8) k/uL Monocytes # 0.5 (0-1.0) k/uL Eosinophils # 0.0 (0-0.7) k/uL Basophils # 0.0 (0-0.2) k/uL PT 10.1 (9.0-12.0) sec INR 0.9 (<1.2) APTT 25.7 (22.0-30.0) sec Sodium 137 (137-145) mmol/L Potassium 4.1 (3.5-5.1) mmol/L Chloride 99 (98-107) mmol/L Carbon Dioxide 28 (22-30) mmol/L Anion Gap 10 mmol/L BUN 32 H (9-20) mg/dL Creatinine 1.45 H (0.66-1.25) mg/dL Est GFR (CKD-EPI)AfAm 52 (>60 ml/min/1.73 sqM) Est GFR (CKD-EPI)NonAf 45 (>60 ml/min/1.73 sqM) Glucose 222 H (74-99) mg/dL Plasma Lactic Acid Nelson (0.7-2.0) mmol/L Calcium 9.2 (8.4-10.2) mg/dL Magnesium 1.8 (1.6-2.3) mg/dL Total Bilirubin 0.9 (0.2-1.3) mg/dL AST 21 (17-59) U/L ALT 19 (4-49) U/L Alkaline Phosphatase 82 (38-126) U/L Troponin I (0.000-0.034) ng/mL NT-Pro-B Natriuret Pep pg/mL Total Protein 6.3 (6.3-8.2) g/dL Albumin 3.2 L (3.5-5.0) g/dL Coronavirus (PCR) (Not Detectd) 08/07/21 08/07/21 08/07/21 Range/Units 16:32 16:32 16:32 WBC (3.8-10.6) k/uL RBC (4.30-5.90) m/uL Hgb (13.0-17.5) gm/dL Hct (39.0-53.0) % MCV (80.0-100.0) fL MCH (25.0-35.0) pg MCHC (31.0-37.0) g/dL RDW (11.5-15.5) % Plt Count (150-450) k/uL MPV Neutrophils % % Lymphocytes % % Monocytes % % Eosinophils % % Basophils % % Neutrophils # (1.3-7.7) k/uL Lymphocytes # (1.0-4.8) k/uL Monocytes # (0-1.0) k/uL Eosinophils # (0-0.7) k/uL Basophils # (0-0.2) k/uL PT (9.0-12.0) sec INR (<1.2) APTT (22.0-30.0) sec Sodium (137-145) mmol/L Potassium (3.5-5.1) mmol/L Chloride (98-107) mmol/L Carbon Dioxide (22-30) mmol/L Anion Gap mmol/L BUN (9-20) mg/dL Creatinine (0.66-1.25) mg/dL Est GFR (CKD-EPI)AfAm (>60 ml/min/1.73 sqM) Est GFR (CKD-EPI)NonAf (>60 ml/min/1.73 sqM) Glucose (74-99) mg/dL Plasma Lactic Acid Nelson 1.9 (0.7-2.0) mmol/L Calcium (8.4-10.2) mg/dL Magnesium (1.6-2.3) mg/dL Total Bilirubin (0.2-1.3) mg/dL AST (17-59) U/L ALT (4-49) U/L Alkaline Phosphatase (38-126) U/L Troponin I 0.030 (0.000-0.034) ng/mL NT-Pro-B Natriuret Pep 1970 pg/mL Total Protein (6.3-8.2) g/dL Albumin (3.5-5.0) g/dL Coronavirus (PCR) (Not Detectd) 08/07/21 Range/Units 16:32 WBC (3.8-10.6) k/uL RBC (4.30-5.90) m/uL Hgb (13.0-17.5) gm/dL Hct (39.0-53.0) % MCV (80.0-100.0) fL MCH (25.0-35.0) pg MCHC (31.0-37.0) g/dL RDW (11.5-15.5) % Plt Count (150-450) k/uL MPV Neutrophils % % Lymphocytes % % Monocytes % % Eosinophils % % Basophils % % Neutrophils # (1.3-7.7) k/uL Lymphocytes # (1.0-4.8) k/uL Monocytes # (0-1.0) k/uL Eosinophils # (0-0.7) k/uL Basophils # (0-0.2) k/uL PT (9.0-12.0) sec INR (<1.2) APTT (22.0-30.0) sec Sodium (137-145) mmol/L Potassium (3.5-5.1) mmol/L Chloride (98-107) mmol/L Carbon Dioxide (22-30) mmol/L Anion Gap mmol/L BUN (9-20) mg/dL Creatinine (0.66-1.25) mg/dL Est GFR (CKD-EPI)AfAm (>60 ml/min/1.73 sqM) Est GFR (CKD-EPI)NonAf (>60 ml/min/1.73 sqM) Glucose (74-99) mg/dL Plasma Lactic Acid Nelson (0.7-2.0) mmol/L Calcium (8.4-10.2) mg/dL Magnesium (1.6-2.3) mg/dL Total Bilirubin (0.2-1.3) mg/dL AST (17-59) U/L ALT (4-49) U/L Alkaline Phosphatase (38-126) U/L Troponin I (0.000-0.034) ng/mL NT-Pro-B Natriuret Pep pg/mL Total Protein (6.3-8.2) g/dL Albumin (3.5-5.0) g/dL Coronavirus (PCR) Not Detected (Not Detectd) - EKG Data -: EKG Interpreted by Me EKG Comments: 12-lead Electrocardiogram Interpretation Note EKG was reviewed and interpreted by myself. 12-lead ECG performed at 1700 is interpreted by me as revealing normal sinus rhythm at a rate of default value beats per minute. Left axis deviation. [place] interval is 156 seconds, QRS durations 134 ms, QTc is 419 ms.. There were no ST or T wave abnormalities to suggest myocardial ischemia or injury. There is an isolated T-wave inversion in lead aVL with reciprocal changes. R-wave progression across the precordium was delayed.. By my interpretation this EKG is non-diagnostic for acute ischemia. Disposition Clinical Impression: LAURA (acute kidney injury) Disposition: ADMITTED IP TO THIS HOSP Condition: Stable Time of Disposition: 18:06
[2021-08-07] MEDS ORDERED: NALOXONE 0.4 MG/ML 1 ML VIAL IV PRN (18:06)
[2021-08-07 19:03] LABS: Appearance,Urine Clear (Clear); Bacteria,Urine Rare /hpf; Bilirubin,Urine Negative (Negative); Blood,Urine Negative (Negative); Color,Urine Yellow; Glucose,Urine (UA) Negative (Negative); Ketones,Urine 1+ (Negative); Leukocyte Esterase,Urine Small (Negative); Mucus,Urine Rare /hpf; Nitrite,Urine Negative (Negative); PH, Urine 5.5 (5.0-8.0); Protein,Urine 1+ (Negative); RBC,Urine 1 /hpf (0-5); Specific Gravity,Urine 1.035 (1.001-1.035); Squamous Epithelial Cell,Urine <1 /hpf (0-4); Urobilinogen,Urine <2.0 mg/dL (<2.0); WBC,Urine 2 /hpf (0-5)
[2021-08-07] MEDS: metFORMIN 500 MG TAB PO SCH (21:05)
[2021-08-07] MEDS: ATORVASTATIN 40 MG TAB PO SCH (21:05)
[2021-08-07] MEDS: lisinopriL 20 MG TAB PO SCH (21:05)
[2021-08-07] MEDS: hydrALAZINE HCL 25 MG TAB PO SCH (21:11)
[2021-08-07 21:12] LABS: Glucose,Whole Blood 142 mg/dL (75-99)
[2021-08-07] MEDS: INSULIN DETEMIR (LEVEMIR) 100 UNIT/ML SYR SQ SCH (21:14)
[2021-08-08] MEDS: LEVOTHYROXINE 25 MCG TAB PO SCH (05:39)
[2021-08-08 07:14] LABS: Glucose,Whole Blood 159 mg/dL (75-99)
[2021-08-08] MEDS: metFORMIN 500 MG TAB PO SCH ×2 (08:48→21:36)
[2021-08-08] MEDS: METOPROLOL TARTRATE 50 MG TAB PO SCH ×2 (08:49→17:06)
[2021-08-08] MEDS: glipiZIDE 5 MG TAB PO SCH ×2 (08:49→17:06)
[2021-08-08] MEDS: hydrALAZINE HCL 25 MG TAB PO SCH (08:49)
[2021-08-08] MEDS: PANTOPRAZOLE 40 MG TABLET PO SCH (08:49)
[2021-08-08] MEDS: ASPIRIN 81 MG PO SCH (08:49)
[2021-08-08] MEDS: CHOLECALCIFEROL 125 MCG (5000 IU) TABLET PO SCH (08:49)
[2021-08-08] MEDS: lisinopriL 20 MG TAB PO SCH ×2 (08:49→21:36)
[2021-08-08] MEDS ORDERED: hydroCHLOROthiazide 25 MG TAB PO SCH (09:00)
--- NOTE | 2021-08-08 10:32 | US ---
EXAMINATION TYPE: US kidneys/renal and bladder DATE OF EXAM: 08/08/2021 COMPARISON: NONE CLINICAL HISTORY: elevated bun and creat. Abnormal labs. No pain per patient. No renal history. EXAM MEASUREMENTS: Right Kidney: 9.6 x 4.7 x 5.0 cm Left Kidney: 14.6 x 5.0 x 6.5 cm Right Kidney: Inferior cortical cyst seen = 4.4 x 3.3 x 3.1 cm. Superior renal sinus cyst seen = 1.9 x 1.6 x 1.5 cm., Cysts show increased through transmission and imperceptible wall, are anechoic Co rtical medullary differentiation is maintained. Left Kidney: Larger in size compared to contralateral kidney. Multiple cysts seen throughout kidney. Moderate hydronephrosis. Upper pole stone = 1.9 cm. Upper pole cyst = 2.1 x 2.0 x 2.0 cm. Bladder: Minimally distended, anechoic Bilateral Jets not seen Trace amount of fluid seen near left kidney No nephrolithiasis is seen on the right. No masses are identified. The urinary bladder is anechoic. IMPRESSION: Renal cysts on the right appear simple. Left-sided nephrolithiasis, moderate left-sided hydronephrosi s suspected
[2021-08-08 10:48] LABS: Basophils # (A) 0.04 X 10*3/uL (0.00-0.10); Basophils % (A) 0.3 %; Eosinophils # (A) 0.08 X 10*3/uL (0.04-0.35); Eosinophils % (A) 0.7 %; HCT 41.5 % (39.6-50.0); HGB 13.1 g/dL (13.0-17.0); Immature Grans, Automated 0.3 %; Lymphocytes # (A) 0.91 X 10*3/uL (0.90-5.00); Lymphocytes % (A) 7.6 %; MCH 30.1 pg (27.0-32.0); MCHC 31.6 g/dL (32.0-37.0); MCV 95.4 fL (80.0-97.0); Monocytes # (A) 0.87 X 10*3/uL (0.20-1.00); Monocytes % (A) 7.3 %; NRBC Per 100 WBC 0 /100 WBCS (0.0-0.0); Neutrophils # (A) 10.03 X 10*3/uL (1.80-7.70); Neutrophils % (A) 83.8 %; Platelet Count 241 X 10*3/uL (140-440); RBC 4.35 X 10*6/uL (4.40-5.60); RDW 13.6 % (11.5-14.5); WBC 11.97 X 10*3/uL (4.50-10.00)
--- NOTE | 2021-08-08 10:52 | P.HPIM ---
History of Present Illness H&P Date: 08/08/21 Chief Complaint: Acute kidney injury lower extremity edema This is a 80-year-old male patient who presented with concerns of increasing edema over the past 2 weeks. Patient also reports complaints of generalized fatigue and reduced appetite. Patient has a past medical history of atrial flutter, CVA, diabetes mellitus, hypertension and cholecystectomy. Chest x-rays completed showing small left pleural effusion or pleural reaction which is similar to old exam no heart failure. COVID-19 negative. UA showing small amount of leukocyte Estrace urine culture ordered and patient started on Cipro for antibiotic. Creatinine also slightly elevated at 1.45 and bun 32. This does appear higher than patient's baseline. BNP 1970. Troponin 0.030. At this time patient will be admitted cardiology services have been consulted 2-D echo ordered. Will order ultrasound of kidneys and bladder and repeat labs. Patient denies any issues with urination. Patient denies nausea vomiting or diarrhea. Patient denies chest pain or shortness of breath. Patient denies any urinary frequency. Review of Systems Please refer to HPI otherwise unremarkable Past Medical History Past Medical History: Atrial Flutter, Cancer, CVA/TIA, Diabetes Mellitus, Hypertension Additional Past Medical History / Comment(s): June: IP ADM FOR GI BLEED. 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 Past Anesthesia/Blood Transfusion Reactions: No Reported Reaction Past Psychological History: No Psychological Hx Reported Additional Psychological History / Comment(s): Pt resides with his spouse of 55 yrs. He used a walker a couple weeks ago for a brief time. He drives. Smoking Status: Never smoker Past Alcohol Use History: Rare Past Drug Use History: None Reported - Past Family History Father Additional Family Medical History / Comment(s): Father at the age of 33 yrs from encephalitis. Mother Family Medical History: Myocardial Infarction (MS) Additional Family Medical History / Comment(s): Mother had a MS at the age of 60yrs. She at the age of 90yrs. Medications and Allergies Home Medications Medication Instructions Recorded Confirmed Type glipiZIDE [Glipizide Xl] 5 mg PO AC-BID 07/08/16 08/07/21 History metFORMIN HCL [Glucophage] 1,000 mg PO DAILY 07/08/16 08/07/21 History metFORMIN HCL [Glucophage] 500 mg PO HS 07/08/16 08/07/21 History Aspirin EC [Ecotrin Low Dose] 81 mg PO DAILY 08/07/21 08/07/21 History Atorvastatin [Lipitor] 40 mg PO HS 08/07/21 08/07/21 History Cholecalciferol [Vitamin D3 (125 125 mcg PO DAILY 08/07/21 08/07/21 History Mcg = 5000 Iu)] Ferrous Sulfate [Feosol] 325 mg PO Q48H 08/07/21 08/07/21 History Insulin Glargine,Hum.rec.anlog 14 unit SQ HS 08/07/21 08/07/21 History [Lantus Solostar Pen] Levothyroxine Sodium [Synthroid] 25 mcg PO DAILY 08/07/21 08/07/21 History Maxivision Whole Body Formula 1 cap PO BID 08/07/21 08/07/21 History Metoprolol Tartrate [Lopressor] 50 mg PO BID-W/MEALS 08/07/21 08/07/21 History Pantoprazole [Protonix] 40 mg PO DAILY 08/07/21 08/07/21 History hydrALAZINE HCL 25 mg PO TID 08/07/21 08/07/21 History hydroCHLOROthiazide [Hydrodiuril] 25 mg PO DAILY 08/07/21 08/07/21 History lisinopriL [Zestril] 20 mg PO BID 08/07/21 08/07/21 History Allergies Allergy/AdvReac Type Severity Reaction Status Date / Time latex Allergy Unknown Verified 08/07/21 17:36 penicillin V Allergy Unknown Verified 08/07/21 17:36 Physical Exam Vitals: Vital Signs Temp Pulse Pulse Resp BP BP Pulse Ox 08/08/21 07:18 98.1 F 97 20 182/88 93 L 08/08/21 01:42 98.1 F 102 H 20 179/69 94 L 08/08/21 00:27 96 18 08/07/21 22:39 98.4 F 109 H 20 181/80 93 L 08/07/21 21:18 90 18 131/97 98 08/07/21 15:30 98.9 F 98 18 173/97 92 L Intake and Output 08/07/21 08/08/21 08/08/21 22:59 06:59 14:59 Intake Total 100 240 Balance 100 240 Intake: Oral 100 240 Other: Voiding Method Toilet Toilet # Voids 1 1 # Bowel Movements 1 Weight 99.79 kg Head normocephalic Neck supple Lungs clear to auscultation bilaterally no wheezing or crackles Heart regular rate and rhythm S1-S2, no rub or gallop Abdomen is soft nontender nondistended positive bowel sounds no hepatosplenomegaly Extremities +1 lower extremity edema Neuro alert and orientated to 3 Results CBC & Chem 7: 08/07/21 16:32 08/07/21 16:32 Labs: Abnormal Lab Results - Last 24 Hours (Table) 08/07/21 08/07/21 08/07/21 Range/Units 16:32 16:32 18:48 Neutrophils # 8.6 H (1.3-7.7) k/uL BUN 32 H (9-20) mg/dL Creatinine 1.45 H (0.66-1.25) mg/dL Glucose 222 H (74-99) mg/dL POC Glucose (mg/dL) (75-99) mg/dL Albumin 3.2 L (3.5-5.0) g/dL Urine Protein 1+ H (Negative) Urine Ketones 1+ H (Negative) Ur Leukocyte Esterase Small H (Negative) Urine Bacteria Rare H (None) /hpf Urine Mucus Rare H (None) /hpf 08/07/21 08/08/21 Range/Units 21:11 07:13 Neutrophils # (1.3-7.7) k/uL BUN (9-20) mg/dL Creatinine (0.66-1.25) mg/dL Glucose (74-99) mg/dL POC Glucose (mg/dL) 142 H 159 H (75-99) mg/dL Albumin (3.5-5.0) g/dL Urine Protein (Negative) Urine Ketones (Negative) Ur Leukocyte Esterase (Negative) Urine Bacteria (None) /hpf Urine Mucus (None) /hpf Thrombosis Risk Factor Assmnt - Choose All That Apply Each Risk Factor Represents 3 Points: Age 75 years or older Thrombosis Risk Factor Assessment Total Risk Factor Score: 3 Thrombosis Risk Factor Assessment Level: Moderate Risk Assessment and Plan Assessment: 1. Increased peripheral edema bilaterally 2. Acute kidney injury 3. Urinary tract infection 4. Diabetes mellitus type 2 5. History of essential hypertension 6. History of CVA 7. History of coronary artery bypass graft surgery 8. History of atrial flutter DVT prophylaxis Lovenox. GI prophylaxis Pepcid Ultrasound of abdomen completed showing possible hydronephrosis, urology consult placed Cipro for antibiotic for UTI Cardiology consult placed 2-D echo ordered Nephrology services consulted Repeat labs ordered Time with Patient: Greater than 30 (Greater than 60% of the total time spent in counseling and coordination of care)
--- NOTE | 2021-08-08 11:09 | P.CRDCN ---
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 He follows in the office with Dr. Campoverde. We have been asked to see in consultation for concern for congestive heart failure. Patient presents to the emergency department on 08/07/21 with complaints of generalized fatigue. He states he's been having these symptoms of worsening fatigue for about one week. He also had symptoms of reduced appetite. He denies any chest pain, shortness of breath, lightheadedness, dizziness, syncope or near syncope. He denies any worsening lower extremity edema, orthopnea or PND. He denies any abdominal pain, nausea, vomiting. DIAGNOSTICS EKG reveals sinus rhythm, heart rate 94, left bundle branch morphology, intraventricular conduction delay noted, T wave inversions in I and aVL. Telemetry tracings indicate sinus mechanism, PVCs, episode 4-5beat NSVT. HR 90s- 100 Chest xray bilateral small pleural effusion, heart size is normal, no acute heart failure Laboratory reviewed, WBC 11.9, hemoglobin 13, platelets 241, sodium 137, potassium 4.1, BUN 32, serum ground 0.45, magnesium 1.8, troponin negative, proBNP 1970, COVID Negative. Current cardiac medications include lisinopril 20 mg twice a day, hydrochlorothiazide 25 mg daily, metformin, Synthroid, hydralazine 25 mg 3 times a day, metoprolol tartrate 50 mg twice a day, atorvastatin 40 mg nightly, glipizide, aspirin 80 mg daily Echocardiogram in the office 04/2020 revealed an EF of 45%, mild aortic regurgitation, mild aortic stenosis, moderate tricuspid regurgitation, mild mitral regurgitation, RVSP 47 mmHg REVIEW OF SYSTEMS At the time of my exam: CONSTITUTIONAL: Denies fever or chills. +Generalized fatigue CARDIOVASCULAR: Denies chest pain, shortness of breath, orthopnea, PND or palpitations. RESPIRATORY: Denies cough. GASTROINTESTINAL: Denies abdominal pain, diarrhea, constipation, nausea or vomiting. MUSCULOSKELETAL: Denies myalgias. NEUROLOGIC: Denies numbness, tingling, headacbe or weakness. ENDOCRINE: Denies weight change, polydipsia or polyurina. GENITOURINARY: Denies burning, hematuria or urgency with micturation. HEMATOLOGIC: Denies history of anemia or bleeding. PHYSICAL EXAMINATION Blood pressure 182/88, heart rate 97, afebrile, oxygen saturation is 92% on room air CONSTITUTIONAL: No apparent distress. HEENT: Head is normocephalic. Pupils are equal, round. Sclerae anicteric. Mucous membranes of the mouth are moist. No JVD. No carotid bruit. CHEST EXAMINATION: Lungs are clear to auscultation. No chest wall tenderness is noted on palpation or with deep breathing. HEART EXAMINATION: Regular rate and rhythm. S1, S2 heard. Systolic ejection mur mur noted. ABDOMEN: Soft, nontender. Positive bowel sounds. EXTREMITIES: 2+ peripheral pulses, trace bilateral lower extremity edema and no calf tenderness. NEUROLOGIC EXAMINATION: Patient is awake, alert and oriented x3. ASSESSMENT Acute kidney injury Leukocytosis Left sided nephrolithiasis, moderate left sided hydronephrosis seen on Abdominal ultrasound Symptoms of generalized fatigue and decrease appetite Coronary artery disease status post three-vessel CABG (ABEL-LAD, VG-OM1, VG-D1) 10/2016 Hypertension Dyslipidemia Type 2 diabetes Peripheral vascular disease Ischemic cardiomyopathy with EF of 45% PLAN Patient does not appear to be in acute heart failure on exam from a cardiology perspective. Continue home cardiac medications. Monitor BP. Monitor renal function. Urology and Nephrology consulted. No further changes at this time from a cardiology perspective. On discharge, patient to follow up with Dr. Campoverde Nurse practitioner note has been reviewed by physician. Signing provider agrees with the documented findings, assessment, and plan of care. Past Medical History Past Medical History: Atrial Flutter, Cancer, CVA/TIA, Diabetes Mellitus, Hypertension Additional Past Medical History / Comment(s): June: IP ADM FOR GI BLEED. 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 Past Anesthesia/Blood Transfusion Reactions: No Reported Reaction Past Psychological History: No Psychological Hx Reported Additional Psychological History / Comment(s): Pt resides with his spouse of 55 yrs. He used a walker a couple weeks ago for a brief time. He drives. Smoking Status: Never smoker Past Alcohol Use History: Rare Past Drug Use History: None Reported - Past Family History Father Additional Family Medical History / Comment(s): Father at the age of 33 yrs from encephalitis. Mother Family Medical History: Myocardial Infarction ([place]) Additional Family Medical History / Comment(s): Mother had a [place] at the age of 60yrs. She at the age of 90yrs. Medications and Allergies Home Medications Medication Instructions Recorded Confirmed Type glipiZIDE [Glipizide Xl] 5 mg PO AC-BID 07/08/16 08/07/21 History metFORMIN HCL [Glucophage] 1,000 mg PO DAILY 07/08/16 08/07/21 History metFORMIN HCL [Glucophage] 500 mg PO HS 07/08/16 08/07/21 History Aspirin EC [Ecotrin Low Dose] 81 mg PO DAILY 08/07/21 08/07/21 History Atorvastatin [Lipitor] 40 mg PO HS 08/07/21 08/07/21 History Cholecalciferol [Vitamin D3 (125 125 mcg PO DAILY 08/07/21 08/07/21 History Mcg = 5000 Iu)] Ferrous Sulfate [Feosol] 325 mg PO Q48H 08/07/21 08/07/21 History Insulin Glargine,Hum.rec.anlog 14 unit SQ HS 08/07/21 08/07/21 History [Lantus Solostar Pen] Levothyroxine Sodium [Synthroid] 25 mcg PO DAILY 08/07/21 08/07/21 History Maxivision Whole Body Formula 1 cap PO BID 08/07/21 08/07/21 History Metoprolol Tartrate [Lopressor] 50 mg PO BID-W/MEALS 08/07/21 08/07/21 History Pantoprazole [Protonix] 40 mg PO DAILY 08/07/21 08/07/21 History hydrALAZINE HCL 25 mg PO TID 08/07/21 08/07/21 History hydroCHLOROthiazide [Hydrodiuril] 25 mg PO DAILY 08/07/21 08/07/21 History lisinopriL [Zestril] 20 mg PO BID 08/07/21 08/07/21 History Allergies Allergy/AdvReac Type Severity Reaction Status Date / Time latex Allergy Unknown Verified 08/07/21 17:36 penicillin V Allergy Unknown Verified 08/07/21 17:36 Physical Exam Vitals: Vital Signs Temp Pulse Pulse Resp BP BP Pulse Ox 08/08/21 07:18 98.1 F 97 20 182/88 93 L 08/08/21 01:42 98.1 F 102 H 20 179/69 94 L 08/08/21 00:27 96 18 08/07/21 22:39 98.4 F 109 H 20 181/80 93 L 08/07/21 21:18 90 18 131/97 98 08/07/21 15:30 98.9 F 98 18 173/97 92 L Intake and Output 08/07/21 08/08/21 08/08/21 22:59 06:59 14:59 Intake Total 100 Balance 100 Intake: Oral 100 Other: Voiding Method Toilet # Voids 1 1 Weight 99.79 kg Results 08/08/21 06:31 08/07/21 16:32 Cardiac Enzymes 08/07/21 08/07/21 Range/Units 16:32 16:32 AST 21 (17-59) U/L Troponin I 0.030 (0.000-0.034) ng/mL Coagulation 08/07/21 Range/Units 16:32 PT 10.1 (9.0-12.0) sec APTT 25.7 (22.0-30.0) sec CBC 08/07/21 Range/Units 16:32 WBC 10.3 (3.8-10.6) k/uL RBC 4.75 (4.30-5.90) m/uL Hgb 15.1 (13.0-17.5) gm/dL Hct 46.1 (39.0-53.0) % Plt Count 259 (150-450) k/uL Comprehensive Metabolic Panel 08/07/21 Range/Units 16:32 Sodium 137 (137-145) mmol/L Potassium 4.1 (3.5-5.1) mmol/L Chloride 99 (98-107) mmol/L Carbon Dioxide 28 (22-30) mmol/L BUN 32 H (9-20) mg/dL Creatinine 1.45 H (0.66-1.25) mg/dL Glucose 222 H (74-99) mg/dL Calcium 9.2 (8.4-10.2) mg/dL AST 21 (17-59) U/L ALT 19 (4-49) U/L Alkaline Phosphatase 82 (38-126) U/L Total Protein 6.3 (6.3-8.2) g/dL Albumin 3.2 L (3.5-5.0) g/dL Current Medications Generic Name Dose Route Start Last Admin Trade Name Freq PRN Reason Stop Dose Admin Aspirin 81 mg 08/08/21 09:00 Aspirin 81 Mg PO DAILY [facility] Atorvastatin Calcium 40 mg 08/07/21 21:00 08/07/21 21:05 Atorvastatin 40 Mg Tab PO 40 mg HS REMIGIO Administration Cholecalciferol 125 mcg 08/08/21 09:00 Cholecalciferol 125 Mcg (5000 Iu) Tablet PO DAILY [facility] Glipizide 5 mg 08/08/21 07:30 Glipizide 5 Mg Tab PO AC-BID [facility] Hydralazine HCl 25 mg 08/07/21 22:00 08/07/21 21:11 Hydralazine Hcl 25 Mg Tab PO 25 mg TID REMIGIO Administration Hydrochlorothiazide 25 mg 08/08/21 09:00 Hydrochlorothiazide 25 Mg Tab PO DAILY [facility] Insulin Detemir 14 unit 08/07/21 21:00 08/07/21 21:14 Insulin Detemir (Levemir) 100 Unit/Ml Syr SQ 14 unit HS REMIGIO Administration Levothyroxine Sodium 25 mcg 08/08/21 06:30 08/08/21 05:39 Levothyroxine 25 Mcg Tab PO 25 mcg DAILY@0630 REMIGIO Administration Lisinopril 20 mg 08/07/21 21:00 08/07/21 21:05 Lisinopril 20 Mg Tab PO 20 mg BID REMIGIO Administration Metformin HCl 500 mg 08/07/21 21:00 08/07/21 21:05 Metformin 500 Mg Tab PO 500 mg HS REMIGIO Administration Metformin HCl 1,000 mg 08/08/21 07:30 Metformin 500 Mg Tab PO AC-BRKFST [facility] Metoprolol Tartrate 50 mg 08/08/21 07:30 Metoprolol Tartrate 50 Mg Tab PO BID-W/MEALS [facility] Naloxone HCl 0.2 mg 08/07/21 18:06 Naloxone 0.4 Mg/Ml 1 Ml Vial IV Q2M PRN Opioid Reversal Pantoprazole Sodium 40 mg 08/08/21 07:30 Pantoprazole 40 Mg Tablet PO AC-BRKFST REMIGIO Intake and Output 08/07/21 08/08/21 08/08/21 22:59 06:59 14:59 Intake Total 100 Balance 100 Intake: Oral 100 Other: Voiding Method Toilet # Voids 1 1 Weight 99.79 kg 08/07/21 16:32 08/07/21 16:32
[2021-08-08 12:01] LABS: Glucose,Whole Blood 219 mg/dL (75-99)
[2021-08-08 12:03] LABS: African American GFR (CKD) 49.9 (60.0-200.0); Anion Gap 13.8 mmol/L (10.00-18.00); BUN/Creat Ratio 17.47 Ratio (12.00-20.00); Blood Urea Nitrogen 26.2 mg/dL (9.0-27.0); Calcium 8.8 mg/dL (8.7-10.3); Carbon Dioxide 24.2 mmol/L (20.0-27.5); Magnesium 1.8 mg/dL (1.5-2.4)
[2021-08-08] MEDS ORDERED: hydrALAZINE HCL 20 MG/ML 1 ML VIAL IVP PRN (12:42)
--- NOTE | 2021-08-08 12:43 | P.NPCON ---
History of Present Illness - Reason for Consult acute renal failure - History of Present Illness Reason for consultation: Acute kidney injury History of present illness: Patient is a 80-year-old male seen in consultation for acute kidney injury. Agents creatinine in March 2021 was near 1 and was elevated at 1.4 on admission. It is fairly stable at 1.5 today. Patient does have history of diabetes. He does not follow with a guest relations receptionist outpatient. Patient presented to the hospital due to generalized fatigue which is going on for a few days. Patient states he came to the point frequently when get up from the bed and ambulate. He subsequently came to the hospital. Patient does have history of diabetes. His blood pressure is running high. He is also noted to have left- sided hydronephrosis. Patient has a history of chronic systolic CHF with ejection fraction of 45%. He is history of coronary disease and underwent CABG about 5 years ago. No vomiting or diarrhea. No edema. No hematuria or dysuria. Appetite is better now and he is eating. present at bedside. Vital signs are stable. Blood pressure high. General: Awake and alert. No acute distress. HEENT: Head exam is unremarkable. LUNGS: Breath sounds decreased. HEART: Rate and Rhythm are regular. ABDOMEN: Soft, no distention. EXTREMITITES: No edema. Past Medical History Past Medical History: Atrial Flutter, Cancer, CVA/TIA, Diabetes Mellitus, Hypertension Additional Past Medical History / Comment(s): June: IP ADM FOR GI BLEED. 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 Past Anesthesia/Blood Transfusion Reactions: No Reported Reaction Past Psychological History: No Psychological Hx Reported Additional Psychological History / Comment(s): Pt resides with his spouse of 55 yrs. He used a walker a couple weeks ago for a brief time. He drives. Smoking Status: Never smoker Past Alcohol Use History: Rare Past Drug Use History: None Reported - Past Family History Father Additional Family Medical History / Comment(s): Father at the age of 33 yrs from encephalitis. Mother Family Medical History: Myocardial Infarction ([place]) Additional Family Medical History / Comment(s): Mother had a [place] at the age of 60yrs. She at the age of 90yrs. Medications and Allergies Home Medications Medication Instructions Recorded Confirmed Type glipiZIDE [Glipizide Xl] 5 mg PO AC-BID 07/08/16 08/07/21 History metFORMIN HCL [Glucophage] 1,000 mg PO DAILY 07/08/16 08/07/21 History metFORMIN HCL [Glucophage] 500 mg PO HS 07/08/16 08/07/21 History Aspirin EC [Ecotrin Low Dose] 81 mg PO DAILY 08/07/21 08/07/21 History Atorvastatin [Lipitor] 40 mg PO HS 08/07/21 08/07/21 History Cholecalciferol [Vitamin D3 (125 125 mcg PO DAILY 08/07/21 08/07/21 History Mcg = 5000 Iu)] Ferrous Sulfate [Feosol] 325 mg PO Q48H 08/07/21 08/07/21 History Insulin Glargine,Hum.rec.anlog 14 unit SQ HS 08/07/21 08/07/21 History [Lantus Solostar Pen] Levothyroxine Sodium [Synthroid] 25 mcg PO DAILY 08/07/21 08/07/21 History Maxivision Whole Body Formula 1 cap PO BID 08/07/21 08/07/21 History Metoprolol Tartrate [Lopressor] 50 mg PO BID-W/MEALS 08/07/21 08/07/21 History Pantoprazole [Protonix] 40 mg PO DAILY 08/07/21 08/07/21 History hydrALAZINE HCL 25 mg PO TID 08/07/21 08/07/21 History hydroCHLOROthiazide [Hydrodiuril] 25 mg PO DAILY 08/07/21 08/07/21 History lisinopriL [Zestril] 20 mg PO BID 08/07/21 08/07/21 History Allergies Allergy/AdvReac Type Severity Reaction Status Date / Time latex Allergy Unknown Verified 08/07/21 17:36 penicillin V Allergy Unknown Verified 08/07/21 17:36 Physical Exam Vitals: Vital Signs Temp Pulse Pulse Resp BP BP Pulse Ox 08/08/21 07:18 98.1 F 97 20 182/88 93 L 08/08/21 01:42 98.1 F 102 H 20 179/69 94 L 08/08/21 00:27 96 18 08/07/21 22:39 98.4 F 109 H 20 181/80 93 L 08/07/21 21:18 90 18 131/97 98 08/07/21 15:30 98.9 F 98 18 173/97 92 L Intake and Output 08/07/21 08/08/21 08/08/21 22:59 06:59 14:59 Intake Total 100 240 Balance 100 240 Intake: Oral 100 240 Other: Voiding Method Toilet Toilet # Voids 1 1 # Bowel Movements 1 Weight 99.79 kg Results - Lab Results Most recent lab results Calcium 8.8 mg/dL (8.7-10.3) 08/08/21 06:31 Magnesium 1.8 mg/dL (1.5-2.4) 08/08/21 06:31 08/08/21 06:31 08/08/21 06:31 Assessment and Plan Plan: Assessment: 1. Acute kidney injury mostly prerenal secondary to poor intake and diuresis. Also component of obstructive uropathy. Creatinine in March 2021 was 0.9 and was elevated at 1.45 on admission yesterday. Stable at 1.5 today. 2. Left-sided nephrolithiasis and hydronephrosis. Urology consulted. 3. Benign hypertension. Blood pressure high. 4. Diabetes mellitus. 5. Proteinuria. Likely due to underlying diabetic kidney disease. Further workup outpatient. Plan: Hold hydrochlorothiazide. Increase dose of hydralazine. Add when necessary hydralazine as well. Check orthostatic vital signs. Maintain lisinopril for now as blood pressure is high. Encourage oral intake. Avoid nephrotoxins. Check bladder scan to rule out urinary retention. Continue to monitor renal function and urine output. Follow-up echocardiogram. Thank you for the consultation. I will continue to follow the patient with you during his hospital stay.
[2021-08-08] MEDS: hydrALAZINE HCL 50 MG TAB PO SCH ×2 (15:19→21:36)
[2021-08-08 16:24] LABS: Glucose,Whole Blood 187 mg/dL (75-99)
--- NOTE | 2021-08-08 18:36 | P.GSCN ---
History of Present Illness Consult date: 08/08/21 Reason for Consult: Left-sided hydronephrosis History of present illness: This is an 80-year-old male admitted to the hospital with acute kidney injury, creatinine of 1.5 from a baseline of 0.9. Urology is consulted for left-sided hydronephrosis. He underwent a renal ultrasound on presentation that showed evidence of left-sided hydronephrosis, and a possible 1.9 cm left-sided renal stone, in the upper pole . Denies any flank pain or gross hematuria. Denies any previous renal surgeries. Denies any previous history of kidney stones. Indicated that he's been able to void with completion without any difficulty voiding. His post void residual was checked on admission was 154 mL's. Review of Systems - Constitutional Denies chills, Denies fever - EENT Ears, nose, mouth and throat: Denies dysphagia - Cardiovascular Denies chest pain, Denies shortness of breath - Respiratory Denies cough, Denies 7 - Gastrointestinal Reports as per HPI - Genitourinary Denies dysuria, Denies hematuria - Neurological Denies headaches, Denies syncope Past Medical History Past Medical History: Atrial Flutter, Cancer, CVA/TIA, Diabetes Mellitus, Hypertension Additional Past Medical History / Comment(s): June: IP ADM FOR GI BLEED. 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 Past Anesthesia/Blood Transfusion Reactions: No Reported Reaction Past Psychological History: No Psychological Hx Reported Additional Psychological History / Comment(s): Pt resides with his spouse of 55 yrs. He used a walker a couple weeks ago for a brief time. He drives. Smoking Status: Never smoker Past Alcohol Use History: Rare Past Drug Use History: None Reported - Past Family History Father Additional Family Medical History / Comment(s): Father at the age of 33 yrs from encephalitis. Mother Family Medical History: Myocardial Infarction ([place]) Additional Family Medical History / Comment(s): Mother had a [place] at the age of 60yrs. She at the age of 90yrs. Medications and Allergies Home Medications Medication Instructions Recorded Confirmed Type RX: glipiZIDE [Glipizide Xl] 5 mg PO AC-BID 07/08/16 08/07/21 History RX: metFORMIN HCL [Glucophage] 1,000 mg PO DAILY 07/08/16 08/07/21 History RX: metFORMIN HCL [Glucophage] 500 mg PO HS 07/08/16 08/07/21 History Aspirin EC [Ecotrin Low Dose] 81 mg PO DAILY 08/07/21 08/07/21 History Cholecalciferol [Vitamin D3 (125 125 mcg PO DAILY 08/07/21 08/07/21 History Mcg = 5000 Iu)] Ferrous Sulfate [Feosol] 325 mg PO Q48H 08/07/21 08/07/21 History Insulin Glargine,Hum.rec.anlog 14 unit SQ HS 08/07/21 08/07/21 History [Lantus Solostar Pen] Levothyroxine Sodium [Synthroid] 25 mcg PO DAILY 08/07/21 08/07/21 History Maxivision Whole Body Formula 1 cap PO BID 08/07/21 08/07/21 History RX: Atorvastatin [Lipitor] 40 mg PO HS 08/07/21 08/07/21 History RX: Metoprolol Tartrate [Lopressor] 50 mg PO BID-W/MEALS 08/07/21 08/07/21 History RX: Pantoprazole [Protonix] 40 mg PO DAILY 08/07/21 08/07/21 History RX: hydrALAZINE HCL 25 mg PO TID 08/07/21 08/07/21 History hydroCHLOROthiazide [Hydrodiuril] 25 mg PO DAILY 08/07/21 08/07/21 History lisinopriL [Zestril] 20 mg PO BID 08/07/21 08/07/21 History Allergies Allergy/AdvReac Type Severity Reaction Status Date / Time latex Allergy Unknown Verified 08/07/21 17:36 penicillin V Allergy Unknown Verified 08/07/21 17:36 Surgical - Exam Vital Signs Temp Pulse Resp BP Pulse Ox 98.9 F 98 18 173/97 92 L 08/07/21 15:30 08/07/21 15:30 08/07/21 15:30 08/07/21 15:30 08/07/21 15:30 - General no distress, no pain - Eyes normal ocular movement, no pale - ENT normal nares, normal mucosa - Respiratory normal expansion, normal respiratory effort - Abdomen Abdomen: soft, non tender, no distended - Psychiatric oriented to time, oriented to person, oriented to place Results - Labs 08/08/21 06:31 08/08/21 06:31 Abnormal Lab Results - Last 24 Hours (Table) 08/07/21 08/07/21 08/08/21 Range/Units 18:48 21:11 06:31 WBC 11.97 H (4.50-10.00) X 10*3/uL RBC 4.35 L (4.40-5.60) X 10*6/uL MCHC 31.6 L (32.0-37.0) g/dL Neutrophils # 10.03 H (1.80-7.70) X 10*3/uL Est GFR (CKD-EPI)AfAm (60.0-200.0) Est GFR (CKD-EPI)NonAf (60.0-200.0) Glucose (70-110) mg/dL POC Glucose (mg/dL) 142 H (75-99) mg/dL Urine Protein 1+ H (Negative) Urine Ketones 1+ H (Negative) Ur Leukocyte Esterase Small H (Negative) Urine Bacteria Rare H (None) /hpf Urine Mucus Rare H (None) /hpf 08/08/21 08/08/21 08/08/21 Range/Units 06:31 07:13 11:59 WBC (4.50-10.00) X 10*3/uL RBC (4.40-5.60) X 10*6/uL MCHC (32.0-37.0) g/dL Neutrophils # (1.80-7.70) X 10*3/uL Est GFR (CKD-EPI)AfAm 49.9 L (60.0-200.0) Est GFR (CKD-EPI)NonAf 43.0 L (60.0-200.0) Glucose 173 H (70-110) mg/dL POC Glucose (mg/dL) 159 H 219 H (75-99) mg/dL Urine Protein (Negative) Urine Ketones (Negative) Ur Leukocyte Esterase (Negative) Urine Bacteria (None) /hpf Urine Mucus (None) /hpf 08/08/21 Range/Units 16:23 WBC (4.50-10.00) X 10*3/uL RBC (4.40-5.60) X 10*6/uL MCHC (32.0-37.0) g/dL Neutrophils # (1.80-7.70) X 10*3/uL Est GFR (CKD-EPI)AfAm (60.0-200.0) Est GFR (CKD-EPI)NonAf (60.0-200.0) Glucose (70-110) mg/dL POC Glucose (mg/dL) 187 H (75-99) mg/dL Urine Protein (Negative) Urine Ketones (Negative) Ur Leukocyte Esterase (Negative) Urine Bacteria (None) /hpf Urine Mucus (None) /hpf Diabetes panel 08/08/21 Range/Units 06:31 Sodium 139 (135-145) mmol/L Potassium 4.0 (3.5-5.5) mmol/L Chloride 101 (96-109) mmol/L Carbon Dioxide 24.2 (20.0-27.5) mmol/L BUN 26.2 (9.0-27.0) mg/dL Creatinine 1.5 (0.6-1.5) mg/dL Glucose 173 H (70-110) mg/dL Calcium 8.8 (8.7-10.3) mg/dL Calcium panel 08/08/21 Range/Units 06:31 Calcium 8.8 (8.7-10.3) mg/dL Pituitary panel 08/08/21 Range/Units 06:31 Sodium 139 (135-145) mmol/L Potassium 4.0 (3.5-5.5) mmol/L Chloride 101 (96-109) mmol/L Carbon Dioxide 24.2 (20.0-27.5) mmol/L BUN 26.2 (9.0-27.0) mg/dL Creatinine 1.5 (0.6-1.5) mg/dL Glucose 173 H (70-110) mg/dL Calcium 8.8 (8.7-10.3) mg/dL Adrenal panel 08/08/21 Range/Units 06:31 Sodium 139 (135-145) mmol/L Potassium 4.0 (3.5-5.5) mmol/L Chloride 101 (96-109) mmol/L Carbon Dioxide 24.2 (20.0-27.5) mmol/L BUN 26.2 (9.0-27.0) mg/dL Creatinine 1.5 (0.6-1.5) mg/dL Glucose 173 H (70-110) mg/dL Calcium 8.8 (8.7-10.3) mg/dL Assessment and Plan Assessment: 80-year-old male with acute kidney injury, creatinine of 1.5 her baseline over 0.9. Ultrasound showed evidence of a left-sided hydronephrosis, and 1.9 cm left-sided renal stone. -We'll obtain a CT renal stone protocol, to further evaluate hydronephrosis
[2021-08-08 20:21] LABS: Glucose,Whole Blood 177 mg/dL (75-99)
--- NOTE | 2021-08-08 20:24 | CT ---
EXAMINATION TYPE: CT renal stones wo con DATE OF EXAM: 08/08/2021 COMPARISON: None HISTORY: h/o hydronephorsis CT DLP: 971 mGycm Automated exposure control for dose reduction was used. Images obtained from the diaphragm to the floor of the pelvis with no contrast. There is some mild atelectasis at both lung bases. Heart size is fairly normal. No pericardial effusi on. No pleural effusion. There are clips from cholecystectomy. The bile ducts are not dilated. Liver shows no focal defect. Sp robert is intact. There is no pancreatic mass. The stomach is intact. There is no adrenal mass. There are multiple bilateral renal cortical cysts. These measure up to 4 cm . There is severe left-sided hydronephrosis and perinephric edema. There are left-sided renal calculi in the calyces and also in the dilated renal pelvis. There is 1 cm obstructing calculus in the proxi mal left ureter. Right kidney shows no sign of obstruction. No evidence of right-sided renal calculus. There is no retroperitoneal adenopathy. Bladder distends smoothly. There is right inguinal hernia con tains some small bowel. No evidence of a bowel obstruction. No pelvic mass. There is no ascites or free air. There is multiple sigmoid diverticula. There are diverticula of the descending colon. There are numerous diverticula in the right colon and transverse colon. The lumbar vertebrae have normal alignment. No compression fracture. There is vacuum disc at L5-S1. B alex pelvis is intact. IMPRESSION: Obstructing calculus at the left ureteropelvic junction with severe left-sided hydronephrosis. Multip le left-sided renal calculi. Left-sided perinephric edema. Renal cortical cysts. Extensive colonic diverticulosis without diverticulitis. Normal appendix. Mild atelectasis at the lung bases.
[2021-08-08] MEDS: ATORVASTATIN 40 MG TAB PO SCH (21:36)
[2021-08-08] MEDS: CIPROFLOXACIN HCL 250 MG TAB PO SCH (21:36)
[2021-08-08] MEDS: INSULIN DETEMIR (LEVEMIR) 100 UNIT/ML SYR SQ SCH (21:36)
[2021-08-09] MEDS: LEVOTHYROXINE 25 MCG TAB PO SCH (06:05)
[2021-08-09 06:55] LABS: Glucose,Whole Blood 99 mg/dL (75-99)
--- NOTE | 2021-08-09 06:56 | CA ---
Transthoracic Echo Report Name: Ranjan Pace Age: 80 Gender: M : 1940 Exam Date: 08/08/2021 14:59 Exam Location: [facility] Ht (in): 71 Wt (lb): 220 Ordering Physician: Davy Eldridge MD Attending/Referring Phys: Metal Finisher Stephanie Case RDCS Procedure CPT: Indications: elevated bnp Cardiac Hx: Hx of CABG Technical Quality: Fair Contrast 1: Total Dose (mL): Contrast 2: Total Dose (mL): MEASUREMENTS (Male / Female) Normal Values 2D ECHO LV Diastolic Diameter PLAX 4.8 cm 4.2 - 5.9 / 3.9 - 5.3 cm LV Systolic Diameter PLAX 3.9 cm IVS Diastolic Thickness 1.5 cm 0.6 - 1.0 / 0.6 - 0.9 cm LVPW Diastolic Thickness 1.5 cm 0.6 - 1.0 / 0.6 - 0.9 cm LV Relative Wall Thickness 0.6 RV Internal Dim ED PLAX 3.5 cm LVOT Diameter 2.6 cm LA Systolic Diameter LX 3.8 cm 3.0 - 4.0 / 2.7 - 3.8 cm LA Volume 68.8 cm 18 - 58 / 22 - 52 cm M-MODE Aortic Root Diameter MM 3.7 cm MV E Point Septal Separation 1.5 cm AV Cusp Separation MM 1.6 cm DOPPLER AV Peak Velocity 255.8 cm/s AV Peak Gradient 26.2 mmHg AV Mean Velocity 166.2 cm/s AV Mean Gradient 13.5 mmHg AV Velocity Time Integral 49.6 cm LVOT Peak Velocity 86.1 cm/s LVOT Peak Gradient 3.0 mmHg AV Area Cont Eq pk 1.7 cm MV Area PHT 6.8 cm MV Deceleration Time 99.7 ms TR Peak Velocity 332.7 cm/s TR Peak Gradient 44.3 mmHg Right Ventricular Systolic Press 48.1 mmHg FINDINGS Left Ventricle Left ventricular ejection fraction is estimated at 45-50 %. Normal Left ventricular size, systolic function with no obvious regional wall motion abnormalities. Moderate concentric left ventricular hypertrophy. Right Ventricle Mild right ventricular dilatation. Moderate pulmonary hypertension. Right Atrium Normal right atrial size. Left Atrium Mildly increased left atrial volume. Mildly increased left atrial area. Mitral Valve Mitral annular calcification. Mild mitral regurgitation. Aortic Valve Aortic valve sclerosis. Mild aortic stenosis with a peak gradient of 26 mmHg and a mean gradient of 13 mmHg. Tricuspid Valve Mild tricuspid regurgitation. Pulmonic Valve Mild pulmonic regurgitation. Pericardium Normal pericardium. Aorta Normal size aortic root and proximal ascending aorta. CONCLUSIONS LV size is normal with ejection fraction of nearly 50% with mild concentric LVH. There is mitral calcification and aortic sclerosis with a mild gradient across aortic valve suggestive of mild aortic stenosis. This mild mitral and tricuspid insufficiency and moderate pulmonary hypertension Previewed by: Dr. Prudencio Lopez MD (Electronically Signed) Final Date: 09 August 2021 06:54
[2021-08-09] MEDS: metFORMIN 500 MG TAB PO SCH ×2 (09:29→20:48)
[2021-08-09] MEDS: lisinopriL 20 MG TAB PO SCH ×2 (09:43→21:55)
[2021-08-09] MEDS: PANTOPRAZOLE 40 MG TABLET PO SCH (09:43)
[2021-08-09] MEDS: FAMOTIDINE 20 MG TAB PO SCH (09:43)
[2021-08-09] MEDS: CIPROFLOXACIN HCL 250 MG TAB PO SCH ×2 (09:43→20:48)
[2021-08-09] MEDS: METOPROLOL TARTRATE 50 MG TAB PO SCH ×2 (09:43→17:49)
[2021-08-09] MEDS: hydrALAZINE HCL 50 MG TAB PO SCH ×2 (09:44→17:48)
[2021-08-09] MEDS: ASPIRIN 81 MG PO SCH (09:44)
[2021-08-09] MEDS: glipiZIDE 5 MG TAB PO SCH ×2 (09:44→17:48)
[2021-08-09] MEDS: SODIUM CHLORIDE 0.9% 1,000 ML IV SCH ×2 (09:47→22:00)
[2021-08-09] MEDS: ENOXAPARIN 40 MG/0.4 ML SYRINGE SQ SCH (09:47)
--- NOTE | 2021-08-09 09:50 | P.PN ---
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 He follows in the office with Dr. Campoverde. We have been asked to see in consultation for concern for congestive heart failure. Patient presents to the emergency department on 08/07/21 with complaints of generalized fatigue. He states he's been having these symptoms of worsening fatigue for about one week. Patient was found to have acute kidney injury with sCr 1.5. Abdominal ultrasound revealed left sided nephrolithiasis and moderate left sided hydronephrosis. Renal CT revealed obstructing calculus at the left uteropelvic junction with severe left-sided hydronephrosis. Multiple left-sided renal calculi. Left sided perinephric edema. Renal cortical cysts. Urology was consulted. Patient seen and examined at bedside, no acute distress. Denies any chest pain, shortness of breath, orthopnea or PND. Patient is NPO for possible cystoscopy left ureteroscopy today. Blood pressure remains elevated. Hydralazine was increased. PHYSICAL EXAMINATION Vitals reviewed CONSTITUTIONAL: No apparent distress. HEENT: Neck Supple. No JVD. CHEST EXAMINATION: Lungs are clear to auscultation. No chest wall tenderness is noted on palpation or with deep breathing. HEART EXAMINATION: Regular rate and rhythm. S1, S2 heard. Systolic ejection murmur noted. ABDOMEN: Soft, nontender. Positive bowel sounds. EXTREMITIES: 2+ peripheral pulses, trace bilateral lower extremity edema and no calf tenderness. NEUROLOGIC EXAMINATION: Patient is awake, alert and oriented x3. ASSESSMENT Acute kidney injury Leukocytosis Left sided nephrolithiasis Left sided hydronephrosis Symptoms of generalized fatigue and decrease appetite Coronary artery disease status post three-vessel CABG (ABEL-LAD, VG-OM1, VG-D1) 10/2016 Hypertension Dyslipidemia Type 2 diabetes Peripheral vascular disease Ischemic cardiomyopathy with EF of 45% PLAN Patient does not appear to be in acute heart failure on exam from a cardiology perspective. Continue home cardiac medications. Monitor BP. Monitor renal function. Urology and Nephrology consulted. No further changes at this time from a cardiology perspective. We will follow the patient as needed. Please reach out with any questions or c oncerns. On discharge, patient to follow up with Dr. Campoverde Nurse practitioner note has been reviewed by physician. Signing provider agrees with the documented findings, assessment, and plan of care. Objective - Vital Signs Vital signs: Vital Signs Temp 97.8 F 08/09/21 07:00 Pulse 91 08/09/21 07:00 Resp 18 08/09/21 07:00 BP 183/78 08/09/21 07:00 Pulse Ox 96 08/09/21 07:00 Intake & Output 08/08/21 08/09/21 08/09/21 18:59 06:59 18:59 Intake Total 358 Balance 358 Intake: Oral 358 Other: Voiding Method Toilet Toilet # Voids 1 1 # Bowel Movements 1 - Labs CBC & Chem 7: 08/08/21 06:31 08/08/21 06:31 Labs: Abnormal Lab Results - Last 24 Hours (Table) 08/08/21 08/08/21 08/08/21 Range/Units 06:31 06:31 11:59 WBC 11.97 H (4.50-10.00) X 10*3/uL RBC 4.35 L (4.40-5.60) X 10*6/uL MCHC 31.6 L (32.0-37.0) g/dL Neutrophils # 10.03 H (1.80-7.70) X 10*3/uL Est GFR (CKD-EPI)AfAm 49.9 L (60.0-200.0) Est GFR (CKD-EPI)NonAf 43.0 L (60.0-200.0) Glucose 173 H (70-110) mg/dL POC Glucose (mg/dL) 219 H (75-99) mg/dL 08/08/21 08/08/21 Range/Units 16:23 20:19 WBC (4.50-10.00) X 10*3/uL RBC (4.40-5.60) X 10*6/uL MCHC (32.0-37.0) g/dL Neutrophils # (1.80-7.70) X 10*3/uL Est GFR (CKD-EPI)AfAm (60.0-200.0) Est GFR (CKD-EPI)NonAf (60.0-200.0) Glucose (70-110) mg/dL POC Glucose (mg/dL) 187 H 177 H (75-99) mg/dL Microbiology - Last 24 Hours (Table) 08/08/21 17:02 Urine Culture - Preliminary Urine,Voided 08/07/21 16:30 Blood Culture - Preliminary Blood No Growth after 24 hours 08/07/21 16:43 Blood Culture - Preliminary Blood No Growth after 24 hours
[2021-08-09] MEDS: CHOLECALCIFEROL 125 MCG (5000 IU) TABLET PO SCH (09:55)
[2021-08-09 10:14] LABS: Basophils # (A) 0.06 X 10*3/uL (0.00-0.10); Basophils % (A) 0.6 %; Eosinophils # (A) 0.17 X 10*3/uL (0.04-0.35); Eosinophils % (A) 1.6 %; HCT 43.4 % (39.6-50.0); HGB 13.4 g/dL (13.0-17.0); Immature Grans, Automated 0.6 %; Lymphocytes # (A) 0.95 X 10*3/uL (0.90-5.00); Lymphocytes % (A) 8.7 %; MCHC 30.9 g/dL (32.0-37.0); MCV 97.1 fL (80.0-97.0); Mean Platelet Volume 10.8 fL (9.5-12.2); Monocytes # (A) 0.81 X 10*3/uL (0.20-1.00); Monocytes % (A) 7.4 %; NRBC Per 100 WBC 0 /100 WBCS (0.0-0.0); Neutrophils # (A) 8.84 X 10*3/uL (1.80-7.70); Neutrophils % (A) 81.1 %; Platelet Count 249 X 10*3/uL (140-440); RBC 4.47 X 10*6/uL (4.40-5.60); RDW 13.3 % (11.5-14.5); WBC 10.89 X 10*3/uL (4.50-10.00)
[2021-08-09 10:53] LABS: African American GFR (CKD) 49.1 (60.0-200.0); Albumin 3.2 g/dL (3.8-4.9); Albumin/Globulin Ratio 1.18 (1.60-3.17); Anion Gap 13.7 mmol/L (10.00-18.00); BUN/Creat Ratio 14.67 Ratio (12.00-20.00); Blood Urea Nitrogen 22.3 mg/dL (9.0-27.0); Calcium 8.8 mg/dL (8.7-10.3); Carbon Dioxide 25.7 mmol/L (20.0-27.5); Globulin 2.7 g/dL (1.6-3.3); Magnesium 1.7 mg/dL (1.5-2.4); Non-African American GFR(CKD) 42.4 (60.0-200.0); Potassium 4.1 mmol/L (3.5-5.5); Total Bilirubin 0.5 mg/dL (0.30-1.20); Total Protein 5.9 g/dL (6.2-8.2)
--- NOTE | 2021-08-09 11:06 | P.PN ---
Subjective Patient is seen in follow-up for acute kidney injury. Renal function stable. Has been voiding. No vomiting or diarrhea. No chest pain or shortness of breath. Vital signs stable. General: NAD. HEENT: Head exam is unremarkable. LUNGS: Breath sounds decreased. HEART: Rate and Rhythm are regular. First and second heart sounds normal. No murmurs, rubs or gallops. ABDOMEN: Soft, no distention. EXTREMITITES: No edema. Objective - Vital Signs Vital signs: Vital Signs Temp 97.8 F 08/09/21 07:00 Pulse 91 08/09/21 07:00 Resp 18 08/09/21 07:00 BP 183/78 08/09/21 07:00 Pulse Ox 96 08/09/21 07:00 Intake & Output 08/08/21 08/09/21 08/09/21 18:59 06:59 18:59 Intake Total 358 Balance 358 Intake: Oral 358 Other: Voiding Method Toilet Toilet # Voids 1 1 # Bowel Movements 1 - Labs CBC & Chem 7: 08/09/21 06:17 08/09/21 06:17 Labs: Abnormal Lab Results - Last 24 Hours (Table) 08/08/21 08/08/21 08/08/21 Range/Units 06:31 11:59 16:23 WBC (4.50-10.00) X 10*3/uL MCV (80.0-97.0) fL MCHC (32.0-37.0) g/dL Immature Gran # (0.00-0.04) X 10*3/uL Neutrophils # (1.80-7.70) X 10*3/uL Est GFR (CKD-EPI)AfAm 49.9 L (60.0-200.0) Est GFR (CKD-EPI)NonAf 43.0 L (60.0-200.0) Glucose 173 H (70-110) mg/dL POC Glucose (mg/dL) 219 H 187 H (75-99) mg/dL Total Protein (6.2-8.2) g/dL Albumin (3.8-4.9) g/dL Albumin/Globulin Ratio (1.60-3.17) g/dL 08/08/21 08/09/21 08/09/21 Range/Units 20:19 06:17 06:17 WBC 10.89 H (4.50-10.00) X 10*3/uL MCV 97.1 H (80.0-97.0) fL MCHC 30.9 L (32.0-37.0) g/dL Immature Gran # 0.06 H (0.00-0.04) X 10*3/uL Neutrophils # 8.84 H (1.80-7.70) X 10*3/uL Est GFR (CKD-EPI)AfAm 49.1 L (60.0-200.0) Est GFR (CKD-EPI)NonAf 42.4 L (60.0-200.0) Glucose (70-110) mg/dL POC Glucose (mg/dL) 177 H (75-99) mg/dL Total Protein 5.9 L (6.2-8.2) g/dL Albumin 3.2 L (3.8-4.9) g/dL Albumin/Globulin Ratio 1.18 L (1.60-3.17) g/dL Microbiology - Last 24 Hours (Table) 08/08/21 17:02 Urine Culture - Preliminary Urine,Voided 08/07/21 16:30 Blood Culture - Preliminary Blood No Growth after 24 hours 08/07/21 16:43 Blood Culture - Preliminary Blood No Growth after 24 hours Assessment and Plan Plan: Assessment: 1. Acute kidney injury mostly prerenal secondary to poor intake and diuresis. Also component of obstructive uropathy. Creatinine in March 2021 was 0.9 - stable at 1.5 today. 2. Left-sided nephrolithiasis and hydronephrosis. Urology following. Possible surgical intervention today. 3. Benign hypertension. Blood pressure high. 4. Diabetes mellitus. 5. Proteinuria. Likely due to underlying diabetic kidney disease. Further workup outpatient. 6. Chronic diastolic CHF fraction of 50% withmoderate pulmonary hypertension. Plan: Continue to hold diuretics. Increase dose of hydralazine - hold for systolic blood pressure less than 125. Maintain lisinopril for now as blood pressure is high. Encourage oral intake. Avoid nephrotoxins. Continue to monitor renal function and urine output.
[2021-08-09 12:04] LABS: Glucose,Whole Blood 107 mg/dL (75-99)
[2021-08-09] MEDS ORDERED: IV FLUID CONTINUATION 1,000 ML IV ONE (15:55)
--- NOTE | 2021-08-09 16:26 | P.PN ---
Subjective Progress Note Date: 08/09/[address] scan showed a 1 cm left proximal ureteral stone, additionally multiple nonobstructive stone with severe hydronephrosis. He did complain of left flank pain this morning, denies any gross hematuria or dysuria Objective - Vital Signs Vital signs: Vital Signs Temp 99.1 F 08/09/21 15:58 Pulse 88 08/09/21 15:58 Resp 20 08/09/21 15:58 BP 193/92 08/09/21 15:58 Pulse Ox 95 08/09/21 15:58 Intake & Output 08/08/21 08/09/21 08/09/21 18:59 06:59 18:59 Intake Total 358 Output Total 125 Balance 358 -125 Intake: Oral 358 Output: Urine 125 Other: Voiding Method Toilet Toilet Toilet # Voids 1 1 # Bowel Movements 1 - Constitutional General appearance: Present: no acute distress - Gastrointestinal General gastrointestinal: Present: soft. Absent: distended, tenderness - Psychiatric Psychiatric: Present: A&O x's 3 - Labs CBC & Chem 7: 08/09/21 06:17 08/09/21 06:17 Labs: Abnormal Lab Results - Last 24 Hours (Table) 08/08/21 08/08/21 08/09/21 Range/Units 16:23 20:19 06:17 WBC (4.50-10.00) X 10*3/uL MCV (80.0-97.0) fL MCHC (32.0-37.0) g/dL Immature Gran # (0.00-0.04) X 10*3/uL Neutrophils # (1.80-7.70) X 10*3/uL Est GFR (CKD-EPI)AfAm 49.1 L (60.0-200.0) Est GFR (CKD-EPI)NonAf 42.4 L (60.0-200.0) POC Glucose (mg/dL) 187 H 177 H (75-99) mg/dL Total Protein 5.9 L (6.2-8.2) g/dL Albumin 3.2 L (3.8-4.9) g/dL Albumin/Globulin Ratio 1.18 L (1.60-3.17) g/dL 08/09/21 08/09/21 Range/Units 06:17 12:02 WBC 10.89 H (4.50-10.00) X 10*3/uL MCV 97.1 H (80.0-97.0) fL MCHC 30.9 L (32.0-37.0) g/dL Immature Gran # 0.06 H (0.00-0.04) X 10*3/uL Neutrophils # 8.84 H (1.80-7.70) X 10*3/uL Est GFR (CKD-EPI)AfAm (60.0-200.0) Est GFR (CKD-EPI)NonAf (60.0-200.0) POC Glucose (mg/dL) 107 H (75-99) mg/dL Total Protein (6.2-8.2) g/dL Albumin (3.8-4.9) g/dL Albumin/Globulin Ratio (1.60-3.17) g/dL Microbiology - Last 24 Hours (Table) 08/08/21 17:02 Urine Culture - Preliminary Urine,Voided 08/07/21 16:30 Blood Culture - Preliminary Blood No Growth after 24 hours 08/07/21 16:43 Blood Culture - Preliminary Blood No Growth after 24 hours Assessment and Plan Assessment: 80-year-old male with acute kidney injury, creatinine of 1.5 her baseline over 0.9. CT yesterday showed an obstructive 1 cm left-sided proximal stone, and multiple nonobstructive renal stones. Discussed with him given his acute kidney injury and the evidence of an obstructive stone recommend proceeding with left- sided stent placement with the possibility of doing ureteroscopy with holmium laser lithotripsy at the same setting. Discussed with him given the amount of his stone burden he will most likely need two surgeries to address his stones, as his stone burden was greater than 2 cm. Discussed risk of surgery which includes but not limited to bleeding, infection, injury to the ureter. He understood all the risk and agreed to proceed -Or for left-sided ureteroscopy, with holmium laser lithotripsy and stent inse rtion
[2021-08-09] MEDS ORDERED: ONDANSETRON 4 MG/2 ML VIAL ONE (16:36)
[2021-08-09] MEDS ORDERED: ONDANSETRON 4 MG/2 ML VIAL IVP ONE (16:38)
[2021-08-09 16:42] LABS: Glucose,Whole Blood 79 mg/dL (75-99)
[2021-08-09] MEDS ORDERED: PROPOFOL 10 MG/ML 20 ML VIAL IV ONE (16:53)
[2021-08-09] MEDS ORDERED: SUCCINYLCHOLINE CHLORIDE 100 MG/5 ML SYR IV ONE (16:53)
[2021-08-09] MEDS ORDERED: fentaNYL (PF) 50 MCG/ML 2 ML AMP ONE (16:53)
[2021-08-09] MEDS ORDERED: PHENYLEPHRINE-0.9% NACL SYG 1,000 MCG/10 ML SYRINGE ONE (16:53)
[2021-08-09] MEDS ORDERED: ePHEDrine 50 MG/ML 1 ML VIAL ONE (16:53)
[2021-08-09] MEDS ORDERED: LIDOCAINE 2% INJ 20 MG/ML (2 ML VIAL) ONE (16:53)
[2021-08-09] MEDS ORDERED: GENTAMICIN IV ONE ×2 (17:26)
[2021-08-09] MEDS ORDERED: SODIUM CHLORIDE 0.9% IV ONE ×2 (17:26)
[2021-08-09] MEDS ORDERED: IOHEXOL 350 MG/ML 50 ML in EMPTY BAG 1 BAG IRRIGATION ONE (17:29)
[2021-08-09] MEDS ORDERED: LACTATED RINGERS 1,000 ML IV ONE (17:43)
--- NOTE | 2021-08-09 17:45 | P.PN ---
Subjective Progress Note Date: 08/09/21 This is a 80-year-old male patient who presented with concerns of increasing edema over the past 2 weeks. Patient also reports complaints of generalized fatigue and reduced appetite. Patient has a past medical history of atrial flutter, CVA, diabetes mellitus, hypertension and cholecystectomy. Chest x-rays completed showing small left pleural effusion or pleural reaction which is similar to old exam no heart failure. COVID-19 negative. UA showing small amount of leukocyte Estrace urine culture ordered and patient started on Cipro for antibiotic. Creatinine also slightly elevated at 1.45 and bun 32. This does appear higher than patient's baseline. BNP 1970. Troponin 0.030. At this time patient will be admitted cardiology services have been consulted 2-D echo ordered. Will order ultrasound of kidneys and bladder and repeat labs. Patient denies any issues with urination. Patient denies nausea vomiting or diarrhea. Patient denies chest pain or shortness of breath. Patient denies any urinary frequency. On 08/09/2021 patient was seen and examined on the medical floor, he is alert and oriented 3 in no apparent distress he is complaining of generalized weakness otherwise he denies any complaints there is no fever or chills no headache or dizziness no chest pain no shortness of breath no cough no nausea or vomiting no abdominal pain no diarrhea no blood in the stools no burning with urination no frequency or urgency and no hematuria. Patient is followed by urology and is scheduled for urethral stent placement today for obstructive uropathy Objective - Vital Signs Vital signs: Vital Signs Temp 97.8 F 08/09/21 07:00 Pulse 97 08/09/21 08:00 Resp 18 08/09/21 08:00 BP 183/78 08/09/21 07:00 Pulse Ox 96 08/09/21 07:00 Intake & Output 08/08/21 08/09/21 08/09/21 18:59 06:59 18:59 Intake Total 358 Balance 358 Intake: Oral 358 Other: Voiding Method Toilet Toilet Toilet # Voids 1 1 # Bowel Movements 1 - Exam Head normocephalic Neck supple Lungs clear to auscultation bilaterally no wheezing or crackles Heart regular rate and rhythm S1-S2, no rub or gallop Abdomen is soft nontender nondistended positive bowel sounds no hepatosplenomegaly Extremities +1 lower extremity edema Neuro alert and orientated to 3 - Labs CBC & Chem 7: 08/09/21 06:17 08/09/21 06:17 Labs: Abnormal Lab Results - Last 24 Hours (Table) 08/08/21 08/08/21 08/09/21 Range/Units 16:23 20:19 06:17 WBC (4.50-10.00) X 10*3/uL MCV (80.0-97.0) fL MCHC (32.0-37.0) g/dL Immature Gran # (0.00-0.04) X 10*3/uL Neutrophils # (1.80-7.70) X 10*3/uL Est GFR (CKD-EPI)AfAm 49.1 L (60.0-200.0) Est GFR (CKD-EPI)NonAf 42.4 L (60.0-200.0) POC Glucose (mg/dL) 187 H 177 H (75-99) mg/dL Total Protein 5.9 L (6.2-8.2) g/dL Albumin 3.2 L (3.8-4.9) g/dL Albumin/Globulin Ratio 1.18 L (1.60-3.17) g/dL 08/09/21 08/09/21 Range/Units 06:17 12:02 WBC 10.89 H (4.50-10.00) X 10*3/uL MCV 97.1 H (80.0-97.0) fL MCHC 30.9 L (32.0-37.0) g/dL Immature Gran # 0.06 H (0.00-0.04) X 10*3/uL Neutrophils # 8.84 H (1.80-7.70) X 10*3/uL Est GFR (CKD-EPI)AfAm (60.0-200.0) Est GFR (CKD-EPI)NonAf (60.0-200.0) POC Glucose (mg/dL) 107 H (75-99) mg/dL Total Protein (6.2-8.2) g/dL Albumin (3.8-4.9) g/dL Albumin/Globulin Ratio (1.60-3.17) g/dL Microbiology - Last 24 Hours (Table) 08/08/21 17:02 Urine Culture - Preliminary Urine,Voided 08/07/21 16:30 Blood Culture - Preliminary Blood No Growth after 24 hours 08/07/21 16:43 Blood Culture - Preliminary Blood No Growth after 24 hours
--- NOTE | 2021-08-09 19:02 | P.OP ---
Date of Procedure: 08/09/21 Preoperative Diagnosis: Left ureteral stone Postoperative Diagnosis: Same Procedure(s) Performed: Cystoscopy, left retrograde pyelogram, ureteroscopy, holmium laser lithotripsy and stent insertion Implants: 6 Fr X 26 cm stent in the left ureter Anesthesia: JULIA Surgeon: Johnnie Parker Estimated Blood Loss (ml): 5 Pathology: none sent Condition: stable Disposition: PACU Indications for Procedure: 80-year-old male with acute kidney injury, creatinine of 1.5 her baseline over 0.9. CT yesterday showed an obstructive 1 cm left-sided proximal stone, and multiple nonobstructive renal stones. Discussed with him given his acute kidney injury and the evidence of an obstructive stone recommend proceeding with left- sided stent placement with the possibility of doing ureteroscopy with holmium laser lithotripsy at the same setting. Discussed with him given the amount of his stone burden he will most likely need two surgeries to address his stones, as his stone burden was greater than 2 cm. Discussed risk of surgery which includes but not limited to bleeding, infection, injury to the ureter. 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 He was prepped and draped so fashion and placed in dorsal lithotomy position. Cystoscopy fitted with a 21-Micronesian sheath was inserted per urethra, cystoscopy was performed which showed no abnormality within the bladder. Of note patient had a significantly enlarged prostate with intravesical extension. Attention was then carried to the left ureteral orifice. Of note the ureteral orifice was fairly narrowed. At this time 4 Micronesian open-ended catheter was advanced up the left ureteral orifice, retrograde pyelogram was performed which showed contrast going up mid and distal ureter, but no contrast was seen past a radiopaque stone. At this time I attempted to pass a wire past the stone but resistance was met at the stone. At this time a wire was advanced to the level of the stone, next a ureteral balloon dilator was passed over the wire and the ureteral orifice was dilated using the 12-Micronesian balloon dilator. Next a semirigid ureteroscope was inserted up the left ureteral orifice and a large stone was encountered at the mid ureter. Using the holmium laser the stone was dusted. Next the opening to the ureter past the stone was visualized. 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 I was able to pass a wire lower moiety. I attempted to pass a wire the upper pole moiety but was not able to perform that. At this time the ureteroscope was withdrawn with the wire in place in the lower moiety. Next a ureteral stent passed over the wire, the proximal curl was visualized on fluoroscopy and the distal curl was visualized using cystoscope. Hydronephrotic drip was encountered. Patient tolerated the procedure was taken to recovery in stable condition. At this time to be scheduled for a second look ureteroscopy in 2-4 weeks
[2021-08-09] MEDS ORDERED: METOPROLOL TARTRATE 5 MG/5 ML VIAL IVP ONE (19:05)
[2021-08-09] MEDS ORDERED: METOCLOPRAMIDE 5 MG/ML 2 ML VIAL IVP ONE (19:05)
[2021-08-09] MEDS ORDERED: hydrALAZINE HCL 20 MG/ML 1 ML VIAL IVP ONE (19:10)
[2021-08-09 19:51] LABS: Glucose,Whole Blood 78 mg/dL (75-99)
[2021-08-09] MEDS: ATORVASTATIN 40 MG TAB PO SCH (20:48)
[2021-08-09] MEDS: INSULIN DETEMIR (LEVEMIR) 100 UNIT/ML SYR SQ SCH (20:49)
[2021-08-10] MEDS: hydrALAZINE HCL 50 MG TAB PO SCH ×2 (00:39→08:28)
[2021-08-10] MEDS: LEVOTHYROXINE 25 MCG TAB PO SCH (05:05)
[2021-08-10 07:21] LABS: Glucose,Whole Blood 150 mg/dL (75-99)
[2021-08-10 07:32] VITALS: BP 128/70; PULSE 69; RESP 15; TEMP 99
--- NOTE | 2021-08-10 07:37 | FL ---
Fluoroscopy HISTORY: That placement 97 seconds fluoroscopy time supplied to the referring clinician. 4 intraoperative C-arm images docum ent the procedure. See dictated report from urology.
[2021-08-10] MEDS: FAMOTIDINE 20 MG TAB PO SCH (08:26)
[2021-08-10] MEDS: ASPIRIN 81 MG PO SCH (08:26)
[2021-08-10] MEDS: PANTOPRAZOLE 40 MG TABLET PO SCH (08:26)
[2021-08-10] MEDS: ENOXAPARIN 40 MG/0.4 ML SYRINGE SQ SCH (08:26)
[2021-08-10] MEDS: metFORMIN 500 MG TAB PO SCH (08:26)
[2021-08-10] MEDS: CHOLECALCIFEROL 125 MCG (5000 IU) TABLET PO SCH (08:26)
[2021-08-10] MEDS: CIPROFLOXACIN HCL 250 MG TAB PO SCH (08:27)
[2021-08-10] MEDS: glipiZIDE 5 MG TAB PO SCH (08:27)
[2021-08-10] MEDS: METOPROLOL TARTRATE 50 MG TAB PO SCH (08:27)
[2021-08-10] MEDS: lisinopriL 20 MG TAB PO SCH (08:28)
[2021-08-10 09:28] LABS: Basophils # (A) 0.07 X 10*3/uL (0.00-0.10); Basophils % (A) 0.7 %; Eosinophils # (A) 0.17 X 10*3/uL (0.04-0.35); Eosinophils % (A) 1.7 %; HCT 44.9 % (39.6-50.0); HGB 13.9 g/dL (13.0-17.0); Immature Grans, Automated 0.5 %; Lymphocytes # (A) 1.34 X 10*3/uL (0.90-5.00); Lymphocytes % (A) 13.1 %; MCH 30.2 pg (27.0-32.0); MCV 97.6 fL (80.0-97.0); Mean Platelet Volume 10.8 fL (9.5-12.2); Monocytes # (A) 0.82 X 10*3/uL (0.20-1.00); NRBC Per 100 WBC 0 /100 WBCS (0.0-0.0); Neutrophils # (A) 7.81 X 10*3/uL (1.80-7.70); Platelet Count 287 X 10*3/uL (140-440); RDW 13.6 % (11.5-14.5); WBC 10.26 X 10*3/uL (4.50-10.00)
[2021-08-10 10:00] LABS: African American GFR (CKD) 68.1 (60.0-200.0); Albumin 3.1 g/dL (3.8-4.9); Albumin/Globulin Ratio 1.18 (1.60-3.17); Anion Gap 13.4 mmol/L (10.00-18.00); BUN/Creat Ratio 15.34 Ratio (12.00-20.00); Blood Urea Nitrogen 17.8 mg/dL (9.0-27.0); Calcium 8.5 mg/dL (8.7-10.3); Globulin 2.6 g/dL (1.6-3.3); Magnesium 1.8 mg/dL (1.5-2.4); Non-African American GFR(CKD) 58.7 (60.0-200.0); Potassium 3.8 mmol/L (3.5-5.5); Total Bilirubin 0.5 mg/dL (0.30-1.20); Total Protein 5.7 g/dL (6.2-8.2)
--- NOTE | 2021-08-10 11:17 | P.PN ---
Subjective Patient is seen in follow-up for acute kidney injury. Renal function improved. Has been voiding. No vomiting or diarrhea. No chest pain or shortness of breath. Oral intake fair. Receiving IV fluids. Somewhat confused today. Vital signs stable. General: NAD. HEENT: Head exam is unremarkable. LUNGS: Breath sounds decreased. HEART: Rate and Rhythm are regular. ABDOMEN: Soft, no distention. EXTREMITITES: No edema. Objective - Vital Signs Vital signs: Vital Signs Temp 99.0 F 08/10/21 07:00 Pulse 69 08/10/21 07:00 Resp 15 08/10/21 07:00 BP 128/70 08/10/21 07:00 Pulse Ox 94 L 08/10/21 07:00 Intake & Output 08/09/21 08/10/21 08/10/21 18:59 06:59 18:59 Intake Total 854 750 180 Output Total 130 100 Balance 724 650 180 Intake: IV 854 250 Oral 500 180 Output: Urine 125 100 Estimated Blood Loss 5 Other: Voiding Method Toilet Toilet Diaper # Voids 2 - Labs CBC & Chem 7: 08/10/21 05:00 08/10/21 05:00 Labs: Abnormal Lab Results - Last 24 Hours (Table) 08/09/21 08/10/21 08/10/21 Range/Units 12:02 05:00 05:00 WBC 10.26 H (4.50-10.00) X 10*3/uL MCV 97.6 H (80.0-97.0) fL MCHC 31.0 L (32.0-37.0) g/dL Immature Gran # 0.05 H (0.00-0.04) X 10*3/uL Neutrophils # 7.81 H (1.80-7.70) X 10*3/uL Est GFR (CKD-EPI)NonAf 58.7 L (60.0-200.0) Glucose 153 H (70-110) mg/dL POC Glucose (mg/dL) 107 H (75-99) mg/dL Calcium 8.5 L (8.7-10.3) mg/dL Total Protein 5.7 L (6.2-8.2) g/dL Albumin 3.1 L (3.8-4.9) g/dL Albumin/Globulin Ratio 1.18 L (1.60-3.17) g/dL 08/10/21 Range/Units 06:59 WBC (4.50-10.00) X 10*3/uL MCV (80.0-97.0) fL MCHC (32.0-37.0) g/dL Immature Gran # (0.00-0.04) X 10*3/uL Neutrophils # (1.80-7.70) X 10*3/uL Est GFR (CKD-EPI)NonAf (60.0-200.0) Glucose (70-110) mg/dL POC Glucose (mg/dL) 150 H (75-99) mg/dL Calcium (8.7-10.3) mg/dL Total Protein (6.2-8.2) g/dL Albumin (3.8-4.9) g/dL Albumin/Globulin Ratio (1.60-3.17) g/dL Microbiology - Last 24 Hours (Table) 08/08/21 17:02 Urine Culture - Final Urine,Voided 08/07/21 16:30 Blood Culture - Preliminary Blood No Growth after 48 hours 08/07/21 16:43 Blood Culture - Preliminary Blood No Growth after 48 hours Assessment and Plan Plan: Assessment: 1. Acute kidney injury mostly prerenal secondary to poor intake and diuresis. Also component of obstructive uropathy. Creatinine in March 2021 was 0.9 - peaked at 1.5 this admission and is 1.2 today. 2. Left-sided nephrolithiasis and hydronephrosis. Urology following. Status post lithotripsy and left ureteral stent placement 08/01/2021. 3. Benign hypertension. Controlled. 4. Diabetes mellitus. 5. Proteinuria. Likely due to underlying diabetic kidney disease. Further workup outpatient. 6. Chronic diastolic CHF fraction of 50% withmoderate pulmonary hypertension. Plan: Hep-Lock IV fluids. Continue to hold diuretics. Encourage oral intake. Avoid nephrotoxins. Continue to monitor renal function and urine output.
[2021-08-10 12:13] LABS: Glucose,Whole Blood 214 mg/dL (75-99)
--- NOTE | 2021-08-10 14:57 | P.PN ---
Subjective Underwent left-sided ureteroscopy, doing well this morning. Creatinine improved to 1.2 Objective - Vital Signs Vital signs: Vital Signs Temp 99.0 F 08/10/21 07:00 Pulse 69 08/10/21 07:00 Resp 15 08/10/21 07:00 BP 128/70 08/10/21 07:00 Pulse Ox 94 L 08/10/21 07:00 Intake & Output 08/09/21 08/10/21 08/10/21 18:59 06:59 18:59 Intake Total 854 750 360 Output Total 130 100 Balance 724 650 360 Intake: IV 854 250 Oral 500 360 Output: Urine 125 100 Estimated Blood Loss 5 Other: Voiding Method Toilet Toilet Diaper # Voids 2 3 # Bowel Movements 1 - Constitutional General appearance: Present: no acute distress - Gastrointestinal General gastrointestinal: Present: soft. Absent: distended, tenderness - Psychiatric Psychiatric: Present: A&O x's 3 - Labs CBC & Chem 7: 08/10/21 05:00 08/10/21 05:00 Labs: Abnormal Lab Results - Last 24 Hours (Table) 08/10/21 08/10/21 08/10/21 Range/Units 05:00 05:00 06:59 WBC 10.26 H (4.50-10.00) X 10*3/uL MCV 97.6 H (80.0-97.0) fL MCHC 31.0 L (32.0-37.0) g/dL Immature Gran # 0.05 H (0.00-0.04) X 10*3/uL Neutrophils # 7.81 H (1.80-7.70) X 10*3/uL Est GFR (CKD-EPI)NonAf 58.7 L (60.0-200.0) Glucose 153 H (70-110) mg/dL POC Glucose (mg/dL) 150 H (75-99) mg/dL Calcium 8.5 L (8.7-10.3) mg/dL Total Protein 5.7 L (6.2-8.2) g/dL Albumin 3.1 L (3.8-4.9) g/dL Albumin/Globulin Ratio 1.18 L (1.60-3.17) g/dL 08/10/21 Range/Units 12:12 WBC (4.50-10.00) X 10*3/uL MCV (80.0-97.0) fL MCHC (32.0-37.0) g/dL Immature Gran # (0.00-0.04) X 10*3/uL Neutrophils # (1.80-7.70) X 10*3/uL Est GFR (CKD-EPI)NonAf (60.0-200.0) Glucose (70-110) mg/dL POC Glucose (mg/dL) 214 H (75-99) mg/dL Calcium (8.7-10.3) mg/dL Total Protein (6.2-8.2) g/dL Albumin (3.8-4.9) g/dL Albumin/Globulin Ratio (1.60-3.17) g/dL Microbiology - Last 24 Hours (Table) 08/08/21 17:02 Urine Culture - Final Urine,Voided 08/07/21 16:30 Blood Culture - Preliminary Blood No Growth after 48 hours 08/07/21 16:43 Blood Culture - Preliminary Blood No Growth after 48 hours Assessment and Plan Assessment: 80-year-old male with acute kidney injury, left-sided hydronephrosis secondary to an obstructing ureteral stone. Underwent left-sided ureteroscopy with stent insertion. Creatinine improved to 1.2 this morning. 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 Was able to remove one of the obstructing stones in the left ureter, the patient had narrowing in the conjunction between the duplicated ureters. I was able to place stent within the lower moiety. At this time is okay for discharge from urology standpoint, we'll arrange for a outpatient left- sided ureteroscopy
--- NOTE | 2021-08-15 10:44 | P.DS ---
Providers Date of admission: 08/09/21 11:53 Expected date of discharge: 08/10/21 Attending physician: Davy Eldridge Consults: 08/07/21 18:07 Consult Physician Routine Consulting Provider: Cardiology Alirio Consult Reason/Comments: concern per heart failure Do you want consulting provider notified?: Yes 08/08/21 09:26 Consult Physician Routine Consulting Provider: Donna Tobin Consult Reason/Comments: katrin Do you want consulting provider notified?: Yes 08/08/21 10:44 Consult Physician Routine Consulting Provider: Mark Kovacs Consult Reason/Comments: Hydronephrosis Do you want consulting provider notified?: Yes Primary care physician: Davymalorie Eldridge [facility] Course: Discharge diagnosis 1. Increased peripheral edema bilaterally 2. Acute kidney injury 3. Urinary tract infection 4. Diabetes mellitus type 2 5. History of essential hypertension 6. History of CVA 7. History of coronary artery bypass graft surgery 8. History of atrial flutter 9. Left ureteral stone status post cystoscopy on 08/07/2021 Hospital course This is a 80-year-old male patient who presented with concerns of increasing edema over the past 2 weeks. Patient also reports complaints of generalized fatigue and reduced appetite. Patient has a past medical history of atrial flutter, CVA, diabetes mellitus, hypertension and cholecystectomy. Chest x-rays completed showing small left pleural effusion or pleural reaction which is similar to old exam no heart failure. COVID-19 negative. UA showing small amount of leukocyte Estrace urine culture ordered and patient started on Cipro for antibiotic. Creatinine also slightly elevated at 1.45 and bun 32. This does appear higher than patient's baseline. BNP 1970. Troponin 0.030. At this time patient will be admitted cardiology services have been consulted 2-D echo ordered. Will order ultrasound of kidneys and bladder and repeat labs. Patient denies any issues with urination. Patient denies nausea vomiting or diarrhea. Patient denies chest pain or shortness of breath. Patient denies any urinary frequency. On 08/09/2021 patient was seen and examined on the medical floor, he is alert and oriented 3 in no apparent distress he is complaining of generalized weakness otherwise he denies any complaints there is no fever or chills no headache or dizziness no chest pain no shortness of breath no cough no nausea or vomiting no abdominal pain no diarrhea no blood in the stools no burning with urination no frequency or urgency and no hematuria. Patient is followed by urology and is scheduled for urethral stent placement today for obstructive uropathy On 08/10/2021 patient is alert and oriented 3. Patient is status post cystoscopy for left ureteral stone. Creatinine improving to 1.2. Patient has been cleared for discharge from cardiology standpoint will arrange for outpatient left sided ureteroscopy per urology services patient discharged on Cipro for urinary tract infection Patient Condition at Discharge: Stable Plan - Discharge Summary Discharge Rx Participant: No New Discharge Prescriptions: New Ciprofloxacin HCl [Cipro] 250 mg PO BID 5 Days #10 tab Continue metFORMIN HCL [Glucophage] 1,000 mg PO DAILY metFORMIN HCL [Glucophage] 500 mg PO HS glipiZIDE [Glipizide Xl] 5 mg PO AC-BID Maxivision Whole Body Formula 1 cap PO BID Ferrous Sulfate [Iron (65 MG Elemental)] 325 mg PO Q48H Levothyroxine Sodium [Synthroid] 25 mcg PO DAILY hydrALAZINE HCL 25 mg PO TID Pantoprazole [Protonix] 40 mg PO DAILY Aspirin EC [Ecotrin Low Dose] 81 mg PO DAILY Cholecalciferol [Vitamin D3 (125 Mcg = 5000 Iu)] 125 mcg PO DAILY lisinopriL [Zestril] 20 mg PO BID Metoprolol Tartrate [Lopressor] 50 mg PO BID-W/MEALS Atorvastatin [Lipitor] 40 mg PO HS Insulin Glargine,Hum.rec.anlog [Lantus Solostar Pen] 14 unit SQ HS Discontinued hydroCHLOROthiazide [Hydrodiuril] 25 mg PO DAILY Discharge Medication List glipiZIDE [Glipizide Xl] 5 mg PO AC-BID 07/08/16 [History] metFORMIN HCL [Glucophage] 1,000 mg PO DAILY 07/08/16 [History] metFORMIN HCL [Glucophage] 500 mg PO HS 07/08/16 [History] Aspirin EC [Ecotrin Low Dose] 81 mg PO DAILY 08/07/21 [History] Atorvastatin [Lipitor] 40 mg PO HS 08/07/21 [History] Cholecalciferol [Vitamin D3 (125 Mcg = 5000 Iu)] 125 mcg PO DAILY 08/07/21 [History] Ferrous Sulfate [Iron (65 MG Elemental)] 325 mg PO Q48H 08/07/21 [History] Insulin Glargine,Hum.rec.anlog [Lantus Solostar Pen] 14 unit SQ HS 08/07/21 [History] Levothyroxine Sodium [Synthroid] 25 mcg PO DAILY 08/07/21 [History] Maxivision Whole Body Formula 1 cap PO BID 08/07/21 [History] Metoprolol Tartrate [Lopressor] 50 mg PO BID-W/MEALS 08/07/21 [History] Pantoprazole [Protonix] 40 mg PO DAILY 08/07/21 [History] hydrALAZINE HCL 25 mg PO TID 08/07/21 [History] lisinopriL [Zestril] 20 mg PO BID 08/07/21 [History] Ciprofloxacin HCl [Cipro] 250 mg PO BID 5 Days #10 tab 08/10/21 [Rx] Follow up Appointment(s)/Referral(s): Allie Campoverde MD [STAFF PHYSICIAN] - 08/20/21 9:45 am Davy Eldridge MD [Primary Care Provider] - 1-2 days [facility] Visiting Nurse, [NON-STAFF] - 1-2 Days Patient Instructions/Handouts: Acute Kidney Injury (DC) Discharge Disposition: HOME SELF-CARE
== END 2021-08-10 13:53 | disposition home or self-care (01) ==
LOC: EC 15:27 → 6NMEDSUR 18:06 → INTOOBSV 08-09 11:53 → OBSVTOIN 08-09 11:53 → UNDODISIN 08-10 13:53 → UNDODISOB 08-10 13:53
PROVIDERS: ADMIT Internal Medicine; ATTEND Internal Medicine
PROC: 0T9B80Z Drainage of Bladder with Drainage Device, Via Natural or Artificial Opening Endoscopic (ICD-10-PCS; 2021-08-09)
PROC: BT1F1ZZ Fluoroscopy of Left Kidney, Ureter and Bladder using Low Osmolar Contrast (ICD-10-PCS; principal; 2021-08-09 09:10)
PROC: 0T778DZ Dilation of Left Ureter with Intraluminal Device, Via Natural or Artificial Opening Endoscopic (ICD-10-PCS; 2021-08-09 09:10)
PROC: 0TC78ZZ Extirpation of Matter from Left Ureter, Via Natural or Artificial Opening Endoscopic (ICD-10-PCS; 2021-08-09 09:10)
DX: N13.6 Pyonephrosis (principal); N17.9 Acute kidney failure, unspecified; I27.20 Pulmonary hypertension, unspecified; I47.2 Ventricular tachycardia; I11.0 Hypertensive heart disease with heart failure; I50.42 Chronic combined systolic (congestive) and diastolic (congestive) heart failure; I25.5 Ischemic cardiomyopathy; I45.9 Conduction disorder, unspecified; I25.10 Atherosclerotic heart disease of native coronary artery without angina pectoris; I08.8 Other rheumatic multiple valve diseases; Q62.5 Duplication of ureter; N28.1 Cyst of kidney, acquired; K57.90 Diverticulosis of intestine, part unspecified, without perforation or abscess without bleeding; E78.5 Hyperlipidemia, unspecified; E11.51 Type 2 diabetes mellitus with diabetic peripheral angiopathy without gangrene; Z20.822 Contact with and (suspected) exposure to COVID-19; Z79.82 Long term (current) use of aspirin; Z79.4 Long term (current) use of insulin; Z79.84 Long term (current) use of oral hypoglycemic drugs; Z79.890 Hormone replacement therapy; Z79.899 Other long term (current) drug therapy; Z88.0 Allergy status to penicillin; Z91.040 Latex allergy status; Z87.19 Personal history of other diseases of the digestive system; Z95.1 Presence of aortocoronary bypass graft; Z86.73 Personal history of transient ischemic attack (TIA), and cerebral infarction without residual deficits; Z98.41 Cataract extraction status, right eye; Z98.42 Cataract extraction status, left eye; Z86.010 Personal history of colon polyps; Z85.820 Personal history of malignant melanoma of skin; Z90.49 Acquired absence of other specified parts of digestive tract; Z86.79 Personal history of other diseases of the circulatory system; Z82.49 Family history of ischemic heart disease and other diseases of the circulatory system; Z82.0 Family history of epilepsy and other diseases of the nervous system
CPT/HCPCS: 52356; 99285; 36415; 93005; 93306; 97530; 97162; 97535; 97166; 83880; 80053 ×3; 80048; 83605; 83735 ×4; 84484; 85025 ×4; 85610; 85730; 81001; 87040; 87086; 87635; 74420; 71046; 76770; 74150; G0378 ×4; C2625; C1769 ×2; C1758; J0360; J1580; J2405; J1650; J3010; J2370; J0330; J2704; Q9967; J2001

== ENCOUNTER → 2021-08-13 | Outpatient (CLI) | payer MEDICARE ==
[2021-08-13 18:05] LABS: Basophils # (A) 0.07 X 10*3/uL (0.00-0.10); Basophils % (A) 0.8 %; Eosinophils # (A) 0.38 X 10*3/uL (0.04-0.35); Eosinophils % (A) 4.4 %; HCT 44.1 % (39.6-50.0); HGB 13.3 g/dL (13.0-17.0); Immature Grans, Automated 0.7 %; Lymphocytes # (A) 1.18 X 10*3/uL (0.90-5.00); Lymphocytes % (A) 13.6 %; MCHC 30.2 g/dL (32.0-37.0); MCV 99.5 fL (80.0-97.0); Mean Platelet Volume 10.2 fL (9.5-12.2); Monocytes % (A) 4.6 %; NRBC Per 100 WBC 0 /100 WBCS (0.0-0.0); Neutrophils # (A) 6.58 X 10*3/uL (1.80-7.70); Neutrophils % (A) 75.9 %; Platelet Count 320 X 10*3/uL (140-440); RBC 4.43 X 10*6/uL (4.40-5.60); RDW 13.3 % (11.5-14.5); WBC 8.67 X 10*3/uL (4.50-10.00)
[2021-08-13 18:19] LABS: African American GFR (CKD) 72.6 (60.0-200.0); Anion Gap 11.5 mmol/L (10.00-18.00); BUN/Creat Ratio 19.82 Ratio (12.00-20.00); Blood Urea Nitrogen 21.8 mg/dL (9.0-27.0); Calcium 9.2 mg/dL (8.7-10.3); Carbon Dioxide 25.5 mmol/L (20.0-27.5); Non-African American GFR(CKD) 62.6 (60.0-200.0); Potassium 3.9 mmol/L (3.5-5.5)
== END | disposition home or self-care (01) ==
LOC: LABPAT 12:59
PROVIDERS: ATTEND Urology
DX: Z01.812 Encounter for preprocedural laboratory examination (principal); N20.1 Calculus of ureter
CPT/HCPCS: 80048; 85025

== ENCOUNTER 2021-09-03 13:41 | Inpatient (IN) | payer MEDICARE ==
[2021-09-03 14:56] LABS: Basophils % (A) 0 %; Eosinophils % (A) 0 %; HGB 12.6 gm/dL (13.0-17.5); Lymphocytes # (A) 0.7 k/uL (1.0-4.8); Lymphocytes % (A) 7 %; MCH 30.9 pg (25.0-35.0); MCHC 32.4 g/dL (31.0-37.0); MCV 95.4 fL (80.0-100.0); Mean Platelet Volume 8.7; Monocytes # (A) 0.7 k/uL (0-1.0); Monocytes % (A) 7 %; Neutrophils # (A) 7.8 k/uL (1.3-7.7); Neutrophils % (A) 83 %; Platelet Count 165 k/uL (150-450); RBC 4.08 m/uL (4.30-5.90); RDW 13.3 % (11.5-15.5); WBC 9.4 k/uL (3.8-10.6)
[2021-09-03 14:57] LABS: ALT 21 U/L (4-49); AST 28 U/L (17-59); African American GFR (CKD) >90 (>60 ml/min/1.73 sqM); Albumin 2.8 g/dL (3.5-5.0); Alkaline Phosphatase 84 U/L (38-126); Anion Gap 10 mmol/L; Blood Urea Nitrogen 19 mg/dL (9-20); Calcium 8.2 mg/dL (8.4-10.2); Carbon Dioxide 26 mmol/L (22-30); Chloride 97 mmol/L (98-107); Glucose 295 mg/dL (74-99); Magnesium 1.5 mg/dL (1.6-2.3); Non-African American GFR(CKD) 85 (>60 ml/min/1.73 sqM); Potassium 3.7 mmol/L (3.5-5.1); Sodium 133 mmol/L (137-145); Total Bilirubin 0.7 mg/dL (0.2-1.3); Total Protein 5.5 g/dL (6.3-8.2)
[2021-09-03 15:00] LABS: Partial Thromboplastin Time 27.1 sec (22.0-30.0); Prothrombin Time 11.1 sec (9.0-12.0)
--- NOTE | 2021-09-03 15:09 | ED ---
General Adult HPI - General Chief complaint: Weakness Stated complaint: Weakness Time Seen by Provider: 09/03/21 13:55 Source: patient, RN notes reviewed, old records reviewed Mode of arrival: ambulatory Limitations: no limitations - History of Present Illness Initial comments: This is an 81-year-old male presents emergency Department with generalized w eakness. Patient states both his knees give and he is unable to get around even using his walker. Patient denies any fever chills per patient denies shortness of breath or difficulty breathing. Patient denies abdominal pain patient denies nausea vomiting diarrhea. Patient denies any injury or trauma. Patient states he recently had a procedure to place a stent here because he has kidney stones that they were unable to fully get out. - Related Data Home Medications Medication Instructions Recorded Confirmed metFORMIN HCL [Glucophage] 1,000 mg PO DAILY 07/08/16 08/20/21 metFORMIN HCL [Glucophage] 500 mg PO HS 07/08/16 08/20/21 Aspirin EC [Ecotrin Low Dose] 81 mg PO DAILY 08/07/21 08/20/21 Atorvastatin [Lipitor] 40 mg PO HS 08/07/21 08/20/21 Cholecalciferol [Vitamin D3 (125 125 mcg PO DAILY 08/07/21 08/20/21 Mcg = 5000 Iu)] Ferrous Sulfate [Iron (65 MG 325 mg PO Q48H 08/07/21 08/20/21 Elemental)] Insulin Glargine,Hum.rec.anlog 14 unit SQ HS 08/07/21 08/20/21 [Lantus Solostar Pen] Levothyroxine Sodium [Synthroid] 25 mcg PO DAILY 08/07/21 08/20/21 Maxivision Whole Body Formula 1 cap PO BID 08/07/21 08/20/21 Metoprolol Tartrate [Lopressor] 50 mg PO BID-W/MEALS 08/07/21 08/20/21 Pantoprazole [Protonix] 40 mg PO DAILY 08/07/21 08/20/21 hydrALAZINE HCL 25 mg PO TID 08/07/21 08/20/21 lisinopriL [Zestril] 20 mg PO BID 08/07/21 08/20/21 Previous Rx's Medication Instructions Recorded Ciprofloxacin HCl [Cipro] 250 mg PO Q12HR 1 Days #2 tab 08/20/21 Ketorolac [Toradol] 10 mg PO Q6HR PRN #10 tab 08/20/21 Allergies Allergy/AdvReac Type Severity Reaction Status Date / Time latex Allergy Unknown Verified 09/03/21 13:53 penicillin V Allergy Unknown Verified 09/03/21 13:53 Review of Systems ROS Statement: Those systems with pertinent positive or pertinent negative responses have been documented in the HPI. ROS Other: All systems not noted in ROS Statement are negative. Past Medical History Past Medical History: Atrial Flutter, Cancer, CVA/TIA, Diabetes Mellitus, Hypertension Additional Past Medical History / Comment(s): June: IP ADM FOR GI BLEED. 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 Past Anesthesia/Blood Transfusion Reactions: No Reported Reaction Past Psychological History: No Psychological Hx Reported Smoking Status: Never smoker Past Alcohol Use History: Rare Past Drug Use History: None Reported - Past Family History Father Additional Family Medical History / Comment(s): Father at the age of 33 yrs from encephalitis. Mother Family Medical History: Myocardial Infarction ([place]) Additional Family Medical History / Comment(s): Mother had a [place] at the age of 60yrs. She at the age of 90yrs. General Exam - General Exam Comments Initial Comments: GENERAL: Patient is well-developed and well-nourished. Patient is nontoxic and well- hydrated and is in mild distress. ENT: Neck is soft and supple. No significant lymphadenopathy is noted. Oropharynx is clear. Moist mucous membranes. Neck has full range of motion without eliciting any pain. EYES: The sclera were anicteric and conjunctiva were pink and moist. Extraocular movements were intact and pupils were equal round and reactive to light. Eyelids were unremarkable. PULMONARY: Unlabored respirations. Good breath sounds bilaterally. No audible rales rhonchi or wheezing was noted. CARDIOVASCULAR: There is a regular rate and rhythm without any murmurs gallops or rubs. ABDOMEN: Soft and nontender with normal bowel sounds. SKIN: Skin is clear with no lesions or rashes and otherwise unremarkable. NEUROLOGIC: Patient is alert and oriented x3. Cranial nerves II through XII are grossly intact. Motor and sensory are also intact. Normal speech, volume and content. Symmetrical smile. MUSCULOSKELETAL: Normal extremities with adequate strength and full range of motion. 2+ edema bilaterally LYMPHATICS: No significant lymphadenopathy is noted PSYCHIATRIC: Normal psychiatric evaluation. Limitations: no limitations Course Vital Signs 09/03/21 09/03/21 09/03/21 13:50 14:11 15:00 Temperature 97.6 F Pulse Rate 95 125 H 94 Respiratory 16 16 Rate Blood Pressure 136/80 159/91 O2 Sat by Pulse 95 94 L Oximetry Medical Decision Making - Medical Decision Making EKG shows atrial fibrillation with rapid ventricular response at 105 bpm patient also has quite a few PVCs. Patient's QRS is 122 QT interval 344 QTC is 45. Patient's EKG shows no ST segment elevation or depression. Chest x-ray shows no acute abnormality. Patient was in new onset atrial fibrillation I started the patient on heparin. I did not start a Cardizem because the patient's heart rate was between 90 and 105 - Lab Data Result diagrams: 09/03/21 14:41 09/03/21 14:41 Lab Results 09/03/21 09/03/21 09/03/21 Range/Units 14:41 14:41 14:41 WBC 9.4 (3.8-10.6) k/uL RBC 4.08 L (4.30-5.90) m/uL Hgb 12.6 L (13.0-17.5) gm/dL Hct 39.0 (39.0-53.0) % MCV 95.4 (80.0-100.0) fL MCH 30.9 (25.0-35.0) pg MCHC 32.4 (31.0-37.0) g/dL RDW 13.3 (11.5-15.5) % Plt Count 165 (150-450) k/uL MPV 8.7 Neutrophils % 83 % Lymphocytes % 7 % Monocytes % 7 % Eosinophils % 0 % Basophils % 0 % Neutrophils # 7.8 H (1.3-7.7) k/uL Lymphocytes # 0.7 L (1.0-4.8) k/uL Monocytes # 0.7 (0-1.0) k/uL Eosinophils # 0.0 (0-0.7) k/uL Basophils # 0.0 (0-0.2) k/uL PT 11.1 (9.0-12.0) sec INR 1.0 (<1.2) APTT 27.1 (22.0-30.0) sec Sodium 133 L (137-145) mmol/L Potassium 3.7 (3.5-5.1) mmol/L Chloride 97 L (98-107) mmol/L Carbon Dioxide 26 (22-30) mmol/L Anion Gap 10 mmol/L BUN 19 (9-20) mg/dL Creatinine 0.76 (0.66-1.25) mg/dL Est GFR (CKD-EPI)AfAm >90 (>60 ml/min/1.73 sqM) Est GFR (CKD-EPI)NonAf 85 (>60 ml/min/1.73 sqM) Glucose 295 H (74-99) mg/dL Plasma Lactic Acid Nelson (0.7-2.0) mmol/L Calcium 8.2 L (8.4-10.2) mg/dL Magnesium 1.5 L (1.6-2.3) mg/dL Total Bilirubin 0.7 (0.2-1.3) mg/dL AST 28 (17-59) U/L ALT 21 (4-49) U/L Alkaline Phosphatase 84 (38-126) U/L Total Protein 5.5 L (6.3-8.2) g/dL Albumin 2.8 L (3.5-5.0) g/dL 09/03/21 Range/Units 14:41 WBC (3.8-10.6) k/uL RBC (4.30-5.90) m/uL Hgb (13.0-17.5) gm/dL Hct (39.0-53.0) % MCV (80.0-100.0) fL MCH (25.0-35.0) pg MCHC (31.0-37.0) g/dL RDW (11.5-15.5) % Plt Count (150-450) k/uL MPV Neutrophils % % Lymphocytes % % Monocytes % % Eosinophils % % Basophils % % Neutrophils # (1.3-7.7) k/uL Lymphocytes # (1.0-4.8) k/uL Monocytes # (0-1.0) k/uL Eosinophils # (0-0.7) k/uL Basophils # (0-0.2) k/uL PT (9.0-12.0) sec INR (<1.2) APTT (22.0-30.0) sec Sodium (137-145) mmol/L Potassium (3.5-5.1) mmol/L Chloride (98-107) mmol/L Carbon Dioxide (22-30) mmol/L Anion Gap mmol/L BUN (9-20) mg/dL Creatinine (0.66-1.25) mg/dL Est GFR (CKD-EPI)AfAm (>60 ml/min/1.73 sqM) Est GFR (CKD-EPI)NonAf (>60 ml/min/1.73 sqM) Glucose (74-99) mg/dL Plasma Lactic Acid Nelson 1.5 (0.7-2.0) mmol/L Calcium (8.4-10.2) mg/dL Magnesium (1.6-2.3) mg/dL Total Bilirubin (0.2-1.3) mg/dL AST (17-59) U/L ALT (4-49) U/L Alkaline Phosphatase (38-126) U/L Total Protein (6.3-8.2) g/dL Albumin (3.5-5.0) g/dL Disposition Clinical Impression: New onset atrial fibrillation, Generalized weakness Disposition: ADMITTED IP TO THIS [facility] Referrals: Davy Eldridge MD [Primary Care Provider] - 1-2 days Time of Disposition: 15:40
[2021-09-03] MEDS ORDERED: HEPARIN SODIUM 1,000 UN/ML (10ML VL) IV ONE (15:12)
[2021-09-03] MEDS ORDERED: HEPARIN SOD,PORK IN 0.45% NACL 25,000 UNIT in 0.45% NACL 1 250ML.BAG IV SCH (15:15)
--- NOTE | 2021-09-03 15:30 | XR ---
EXAMINATION TYPE: XR chest 2V DATE OF EXAM: 09/03/2021 COMPARISON: Chest x-ray August 07, 2021 HISTORY: Increasing weakness. TECHNIQUE: Frontal and lateral views of the chest are obtained. FINDINGS: There is chronic parenchymal change without suspicious new focal air space opacity, pleura l effusion, or pneumothorax seen. Overlying sternal wires and mediastinal clips redemonstrated. Persi stent cardiomegaly. Osseous structures are demineralized. Degenerative change right glenohumeral join t is partially imaged. IMPRESSION: Chronic changes and cardiomegaly without acute pulmonary process. No significant change from recent prior.
[2021-09-03] MEDS ORDERED: MAGNESIUM SULFATE-D5W PMX 1 GM in DEXTROSE/WATER 1 100ML.BAG IVPB ONE (15:35)
[2021-09-03] MEDS ORDERED: NITROGLYCERIN SL TABS 0.4 MG TAB SUBLINGUAL PRN (15:45)
[2021-09-03 16:12] LABS: Appearance,Urine Cloudy (Clear); Bacteria,Urine Occasional /hpf; Bilirubin,Urine Negative (Negative); Blood,Urine Large (Negative); Color,Urine Yellow; Glucose,Urine (UA) 3+ (Negative); Hyaline Casts,Urine 2 /lpf (0-2); Ketones,Urine 1+ (Negative); Leukocyte Esterase,Urine Large (Negative); Mucus,Urine Few /hpf; Nitrite,Urine Negative (Negative); Protein,Urine 2+ (Negative); RBC,Urine 104 /hpf (0-5); Specific Gravity,Urine 1.018 (1.001-1.035); Squamous Epithelial Cell,Urine <1 /hpf (0-4); Urobilinogen,Urine <2.0 mg/dL (<2.0); WBC,Urine 157 /hpf (0-5)
[2021-09-03] MEDS: METOPROLOL TARTRATE 50 MG TAB PO SCH (17:35)
--- NOTE | 2021-09-03 19:44 | P.HPIM ---
History of Present Illness H&P Date: 09/03/21 Ranjan Pace, is an 81-year-old male who presented to [facility] emergency room with a chief complaint of generalized weakness. Patient slipped to the floor at home and was not able to get up EMS were called. He was evaluated in the emergency room vital examination on presentation r evealed a temperature of 97.6 pulse 95 respirations 16 blood pressure 136/80 pulse ox 95% on room air Laboratory data revealed a white blood count of 9.4 hemoglobin 12.6 platelet count 165 sodium 133 potassium 3.7 chloride 97 CO2 26 BUN 19 creatinine 0.76 glucose level was 295 urine analysis revealed evidence of urinary tract infection. Testing in the emergency room revealed chest x-ray done in the emergency room revealed evidence of chronic changes and cardiomegaly without acute pulmonary process no significant change from previous exam, EKG was done in the emergency room and revealed atrial fibrillation with rapid ventricular response heart rate 105 with aberrant conduction and left anterior fascicular block. Patient was admitted to medical floor for further evaluation and treatment, he was started on IV heparin, cardiology consultation was requested, patient was also started on IV Levaquin for urinary tract infection, and urology consultation was requested. Patient was recently admitted to the hospital due to obstructing calculus in the left ureteropelvic junction with severe left sided hydronephrosis and multiple left sided renal calculi, he underwent cystoscopy with left urethral stent placement, on 08/10/2021, Patient was brought in on 08/20/2021 as outpatient and underwent cystoscopy left urethroscopy and laser light of drip seen stone manipulation and stent exchange. Patient was doing well for about a week after that then he started having worsening weakness. Past Medical History Past Medical History: Atrial Flutter, Cancer, CVA/TIA, Diabetes Mellitus, Hypertension Additional Past Medical History / Comment(s): JUNE 2016: IP ADM FOR GI BLEED. 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 Past Anesthesia/Blood Transfusion Reactions: No Reported Reaction Past Psychological History: No Psychological Hx Reported Additional Psychological History / Comment(s): Pt resides with his spouse of 55 yrs. He used a walker a couple weeks ago for a brief time. He drives. Smoking Status: Never smoker Past Alcohol Use History: Rare Past Drug Use History: None Reported - Past Family History Father Additional Family Medical History / Comment(s): Father at the age of 33 yrs from encephalitis. Mother Family Medical History: Myocardial Infarction ([place]) Additional Family Medical History / Comment(s): Mother had a [place] at the age of 60yrs. She at the age of 90yrs. Medications and Allergies Home Medications Medication Instructions Recorded Confirmed Type metFORMIN HCL [Glucophage] 1,000 mg PO DAILY 07/08/16 09/03/21 History metFORMIN HCL [Glucophage] 500 mg PO HS 07/08/16 09/03/21 History Aspirin EC [Ecotrin Low Dose] 81 mg PO DAILY 08/07/21 09/03/21 History Atorvastatin [Lipitor] 40 mg PO HS 08/07/21 09/03/21 History Cholecalciferol [Vitamin D3 (125 125 mcg PO DAILY 08/07/21 09/03/21 History Mcg = 5000 Iu)] Ferrous Sulfate [Iron (65 MG 325 mg PO Q48H 08/07/21 09/03/21 History Elemental)] Insulin Glargine,Hum.rec.anlog 14 unit SQ HS 08/07/21 09/03/21 History [Lantus Solostar Pen] Levothyroxine Sodium [Synthroid] 25 mcg PO DAILY 08/07/21 09/03/21 History Maxivision Whole Body Formula 1 cap PO BID 08/07/21 09/03/21 History Metoprolol Tartrate [Lopressor] 50 mg PO BID-W/MEALS 08/07/21 09/03/21 History Pantoprazole [Protonix] 40 mg PO DAILY 08/07/21 09/03/21 History hydrALAZINE HCL 25 mg PO TID 08/07/21 09/03/21 History lisinopriL [Zestril] 20 mg PO BID 08/07/21 09/03/21 History Allergies Allergy/AdvReac Type Severity Reaction Status Date / Time latex Allergy Unknown Verified 09/03/21 16:24 penicillin V Allergy Unknown Verified 09/03/21 16:24 Physical Exam Vitals: Vital Signs Temp Pulse Pulse Resp BP BP Pulse Ox 09/03/21 16:04 97.8 F 101 H 18 162/98 94 L 09/03/21 16:00 94 09/03/21 15:00 94 16 159/91 94 L 09/03/21 14:11 125 H 09/03/21 13:50 97.6 F 95 16 136/80 95 Intake and Output 09/03/21 09/03/21 09/03/21 06:59 14:59 22:59 Other: # Voids 0 # Bowel Movements 0 Weight 92.986 kg 92.986 kg In general patient is alert and oriented x 3 in no distress HEENT head normocephalic and atraumatic Neck is supple no JVD no goiter no lymphadenopathy no carotid bruit Chest examination is clear to auscultation no crackles no wheezing Cardiac exam reveals irregular heart sounds S1 and S2 no gallops no murmurs Abdomen is soft nontender no organomegaly with normal bowel sounds Extremity exam reveals no edema no cyanosis or clubbing Neurological examination reveals no gross focal deficits Results CBC & Chem 7: 09/03/21 14:41 09/03/21 14:41 Labs: Abnormal Lab Results - Last 24 Hours (Table) 09/03/21 09/03/21 09/03/21 Range/Units 14:41 14:41 14:41 RBC 4.08 L (4.30-5.90) m/uL Hgb 12.6 L (13.0-17.5) gm/dL Neutrophils # 7.8 H (1.3-7.7) k/uL Lymphocytes # 0.7 L (1.0-4.8) k/uL Sodium 133 L (137-145) mmol/L Chloride 97 L (98-107) mmol/L Glucose 295 H (74-99) mg/dL Calcium 8.2 L (8.4-10.2) mg/dL Magnesium 1.5 L (1.6-2.3) mg/dL Troponin I (0.000-0.034) ng/mL Total Protein 5.5 L (6.3-8.2) g/dL Albumin 2.8 L (3.5-5.0) g/dL Urine Protein 2+ H (Negative) Urine Glucose (UA) 3+ H (Negative) Urine Ketones 1+ H (Negative) Urine Blood Large H (Negative) Ur Leukocyte Esterase Large H (Negative) Urine RBC 104 H (0-5) /hpf Urine WBC 157 H (0-5) /hpf Urine WBC Clumps Few H (None) /hpf Urine Bacteria Occasional H (None) /hpf Urine Mucus Few H (None) /hpf 09/03/21 09/03/21 Range/Units 14:41 17:26 RBC (4.30-5.90) m/uL Hgb (13.0-17.5) gm/dL Neutrophils # (1.3-7.7) k/uL Lymphocytes # (1.0-4.8) k/uL Sodium (137-145) mmol/L Chloride (98-107) mmol/L Glucose (74-99) mg/dL Calcium (8.4-10.2) mg/dL Magnesium (1.6-2.3) mg/dL Troponin I 0.043 H* 0.069 H* (0.000-0.034) ng/mL Total Protein (6.3-8.2) g/dL Albumin (3.5-5.0) g/dL Urine Protein (Negative) Urine Glucose (UA) (Negative) Urine Ketones (Negative) Urine Blood (Negative) Ur Leukocyte Esterase (Negative) Urine RBC (0-5) /hpf Urine WBC (0-5) /hpf Urine WBC Clumps (None) /hpf Urine Bacteria (None) /hpf Urine Mucus (None) /hpf Assessment and Plan Plan: New onset atrial fibrillation, patient started on IV heparin in the emergency room cardiology consultation was requested Evidence of urinary tract infection, patient was started on IV Levaquin urine culture sent to lab. Recent cystoscopy and left urethral stent placement and laser light lithotripsy of left urethral stone Left sided hydronephrosis Underlying history of insulin-dependent diabetes mellitus Underlying history of hypertension Underlying history of coronary artery disease with previous history of coronary artery bypass graft surgery Previous history of atrial flutter At this time patient is admitted to telemetry floor he was started on IV heparin and IV antibiotics Cardiology and urology consultation requested Home medications reviewed and reordered Will follow closely
[2021-09-03 19:49] LABS: African American GFR (CKD) >90 (>60 ml/min/1.73 sqM); Anion Gap 5 mmol/L; Blood Urea Nitrogen 18 mg/dL (9-20); Calcium 8.4 mg/dL (8.4-10.2); Carbon Dioxide 29 mmol/L (22-30); Chloride 97 mmol/L (98-107); Glucose 297 mg/dL (74-99); Non-African American GFR(CKD) 86 (>60 ml/min/1.73 sqM); Sodium 131 mmol/L (137-145)
[2021-09-03 19:50] LABS: Magnesium 1.9 mg/dL (1.6-2.3); Potassium 4.3 mmol/L (3.5-5.1)
[2021-09-03 20:04] LABS: Glucose,Whole Blood 276 mg/dL (75-99)
[2021-09-03] MEDS: lisinopriL 20 MG TAB PO SCH (20:23)
[2021-09-03] MEDS: ATORVASTATIN 40 MG TAB PO SCH (20:23)
[2021-09-03] MEDS: hydrALAZINE HCL 25 MG TAB PO SCH (20:23)
[2021-09-03] MEDS: VIT A,C & E-LUTEIN-MINERALS 1 EACH TAB PO SCH (20:23)
[2021-09-03] MEDS: INSULIN DETEMIR (LEVEMIR) 100 UNIT/ML SYR SQ SCH (20:25)
[2021-09-03] MEDS: INSULIN ASPART (NovoLOG) 100 UNIT/ML VIAL SQ SCH (20:26)
[2021-09-03] MEDS: metFORMIN 500 MG TAB PO SCH (20:27)
[2021-09-03] MEDS: LEVOFLOXACIN 500MG-D5W PMX 500 MG in DEXTROSE/WATER 1 100ML.BAG IVPB SCH (21:40)
[2021-09-03] MEDS ORDERED: HEPARIN SODIUM 1,000 UN/ML (10ML VL) IV PRN (22:10)
[2021-09-04] MEDS: hydrALAZINE HCL 20 MG/ML 1 ML VIAL IVP PRN (00:28)
[2021-09-04 04:28] LABS: Basophils % (A) 0 %; Eosinophils % (A) 0 %; HCT 40.3 % (39.0-53.0); HGB 12.6 gm/dL (13.0-17.5); Lymphocytes # (A) 0.4 k/uL (1.0-4.8); Lymphocytes % (A) 5 %; MCH 30.4 pg (25.0-35.0); MCHC 31.3 g/dL (31.0-37.0); MCV 96.9 fL (80.0-100.0); Mean Platelet Volume 8.1; Monocytes # (A) 0.3 k/uL (0-1.0); Monocytes % (A) 4 %; Neutrophils # (A) 7.1 k/uL (1.3-7.7); Neutrophils % (A) 90 %; Platelet Count 170 k/uL (150-450); RBC 4.16 m/uL (4.30-5.90); RDW 13.3 % (11.5-15.5)
[2021-09-04 05:00] LABS: ALT 25 U/L (4-49); AST 34 U/L (17-59); African American GFR (CKD) >90 (>60 ml/min/1.73 sqM); Albumin 2.8 g/dL (3.5-5.0); Alkaline Phosphatase 85 U/L (38-126); Anion Gap 7 mmol/L; Blood Urea Nitrogen 14 mg/dL (9-20); Calcium 8.1 mg/dL (8.4-10.2); Carbon Dioxide 27 mmol/L (22-30); Chloride 98 mmol/L (98-107); Glucose 196 mg/dL (74-99); Non-African American GFR(CKD) >90 (>60 ml/min/1.73 sqM); Potassium 3.7 mmol/L (3.5-5.1); Sodium 132 mmol/L (137-145); Total Bilirubin 0.6 mg/dL (0.2-1.3); Total Protein 5.5 g/dL (6.3-8.2)
[2021-09-04 06:31] LABS: Glucose,Whole Blood 174 mg/dL (75-99)
[2021-09-04] MEDS: METOPROLOL TARTRATE 50 MG TAB PO SCH ×2 (06:54→16:06)
[2021-09-04] MEDS: LEVOTHYROXINE 25 MCG TAB PO SCH (06:54)
[2021-09-04] MEDS: INSULIN ASPART (NovoLOG) 100 UNIT/ML VIAL SQ SCH ×4 (06:54→21:09)
[2021-09-04 07:25] LABS: Glucose,Whole Blood 163 mg/dL (75-99)
[2021-09-04] MEDS: ASPIRIN 81 MG PO SCH (08:59)
[2021-09-04] MEDS: lisinopriL 20 MG TAB PO SCH ×2 (08:59→21:10)
[2021-09-04] MEDS: CHOLECALCIFEROL 125 MCG (5000 IU) TABLET PO SCH (08:59)
[2021-09-04] MEDS: PANTOPRAZOLE 40 MG TABLET PO SCH (08:59)
[2021-09-04] MEDS: VIT A,C & E-LUTEIN-MINERALS 1 EACH TAB PO SCH ×2 (08:59→21:10)
[2021-09-04] MEDS ORDERED: ASPIRIN 325 MG TAB PO SCH (09:00)
[2021-09-04] MEDS: FERROUS SULFATE 325 MG TAB PO SCH (09:00)
[2021-09-04] MEDS: metFORMIN 500 MG TAB PO SCH ×2 (09:00→21:10)
[2021-09-04] MEDS: hydrALAZINE HCL 25 MG TAB PO SCH ×3 (09:00→21:10)
[2021-09-04 10:18] LABS: Chol/HDL Ratio 3.73 Ratio; LDL Cholesterol,Calculated 48.5 mg/dL (0.0-131.0)
--- NOTE | 2021-09-04 11:06 | P.CRDCN ---
History of Present Illness Consult date: 09/04/21 History of present illness: HISTORY OF PRESENT ILLNESS: This is a 81-year-old male with a past medical history significant for coronary artery disease with previous three-vessel CABG in 2017 (LIMALAD, VGOM1, VGD1), ischemic cardiomyopathy, hypertension, hyperlipidemia, and diabetes. Patient follows in the office with Dr. Campoverde. We have been asked to see the patient in consultation for new onset A. fib. Patient examined at the bedside. Patient presented to the hospital due to weakness of his lower extremities. He denies chest pain or pressure. Denies SOB. Denies palpitations. Denies dizziness or lightheadedness. EKG was reviewed with the wash driller which does not reveal atrial fibrillation, rather sinus mechanism with frequent PACs. * EKG reveals sinus mechanism with PACs. * Chest xray chronic changes and cardiomegaly without acute pulmonary process. No significant change from recent prior. * Laboratory data: WBC 8.0. Hemoglobin 12.6. Platelet count 170. Sodium 132. Potassium 3.7. BUN 14. Creatinine 0.65. Troponin 0.043. 0.069. 0.076. * Current home cardiac medications include aspirin 81 mg daily, Lipitor 40 mg at night, metoprolol tartrate 50 mg twice a day, hydralazine 25 mg 3 times a day, and lisinopril 20 g twice a day * Most recent echocardiogram obtained in July 2021 revealed ejection fraction 45-50%, moderate pulmonary hypertension, mild MR, mild aortic stenosis, and mild tricuspid regurgitation * Cardiac catheterization history: 2017 revealing calcified coronary arteries, significant distal left main disease, critical ostial LAD lesion, mid disease in the right coronary artery and left circumflex, mildly impaired left ventricular systolic function REVIEW OF SYSTEMS: At the time of my exam: CONSTITUTIONAL: Denies fever or chills. HEENT: Denies blurred vision, vision changes, or eye pain. Denies hemoptysis CARDIOVASCULAR: Denies chest pain. Denies orthopnea. Denies PND. Denies palpitations RESPIRATORY: Denies shortness of breath. GASTROINTESTINAL: Denies abdominal pain. Denies nausea or vomiting. HEMATOLOGIC: Denies bleeding disorders. GENITOURINARY: Denies any blood in urine. SKIN: Denies pruitis. Denies rash. PHYSICAL EXAM: VITAL SIGNS: Reviewed. GENERAL: Well-developed in no acute distress. HEENT: Head is normocephalic. Pupils are equal, round. Sclerae anicteric. Mucous membranes of the mouth are moist. Neck supple. No JVD or thyromegaly LUNGS: Respirations even and unlabored. Lungs essentially clear to auscultation bilaterally. HEART: Regular rate and rhythm. S1 and S2 heard. Systolic murmur noted ABDOMEN: Soft. Nondistended. Nontender. EXTREMITIES: Normal range of motion. No clubbing or cyanosis. Peripheral pulses intact. No lower extremity edema NEUROLOGIC: Awake and alert. Oriented x 3. ASSESSMENT: Sudden onset of lower extremity weakness Urinary tract infection Abnormal troponins of unclear etiology Atrial fibrillation, ruled out, EKG and telemetry reveals sinus mechanism with PACs Recent cysto with stent exchange and stone manipulation Coronary artery disease status post 3 vessel CABG, 2016 Ischemic cardiomyopathy Hypertension Hyperlipidemia Diabetes PLAN: Discontinue IV heparin Resume home cardiac medications Obtain limited echo to assess LV function May benefit from neuro/ortho consult for sudden weakness of his lower extremities Further recommendations pending patient course Nurse practitioner note has been reviewed by physician. Signing provider agrees with the documented findings, assessment, and plan of care. Past Medical History Past Medical History: Atrial Flutter, Cancer, CVA/TIA, Diabetes Mellitus, Hypertension Additional Past Medical History / Comment(s): JUNE 2016: IP ADM FOR GI BLEED. 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 Past Anesthesia/Blood Transfusion Reactions: No Reported Reaction Past Psychological History: No Psychological Hx Reported Additional Psychological History / Comment(s): Pt resides with his spouse of 55 yrs. He used a walker a couple weeks ago for a brief time. He drives. Smoking Status: Never smoker Past Alcohol Use History: Rare Past Drug Use History: None Reported - Past Family History Father Additional Family Medical History / Comment(s): Father at the age of 33 yrs from encephalitis. Mother Family Medical History: Myocardial Infarction ([place]) Additional Family Medical History / Comment(s): Mother had a [place] at the age of 60yrs. She at the age of 90yrs. Medications and Allergies Home Medications Medication Instructions Recorded Confirmed Type metFORMIN HCL [Glucophage] 1,000 mg PO DAILY 07/08/16 09/03/21 History metFORMIN HCL [Glucophage] 500 mg PO HS 07/08/16 09/03/21 History Aspirin EC [Ecotrin Low Dose] 81 mg PO DAILY 08/07/21 09/03/21 History Atorvastatin [Lipitor] 40 mg PO HS 08/07/21 09/03/21 History Cholecalciferol [Vitamin D3 (125 125 mcg PO DAILY 08/07/21 09/03/21 History Mcg = 5000 Iu)] Ferrous Sulfate [Iron (65 MG 325 mg PO Q48H 08/07/21 09/03/21 History Elemental)] Insulin Glargine,Hum.rec.anlog 14 unit SQ HS 08/07/21 09/03/21 History [Lantus Solostar Pen] Levothyroxine Sodium [Synthroid] 25 mcg PO DAILY 08/07/21 09/03/21 History Maxivision Whole Body Formula 1 cap PO BID 08/07/21 09/03/21 History Metoprolol Tartrate [Lopressor] 50 mg PO BID-W/MEALS 08/07/21 09/03/21 History Pantoprazole [Protonix] 40 mg PO DAILY 08/07/21 09/03/21 History hydrALAZINE HCL 25 mg PO TID 08/07/21 09/03/21 History lisinopriL [Zestril] 20 mg PO BID 08/07/21 09/03/21 History Allergies Allergy/AdvReac Type Severity Reaction Status Date / Time latex Allergy Unknown Verified 09/03/21 16:24 penicillin V Allergy Unknown Verified 09/03/21 16:24 Physical Exam Vitals: Vital Signs Temp Pulse Pulse Resp BP BP BP 09/04/21 04:00 99.5 F 61 18 168/86 09/04/21 02:00 18 09/04/21 01:00 174/75 09/03/21 23:54 99.6 F 88 18 187/98 203/103 09/03/21 20:00 99.6 F 88 18 187/87 09/03/21 16:04 97.8 F 101 H 18 162/98 09/03/21 16:00 94 09/03/21 15:00 94 16 159/91 09/03/21 14:11 125 H 09/03/21 13:50 97.6 F 95 16 136/80 Pulse Ox 09/04/21 04:00 91 L 09/04/21 02:00 09/04/21 01:00 09/03/21 23:54 92 L 09/03/21 20:00 92 L 09/03/21 16:04 94 L 09/03/21 16:00 09/03/21 15:00 94 L 09/03/21 14:11 09/03/21 13:50 95 Intake and Output 09/03/21 09/04/21 09/04/21 22:59 06:59 14:59 Intake Total 64 Output Total 250 Balance 64 -250 Intake: Intake, IV Titration 64 Amount Heparin Sod,Pork in 0.45% 64 NaCl 25,000 unit In 0.45 % NaCl 1 250ml.bag @ 10. 754 UNITS/KG/HR 10 mls/hr IV .Q24H [facility] Rx#: [id number] Output: Urine 250 Other: Voiding Method Urinal Urinal Diaper Diaper # Voids 0 2 # Bowel Movements 0 Weight 92.986 kg Results 09/04/21 04:04 09/04/21 04:04 Cardiac Enzymes 09/03/21 09/03/21 09/03/21 Range/Units 14:41 14:41 17:26 AST 28 (17-59) U/L Troponin I 0.043 H* 0.069 H* (0.000-0.034) ng/mL 09/03/21 09/04/21 Range/Units 22:54 04:04 AST 34 (17-59) U/L Troponin I 0.076 H* (0.000-0.034) ng/mL Coagulation 09/03/21 09/03/21 09/04/21 Range/Units 14:41 21:31 04:04 PT 11.1 (9.0-12.0) sec APTT 27.1 31.2 H 47.8 H (22.0-30.0) sec CBC 09/03/21 09/04/21 Range/Units 14:41 04:04 WBC 9.4 8.0 (3.8-10.6) k/uL RBC 4.08 L 4.16 L (4.30-5.90) m/uL Hgb 12.6 L 12.6 L (13.0-17.5) gm/dL Hct 39.0 40.3 (39.0-53.0) % Plt Count 165 170 (150-450) k/uL Comprehensive Metabolic Panel 09/03/21 09/03/21 09/04/21 Range/Units 14:41 19:01 04:04 Sodium 133 L 131 L 132 L (137-145) mmol/L Potassium 3.7 4.3 3.7 (3.5-5.1) mmol/L Chloride 97 L 97 L 98 (98-107) mmol/L Carbon Dioxide 26 29 27 (22-30) mmol/L BUN 19 18 14 (9-20) mg/dL Creatinine 0.76 0.75 0.65 L (0.66-1.25) mg/dL Glucose 295 H 297 H 196 H (74-99) mg/dL Calcium 8.2 L 8.4 8.1 L (8.4-10.2) mg/dL AST 28 34 (17-59) U/L ALT 21 25 (4-49) U/L Alkaline Phosphatase 84 85 (38-126) U/L Total Protein 5.5 L 5.5 L (6.3-8.2) g/dL Albumin 2.8 L 2.8 L (3.5-5.0) g/dL Current Medications Generic Name Dose Route Start Last Admin Trade Name Freq PRN Reason Stop Dose Admin Aspirin 325 mg 09/04/21 09:00 Aspirin 325 Mg Tab PO DAILY [facility] Aspirin 81 mg 09/04/21 09:00 Aspirin 81 Mg PO DAILY [facility] Atorvastatin Calcium 40 mg 09/03/21 21:00 09/03/21 20:23 Atorvastatin 40 Mg Tab PO 40 mg HS [facility] Administration Cholecalciferol 125 mcg 09/04/21 09:00 Cholecalciferol 125 Mcg (5000 Iu) Tablet PO DAILY [facility] Ferrous Sulfate 325 mg 09/04/21 09:00 Ferrous Sulfate 325 Mg Tab PO Q48H [facility] Heparin Sodium (Porcine) 0 unit 09/03/21 22:10 09/03/21 22:15 Heparin Sodium 1,000 Un/Ml (10ml Vl) IV 4,000 unit PER PROTOCOL PRN Administration Low PTT Protocol Hydralazine HCl 25 mg 09/03/21 22:00 09/03/21 20:23 Hydralazine Hcl 25 Mg Tab PO 25 mg TID [facility] Administration Hydralazine HCl 10 mg 09/04/21 00:19 09/04/21 00:28 Hydralazine Hcl 20 Mg/Ml 1 Ml Vial IVP 10 mg Q6HR PRN Administration Blood Pressure - High Heparin Sodium/Sodium Chloride 250 mls @ 10 mls/hr 09/03/21 15:15 09/03/21 22:13 25,000 unit/ Sodium Chloride IV 13.754 units/kg/hr .Q24H [facility] 12.789 mls/hr Titration Protocol 10.754 UNITS/KG/HR Levofloxacin 500 mg/ IV 100 mls @ 100 mls/hr 09/03/21 20:00 09/03/21 21:40 Solution IVPB 100 mls/hr Q24H [facility] Administration Protocol Insulin Aspart 0 unit 09/03/21 21:00 09/04/21 06:54 Insulin Aspart (Novolog) 100 Unit/Ml Vial SQ 2 unit ACHS [facility] Administration Protocol Insulin Detemir 14 unit 09/03/21 21:00 09/03/21 20:25 Insulin Detemir (Levemir) 100 Unit/Ml Syr SQ 14 unit HS [facility] Administration Levothyroxine Sodium 25 mcg 09/04/21 06:30 09/04/21 06:54 Levothyroxine 25 Mcg Tab PO 25 mcg 0630 [facility] Administration Lisinopril 20 mg 09/03/21 21:00 09/03/21 20:23 Lisinopril 20 Mg Tab PO 20 mg BID [facility] Administration Metformin HCl 500 mg 09/03/21 21:00 09/03/21 20:27 Metformin 500 Mg Tab PO 500 mg HS [facility] Administration Metformin HCl 1,000 mg 09/04/21 09:00 Metformin 500 Mg Tab PO DAILY [facility] Metoprolol Tartrate 50 mg 09/03/21 17:30 09/04/21 06:54 Metoprolol Tartrate 50 Mg Tab PO 50 mg BID-W/MEALS [facility] Administration Multivitamins/Minerals 1 each 09/03/21 21:00 09/03/21 20:23 Vit A,C & D-Kfknte-Fyzwbvwt 1 Each Tab PO 1 each BID [facility] Administration Nitroglycerin 0.4 mg 09/03/21 15:45 Nitroglycerin Sl Tabs 0.4 Mg Tab SUBLINGUAL Q5M PRN Chest Pain Pantoprazole Sodium 40 mg 09/04/21 09:00 Pantoprazole 40 Mg Tablet PO DAILY [facility] Intake and Output 09/03/21 09/04/21 09/04/21 22:59 06:59 14:59 Intake Total 64 Output Total 250 Balance 64 -250 Intake: Intake, IV Titration 64 Amount Heparin Sod,Pork in 0.45% 64 NaCl 25,000 unit In 0.45 % NaCl 1 250ml.bag @ 10. 754 UNITS/KG/HR 10 mls/hr IV .Q24H [facility] Rx#: [id number] Output: Urine 250 Other: Voiding Method Urinal Urinal Diaper Diaper # Voids 0 2 # Bowel Movements 0 Weight 92.986 kg 09/04/21 04:04 09/04/21 04:04
[2021-09-04 11:30] LABS: Glucose,Whole Blood 193 mg/dL (75-99)
--- NOTE | 2021-09-04 13:23 | XR ---
KUB HISTORY: Renal calculus Frontal KUB submitted on 2 images and correlated prior exam 08/20/2021 Double-J ureteral stent is present on the left. Calcifications again seen within the left kidney, sta ble. Surgical clips are present in the right upper quadrant and lower left chest. Some limitations in evaluation of the right hemiabdomen. Bones are stable. Suspect calcification is present in the mid u reter at the level of the left L5 transverse process IMPRESSION: Persistent left nephrolithiasis, suspected left ureteral sinuses. Indwelling stent.
[2021-09-04 13:37] VITALS: BMI 28.5
--- NOTE | 2021-09-04 15:36 | P.GSCN ---
History of Present Illness Consult date: 09/04/21 Reason for Consult: Renal calculi, UTI Requesting physician: Davy Eldridge History of present illness: The patient is an 81-year-old male with recent acute kidney injury. CT scan showed an obstructive 1 cm left-sided proximal stone and multiple nonobstructive renal stones. He initially underwent left ureteral stent insertion. On 08/20/2021 he underwent ureteroscopic lasering of multiple calculi within the upper pole moiety. The ureteroscope could not be advanced into the lower pole moiety. The ureteral stent was exchanged. He is now admitted with generalized weakness. He denies dysuria, hematuria, and flank pain. KUB x-ray shows a left upper pole renal calculus measuring 17 mm in maximal diameter, as well as a small calculus in the mid ureter adjacent to the L5 transverse process. Review of Systems - Constitutional Reports weakness, Denies chills, Denies fever - Respiratory Reports dyspnea - Gastrointestinal Reports abdominal pain, Reports nausea, Reports vomiting - Genitourinary Denies dysuria, Denies flank pain, Denies hematuria Past Medical History Past Medical History: Atrial Flutter, Cancer, CVA/TIA, Diabetes Mellitus, Hypertension Additional Past Medical History / Comment(s): JUNE 2016: IP ADM FOR GI BLEED. 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 Past Anesthesia/Blood Transfusion Reactions: No Reported Reaction Past Psychological History: No Psychological Hx Reported Additional Psychological History / Comment(s): Pt resides with his spouse of 55 yrs. He used a walker a couple weeks ago for a brief time. He drives. Smoking Status: Never smoker Past Alcohol Use History: Rare Past Drug Use History: None Reported - Past Family History Father Additional Family Medical History / Comment(s): Father at the age of 33 yrs from encephalitis. Mother Family Medical History: Myocardial Infarction ([place]) Additional Family Medical History / Comment(s): Mother had a [place] at the age of 60yrs. She at the age of 90yrs. Medications and Allergies Home Medications Medication Instructions Recorded Confirmed Type metFORMIN HCL [Glucophage] 1,000 mg PO DAILY 07/08/16 09/03/21 History metFORMIN HCL [Glucophage] 500 mg PO HS 07/08/16 09/03/21 History Aspirin EC [Ecotrin Low Dose] 81 mg PO DAILY 08/07/21 09/03/21 History Atorvastatin [Lipitor] 40 mg PO HS 08/07/21 09/03/21 History Cholecalciferol [Vitamin D3 (125 125 mcg PO DAILY 08/07/21 09/03/21 History Mcg = 5000 Iu)] Ferrous Sulfate [Iron (65 MG 325 mg PO Q48H 08/07/21 09/03/21 History Elemental)] Insulin Glargine,Hum.rec.anlog 14 unit SQ HS 08/07/21 09/03/21 History [Lantus Solostar Pen] Levothyroxine Sodium [Synthroid] 25 mcg PO DAILY 08/07/21 09/03/21 History Maxivision Whole Body Formula 1 cap PO BID 08/07/21 09/03/21 History Metoprolol Tartrate [Lopressor] 50 mg PO BID-W/MEALS 08/07/21 09/03/21 History Pantoprazole [Protonix] 40 mg PO DAILY 08/07/21 09/03/21 History hydrALAZINE HCL 25 mg PO TID 08/07/21 09/03/21 History lisinopriL [Zestril] 20 mg PO BID 08/07/21 09/03/21 History Allergies Allergy/AdvReac Type Severity Reaction Status Date / Time latex Allergy Unknown Verified 09/03/21 16:24 penicillin V Allergy Unknown Verified 09/03/21 16:24 Surgical - Exam Vital Signs Temp Pulse Resp BP Pulse Ox 97.6 F 95 16 136/80 95 09/03/21 13:50 09/03/21 13:50 09/03/21 13:50 09/03/21 13:50 09/03/21 13:50 - General well developed, well nourished, no distress - Respiratory normal respiratory effort - Abdomen Abdomen: soft, non tender, no guarding, no rigid, no rebound - Psychiatric oriented to time, oriented to person, oriented to place, speech is normal, memory intact Results - Labs 09/04/21 04:04 09/04/21 04:04 Abnormal Lab Results - Last 24 Hours (Table) 09/03/21 09/03/21 09/03/21 Range/Units 14:41 14:41 14:41 RBC 4.08 L (4.30-5.90) m/uL Hgb 12.6 L (13.0-17.5) gm/dL Neutrophils # 7.8 H (1.3-7.7) k/uL Lymphocytes # 0.7 L (1.0-4.8) k/uL APTT (22.0-30.0) sec Sodium 133 L (137-145) mmol/L Chloride 97 L (98-107) mmol/L Creatinine (0.66-1.25) mg/dL Glucose 295 H (74-99) mg/dL POC Glucose (mg/dL) (75-99) mg/dL Calcium 8.2 L (8.4-10.2) mg/dL Magnesium 1.5 L (1.6-2.3) mg/dL Troponin I (0.000-0.034) ng/mL Total Protein 5.5 L (6.3-8.2) g/dL Albumin 2.8 L (3.5-5.0) g/dL Urine Protein 2+ H (Negative) Urine Glucose (UA) 3+ H (Negative) Urine Ketones 1+ H (Negative) Urine Blood Large H (Negative) Ur Leukocyte Esterase Large H (Negative) Urine RBC 104 H (0-5) /hpf Urine WBC 157 H (0-5) /hpf Urine WBC Clumps Few H (None) /hpf Urine Bacteria Occasional H (None) /hpf Urine Mucus Few H (None) /hpf 09/03/21 09/03/21 09/03/21 Range/Units 14:41 17:26 19:01 RBC (4.30-5.90) m/uL Hgb (13.0-17.5) gm/dL Neutrophils # (1.3-7.7) k/uL Lymphocytes # (1.0-4.8) k/uL APTT (22.0-30.0) sec Sodium 131 L (137-145) mmol/L Chloride 97 L (98-107) mmol/L Creatinine (0.66-1.25) mg/dL Glucose 297 H (74-99) mg/dL POC Glucose (mg/dL) (75-99) mg/dL Calcium (8.4-10.2) mg/dL Magnesium (1.6-2.3) mg/dL Troponin I 0.043 H* 0.069 H* (0.000-0.034) ng/mL Total Protein (6.3-8.2) g/dL Albumin (3.5-5.0) g/dL Urine Protein (Negative) Urine Glucose (UA) (Negative) Urine Ketones (Negative) Urine Blood (Negative) Ur Leukocyte Esterase (Negative) Urine RBC (0-5) /hpf Urine WBC (0-5) /hpf Urine WBC Clumps (None) /hpf Urine Bacteria (None) /hpf Urine Mucus (None) /hpf 09/03/21 09/03/21 09/03/21 Range/Units 20:03 21:31 22:54 RBC (4.30-5.90) m/uL Hgb (13.0-17.5) gm/dL Neutrophils # (1.3-7.7) k/uL Lymphocytes # (1.0-4.8) k/uL APTT 31.2 H (22.0-30.0) sec Sodium (137-145) mmol/L Chloride (98-107) mmol/L Creatinine (0.66-1.25) mg/dL Glucose (74-99) mg/dL POC Glucose (mg/dL) 276 H (75-99) mg/dL Calcium (8.4-10.2) mg/dL Magnesium (1.6-2.3) mg/dL Troponin I 0.076 H* (0.000-0.034) ng/mL Total Protein (6.3-8.2) g/dL Albumin (3.5-5.0) g/dL Urine Protein (Negative) Urine Glucose (UA) (Negative) Urine Ketones (Negative) Urine Blood (Negative) Ur Leukocyte Esterase (Negative) Urine RBC (0-5) /hpf Urine WBC (0-5) /hpf Urine WBC Clumps (None) /hpf Urine Bacteria (None) /hpf Urine Mucus (None) /hpf 09/04/21 09/04/21 09/04/21 Range/Units 04:04 04:04 04:04 RBC 4.16 L (4.30-5.90) m/uL Hgb 12.6 L (13.0-17.5) gm/dL Neutrophils # (1.3-7.7) k/uL Lymphocytes # 0.4 L (1.0-4.8) k/uL APTT 47.8 H (22.0-30.0) sec Sodium 132 L (137-145) mmol/L Chloride (98-107) mmol/L Creatinine 0.65 L (0.66-1.25) mg/dL Glucose 196 H (74-99) mg/dL POC Glucose (mg/dL) (75-99) mg/dL Calcium 8.1 L (8.4-10.2) mg/dL Magnesium (1.6-2.3) mg/dL Troponin I (0.000-0.034) ng/mL Total Protein 5.5 L (6.3-8.2) g/dL Albumin 2.8 L (3.5-5.0) g/dL Urine Protein (Negative) Urine Glucose (UA) (Negative) Urine Ketones (Negative) Urine Blood (Negative) Ur Leukocyte Esterase (Negative) Urine RBC (0-5) /hpf Urine WBC (0-5) /hpf Urine WBC Clumps (None) /hpf Urine Bacteria (None) /hpf Urine Mucus (None) /hpf 09/04/21 09/04/21 Range/Units 06:23 07:24 RBC (4.30-5.90) m/uL Hgb (13.0-17.5) gm/dL Neutrophils # (1.3-7.7) k/uL Lymphocytes # (1.0-4.8) k/uL APTT (22.0-30.0) sec Sodium (137-145) mmol/L Chloride (98-107) mmol/L Creatinine (0.66-1.25) mg/dL Glucose (74-99) mg/dL POC Glucose (mg/dL) 174 H 163 H (75-99) mg/dL Calcium (8.4-10.2) mg/dL Magnesium (1.6-2.3) mg/dL Troponin I (0.000-0.034) ng/mL Total Protein (6.3-8.2) g/dL Albumin (3.5-5.0) g/dL Urine Protein (Negative) Urine Glucose (UA) (Negative) Urine Ketones (Negative) Urine Blood (Negative) Ur Leukocyte Esterase (Negative) Urine RBC (0-5) /hpf Urine WBC (0-5) /hpf Urine WBC Clumps (None) /hpf Urine Bacteria (None) /hpf Urine Mucus (None) /hpf Microbiology - Last 24 Hours (Table) 09/03/21 14:41 Urine Culture - Preliminary Urine,Voided 09/03/21 20:54 Urine Culture - Preliminary Urine,Voided Diabetes panel 09/03/21 09/03/21 09/04/21 Range/Units 14:41 19:01 04:04 Sodium 133 L 131 L 132 L (137-145) mmol/L Potassium 3.7 4.3 3.7 (3.5-5.1) mmol/L Chloride 97 L 97 L 98 (98-107) mmol/L Carbon Dioxide 26 29 27 (22-30) mmol/L BUN 19 18 14 (9-20) mg/dL Creatinine 0.76 0.75 0.65 L (0.66-1.25) mg/dL Glucose 295 H 297 H 196 H (74-99) mg/dL Calcium 8.2 L 8.4 8.1 L (8.4-10.2) mg/dL AST 28 34 (17-59) U/L ALT 21 25 (4-49) U/L Alkaline Phosphatase 84 85 (38-126) U/L Total Protein 5.5 L 5.5 L (6.3-8.2) g/dL Albumin 2.8 L 2.8 L (3.5-5.0) g/dL Calcium panel 09/03/21 09/03/21 09/04/21 Range/Units 14:41 19:01 04:04 Calcium 8.2 L 8.4 8.1 L (8.4-10.2) mg/dL Albumin 2.8 L 2.8 L (3.5-5.0) g/dL Pituitary panel 09/03/21 09/03/21 09/04/21 Range/Units 14:41 19:01 04:04 Sodium 133 L 131 L 132 L (137-145) mmol/L Potassium 3.7 4.3 3.7 (3.5-5.1) mmol/L Chloride 97 L 97 L 98 (98-107) mmol/L Carbon Dioxide 26 29 27 (22-30) mmol/L BUN 19 18 14 (9-20) mg/dL Creatinine 0.76 0.75 0.65 L (0.66-1.25) mg/dL Glucose 295 H 297 H 196 H (74-99) mg/dL Calcium 8.2 L 8.4 8.1 L (8.4-10.2) mg/dL Adrenal panel 09/03/21 09/03/21 09/04/21 Range/Units 14:41 19:01 04:04 Sodium 133 L 131 L 132 L (137-145) mmol/L Potassium 3.7 4.3 3.7 (3.5-5.1) mmol/L Chloride 97 L 97 L 98 (98-107) mmol/L Carbon Dioxide 26 29 27 (22-30) mmol/L BUN 19 18 14 (9-20) mg/dL Creatinine 0.76 0.75 0.65 L (0.66-1.25) mg/dL Glucose 295 H 297 H 196 H (74-99) mg/dL Calcium 8.2 L 8.4 8.1 L (8.4-10.2) mg/dL Total Bilirubin 0.7 0.6 (0.2-1.3) mg/dL AST 28 34 (17-59) U/L ALT 21 25 (4-49) U/L Alkaline Phosphatase 84 85 (38-126) U/L Total Protein 5.5 L 5.5 L (6.3-8.2) g/dL Albumin 2.8 L 2.8 L (3.5-5.0) g/dL - Imaging Abdominal x-ray: report reviewed, image reviewed Assessment and Plan (1) Calculus of kidney Current Visit: Yes Status: Acute Code(s): N20.0 - CALCULUS OF KIDNEY SNOMED Code(s): 53204791 (2) UTI (urinary tract infection) Current Visit: Yes Status: Acute Code(s): N39.0 - URINARY TRACT INFECTION, SITE NOT SPECIFIED SNOMED Code(s): 88211428 Plan: The patient appears to have a remaining left upper pole renal calculus as well as a left mid ureteral calculus. It may be difficult to access the renal calculus endoscopically, and therefore ESWL will be considered. I have discussed this with the patient and his family in detail. I suspect he does not have a UTI, but Levaquin can be continued until the urine culture is complete. Dr. Parker may consider repeating a CT scan to better evaluate the status of the residual calculi.
[2021-09-04] MEDS ORDERED: ACETAMINOPHEN TAB 500 MG TAB PO PRN (16:26)
[2021-09-04 16:51] LABS: Glucose,Whole Blood 152 mg/dL (75-99)
--- NOTE | 2021-09-04 19:19 | P.PN ---
Subjective Progress Note Date: 09/04/21 Ranjan Pace, is an 81-year-old male who presented to [facility] emergency room with a chief complaint of generalized weakness. Patient slipped to the floor at home and was not able to get up EMS were called. He was evaluated in the emergency room vital examination on presentation reveale d a temperature of 97.6 pulse 95 respirations 16 blood pressure 136/80 pulse ox 95% on room air Laboratory data revealed a white blood count of 9.4 hemoglobin 12.6 platelet count 165 sodium 133 potassium 3.7 chloride 97 CO2 26 BUN 19 creatinine 0.76 glucose level was 295 urine analysis revealed evidence of urinary tract infection. Testing in the emergency room revealed chest x-ray done in the emergency room revealed evidence of chronic changes and cardiomegaly without acute pulmonary process no significant change from previous exam, EKG was done in the emergency room and revealed atrial fibrillation with rapid ventricular response heart rate 105 with aberrant conduction and left anterior fascicular block. Patient was admitted to medical floor for further evaluation and treatment, he was started on IV heparin, cardiology consultation was requested, patient was also started on IV Levaquin for urinary tract infection, and urology consultation was requested. Patient was recently admitted to the hospital due to obstructing calculus in the left ureteropelvic junction with severe left dorita ed hydronephrosis and multiple left sided renal calculi, he underwent cystoscopy with left urethral stent placement, on 08/10/2021, Patient was brought in on 08/20/2021 as outpatient and underwent cystoscopy left urethroscopy and laser light of drip seen stone manipulation and stent exchange. Patient was doing well for about a week after that then he started having worsening weakness. On 09/04/2021 patient was seen and examined on the medical floor he is alert and oriented 3 in no apparent distress he was having episodes of low-grade fever otherwise he denies any complaints There is no headache or dizziness no chest pain no shortness of breath no cough no nausea or vomiting no abdominal pain no diarrhea no blood in the stools no burning with urination no frequency or urgency and no hematuria. Vital exam reveals a temperature of 100.9 pulse 69 respiration 16 blood pressure 188/74 pulse ox 94% on room air Laboratory data reveals a white blood count of 8.0 hemoglobin 12.6 platelet cou nt 170 sodium 132 potassium 3.7 chloride 98 CO2 27 BUN 14 creatinine 0.65 At this time patient is maintained on IV Levaquin awaiting blood culture and urine culture results Objective - Vital Signs Vital signs: Vital Signs Temp 97.9 F 09/04/21 09:07 Pulse 70 09/04/21 09:07 Resp 17 09/04/21 09:07 BP 165/79 09/04/21 09:07 Pulse Ox 92 L 09/04/21 09:07 FiO2 Intake & Output 09/03/21 09/04/21 09/04/21 18:59 06:59 18:59 Intake Total 64 Output Total 250 Balance -186 Weight 92.986 kg Intake: Intake, IV Titration 64 Amount Heparin Sod,Pork in 0.45% 64 NaCl 25,000 unit In 0.45 % NaCl 1 250ml.bag @ 10. 754 UNITS/KG/HR 10 mls/hr IV .Q24H [facility] Rx#: [id number] Output: Urine 250 Other: Voiding Method Urinal Diaper # Voids 0 2 # Bowel Movements 0 - Exam In general patient is alert and oriented x 3 in no distress HEENT head normocephalic and atraumatic Neck is supple no JVD no goiter no lymphadenopathy no carotid bruit Chest examination is clear to auscultation no crackles no wheezing Cardiac exam reveals irregular heart sounds S1 and S2 no gallops no murmurs Abdomen is soft nontender no organomegaly with normal bowel sounds Extremity exam reveals no edema no cyanosis or clubbing Neurological examination reveals no gross focal deficits - Labs CBC & Chem 7: 09/04/21 04:04 09/04/21 04:04 Labs: Abnormal Lab Results - Last 24 Hours (Table) 09/03/21 09/03/21 09/03/21 Range/Units 14:41 14:41 14:41 RBC 4.08 L (4.30-5.90) m/uL Hgb 12.6 L (13.0-17.5) gm/dL Neutrophils # 7.8 H (1.3-7.7) k/uL Lymphocytes # 0.7 L (1.0-4.8) k/uL APTT (22.0-30.0) sec Sodium 133 L (137-145) mmol/L Chloride 97 L (98-107) mmol/L Creatinine (0.66-1.25) mg/dL Glucose 295 H (74-99) mg/dL POC Glucose (mg/dL) (75-99) mg/dL Hemoglobin A1c (0.0-6.0) % Calcium 8.2 L (8.4-10.2) mg/dL Magnesium 1.5 L (1.6-2.3) mg/dL Troponin I (0.000-0.034) ng/mL Total Protein 5.5 L (6.3-8.2) g/dL Albumin 2.8 L (3.5-5.0) g/dL HDL Cholesterol (40.00-60.00) mg/dL Urine Protein 2+ H (Negative) Urine Glucose (UA) 3+ H (Negative) Urine Ketones 1+ H (Negative) Urine Blood Large H (Negative) Ur Leukocyte Esterase Large H (Negative) Urine RBC 104 H (0-5) /hpf Urine WBC 157 H (0-5) /hpf Urine WBC Clumps Few H (None) /hpf Urine Bacteria Occasional H (None) /hpf Urine Mucus Few H (None) /hpf 09/03/21 09/03/21 09/03/21 Range/Units 14:41 17:26 19:01 RBC (4.30-5.90) m/uL Hgb (13.0-17.5) gm/dL Neutrophils # (1.3-7.7) k/uL Lymphocytes # (1.0-4.8) k/uL APTT (22.0-30.0) sec Sodium 131 L (137-145) mmol/L Chloride 97 L (98-107) mmol/L Creatinine (0.66-1.25) mg/dL Glucose 297 H (74-99) mg/dL POC Glucose (mg/dL) (75-99) mg/dL Hemoglobin A1c (0.0-6.0) % Calcium (8.4-10.2) mg/dL Magnesium (1.6-2.3) mg/dL Troponin I 0.043 H* 0.069 H* (0.000-0.034) ng/mL Total Protein (6.3-8.2) g/dL Albumin (3.5-5.0) g/dL HDL Cholesterol (40.00-60.00) mg/dL Urine Protein (Negative) Urine Glucose (UA) (Negative) Urine Ketones (Negative) Urine Blood (Negative) Ur Leukocyte Esterase (Negative) Urine RBC (0-5) /hpf Urine WBC (0-5) /hpf Urine WBC Clumps (None) /hpf Urine Bacteria (None) /hpf Urine Mucus (None) /hpf 09/03/21 09/03/21 09/03/21 Range/Units 20:03 21:31 22:54 RBC (4.30-5.90) m/uL Hgb (13.0-17.5) gm/dL Neutrophils # (1.3-7.7) k/uL Lymphocytes # (1.0-4.8) k/uL APTT 31.2 H (22.0-30.0) sec Sodium (137-145) mmol/L Chloride (98-107) mmol/L Creatinine (0.66-1.25) mg/dL Glucose (74-99) mg/dL POC Glucose (mg/dL) 276 H (75-99) mg/dL Hemoglobin A1c (0.0-6.0) % Calcium (8.4-10.2) mg/dL Magnesium (1.6-2.3) mg/dL Troponin I 0.076 H* (0.000-0.034) ng/mL Total Protein (6.3-8.2) g/dL Albumin (3.5-5.0) g/dL HDL Cholesterol (40.00-60.00) mg/dL Urine Protein (Negative) Urine Glucose (UA) (Negative) Urine Ketones (Negative) Urine Blood (Negative) Ur Leukocyte Esterase (Negative) Urine RBC (0-5) /hpf Urine WBC (0-5) /hpf Urine WBC Clumps (None) /hpf Urine Bacteria (None) /hpf Urine Mucus (None) /hpf 09/04/21 09/04/21 09/04/21 Range/Units 04:04 04:04 04:04 RBC 4.16 L (4.30-5.90) m/uL Hgb 12.6 L (13.0-17.5) gm/dL Neutrophils # (1.3-7.7) k/uL Lymphocytes # 0.4 L (1.0-4.8) k/uL APTT (22.0-30.0) sec Sodium 132 L (137-145) mmol/L Chloride (98-107) mmol/L Creatinine 0.65 L (0.66-1.25) mg/dL Glucose 196 H (74-99) mg/dL POC Glucose (mg/dL) (75-99) mg/dL Hemoglobin A1c 7.4 H (0.0-6.0) % Calcium 8.1 L (8.4-10.2) mg/dL Magnesium (1.6-2.3) mg/dL Troponin I (0.000-0.034) ng/mL Total Protein 5.5 L (6.3-8.2) g/dL Albumin 2.8 L (3.5-5.0) g/dL HDL Cholesterol 25.20 L (40.00-60.00) mg/dL Urine Protein (Negative) Urine Glucose (UA) (Negative) Urine Ketones (Negative) Urine Blood (Negative) Ur Leukocyte Esterase (Negative) Urine RBC (0-5) /hpf Urine WBC (0-5) /hpf Urine WBC Clumps (None) /hpf Urine Bacteria (None) /hpf Urine Mucus (None) /hpf 09/04/21 09/04/21 09/04/21 Range/Units 04:04 06:23 07:24 RBC (4.30-5.90) m/uL Hgb (13.0-17.5) gm/dL Neutrophils # (1.3-7.7) k/uL Lymphocytes # (1.0-4.8) k/uL APTT 47.8 H (22.0-30.0) sec Sodium (137-145) mmol/L Chloride (98-107) mmol/L Creatinine (0.66-1.25) mg/dL Glucose (74-99) mg/dL POC Glucose (mg/dL) 174 H 163 H (75-99) mg/dL Hemoglobin A1c (0.0-6.0) % Calcium (8.4-10.2) mg/dL Magnesium (1.6-2.3) mg/dL Troponin I (0.000-0.034) ng/mL Total Protein (6.3-8.2) g/dL Albumin (3.5-5.0) g/dL HDL Cholesterol (40.00-60.00) mg/dL Urine Protein (Negative) Urine Glucose (UA) (Negative) Urine Ketones (Negative) Urine Blood (Negative) Ur Leukocyte Esterase (Negative) Urine RBC (0-5) /hpf Urine WBC (0-5) /hpf Urine WBC Clumps (None) /hpf Urine Bacteria (None) /hpf Urine Mucus (None) /hpf 09/04/21 Range/Units 09:24 RBC (4.30-5.90) m/uL Hgb (13.0-17.5) gm/dL Neutrophils # (1.3-7.7) k/uL Lymphocytes # (1.0-4.8) k/uL APTT (22.0-30.0) sec Sodium (137-145) mmol/L Chloride (98-107) mmol/L Creatinine (0.66-1.25) mg/dL Glucose (74-99) mg/dL POC Glucose (mg/dL) (75-99) mg/dL Hemoglobin A1c (0.0-6.0) % Calcium (8.4-10.2) mg/dL Magnesium (1.6-2.3) mg/dL Troponin I 0.100 H* (0.000-0.034) ng/mL Total Protein (6.3-8.2) g/dL Albumin (3.5-5.0) g/dL HDL Cholesterol (40.00-60.00) mg/dL Urine Protein (Negative) Urine Glucose (UA) (Negative) Urine Ketones (Negative) Urine Blood (Negative) Ur Leukocyte Esterase (Negative) Urine RBC (0-5) /hpf Urine WBC (0-5) /hpf Urine WBC Clumps (None) /hpf Urine Bacteria (None) /hpf Urine Mucus (None) /hpf Microbiology - Last 24 Hours (Table) 09/03/21 14:41 Urine Culture - Preliminary Urine,Voided 09/03/21 20:54 Urine Culture - Preliminary Urine,Voided Assessment and Plan Plan: New onset atrial fibrillation, patient started on IV heparin in the emergency room cardiology consultation was requested Evidence of urinary tract infection, patient was started on IV Levaquin urine culture sent to lab. Recent cystoscopy and left urethral stent placement and laser light lithotripsy of left urethral stone Left sided hydronephrosis Underlying history of insulin-dependent diabetes mellitus Underlying history of hypertension Underlying history of coronary artery disease with previous history of coronary artery bypass graft surgery Previous history of atrial flutter At this time patient is admitted to telemetry floor he was started on IV heparin and IV antibiotics Cardiology and urology consultation requested Home medications reviewed and reordered Will follow closely
--- NOTE | 2021-09-04 19:30 | CA ---
Transthoracic Echo Report Name: Ranjan Pace Age: 81 Gender: M : 1940 Exam Date: 09/04/2021 13:47 Exam Location: [facility] Ht (in): 71 Wt (lb): 205 Ordering Physician: Keeley Everett Attending/Referring Phys: [id number], Marguerite Clearing Tub Worker [place] RDCS Procedure CPT: Indications: Abnormal troponins, assess EF and wall motion Cardiac Hx: Technical Quality: Technically difficult study Contrast 1: Lumason Total Dose (mL): 3 Contrast 2: Total Dose (mL): MEASUREMENTS (Male / Female) Normal Values 2D ECHO LV Diastolic Diameter PLAX 5.1 cm 4.2 - 5.9 / 3.9 - 5.3 cm LV Systolic Diameter PLAX 3.5 cm IVS Diastolic Thickness 1.6 cm 0.6 - 1.0 / 0.6 - 0.9 cm LVPW Diastolic Thickness 1.5 cm 0.6 - 1.0 / 0.6 - 0.9 cm LV Relative Wall Thickness 0.6 FINDINGS Left Ventricle Limited study. Moderately increased left ventricular wall thickness. Left ventricular ejection fraction is estimated at 35-40 %. Mildly reduced global left ventricular systolic function. Right Ventricle Right Atrium Left Atrium Mitral Valve Aortic Valve Tricuspid Valve Pulmonic Valve Pericardium No pericardial effusion. Aorta CONCLUSIONS Reduced LV systolic function ejection fraction 35-40% Septal dyskinesis Previewed by: Dr. Tee Rolle MD (Electronically Signed) Final Date: 04 Sep 2021 19:30
[2021-09-04 19:40] LABS: Glucose,Whole Blood 149 mg/dL (75-99)
[2021-09-04] MEDS: INSULIN DETEMIR (LEVEMIR) 100 UNIT/ML SYR SQ SCH (21:08)
[2021-09-04] MEDS: ATORVASTATIN 40 MG TAB PO SCH (21:10)
[2021-09-04] MEDS: LEVOFLOXACIN 500MG-D5W PMX 500 MG in DEXTROSE/WATER 1 100ML.BAG IVPB SCH (21:11)
[2021-09-05] MEDS: hydrALAZINE HCL 20 MG/ML 1 ML VIAL IVP PRN (03:31)
[2021-09-05 06:27] LABS: Glucose,Whole Blood 99 mg/dL (75-99)
[2021-09-05] MEDS: LEVOTHYROXINE 25 MCG TAB PO SCH (06:34)
[2021-09-05] MEDS: METOPROLOL TARTRATE 50 MG TAB PO SCH ×2 (06:34→16:26)
[2021-09-05] MEDS: INSULIN ASPART (NovoLOG) 100 UNIT/ML VIAL SQ SCH ×4 (06:35→21:07)
[2021-09-05 08:06] LABS: Basophils % (A) 0 %; Eosinophils # (A) 0.1 k/uL (0-0.7); Eosinophils % (A) 1 %; HCT 40.8 % (39.0-53.0); HGB 12.9 gm/dL (13.0-17.5); Hypochromasia Slight; Lymphocytes # (A) 0.6 k/uL (1.0-4.8); Lymphocytes % (A) 7 %; MCH 30.4 pg (25.0-35.0); MCHC 31.6 g/dL (31.0-37.0); Monocytes # (A) 0.4 k/uL (0-1.0); Monocytes % (A) 5 %; Neutrophils # (A) 6.7 k/uL (1.3-7.7); Neutrophils % (A) 84 %; Platelet Count 202 k/uL (150-450); RBC 4.26 m/uL (4.30-5.90); RDW 13.8 % (11.5-15.5); WBC 7.9 k/uL (3.8-10.6)
[2021-09-05 08:31] LABS: ALT 33 U/L (4-49); AST 38 U/L (17-59); African American GFR (CKD) >90 (>60 ml/min/1.73 sqM); Albumin 2.6 g/dL (3.5-5.0); Alkaline Phosphatase 86 U/L (38-126); Anion Gap 9 mmol/L; Blood Urea Nitrogen 14 mg/dL (9-20); Calcium 8.1 mg/dL (8.4-10.2); Carbon Dioxide 26 mmol/L (22-30); Chloride 99 mmol/L (98-107); Glucose 101 mg/dL (74-99); Non-African American GFR(CKD) 88 (>60 ml/min/1.73 sqM); Potassium 3.8 mmol/L (3.5-5.1); Sodium 134 mmol/L (137-145); Total Bilirubin 0.5 mg/dL (0.2-1.3); Total Protein 5.3 g/dL (6.3-8.2)
[2021-09-05] MEDS: ASPIRIN 81 MG PO SCH (09:22)
[2021-09-05] MEDS: PANTOPRAZOLE 40 MG TABLET PO SCH (09:22)
[2021-09-05] MEDS: lisinopriL 20 MG TAB PO SCH ×2 (09:22→21:09)
[2021-09-05] MEDS: CHOLECALCIFEROL 125 MCG (5000 IU) TABLET PO SCH (09:22)
[2021-09-05] MEDS: VIT A,C & E-LUTEIN-MINERALS 1 EACH TAB PO SCH ×2 (09:22→21:09)
[2021-09-05] MEDS: metFORMIN 500 MG TAB PO SCH ×2 (09:23→21:10)
[2021-09-05] MEDS: hydrALAZINE HCL 25 MG TAB PO SCH ×3 (09:23→21:10)
--- NOTE | 2021-09-05 10:00 | P.PN ---
Subjective Progress Note Date: 09/05/21 Ranjan Pace, is an 81-year-old male who presented to [facility] emergency room with a chief complaint of generalized weakness. Patient slipped to the floor at home and was not able to get up EMS were called. He was evaluated in the emergency room vital examination on presentation reveale d a temperature of 97.6 pulse 95 respirations 16 blood pressure 136/80 pulse ox 95% on room air Laboratory data revealed a white blood count of 9.4 hemoglobin 12.6 platelet count 165 sodium 133 potassium 3.7 chloride 97 CO2 26 BUN 19 creatinine 0.76 glucose level was 295 urine analysis revealed evidence of urinary tract infection. Testing in the emergency room revealed chest x-ray done in the emergency room revealed evidence of chronic changes and cardiomegaly without acute pulmonary process no significant change from previous exam, EKG was done in the emergency room and revealed atrial fibrillation with rapid ventricular response heart rate 105 with aberrant conduction and left anterior fascicular block. Patient was admitted to medical floor for further evaluation and treatment, he was started on IV heparin, cardiology consultation was requested, patient was also started on IV Levaquin for urinary tract infection, and urology consultation was requested. Patient was recently admitted to the hospital due to obstructing calculus in the left ureteropelvic junction with severe left dorita ed hydronephrosis and multiple left sided renal calculi, he underwent cystoscopy with left urethral stent placement, on 08/10/2021, Patient was brought in on 08/20/2021 as outpatient and underwent cystoscopy left urethroscopy and laser light of drip seen stone manipulation and stent exchange. Patient was doing well for about a week after that then he started having worsening weakness. On 09/04/2021 patient was seen and examined on the medical floor he is alert and oriented 3 in no apparent distress he was having episodes of low-grade fever otherwise he denies any complaints There is no headache or dizziness no chest pain no shortness of breath no cough no nausea or vomiting no abdominal pain no diarrhea no blood in the stools no burning with urination no frequency or urgency and no hematuria. Vital exam reveals a temperature of 100.9 pulse 69 respiration 16 blood pressure 188/74 pulse ox 94% on room air Laboratory data reveals a white blood count of 8.0 hemoglobin 12.6 platelet cou nt 170 sodium 132 potassium 3.7 chloride 98 CO2 27 BUN 14 creatinine 0.65 At this time patient is maintained on IV Levaquin awaiting blood culture and urine culture results On 09/05/2021 patient is alert and oriented 3. Current vitals temp 97.3, heart rate 57, respiratory rate 16, blood pressure 133/64 with pulse ox 95% on room air. Per cardiology CHF fibrillation has been ruled out EKG revealing telemetry showing sinus mechanism with PACs. Heparin DC'd per cardiology. 2-D echo has been ordered. Awaiting urology services for further recommendations. At this time patient denies chest pain or shortness of breath. Patient denies nausea vomiting or diarrhea. Patient denies any urinary burning or frequency. Objective - Vital Signs Vital signs: Vital Signs Temp 97.3 F L 09/05/21 08:00 Pulse 57 L 09/05/21 08:00 Resp 16 09/05/21 08:00 BP 133/64 09/05/21 08:00 Pulse Ox 95 09/05/21 08:00 FiO2 Intake & Output 09/04/21 09/05/21 09/05/21 18:59 06:59 18:59 Intake Total 1057.908 240 Output Total 400 500 Balance 657.908 -260 Weight 92.986 kg 96 kg Intake: Intake, IV Titration 137.908 Amount Heparin Sod,Pork in 0.45% 137.908 NaCl 25,000 unit In 0.45 % NaCl 1 250ml.bag @ 10. 754 UNITS/KG/HR 10 mls/hr IV .Q24H [facility] Rx#: [id number] Oral 920 240 Output: Urine 400 500 Other: Voiding Method External Catheter External Catheter External Catheter # Voids 2 - Exam In general patient is alert and oriented x 3 in no distress HEENT head normocephalic and atraumatic Neck is supple no JVD no goiter no lymphadenopathy no carotid bruit Chest examination is clear to auscultation no crackles no wheezing Cardiac exam reveals irregular heart sounds S1 and S2 no gallops no murmurs Abdomen is soft nontender no organomegaly with normal bowel sounds Extremity exam reveals no edema no cyanosis or clubbing Neurological examination reveals no gross focal deficits - Labs CBC & Chem 7: 09/05/21 07:05 09/05/21 07:05 Labs: Abnormal Lab Results - Last 24 Hours (Table) 09/04/21 09/04/21 09/04/21 Range/Units 04:04 09:24 11:29 RBC (4.30-5.90) m/uL Hgb (13.0-17.5) gm/dL Lymphocytes # (1.0-4.8) k/uL Sodium (137-145) mmol/L Glucose (74-99) mg/dL POC Glucose (mg/dL) 193 H (75-99) mg/dL Calcium (8.4-10.2) mg/dL Troponin I 0.100 H* (0.000-0.034) ng/mL Total Protein (6.3-8.2) g/dL Albumin (3.5-5.0) g/dL HDL Cholesterol 25.20 L (40.00-60.00) mg/dL 09/04/21 09/04/21 09/05/21 Range/Units 16:48 19:38 07:05 RBC 4.26 L (4.30-5.90) m/uL Hgb 12.9 L (13.0-17.5) gm/dL Lymphocytes # 0.6 L (1.0-4.8) k/uL Sodium (137-145) mmol/L Glucose (74-99) mg/dL POC Glucose (mg/dL) 152 H 149 H (75-99) mg/dL Calcium (8.4-10.2) mg/dL Troponin I (0.000-0.034) ng/mL Total Protein (6.3-8.2) g/dL Albumin (3.5-5.0) g/dL HDL Cholesterol (40.00-60.00) mg/dL 09/05/21 Range/Units 07:05 RBC (4.30-5.90) m/uL Hgb (13.0-17.5) gm/dL Lymphocytes # (1.0-4.8) k/uL Sodium 134 L (137-145) mmol/L Glucose 101 H (74-99) mg/dL POC Glucose (mg/dL) (75-99) mg/dL Calcium 8.1 L (8.4-10.2) mg/dL Troponin I (0.000-0.034) ng/mL Total Protein 5.3 L (6.3-8.2) g/dL Albumin 2.6 L (3.5-5.0) g/dL HDL Cholesterol (40.00-60.00) mg/dL Assessment and Plan Plan: New onset atrial fibrillation, patient started on IV heparin in the emergency room cardiology consultation was requested. Per cardiology services atrial fibrillation has been ruled out. EKG showing sinus rhythm with PACs heparin drip DC'd Evidence of urinary tract infection, patient was started on IV Levaquin urine culture sent to lab. Recent cystoscopy and left urethral stent placement and laser light lithotripsy of left urethral stone Left sided hydronephrosis Underlying history of insulin-dependent diabetes mellitus Underlying history of hypertension Underlying history of coronary artery disease with previous history of coronary artery bypass graft surgery Previous history of atrial flutter Cardiology and neurology services following atrial fibrillation has been ruled out. Heparin drip DC'd per cardiology services 2-D echo has been ordered per cardiology Awaiting further recommendations from urology services Will follow closely
[2021-09-05 11:35] LABS: Glucose,Whole Blood 135 mg/dL (75-99)
[2021-09-05 11:36] LABS: Glucose,Whole Blood 135 mg/dL (75-99)
[2021-09-05 17:04] LABS: Glucose,Whole Blood 163 mg/dL (75-99)
--- NOTE | 2021-09-05 17:05 | P.PN ---
Subjective Progress Note Date: 09/05/21 his is a 81-year-old male with a past medical history significant for coronary artery disease with previous three-vessel CABG in 2017 (LIMALAD, VGOM1, VGD1), ischemic cardiomyopathy, hypertension, hyperlipidemia, and diabetes. Patient follows in the office with Dr. Campoverde. We have been asked to see the patient in consultation for new onset A. fib. Patient examined at the bedside. Patient presented to the hospital due to weakness of his lower extremities. He denies chest pain or pressure. Denies SOB. Denies palpitations. Denies dizziness or lightheadedness. EKG was reviewed with the golf caddie which does not reveal atrial fibrillation, rather sinus mechanism with frequent PACs. * EKG reveals sinus mechanism with PACs. * Chest xray chronic changes and cardiomegaly without acute pulmonary process. No significant change from recent prior. * Laboratory data: WBC 8.0. Hemoglobin 12.6. Platelet count 170. Sodium 132. Potassium 3.7. BUN 14. Creatinine 0.65. Troponin 0.043. 0.069. 0.076. * Current home cardiac medications include aspirin 81 mg daily, Lipitor 40 mg at night, metoprolol tartrate 50 mg twice a day, hydralazine 25 mg 3 times a day, and lisinopril 20 g twice a day * Most recent echocardiogram obtained in July 2021 revealed ejection fraction 45-50%, moderate pulmonary hypertension, mild MR, mild aortic stenosis, and mild tricuspid regurgitation * Cardiac catheterization history: 2017 revealing calcified coronary arteries, significant distal left main disease, critical ostial LAD lesion, mid disease in the right coronary artery and left circumflex, mildly impaired left ventricular systolic funct 09/05/2021: This patient is admitted to the hospital mainly with complaint of generalized weakness and poor appetite. Patient has been having some issues wit h kidney stones for which he had procedure the by urology. Apparently he still has some stones in the ureter. There is question of UTI. Patient denied any chest pain, shortness of breath or dizziness. It was suspected that patient may have atrial fibrillation. However, close inspection of the EKGs and monitor strips showed evidence of sinus rhythm with frequent APCs and PVCs. No definite atrial fibrillation is noted, so far. His troponin values are abnormal and show upward trend. The etiology is not clear. He is not having any chest pain and his main symptoms of generalized weakness. At this point I'm going to continue monitoring his symptoms. Neurology evaluation may be constricted. Echo Cardigan showed an ejection fraction in the range of about 40%. Discussed with the family. Not planning to do any cardiac cath at this time unless patient started having any chest pain or shortness of breath. Maximum medical therapy suggested Objective - Vital Signs Vital signs: Vital Signs Temp 97.5 F L 09/05/21 15:44 Pulse 78 09/05/21 15:44 Resp 16 09/05/21 15:44 BP 156/81 09/05/21 15:44 Pulse Ox 95 09/05/21 15:44 FiO2 Intake & Output 09/04/21 09/05/21 09/05/21 18:59 06:59 18:59 Intake Total 1057.908 240 240 Output Total 400 500 Balance 657.908 -260 240 Weight 92.986 kg 96 kg Intake: Intake, IV Titration 137.908 Amount Heparin Sod,Pork in 0.45% 137.908 NaCl 25,000 unit In 0.45 % NaCl 1 250ml.bag @ 10. 754 UNITS/KG/HR 10 mls/hr IV .Q24H [facility] Rx#: [id number] Oral 920 240 240 Output: Urine 400 500 Other: Voiding Method External Catheter External Catheter External Catheter # Voids 2 - Exam GENERAL EXAM: Patient is alert and oriented and doesn't appear to be in any acute distress HEENT: Normocephalic. Normal reaction of pupils, equal size, normal range of extraocular motion. No erythema or exudates in the throat. NECK: No masses, no nuchal rigidity. CHEST: No chest wall deformity. LUNGS: Equal air entry with no crackles or wheeze. HEART: S1 and S2 normal with irregular heart sound related to PACs and PVCs ABDOMEN: No hepatosplenomegaly, normal bowel sounds, no guarding or rigidity. SKIN: No rashes CENTRAL NERVOUS SYSTEM: Generalized weakness, especially lower legs EXTREMITIES: No cyanosis, clubbing or edema. - Labs CBC & Chem 7: 09/05/21 07:05 09/05/21 07:05 Labs: Abnormal Lab Results - Last 24 Hours (Table) 09/04/21 09/05/21 09/05/21 Range/Units 19:38 07:05 07:05 RBC 4.26 L (4.30-5.90) m/uL Hgb 12.9 L (13.0-17.5) gm/dL Lymphocytes # 0.6 L (1.0-4.8) k/uL Sodium 134 L (137-145) mmol/L Glucose 101 H (74-99) mg/dL POC Glucose (mg/dL) 149 H (75-99) mg/dL Calcium 8.1 L (8.4-10.2) mg/dL Total Protein 5.3 L (6.3-8.2) g/dL Albumin 2.6 L (3.5-5.0) g/dL 09/05/21 09/05/21 Range/Units 11:22 11:22 RBC (4.30-5.90) m/uL Hgb (13.0-17.5) gm/dL Lymphocytes # (1.0-4.8) k/uL Sodium (137-145) mmol/L Glucose (74-99) mg/dL POC Glucose (mg/dL) 135 H 135 H (75-99) mg/dL Calcium (8.4-10.2) mg/dL Total Protein (6.3-8.2) g/dL Albumin (3.5-5.0) g/dL Microbiology - Last 24 Hours (Table) 09/04/21 16:40 Blood Culture Gram Stain - Preliminary Blood 09/04/21 16:40 Blood Culture - Final Blood 09/03/21 14:41 Urine Culture - Preliminary Urine,Voided Group D Enterococcus Assessment and Plan (1) Cardiac arrhythmia Current Visit: Yes Status: Acute Code(s): I49.9 - CARDIAC ARRHYTHMIA, UNSPECIFIED SNOMED Code(s): 642453940 (2) Calculus of kidney Current Visit: Yes Status: Acute Code(s): N20.0 - CALCULUS OF KIDNEY SNOMED Code(s): 80508417 (3) Generalized weakness Current Visit: Yes Status: Acute Code(s): R53.1 - WEAKNESS SNOMED Code(s): 57309307 (4) Elevated troponin Current Visit: Yes Status: Acute Code(s): R77.8 - OTHER SPECIFIED ABNORMALITIES OF PLASMA PROTEINS SNOMED Code(s): 163632037 (5) Cardiomyopathy Current Visit: Yes Status: Acute Code(s): I42.9 - CARDIOMYOPATHY, UNSPECIFIED SNOMED Code(s): 29388631 Plan: Discussed with family. In spite of abnormal troponin values, no invasive workup is suggested at this time as patient is not having any symptoms of chest pain or shortness of breath. Moreover is been dealing with other issues of generalized weakness and also kidney stones. We'll continue to monitor his symptoms. Continue maximal medical therapy. No evidence of atrial fibrillation
[2021-09-05] MEDS ORDERED: LEVOFLOXACIN 500 MG TAB PO SCH (20:00)
[2021-09-05 20:26] LABS: Glucose,Whole Blood 192 mg/dL (75-99)
[2021-09-05] MEDS: INSULIN DETEMIR (LEVEMIR) 100 UNIT/ML SYR SQ SCH (21:09)
[2021-09-05] MEDS: ATORVASTATIN 40 MG TAB PO SCH (21:10)
[2021-09-06] MEDS ORDERED: INSULIN ASPART (NovoLOG) 100 UNIT/ML VIAL SQ ONE (04:00)
[2021-09-06 06:19] LABS: Glucose,Whole Blood 113 mg/dL (75-99)
[2021-09-06] MEDS: LEVOTHYROXINE 25 MCG TAB PO SCH (06:30)
[2021-09-06] MEDS: METOPROLOL TARTRATE 50 MG TAB PO SCH ×2 (06:30→17:41)
[2021-09-06] MEDS: INSULIN ASPART (NovoLOG) 100 UNIT/ML VIAL SQ SCH ×4 (06:32→21:26)
[2021-09-06] MEDS ORDERED: ASPIRIN 81 MG ONE (09:00)
[2021-09-06] MEDS ORDERED: hydrALAZINE HCL 50 MG TAB ONE (09:00)
[2021-09-06] MEDS ORDERED: VIT A,C & E-LUTEIN-MINERALS 1 EACH TAB ONE (09:00)
[2021-09-06] MEDS ORDERED: lisinopriL 20 MG TAB ONE (09:00)
[2021-09-06] MEDS ORDERED: PANTOPRAZOLE 40 MG TABLET PO ONE (09:00)
[2021-09-06] MEDS ORDERED: metFORMIN 500 MG TAB ONE (09:00)
[2021-09-06] MEDS ORDERED: FERROUS SULFATE 325 MG TAB PO ONE (09:00)
[2021-09-06] MEDS ORDERED: CHOLECALCIFEROL 125 MCG (5000 IU) TABLET ONE (09:00)
--- NOTE | 2021-09-06 09:56 | P.PN ---
Subjective Progress Note Date: 09/06/21 HISTORY OF PRESENT ILLNESS: This is a 81-year-old male with a past medical history significant for coronary artery disease with previous three-vessel CABG in 2017 (LIMALAD, VGOM1, VGD1), ischemic cardiomyopathy, hypertension, hyperlipidemia, and diabetes. Patient follows in the office with Dr. Campoverde. We have been asked to see the patient in consultation for new onset A. fib. Patient examined at the bedside. Patient presented to the hospital due to weakness of his lower extremities. He denies chest pain or pressure. Denies SOB. Denies palpitations. Denies dizziness or lightheadedness. EKG was reviewed with the electrocardiographic technician which does not reveal atrial fibrillation, rather sinus mechanism with frequent PACs. * EKG reveals sinus mechanism with PACs. * Chest xray chronic changes and cardiomegaly without acute pulmonary process. No significant change from recent prior. * Laboratory data: WBC 8.0. Hemoglobin 12.6. Platelet count 170. Sodium 132. Potassium 3.7. BUN 14. Creatinine 0.65. Troponin 0.043. 0.069. 0.076. * Current home cardiac medications include aspirin 81 mg daily, Lipitor 40 mg at night, metoprolol tartrate 50 mg twice a day, hydralazine 25 mg 3 times a day, and lisinopril 20 g twice a day * Most recent echocardiogram obtained in July 2021 revealed ejection fraction 45-50%, moderate pulmonary hypertension, mild MR, mild aortic stenosis, and mild tricuspid regurgitation * Cardiac catheterization history: 2017 revealing calcified coronary arteries, significant distal left main disease, critical ostial LAD lesion, mid disease in the right coronary artery and left circumflex, mildly impaired left ventricular systolic function 09/05/2021: This patient is admitted to the hospital mainly with complaint of generalized weakness and poor appetite. Patient has been having some issues with kidney stones for which he had procedure the by urology. Apparently he still has some stones in the ureter. There is question of UTI. Patient denied any chest pain, shortness of breath or dizziness. It was suspected that patient may have atrial fibrillation. However, close inspection of the EKGs and monitor strips showed evidence of sinus rhythm with frequent APCs and PVCs. No definite atrial fibrillation is noted, so far. His troponin values are abnormal and show upward trend. The etiology is not clear. He is not having any chest pain and his main symptoms of generalized weakness. At this point I'm going to continue monitoring his symptoms. Neurology evaluation may be constricted. Echo Cardigan showed an ejection fraction in the range of about 40%. Discussed with the family. Not planning to do any cardiac cath at this time unless patient started having any chest pain or shortness of breath. Maximum medical therapy suggested 09/06/2021 Patient examined this morning. Patient is sitting up in the chair. He denies chest pain or pressure. He denies shortness of breath. Telemetry continues to reveal sinus mechanism with no signs of atrial fibrillation. Patient's blood pressure is slightly elevated this morning with a reading of 154/76. PHYSICAL EXAM: VITAL SIGNS: Reviewed. GENERAL: Well-developed in no acute distress. HEENT: Head is normocephalic. Pupils are equal, round. Sclerae anicteric. Mucous membranes of the mouth are moist. Neck supple. No JVD or thyromegaly LUNGS: Respirations even and unlabored. Lungs essentially clear to auscultation bilaterally. HEART: Regular rate and rhythm. S1 and S2 heard. Systolic murmur noted ABDOMEN: Soft. Nondistended. Nontender. EXTREMITIES: Normal range of motion. No clubbing or cyanosis. Peripheral pulses intact. No lower extremity edema NEUROLOGIC: Awake and alert. Oriented x 3. ASSESSMENT: Sudden onset of lower extremity weakness Urinary tract infection Abnormal troponins of unclear etiology Atrial fibrillation, ruled out, EKG and telemetry reveals sinus mechanism with PACs Recent cysto with stent exchange and stone manipulation Coronary artery disease status post 3 vessel CABG, 2017 Ischemic cardiomyopathy Hypertension Hyperlipidemia Diabetes PLAN: Continue current cardiac medications No plans for cardiac catheterization at this time as patient has no cardiac complaints such as chest pain or pressure. Continue telemetry monitoring Urology consulted for urinary tract infection Increase hydralazine to 50 mg 3 times a day. Continue to monitor blood pressure Further recommendations pending patient course Nurse practitioner note has been reviewed by physician. Signing provider agrees with the documented findings, assessment, and plan of care. Objective - Vital Signs Vital signs: Vital Signs Temp 97.9 F 09/06/21 03:45 Pulse 83 09/06/21 03:45 Resp 18 09/06/21 03:45 BP 154/76 09/06/21 03:45 Pulse Ox 94 L 09/06/21 03:45 FiO2 Intake & Output 09/05/21 09/06/21 09/06/21 18:59 06:59 18:59 Intake Total 480 560 Output Total 400 900 300 Balance 80 -900 260 Intake: Oral 480 560 Output: Urine 400 900 Stool 300 Other: Voiding Method External Catheter External Catheter # Voids 1 - Labs CBC & Chem 7: 09/05/21 07:05 09/05/21 07:05 Labs: Abnormal Lab Results - Last 24 Hours (Table) 09/05/21 09/05/21 09/05/21 Range/Units 11:22 11:22 16:53 POC Glucose (mg/dL) 135 H 135 H 163 H (75-99) mg/dL 09/05/21 09/05/21 09/06/21 Range/Units 20:24 20:24 06:18 POC Glucose (mg/dL) 192 H 192 H 113 H (75-99) mg/dL Microbiology - Last 24 Hours (Table) 09/04/21 16:40 Blood Culture Gram Stain - Preliminary Blood 09/04/21 16:40 Blood Culture - Final Blood 09/03/21 14:41 Urine Culture - Preliminary Urine,Voided Group D Enterococcus
[2021-09-06 14:43] LABS: ALT 39 U/L (4-49); AST 49 U/L (17-59); African American GFR (CKD) >90 (>60 ml/min/1.73 sqM); Albumin 2.7 g/dL (3.5-5.0); Alkaline Phosphatase 86 U/L (38-126); Anion Gap 8 mmol/L; Blood Urea Nitrogen 18 mg/dL (9-20); Calcium 8.4 mg/dL (8.4-10.2); Carbon Dioxide 27 mmol/L (22-30); Chloride 100 mmol/L (98-107); Glucose 252 mg/dL (74-99); Non-African American GFR(CKD) 84 (>60 ml/min/1.73 sqM); Potassium 4.6 mmol/L (3.5-5.1); Sodium 135 mmol/L (137-145); Total Bilirubin 0.5 mg/dL (0.2-1.3); Total Protein 5.5 g/dL (6.3-8.2)
[2021-09-06 14:45] LABS: Glucose,Whole Blood 232 mg/dL (75-99)
[2021-09-06 16:14] LABS: Glucose,Whole Blood 216 mg/dL (75-99)
[2021-09-06] MEDS: CHOLECALCIFEROL 125 MCG (5000 IU) TABLET PO SCH (16:31)
[2021-09-06] MEDS: ASPIRIN 81 MG PO SCH (16:31)
[2021-09-06] MEDS: hydrALAZINE HCL 25 MG TAB PO SCH ×3 (16:31→21:25)
[2021-09-06] MEDS: PANTOPRAZOLE 40 MG TABLET PO SCH (16:31)
[2021-09-06] MEDS: FERROUS SULFATE 325 MG TAB PO SCH (16:31)
[2021-09-06] MEDS: metFORMIN 500 MG TAB PO SCH ×2 (16:31→21:26)
[2021-09-06] MEDS: VIT A,C & E-LUTEIN-MINERALS 1 EACH TAB PO SCH ×2 (16:31→21:26)
[2021-09-06] MEDS: lisinopriL 20 MG TAB PO SCH ×2 (16:31→21:26)
[2021-09-06 16:41] LABS: Basophils # (A) 0.1 k/uL (0-0.2); Basophils % (A) 1 %; Eosinophils # (A) 0.2 k/uL (0-0.7); Eosinophils % (A) 2 %; HCT 44.3 % (39.0-53.0); HGB 13.5 gm/dL (13.0-17.5); Hypochromasia Marked; Lymphocytes # (A) 0.6 k/uL (1.0-4.8); Lymphocytes % (A) 7 %; MCH 30.7 pg (25.0-35.0); MCHC 30.6 g/dL (31.0-37.0); MCV 100.5 fL (80.0-100.0); Mean Platelet Volume 9.6; Monocytes # (A) 0.5 k/uL (0-1.0); Monocytes % (A) 5 %; Neutrophils # (A) 7.7 k/uL (1.3-7.7); Neutrophils % (A) 84 %; Platelet Count 250 k/uL (150-450); RBC 4.41 m/uL (4.30-5.90); RDW 13.2 % (11.5-15.5); WBC 9.1 k/uL (3.8-10.6)
[2021-09-06] MEDS ORDERED: VANCOMYCIN IV PER PHARMACY 1 EACH MISC MISCELLANE PRN (18:04)
--- NOTE | 2021-09-06 19:20 | P.PN ---
Subjective Progress Note Date: 09/06/21 Ranjan Pace, is an 81-year-old male who presented to [facility] emergency room with a chief complaint of generalized weakness. Patient slipped to the floor at home and was not able to get up EMS were called. He was evaluated in the emergency room vital examination on presentation reveale d a temperature of 97.6 pulse 95 respirations 16 blood pressure 136/80 pulse ox 95% on room air Laboratory data revealed a white blood count of 9.4 hemoglobin 12.6 platelet count 165 sodium 133 potassium 3.7 chloride 97 CO2 26 BUN 19 creatinine 0.76 glucose level was 295 urine analysis revealed evidence of urinary tract infection. Testing in the emergency room revealed chest x-ray done in the emergency room revealed evidence of chronic changes and cardiomegaly without acute pulmonary process no significant change from previous exam, EKG was done in the emergency room and revealed atrial fibrillation with rapid ventricular response heart rate 105 with aberrant conduction and left anterior fascicular block. Patient was admitted to medical floor for further evaluation and treatment, he was started on IV heparin, cardiology consultation was requested, patient was also started on IV Levaquin for urinary tract infection, and urology consultation was requested. Patient was recently admitted to the hospital due to obstructing calculus in the left ureteropelvic junction with severe left dorita ed hydronephrosis and multiple left sided renal calculi, he underwent cystoscopy with left urethral stent placement, on 08/10/2021, Patient was brought in on 08/20/2021 as outpatient and underwent cystoscopy left urethroscopy and laser light of drip seen stone manipulation and stent exchange. Patient was doing well for about a week after that then he started having worsening weakness. On 09/04/2021 patient was seen and examined on the medical floor he is alert and oriented 3 in no apparent distress he was having episodes of low-grade fever otherwise he denies any complaints There is no headache or dizziness no chest pain no shortness of breath no cough no nausea or vomiting no abdominal pain no diarrhea no blood in the stools no burning with urination no frequency or urgency and no hematuria. Vital exam reveals a temperature of 100.9 pulse 69 respiration 16 blood pressure 188/74 pulse ox 94% on room air Laboratory data reveals a white blood count of 8.0 hemoglobin 12.6 platelet cou nt 170 sodium 132 potassium 3.7 chloride 98 CO2 27 BUN 14 creatinine 0.65 At this time patient is maintained on IV Levaquin awaiting blood culture and urine culture results On 09/05/2021 patient is alert and oriented 3. Current vitals temp 97.3, heart rate 57, respiratory rate 16, blood pressure 133/64 with pulse ox 95% on room air. Per cardiology CHF fibrillation has been ruled out EKG revealing telemetry showing sinus mechanism with PACs. Heparin DC'd per cardiology. 2-D echo has been ordered. Awaiting urology services for further recommendations. At this time patient denies chest pain or shortness of breath. Patient denies nausea vomiting or diarrhea. Patient denies any urinary burning or frequency. On 09/06/2021 patient was seen and examined on the medical floor he is alert and oriented 3 in no apparent distress there is no fever or chills no headache or dizziness no chest pain no shortness of breath no nausea or vomiting no abdominal pain no diarrhea and no urinary symptoms. Blood culture was positive for gram-positive cocci ID and sensitivity still pending, urine culture is positive for Enterococcus faecalis, antibiotic will be changed to IV vancomycin pharmacy to dose. Cardiology note review, no evidence of atrial fibrillation, slight elevation in troponin level on presentation, no intervention recommended at this time, no cardiac catheterization plan, DC IV heparin at this time, he was subcu Lovenox for DVT prophylaxis Objective - Vital Signs Vital signs: Vital Signs Temp 97.9 F 09/06/21 03:45 Pulse 83 09/06/21 03:45 Resp 18 09/06/21 03:45 BP 154/76 09/06/21 03:45 Pulse Ox 94 L 09/06/21 03:45 FiO2 Intake & Output 09/05/21 09/06/21 09/06/21 18:59 06:59 18:59 Intake Total 480 560 Output Total 400 900 300 Balance 80 -900 260 Intake: Oral 480 560 Output: Urine 400 900 Stool 300 Other: Voiding Method External Catheter External Catheter # Voids 1 - Exam In general patient is alert and oriented x 3 in no distress HEENT head normocephalic and atraumatic Neck is supple no JVD no goiter no lymphadenopathy no carotid bruit Chest examination is clear to auscultation no crackles no wheezing Cardiac exam reveals irregular heart sounds S1 and S2 no gallops no murmurs Abdomen is soft nontender no organomegaly with normal bowel sounds Extremity exam reveals no edema no cyanosis or clubbing Neurological examination reveals no gross focal deficits - Labs CBC & Chem 7: 09/06/21 09:34 09/06/21 09:34 Labs: Abnormal Lab Results - Last 24 Hours (Table) 09/05/21 09/05/21 09/05/21 Range/Units 16:53 20:24 20:24 Sodium (137-145) mmol/L Glucose (74-99) mg/dL POC Glucose (mg/dL) 163 H 192 H 192 H (75-99) mg/dL Total Protein (6.3-8.2) g/dL Albumin (3.5-5.0) g/dL 09/06/21 09/06/21 09/06/21 Range/Units 06:18 09:34 11:23 Sodium 135 L (137-145) mmol/L Glucose 252 H (74-99) mg/dL POC Glucose (mg/dL) 113 H 232 H (75-99) mg/dL Total Protein 5.5 L (6.3-8.2) g/dL Albumin 2.7 L (3.5-5.0) g/dL Microbiology - Last 24 Hours (Table) 09/04/21 16:40 Blood Culture Gram Stain - Preliminary Blood 09/04/21 16:40 Blood Culture - Final Blood 09/03/21 14:41 Urine Culture - Preliminary Urine,Voided Group D Enterococcus Assessment and Plan Plan: New onset atrial fibrillation, patient started on IV heparin in the emergency room cardiology consultation was requested. Per cardiology services atrial fibrillation has been ruled out. EKG showing sinus rhythm with PACs heparin drip DC'd Evidence of urinary tract infection, patient was started on IV Levaquin urine culture sent to lab. Recent cystoscopy and left urethral stent placement and laser light lithotripsy of left urethral stone Left sided hydronephrosis Underlying history of insulin-dependent diabetes mellitus Underlying history of hypertension Underlying history of coronary artery disease with previous history of coronary artery bypass graft surgery Previous history of atrial flutter Cardiology and neurology services following atrial fibrillation has been ruled out. Heparin drip DC'd per cardiology services 2-D echo has been ordered per cardiology Awaiting further recommendations from urology services Will follow closely
[2021-09-06 20:05] LABS: Glucose,Whole Blood 250 mg/dL (75-99)
[2021-09-06] MEDS: VANCOMYCIN 1,500 MG in SODIUM CHLORIDE 0.9% 250 ML IVPB SCH (20:09)
[2021-09-06] MEDS: ATORVASTATIN 40 MG TAB PO SCH (21:26)
[2021-09-06] MEDS: INSULIN DETEMIR (LEVEMIR) 100 UNIT/ML SYR SQ SCH (21:26)
[2021-09-07 05:58] LABS: Glucose,Whole Blood 140 mg/dL (75-99)
[2021-09-07] MEDS: METOPROLOL TARTRATE 50 MG TAB PO SCH ×2 (06:57→15:13)
[2021-09-07] MEDS: LEVOTHYROXINE 25 MCG TAB PO SCH (06:57)
[2021-09-07] MEDS: INSULIN ASPART (NovoLOG) 100 UNIT/ML VIAL SQ SCH ×4 (06:57→21:32)
[2021-09-07] MEDS: VANCOMYCIN 1,500 MG in SODIUM CHLORIDE 0.9% 250 ML IVPB SCH ×2 (07:05→18:06)
[2021-09-07] MEDS: ASPIRIN 81 MG PO SCH (09:07)
[2021-09-07] MEDS: CHOLECALCIFEROL 125 MCG (5000 IU) TABLET PO SCH (09:07)
[2021-09-07] MEDS: lisinopriL 20 MG TAB PO SCH ×2 (09:07→21:31)
[2021-09-07] MEDS: metFORMIN 500 MG TAB PO SCH ×2 (09:08→21:31)
[2021-09-07] MEDS: VIT A,C & E-LUTEIN-MINERALS 1 EACH TAB PO SCH ×2 (09:08→21:32)
[2021-09-07] MEDS: hydrALAZINE HCL 25 MG TAB PO SCH ×3 (09:08→21:31)
[2021-09-07] MEDS: ENOXAPARIN 40 MG/0.4 ML SYRINGE SQ SCH (09:08)
[2021-09-07] MEDS: PANTOPRAZOLE 40 MG TABLET PO SCH (09:08)
--- NOTE | 2021-09-07 10:02 | P.PN ---
Progress Note - Text Progress Note Date: 09/07/21 Patient denies flank pain and hematuria. KUB x-ray showed a left upper pole renal calculus as well as a left mid ureteral calculus. The patient is urologically stable for discharge. I have advised him to contact Dr. Parker on September 11 to determine his next course of action, which may be a CT scan for further evaluation.
--- NOTE | 2021-09-07 10:04 | P.PN ---
Subjective Progress Note Date: 09/07/21 HISTORY OF PRESENT ILLNESS: This is a 81-year-old male with a past medical history significant for coronary artery disease with previous three-vessel CABG in 2017 (LIMALAD, VGOM1, VGD1), ischemic cardiomyopathy, hypertension, hyperlipidemia, and diabetes. Patient follows in the office with Dr. Campoverde. We have been asked to see the patient in consultation for new onset A. fib. Patient examined at the bedside. Patient presented to the hospital due to weakness of his lower extremities. He denies chest pain or pressure. Denies SOB. Denies palpitations. Denies dizziness or lightheadedness. EKG was reviewed with the billiard table mechanic which does not reveal atrial fibrillation, rather sinus mechanism with frequent PACs. * EKG reveals sinus mechanism with PACs. * Chest xray chronic changes and cardiomegaly without acute pulmonary process. No significant change from recent prior. * Laboratory data: WBC 8.0. Hemoglobin 12.6. Platelet count 170. Sodium 132. Potassium 3.7. BUN 14. Creatinine 0.65. Troponin 0.043. 0.069. 0.076. * Current home cardiac medications include aspirin 81 mg daily, Lipitor 40 mg at night, metoprolol tartrate 50 mg twice a day, hydralazine 25 mg 3 times a day, and lisinopril 20 g twice a day * Most recent echocardiogram obtained in July 2021 revealed ejection fraction 45-50%, moderate pulmonary hypertension, mild MR, mild aortic stenosis, and mild tricuspid regurgitation * Cardiac catheterization history: 2017 revealing calcified coronary arteries, significant distal left main disease, critical ostial LAD lesion, mid disease in the right coronary artery and left circumflex, mildly impaired left ventricular systolic function 09/05/2021: This patient is admitted to the hospital mainly with complaint of generalized weakness and poor appetite. Patient has been having some issues with kidney stones for which he had procedure the by urology. Apparently he still has some stones in the ureter. There is question of UTI. Patient denied any chest pain, shortness of breath or dizziness. It was suspected that patient may have atrial fibrillation. However, close inspection of the EKGs and monitor strips showed evidence of sinus rhythm with frequent APCs and PVCs. No definite atrial fibrillation is noted, so far. His troponin values are abnormal and show upward trend. The etiology is not clear. He is not having any chest pain and his main symptoms of generalized weakness. At this point I'm going to continue monitoring his symptoms. Neurology evaluation may be constricted. Echo Cardigan showed an ejection fraction in the range of about 40%. Discussed with the family. Not planning to do any cardiac cath at this time unless patient started having any chest pain or shortness of breath. Maximum medical therapy suggested 09/06/2021 Patient examined this morning. Patient is sitting up in the chair. He denies chest pain or pressure. He denies shortness of breath. Telemetry continues to reveal sinus mechanism with no signs of atrial fibrillation. Patient's blood pressure is slightly elevated this morning with a reading of 154/76. 09/07/2021 Patient examined this morning. He denies chest pain or pressure. Denies shortness of breath. Telemetry reveals sinus mechanism with PACs. Blood p ressure 132/76. PHYSICAL EXAM: VITAL SIGNS: Reviewed. GENERAL: Well-developed in no acute distress. HEENT: Head is normocephalic. Pupils are equal, round. Sclerae anicteric. Mucous membranes of the mouth are moist. Neck supple. No JVD or thyromegaly LUNGS: Respirations even and unlabored. Lungs essentially clear to auscultation bilaterally. HEART: Regular rate and rhythm. S1 and S2 heard. Systolic murmur noted ABDOMEN: Soft. Nondistended. Nontender. EXTREMITIES: Normal range of motion. No clubbing or cyanosis. Peripheral pulses intact. No lower extremity edema NEUROLOGIC: Awake and alert. Oriented x 3. ASSESSMENT: Sudden onset of lower extremity weakness Urinary tract infection Abnormal troponins of unclear etiology Atrial fibrillation, ruled out, EKG and telemetry reveals sinus mechanism with PACs Recent cysto with stent exchange and stone manipulation Coronary artery disease status post 3 vessel CABG, 2017 Ischemic cardiomyopathy Hypertension Hyperlipidemia Diabetes PLAN: Continue current cardiac medications No plans for cardiac catheterization at this time as patient has no cardiac complaints such as chest pain or pressure. Continue telemetry monitoring We will sign off. Please reconsult if needed. Nurse practitioner note has been reviewed by physician. Signing provider agrees with the documented findings, assessment, and plan of care. Objective - Vital Signs Vital signs: Vital Signs Temp 98.2 F 09/07/21 07:36 Pulse 79 09/07/21 07:36 Resp 16 09/07/21 07:36 BP 159/88 09/07/21 07:36 Pulse Ox 97 09/07/21 07:36 FiO2 Intake & Output 09/06/21 09/07/21 09/07/21 18:59 06:59 18:59 Intake Total 1060 200 510 Output Total 500 100 Balance 560 200 410 Weight 93.6 kg Intake: IV 20 250 Invasive Line 2 20 Vancomycin 1,500 mg In 250 Sodium Chloride 0.9% 250 ml @ 125 mls/hr IVPB 0600 ,1800 [facility] Rx#:[id number] Oral 1040 200 260 Output: Urine 200 100 Stool 300 Other: Voiding Method External Catheter External Catheter Diaper - Labs CBC & Chem 7: 09/06/21 09:34 09/06/21 09:34 Labs: Abnormal Lab Results - Last 24 Hours (Table) 09/06/21 09/06/21 09/06/21 Range/Units 09:34 09:34 11:23 MCV 100.5 H (80.0-100.0) fL MCHC 30.6 L (31.0-37.0) g/dL Lymphocytes # 0.6 L (1.0-4.8) k/uL Sodium 135 L (137-145) mmol/L Glucose 252 H (74-99) mg/dL POC Glucose (mg/dL) 232 H (75-99) mg/dL Total Protein 5.5 L (6.3-8.2) g/dL Albumin 2.7 L (3.5-5.0) g/dL 09/06/21 09/06/21 09/07/21 Range/Units 16:12 20:04 05:47 MCV (80.0-100.0) fL MCHC (31.0-37.0) g/dL Lymphocytes # (1.0-4.8) k/uL Sodium (137-145) mmol/L Glucose (74-99) mg/dL POC Glucose (mg/dL) 216 H 250 H 140 H (75-99) mg/dL Total Protein (6.3-8.2) g/dL Albumin (3.5-5.0) g/dL Microbiology - Last 24 Hours (Table) 09/03/21 20:54 Urine Culture - Final Urine,Voided 09/03/21 14:41 Urine Culture - Final Urine,Voided Enterococcus faecalis
--- NOTE | 2021-09-07 10:16 | P.PN ---
Subjective Progress Note Date: 09/07/21 Ranjan Pace, is an 81-year-old male who presented to [facility] emergency room with a chief complaint of generalized weakness. Patient slipped to the floor at home and was not able to get up EMS were called. He was evaluated in the emergency room vital examination on presentation reveale d a temperature of 97.6 pulse 95 respirations 16 blood pressure 136/80 pulse ox 95% on room air Laboratory data revealed a white blood count of 9.4 hemoglobin 12.6 platelet count 165 sodium 133 potassium 3.7 chloride 97 CO2 26 BUN 19 creatinine 0.76 glucose level was 295 urine analysis revealed evidence of urinary tract infection. Testing in the emergency room revealed chest x-ray done in the emergency room revealed evidence of chronic changes and cardiomegaly without acute pulmonary process no significant change from previous exam, EKG was done in the emergency room and revealed atrial fibrillation with rapid ventricular response heart rate 105 with aberrant conduction and left anterior fascicular block. Patient was admitted to medical floor for further evaluation and treatment, he was started on IV heparin, cardiology consultation was requested, patient was also started on IV Levaquin for urinary tract infection, and urology consultation was requested. Patient was recently admitted to the hospital due to obstructing calculus in the left ureteropelvic junction with severe left dorita ed hydronephrosis and multiple left sided renal calculi, he underwent cystoscopy with left urethral stent placement, on 08/10/2021, Patient was brought in on 08/20/2021 as outpatient and underwent cystoscopy left urethroscopy and laser light of drip seen stone manipulation and stent exchange. Patient was doing well for about a week after that then he started having worsening weakness. On 09/04/2021 patient was seen and examined on the medical floor he is alert and oriented 3 in no apparent distress he was having episodes of low-grade fever otherwise he denies any complaints There is no headache or dizziness no chest pain no shortness of breath no cough no nausea or vomiting no abdominal pain no diarrhea no blood in the stools no burning with urination no frequency or urgency and no hematuria. Vital exam reveals a temperature of 100.9 pulse 69 respiration 16 blood pressure 188/74 pulse ox 94% on room air Laboratory data reveals a white blood count of 8.0 hemoglobin 12.6 platelet cou nt 170 sodium 132 potassium 3.7 chloride 98 CO2 27 BUN 14 creatinine 0.65 At this time patient is maintained on IV Levaquin awaiting blood culture and urine culture results On 09/05/2021 patient is alert and oriented 3. Current vitals temp 97.3, heart rate 57, respiratory rate 16, blood pressure 133/64 with pulse ox 95% on room air. Per cardiology CHF fibrillation has been ruled out EKG revealing telemetry showing sinus mechanism with PACs. Heparin DC'd per cardiology. 2-D echo has been ordered. Awaiting urology services for further recommendations. At this time patient denies chest pain or shortness of breath. Patient denies nausea vomiting or diarrhea. Patient denies any urinary burning or frequency. On 09/06/2021 patient was seen and examined on the medical floor he is alert and oriented 3 in no apparent distress there is no fever or chills no headache or dizziness no chest pain no shortness of breath no nausea or vomiting no abdominal pain no diarrhea and no urinary symptoms. Blood culture was positive for gram-positive cocci ID and sensitivity still pending, urine culture is positive for Enterococcus faecalis, antibiotic will be changed to IV vancomycin pharmacy to dose. Cardiology note review, no evidence of atrial fibrillation, slight elevation in troponin level on presentation, no intervention recommended at this time, no cardiac catheterization plan, DC IV heparin at this time, he was subcu Lovenox for DVT prophylaxis On 09/07/2021 patient is alert and oriented 3. Patient remains on IV vancomycin awaiting infectious disease input. Per nursing staff urology services not planning any inpatient intervention at this time patient follow-up outpatient. Case management following for discharge planning. At this time patient denies chest pain or shortness breath. Patient denies nausea vomiting or diarrhea. Patient denies any urinary burning or frequency Objective - Vital Signs Vital signs: Vital Signs Temp 98.2 F 09/07/21 07:36 Pulse 79 09/07/21 07:36 Resp 16 09/07/21 07:36 BP 159/88 09/07/21 07:36 Pulse Ox 97 09/07/21 07:36 FiO2 Intake & Output 09/06/21 09/07/21 09/07/21 18:59 06:59 18:59 Intake Total 1060 200 510 Output Total 500 100 Balance 560 200 410 Weight 93.6 kg Intake: IV 20 250 Invasive Line 2 20 Vancomycin 1,500 mg In 250 Sodium Chloride 0.9% 250 ml @ 125 mls/hr IVPB 0600 ,1800 [facility] Rx#:[id number] Oral 1040 200 260 Output: Urine 200 100 Stool 300 Other: Voiding Method External Catheter External Catheter Diaper - Exam In general patient is alert and oriented x 3 in no distress HEENT head normocephalic and atraumatic Neck is supple no JVD no goiter no lymphadenopathy no carotid bruit Chest examination is clear to auscultation no crackles no wheezing Cardiac exam reveals irregular heart sounds S1 and S2 no gallops no murmurs Abdomen is soft nontender no organomegaly with normal bowel sounds Extremity exam reveals no edema no cyanosis or clubbing Neurological examination reveals no gross focal deficits - Labs CBC & Chem 7: 09/06/21 09:34 09/06/21 09:34 Labs: Abnormal Lab Results - Last 24 Hours (Table) 09/06/21 09/06/21 09/06/21 Range/Units 09:34 09:34 11:23 MCV 100.5 H (80.0-100.0) fL MCHC 30.6 L (31.0-37.0) g/dL Lymphocytes # 0.6 L (1.0-4.8) k/uL Sodium 135 L (137-145) mmol/L Glucose 252 H (74-99) mg/dL POC Glucose (mg/dL) 232 H (75-99) mg/dL Total Protein 5.5 L (6.3-8.2) g/dL Albumin 2.7 L (3.5-5.0) g/dL 09/06/21 09/06/21 09/07/21 Range/Units 16:12 20:04 05:47 MCV (80.0-100.0) fL MCHC (31.0-37.0) g/dL Lymphocytes # (1.0-4.8) k/uL Sodium (137-145) mmol/L Glucose (74-99) mg/dL POC Glucose (mg/dL) 216 H 250 H 140 H (75-99) mg/dL Total Protein (6.3-8.2) g/dL Albumin (3.5-5.0) g/dL Microbiology - Last 24 Hours (Table) 09/03/21 20:54 Urine Culture - Final Urine,Voided 09/03/21 14:41 Urine Culture - Final Urine,Voided Enterococcus faecalis Assessment and Plan Plan: New onset atrial fibrillation, patient started on IV heparin in the emergency room cardiology consultation was requested. Per cardiology services atrial fibrillation has been ruled out. EKG showing sinus rhythm with PACs heparin drip DC'd Evidence of urinary tract infection positive for enterococcus feculence. Ant ibiotics adjusted to vancomycin infectious disease service is consulted Recent cystoscopy and left urethral stent placement and laser light lithotripsy of left urethral stone Left sided hydronephrosis Underlying history of insulin-dependent diabetes mellitus Underlying history of hypertension Underlying history of coronary artery disease with previous history of coronary artery bypass graft surgery Previous history of atrial flutter Positive blood culture. Cardiology and neurology services following atrial fibrillation has been ruled out. Heparin drip DC'd per cardiology services Per nursing staff no further workup inpatient per urology services Infectious disease services have been consulted Patient currently maintained on vancomycin Case management and social work services following for discharge planning Will follow closely
[2021-09-07 11:36] LABS: Glucose,Whole Blood 224 mg/dL (75-99)
[2021-09-07 16:48] LABS: Glucose,Whole Blood 175 mg/dL (75-99)
[2021-09-07 20:12] LABS: Glucose,Whole Blood 246 mg/dL (75-99)
[2021-09-07] MEDS: ATORVASTATIN 40 MG TAB PO SCH (21:32)
[2021-09-07] MEDS: INSULIN DETEMIR (LEVEMIR) 100 UNIT/ML SYR SQ SCH (21:32)
--- NOTE | 2021-09-07 22:32 | P.CONS ---
History of Present Illness - Reason for Consult Consult date: 09/07/21 Urinary Tract infection Requesting physician: Davy Eldridge - Chief Complaint Weakness few days - History of Present Illness Patient is 81-year-old male with a past medical history significant for diabetes mellitus hypertension CVA TIA in this patient presented to hospital 4 days ago for evaluation of generalized weakness in this patient symptom has been going on for few days before the patient was brought into the hospital patient was feeling weak unable to get around even using his walker denies having any history of any fall or trauma patient also complaining of decreased appetite but no nausea no vomiting no abdominal pain no diarrhea, patient apparently did have a recent ureteral stent for the kidney stone, patient on presentation to the hospital initially afebrile subsequently he did have a low- grade fever of 100.9 F on 09/04/2021 patient did have normal white count BUN/creatinine was normal liver exams are normal patient did have a positive UA with urine culture not finalized with Enterococcus faecalis which is penicillin sensitive however the patient is penicillin allergic patient did have blood cultures drawn which are growing gram-positive cocci that has prompted this infectious disease consultation Review of Systems Positive point has been mentioned in the HPI rest of the systems are negative Past Medical History Past Medical History: Atrial Flutter, Cancer, CVA/TIA, Diabetes Mellitus, Hypertension Additional Past Medical History / Comment(s): JUNE 2016: IP ADM FOR GI BLEED. 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 Past Anesthesia/Blood Transfusion Reactions: No Reported Reaction Past Psychological History: No Psychological Hx Reported Additional Psychological History / Comment(s): Pt resides with his spouse of 55 yrs. He used a walker a couple weeks ago for a brief time. He drives. Smoking Status: Never smoker Past Alcohol Use History: Rare Past Drug Use History: None Reported - Past Family History Father Additional Family Medical History / Comment(s): Father at the age of 33 yrs from encephalitis. Mother Family Medical History: Myocardial Infarction (AL) Additional Family Medical History / Comment(s): Mother had a AL at the age of 60yrs. She at the age of 90yrs. Medications and Allergies Home Medications Medication Instructions Recorded Confirmed Type metFORMIN HCL [Glucophage] 1,000 mg PO DAILY 07/08/16 09/03/21 History metFORMIN HCL [Glucophage] 500 mg PO HS 07/08/16 09/03/21 History Aspirin EC [Ecotrin Low Dose] 81 mg PO DAILY 08/07/21 09/03/21 History Atorvastatin [Lipitor] 40 mg PO HS 08/07/21 09/03/21 History Cholecalciferol [Vitamin D3 (125 125 mcg PO DAILY 08/07/21 09/03/21 History Mcg = 5000 Iu)] Ferrous Sulfate [Iron (65 MG 325 mg PO Q48H 08/07/21 09/03/21 History Elemental)] Insulin Glargine,Hum.rec.anlog 14 unit SQ HS 08/07/21 09/03/21 History [Lantus Solostar Pen] Levothyroxine Sodium [Synthroid] 25 mcg PO DAILY 08/07/21 09/03/21 History Maxivision Whole Body Formula 1 cap PO BID 08/07/21 09/03/21 History Metoprolol Tartrate [Lopressor] 50 mg PO BID-W/MEALS 08/07/21 09/03/21 History Pantoprazole [Protonix] 40 mg PO DAILY 08/07/21 09/03/21 History hydrALAZINE HCL 25 mg PO TID 08/07/21 09/03/21 History lisinopriL [Zestril] 20 mg PO BID 08/07/21 09/03/21 History Allergies Allergy/AdvReac Type Severity Reaction Status Date / Time latex Allergy Unknown Verified 09/03/21 16:24 penicillin V Allergy Unknown Verified 09/03/21 16:24 Physical Exam Vitals: Vital Signs Temp Pulse Resp BP Pulse Ox 09/07/21 07:36 98.2 F 79 16 159/88 97 09/07/21 04:00 77 16 132/76 97 09/07/21 00:00 98 F 73 18 154/87 98 09/06/21 20:00 98 F 74 16 154/87 98 09/06/21 16:00 97.6 F 89 163/77 09/06/21 12:00 97.9 F 82 143/72 Intake and Output 09/06/21 09/07/21 09/07/21 22:59 06:59 14:59 Intake Total 240 200 510 Output Total 200 100 Balance 40 200 410 Intake: IV 250 Vancomycin 1,500 mg In 250 Sodium Chloride 0.9% 250 ml @ 125 mls/hr IVPB 0600 ,1800 [facility] Rx#:[id number] Oral 240 200 260 Output: Urine 200 100 Other: Voiding Method External Catheter External Catheter Diaper Weight 93.6 kg GENERAL DESCRIPTION: An elderly male lying in bed, no distress. No tachypnea or accessory muscle of respiration use. HEENT: Shows Pallor , no scleral icterus. Oral mucous membrane is dry. No pharyngeal erythema or thrush NECK: Trachea central, no thyromegaly. LUNGS: Unlabored breathing. Clear to auscultation anteriorly. No wheeze or crackle. HEART: S1, S2, regular rate and rhythm. No loud murmur ABDOMEN: Soft, no tenderness , guarding or rigidity, no organomegaly EXTREMITIES: No edema of feet. SKIN: No rash, no masses palpable. NEUROLOGICAL: The patient is awake, alert, oriented x3, mood and affect normal. Results CBC & Chem 7: 09/06/21 09:34 09/06/21 09:34 Labs: Abnormal Lab Results - Last 24 Hours (Table) 09/06/21 09/06/21 09/06/21 Range/Units 09:34 09:34 11:23 MCV 100.5 H (80.0-100.0) fL MCHC 30.6 L (31.0-37.0) g/dL Lymphocytes # 0.6 L (1.0-4.8) k/uL Sodium 135 L (137-145) mmol/L Glucose 252 H (74-99) mg/dL POC Glucose (mg/dL) 232 H (75-99) mg/dL Total Protein 5.5 L (6.3-8.2) g/dL Albumin 2.7 L (3.5-5.0) g/dL 09/06/21 09/06/21 09/07/21 Range/Units 16:12 20:04 05:47 MCV (80.0-100.0) fL MCHC (31.0-37.0) g/dL Lymphocytes # (1.0-4.8) k/uL Sodium (137-145) mmol/L Glucose (74-99) mg/dL POC Glucose (mg/dL) 216 H 250 H 140 H (75-99) mg/dL Total Protein (6.3-8.2) g/dL Albumin (3.5-5.0) g/dL 09/07/21 Range/Units 11:34 MCV (80.0-100.0) fL MCHC (31.0-37.0) g/dL Lymphocytes # (1.0-4.8) k/uL Sodium (137-145) mmol/L Glucose (74-99) mg/dL POC Glucose (mg/dL) 224 H (75-99) mg/dL Total Protein (6.3-8.2) g/dL Albumin (3.5-5.0) g/dL Microbiology - Last 24 Hours (Table) 09/03/21 20:54 Urine Culture - Final Urine,Voided 09/03/21 14:41 Urine Culture - Final Urine,Voided Enterococcus faecalis Assessment and Plan (1) UTI (urinary tract infection) Current Visit: Yes Status: Acute Code(s): N39.0 - URINARY TRACT INFECTION, SITE NOT SPECIFIED SNOMED Code(s): 26439893 Plan: 1patient presented to hospital with generalized weakness which is likely multifactorial in this we did have a recent urological procedure with ureteral stent placement did have a history of kidney stones now with significantly positive UA and urine positive for Enterococcus likely source of his underlying symptoms. 2patient with penicillin allergy that would limit the number of antibiotics safe to use. 3positive blood culture questionably skin contaminant was related to his UTI he waiting for the ID and sensitivity. 4vancomycin pharmacy to dose target trough of 15 while watching kidney function and vancomycin trough closely. 5blood cultures will be repeated document clearance of bacteremia. Daughter and at the bedside multiple questions those were answered in layman term. We will follow on clinical condition and cultures to further adjust medication if needed Thank you for this consultation will follow this patient along with you Time with Patient: Greater than 30
[2021-09-07] MEDS: hydrALAZINE HCL 20 MG/ML 1 ML VIAL IVP PRN (23:41)
[2021-09-08 06:20] LABS: Glucose,Whole Blood 167 mg/dL (75-99)
[2021-09-08] MEDS: INSULIN ASPART (NovoLOG) 100 UNIT/ML VIAL SQ SCH ×4 (06:33→20:42)
[2021-09-08] MEDS: LEVOTHYROXINE 25 MCG TAB PO SCH (06:33)
[2021-09-08] MEDS: METOPROLOL TARTRATE 50 MG TAB PO SCH ×2 (06:33→17:40)
[2021-09-08 09:02] LABS: Basophils % (A) 1 %; Eosinophils # (A) 0.2 k/uL (0-0.7); Eosinophils % (A) 2 %; HGB 12.9 gm/dL (13.0-17.5); Hypochromasia Slight; Lymphocytes % (A) 12 %; MCH 29.7 pg (25.0-35.0); MCHC 30.7 g/dL (31.0-37.0); Mean Platelet Volume 7.8; Monocytes # (A) 0.3 k/uL (0-1.0); Monocytes % (A) 4 %; Neutrophils # (A) 6.8 k/uL (1.3-7.7); Neutrophils % (A) 80 %; Platelet Count 299 k/uL (150-450); RBC 4.33 m/uL (4.30-5.90); RDW 13.7 % (11.5-15.5); WBC 8.5 k/uL (3.8-10.6)
[2021-09-08 09:18] LABS: ALT 47 U/L (4-49); AST 42 U/L (17-59); African American GFR (CKD) >90 (>60 ml/min/1.73 sqM); Albumin 2.7 g/dL (3.5-5.0); Alkaline Phosphatase 92 U/L (38-126); Anion Gap 6 mmol/L; Blood Urea Nitrogen 15 mg/dL (9-20); Calcium 8.6 mg/dL (8.4-10.2); Carbon Dioxide 27 mmol/L (22-30); Chloride 104 mmol/L (98-107); Glucose 156 mg/dL (74-99); Non-African American GFR(CKD) >90 (>60 ml/min/1.73 sqM); Potassium 4.4 mmol/L (3.5-5.1); Sodium 137 mmol/L (137-145); Total Bilirubin 0.5 mg/dL (0.2-1.3); Total Protein 5.3 g/dL (6.3-8.2)
--- NOTE | 2021-09-08 09:22 | P.PN ---
Subjective Progress Note Date: 09/08/21 Ranjan Pace, is an 81-year-old male who presented to [facility] emergency room with a chief complaint of generalized weakness. Patient slipped to the floor at home and was not able to get up EMS were called. He was evaluated in the emergency room vital examination on presentation reveale d a temperature of 97.6 pulse 95 respirations 16 blood pressure 136/80 pulse ox 95% on room air Laboratory data revealed a white blood count of 9.4 hemoglobin 12.6 platelet count 165 sodium 133 potassium 3.7 chloride 97 CO2 26 BUN 19 creatinine 0.76 glucose level was 295 urine analysis revealed evidence of urinary tract infection. Testing in the emergency room revealed chest x-ray done in the emergency room revealed evidence of chronic changes and cardiomegaly without acute pulmonary process no significant change from previous exam, EKG was done in the emergency room and revealed atrial fibrillation with rapid ventricular response heart rate 105 with aberrant conduction and left anterior fascicular block. Patient was admitted to medical floor for further evaluation and treatment, he was started on IV heparin, cardiology consultation was requested, patient was also started on IV Levaquin for urinary tract infection, and urology consultation was requested. Patient was recently admitted to the hospital due to obstructing calculus in the left ureteropelvic junction with severe left dorita ed hydronephrosis and multiple left sided renal calculi, he underwent cystoscopy with left urethral stent placement, on 08/10/2021, Patient was brought in on 08/20/2021 as outpatient and underwent cystoscopy left urethroscopy and laser light of drip seen stone manipulation and stent exchange. Patient was doing well for about a week after that then he started having worsening weakness. On 09/04/2021 patient was seen and examined on the medical floor he is alert and oriented 3 in no apparent distress he was having episodes of low-grade fever otherwise he denies any complaints There is no headache or dizziness no chest pain no shortness of breath no cough no nausea or vomiting no abdominal pain no diarrhea no blood in the stools no burning with urination no frequency or urgency and no hematuria. Vital exam reveals a temperature of 100.9 pulse 69 respiration 16 blood pressure 188/74 pulse ox 94% on room air Laboratory data reveals a white blood count of 8.0 hemoglobin 12.6 platelet cou nt 170 sodium 132 potassium 3.7 chloride 98 CO2 27 BUN 14 creatinine 0.65 At this time patient is maintained on IV Levaquin awaiting blood culture and urine culture results On 09/05/2021 patient is alert and oriented 3. Current vitals temp 97.3, heart rate 57, respiratory rate 16, blood pressure 133/64 with pulse ox 95% on room air. Per cardiology CHF fibrillation has been ruled out EKG revealing telemetry showing sinus mechanism with PACs. Heparin DC'd per cardiology. 2-D echo has been ordered. Awaiting urology services for further recommendations. At this time patient denies chest pain or shortness of breath. Patient denies nausea vomiting or diarrhea. Patient denies any urinary burning or frequency. On 09/06/2021 patient was seen and examined on the medical floor he is alert and oriented 3 in no apparent distress there is no fever or chills no headache or dizziness no chest pain no shortness of breath no nausea or vomiting no abdominal pain no diarrhea and no urinary symptoms. Blood culture was positive for gram-positive cocci ID and sensitivity still pending, urine culture is positive for Enterococcus faecalis, antibiotic will be changed to IV vancomycin pharmacy to dose. Cardiology note review, no evidence of atrial fibrillation, slight elevation in troponin level on presentation, no intervention recommended at this time, no cardiac catheterization plan, DC IV heparin at this time, he was subcu Lovenox for DVT prophylaxis On 09/07/2021 patient is alert and oriented 3. Patient remains on IV vancomycin awaiting infectious disease input. Per nursing staff urology services not planning any inpatient intervention at this time patient follow-up outpatient. Case management following for discharge planning. At this time patient denies chest pain or shortness breath. Patient denies nausea vomiting or diarrhea. Patient denies any urinary burning or frequency On 09/08/2021 patient is alert and oriented 3. Patient remains on IV vancomycin and repeat cultures have been ordered per infectious disease. Current vitals temp 97.8, heart rate 78, respiratory 20. Patient denies chest pain or shortness breath. Patient denies nausea vomiting or diarrhea. Patient denies any urinary burning or frequency Objective - Vital Signs Vital signs: Vital Signs Temp 97.8 F 09/08/21 04:00 Pulse 78 09/08/21 04:00 Resp 20 09/08/21 04:00 BP 153/73 09/08/21 04:00 Pulse Ox 95 09/08/21 04:00 FiO2 Intake & Output 09/07/21 09/08/21 09/08/21 18:59 06:59 18:59 Intake Total 1150 540 Output Total 300 350 Balance 850 190 Weight 93.6 kg Intake: IV 250 Vancomycin 1,500 mg In 250 Sodium Chloride 0.9% 250 ml @ 125 mls/hr IVPB 0600 ,1800 [facility] Rx#:[id number] Oral 900 540 Output: Urine 300 350 Other: Voiding Method Toilet Diaper External Catheter - Exam In general patient is alert and oriented x 3 in no distress HEENT head normocephalic and atraumatic Neck is supple no JVD no goiter no lymphadenopathy no carotid bruit Chest examination is clear to auscultation no crackles no wheezing Cardiac exam reveals irregular heart sounds S1 and S2 no gallops no murmurs Abdomen is soft nontender no organomegaly with normal bowel sounds Extremity exam reveals no edema no cyanosis or clubbing Neurological examination reveals no gross focal deficits - Labs CBC & Chem 7: 09/08/21 08:33 09/06/21 09:34 Labs: Abnormal Lab Results - Last 24 Hours (Table) 09/07/21 09/07/21 09/07/21 Range/Units 11:34 16:47 20:10 Hgb (13.0-17.5) gm/dL MCHC (31.0-37.0) g/dL POC Glucose (mg/dL) 224 H 175 H 246 H (75-99) mg/dL 09/08/21 09/08/21 Range/Units 06:17 08:33 Hgb 12.9 L (13.0-17.5) gm/dL MCHC 30.7 L (31.0-37.0) g/dL POC Glucose (mg/dL) 167 H (75-99) mg/dL Microbiology - Last 24 Hours (Table) 09/04/21 16:40 Blood Culture Gram Stain - Preliminary Blood Blood Culture - Preliminary Coagulase Negative Staph Assessment and Plan Plan: New onset atrial fibrillation, patient started on IV heparin in the emergency room cardiology consultation was requested. Per cardiology services atrial fibrillation has been ruled out. EKG showing sinus rhythm with PACs heparin drip DC'd Evidence of urinary tract infection positive for enterococcus feculence. Antibiotics adjusted to vancomycin infectious disease service is consulted Recent cystoscopy and left urethral stent placement and laser light lithotripsy of left urethral stone Left sided hydronephrosis Underlying history of insulin-dependent diabetes mellitus Underlying history of hypertension Underlying history of coronary artery disease with previous history of coronary artery bypass graft surgery Previous history of atrial flutter Positive blood culture. Cardiology and neurology services following atrial fibrillation has been ruled out. Heparin drip DC'd per cardiology services Per nursing staff no further workup inpatient per urology services Infectious disease services have been consulted Patient currently maintained on vancomycin Case management and social work services following for discharge planning Will follow closely
[2021-09-08] MEDS: ENOXAPARIN 40 MG/0.4 ML SYRINGE SQ SCH (10:07)
[2021-09-08] MEDS: metFORMIN 500 MG TAB PO SCH ×2 (10:08→20:42)
[2021-09-08] MEDS: hydrALAZINE HCL 25 MG TAB PO SCH ×3 (10:08→20:41)
[2021-09-08] MEDS: VIT A,C & E-LUTEIN-MINERALS 1 EACH TAB PO SCH ×2 (10:08→20:41)
[2021-09-08] MEDS: CHOLECALCIFEROL 125 MCG (5000 IU) TABLET PO SCH (10:08)
[2021-09-08] MEDS: lisinopriL 20 MG TAB PO SCH ×2 (10:08→20:42)
[2021-09-08] MEDS: PANTOPRAZOLE 40 MG TABLET PO SCH (10:08)
[2021-09-08] MEDS: ASPIRIN 81 MG PO SCH (10:08)
[2021-09-08] MEDS: FERROUS SULFATE 325 MG TAB PO SCH (10:08)
[2021-09-08] MEDS: VANCOMYCIN 1,500 MG in SODIUM CHLORIDE 0.9% 250 ML IVPB SCH ×2 (10:12→22:13)
[2021-09-08 11:45] LABS: Glucose,Whole Blood 238 mg/dL (75-99)
[2021-09-08 16:26] LABS: Glucose,Whole Blood 172 mg/dL (75-99)
[2021-09-08 20:20] LABS: Glucose,Whole Blood 228 mg/dL (75-99)
[2021-09-08] MEDS: ATORVASTATIN 40 MG TAB PO SCH (20:42)
[2021-09-08] MEDS: INSULIN DETEMIR (LEVEMIR) 100 UNIT/ML SYR SQ SCH (20:42)
--- NOTE | 2021-09-08 22:42 | P.PN ---
Subjective Progress Note Date: 09/08/21 Principal diagnosis: Urinary tract infection and bacteremia Patient is 81-year-old male presented to hospital generalized weakness no energy in this patient noticed to have a symptomatic urinary tract infection also have a positive blood culture which has been finalized stap epi. On today's evaluation that is 09/08/2021, the patient denies having any fever or any chills, the patient is breathing comfortably, denies having any chest pain or shortness of breath occasional cough no abdominal pain and no diarrhea Objective - Vital Signs Vital signs: Vital Signs Temp 97.8 F 09/08/21 17:41 Pulse 77 09/08/21 17:41 Resp 20 09/08/21 17:41 BP 148/74 09/08/21 17:41 Pulse Ox 96 09/08/21 17:41 FiO2 Intake & Output 09/08/21 09/08/21 09/09/21 06:59 18:59 06:59 Intake Total 540 1950 Output Total 350 Balance 190 1950 Weight 94.3 kg Intake: IV 270 Invasive Line 4 20 Vancomycin 1,500 mg In 250 Sodium Chloride 0.9% 250 ml @ 125 mls/hr IVPB 0600 ,1800 [facility] Rx#:[id number] Oral 540 1680 Output: Urine 350 Other: Voiding Method Diaper Diaper External Catheter # Voids 2 - Exam GENERAL DESCRIPTION: An elderly male lying in bed in no distress RESPIRATORY SYSTEM: Unlabored breathing , decreased breath sounds at bases HEART: S1 S2 regular rate and rhythm , ABDOMEN: Soft , no tenderness EXTREMITIES: No edema feet - Labs CBC & Chem 7: 09/08/21 08:33 09/08/21 08:33 Labs: Abnormal Lab Results - Last 24 Hours (Table) 09/07/21 09/08/21 09/08/21 Range/Units 20:10 06:17 08:33 Hgb 12.9 L (13.0-17.5) gm/dL MCHC 30.7 L (31.0-37.0) g/dL Creatinine (0.66-1.25) mg/dL Glucose (74-99) mg/dL POC Glucose (mg/dL) 246 H 167 H (75-99) mg/dL Total Protein (6.3-8.2) g/dL Albumin (3.5-5.0) g/dL 0509/08/21 09/08/21 Range/Units 08:33 11:43 16:24 Hgb (13.0-17.5) gm/dL MCHC (31.0-37.0) g/dL Creatinine 0.63 L (0.66-1.25) mg/dL Glucose 156 H (74-99) mg/dL POC Glucose (mg/dL) 238 H 172 H (75-99) mg/dL Total Protein 5.3 L (6.3-8.2) g/dL Albumin 2.7 L (3.5-5.0) g/dL Microbiology - Last 24 Hours (Table) 09/04/21 16:40 Blood Culture Gram Stain - Final Blood Blood Culture - Final Staphylococcus epidermidis Assessment and Plan (1) UTI (urinary tract infection) Current Visit: Yes Status: Acute Code(s): N39.0 - URINARY TRACT INFECTION, SITE NOT SPECIFIED SNOMED Code(s): 12935945 Plan: 1patient presented to hospital with generalized weakness which is likely multifactorial in this we did have a recent urological procedure with ureteral stent placement did have a history of kidney stones now with significantly positive UA and urine positive for Enterococcus likely source of his underlying symptoms. 2patient with penicillin allergy that would limit the number of antibiotics safe to use. 3positive blood culture questionably skin contaminant as it has been finalized as staph epi repeat blood cultures pending 4patient to continue with vancomycin pharmacy to dose target trough of 15 while watching kidney function closely as the patient is ALLERGIC to penicillin Time with Patient: Less than 30
[2021-09-09] MEDS: hydrALAZINE HCL 20 MG/ML 1 ML VIAL IVP PRN (04:38)
[2021-09-09 05:40] LABS: Glucose,Whole Blood 145 mg/dL (75-99)
[2021-09-09] MEDS: METOPROLOL TARTRATE 50 MG TAB PO SCH ×2 (07:02→16:57)
[2021-09-09] MEDS: INSULIN ASPART (NovoLOG) 100 UNIT/ML VIAL SQ SCH ×4 (07:02→20:33)
[2021-09-09] MEDS: LEVOTHYROXINE 25 MCG TAB PO SCH (07:02)
[2021-09-09] MEDS: VIT A,C & E-LUTEIN-MINERALS 1 EACH TAB PO SCH ×2 (08:45→20:32)
[2021-09-09] MEDS: ASPIRIN 81 MG PO SCH (08:45)
[2021-09-09] MEDS: PANTOPRAZOLE 40 MG TABLET PO SCH (08:45)
[2021-09-09] MEDS: CHOLECALCIFEROL 125 MCG (5000 IU) TABLET PO SCH (08:46)
[2021-09-09] MEDS: hydrALAZINE HCL 25 MG TAB PO SCH ×3 (08:46→20:32)
[2021-09-09] MEDS: ENOXAPARIN 40 MG/0.4 ML SYRINGE SQ SCH (08:46)
[2021-09-09] MEDS: lisinopriL 20 MG TAB PO SCH ×2 (08:46→20:33)
[2021-09-09] MEDS: metFORMIN 500 MG TAB PO SCH ×2 (08:47→20:32)
[2021-09-09] MEDS ORDERED: VANCOMYCIN TROUGH DUE 1 EACH MISC MISCELLANE ONE (09:00)
[2021-09-09 09:28] LABS: ALT 44 U/L (4-49); AST 39 U/L (17-59); African American GFR (CKD) >90 (>60 ml/min/1.73 sqM); Albumin 2.7 g/dL (3.5-5.0); Alkaline Phosphatase 100 U/L (38-126); Anion Gap 8 mmol/L; Blood Urea Nitrogen 14 mg/dL (9-20); Calcium 8.4 mg/dL (8.4-10.2); Carbon Dioxide 27 mmol/L (22-30); Chloride 102 mmol/L (98-107); Glucose 224 mg/dL (74-99); Non-African American GFR(CKD) 89 (>60 ml/min/1.73 sqM); Potassium 4.3 mmol/L (3.5-5.1); Sodium 137 mmol/L (137-145); Total Bilirubin 0.6 mg/dL (0.2-1.3); Total Protein 5.5 g/dL (6.3-8.2)
[2021-09-09 09:30] LABS: Basophils # (A) 0.1 k/uL (0-0.2); Basophils % (A) 1 %; Eosinophils # (A) 0.2 k/uL (0-0.7); Eosinophils % (A) 2 %; HCT 41.1 % (39.0-53.0); HGB 12.9 gm/dL (13.0-17.5); Hypochromasia Slight; Lymphocytes # (A) 0.7 k/uL (1.0-4.8); Lymphocytes % (A) 10 %; MCH 30.6 pg (25.0-35.0); MCHC 31.5 g/dL (31.0-37.0); MCV 97.2 fL (80.0-100.0); Mean Platelet Volume 7.8; Monocytes # (A) 0.4 k/uL (0-1.0); Monocytes % (A) 5 %; Neutrophils # (A) 6.4 k/uL (1.3-7.7); Neutrophils % (A) 82 %; Platelet Count 302 k/uL (150-450); RBC 4.22 m/uL (4.30-5.90); RDW 13.9 % (11.5-15.5); WBC 7.9 k/uL (3.8-10.6)
[2021-09-09] MEDS: VANCOMYCIN 1,500 MG in SODIUM CHLORIDE 0.9% 250 ML IVPB SCH ×2 (10:31→21:50)
[2021-09-09 11:40] LABS: Glucose,Whole Blood 210 mg/dL (75-99)
--- NOTE | 2021-09-09 11:41 | P.PN ---
Subjective Progress Note Date: 09/09/21 Ranjan Pace, is an 81-year-old male who presented to [facility] emergency room with a chief complaint of generalized weakness. Patient slipped to the floor at home and was not able to get up EMS were called. He was evaluated in the emergency room vital examination on presentation reveale d a temperature of 97.6 pulse 95 respirations 16 blood pressure 136/80 pulse ox 95% on room air Laboratory data revealed a white blood count of 9.4 hemoglobin 12.6 platelet count 165 sodium 133 potassium 3.7 chloride 97 CO2 26 BUN 19 creatinine 0.76 glucose level was 295 urine analysis revealed evidence of urinary tract infection. Testing in the emergency room revealed chest x-ray done in the emergency room revealed evidence of chronic changes and cardiomegaly without acute pulmonary process no significant change from previous exam, EKG was done in the emergency room and revealed atrial fibrillation with rapid ventricular response heart rate 105 with aberrant conduction and left anterior fascicular block. Patient was admitted to medical floor for further evaluation and treatment, he was started on IV heparin, cardiology consultation was requested, patient was also started on IV Levaquin for urinary tract infection, and urology consultation was requested. Patient was recently admitted to the hospital due to obstructing calculus in the left ureteropelvic junction with severe left dorita ed hydronephrosis and multiple left sided renal calculi, he underwent cystoscopy with left urethral stent placement, on 08/10/2021, Patient was brought in on 08/20/2021 as outpatient and underwent cystoscopy left urethroscopy and laser light of drip seen stone manipulation and stent exchange. Patient was doing well for about a week after that then he started having worsening weakness. On 09/04/2021 patient was seen and examined on the medical floor he is alert and oriented 3 in no apparent distress he was having episodes of low-grade fever otherwise he denies any complaints There is no headache or dizziness no chest pain no shortness of breath no cough no nausea or vomiting no abdominal pain no diarrhea no blood in the stools no burning with urination no frequency or urgency and no hematuria. Vital exam reveals a temperature of 100.9 pulse 69 respiration 16 blood pressure 188/74 pulse ox 94% on room air Laboratory data reveals a white blood count of 8.0 hemoglobin 12.6 platelet cou nt 170 sodium 132 potassium 3.7 chloride 98 CO2 27 BUN 14 creatinine 0.65 At this time patient is maintained on IV Levaquin awaiting blood culture and urine culture results On 09/05/2021 patient is alert and oriented 3. Current vitals temp 97.3, heart rate 57, respiratory rate 16, blood pressure 133/64 with pulse ox 95% on room air. Per cardiology CHF fibrillation has been ruled out EKG revealing telemetry showing sinus mechanism with PACs. Heparin DC'd per cardiology. 2-D echo has been ordered. Awaiting urology services for further recommendations. At this time patient denies chest pain or shortness of breath. Patient denies nausea vomiting or diarrhea. Patient denies any urinary burning or frequency. On 09/06/2021 patient was seen and examined on the medical floor he is alert and oriented 3 in no apparent distress there is no fever or chills no headache or dizziness no chest pain no shortness of breath no nausea or vomiting no abdominal pain no diarrhea and no urinary symptoms. Blood culture was positive for gram-positive cocci ID and sensitivity still pending, urine culture is positive for Enterococcus faecalis, antibiotic will be changed to IV vancomycin pharmacy to dose. Cardiology note review, no evidence of atrial fibrillation, slight elevation in troponin level on presentation, no intervention recommended at this time, no cardiac catheterization plan, DC IV heparin at this time, he was subcu Lovenox for DVT prophylaxis On 09/07/2021 patient is alert and oriented 3. Patient remains on IV vancomycin awaiting infectious disease input. Per nursing staff urology services not planning any inpatient intervention at this time patient follow-up outpatient. Case management following for discharge planning. At this time patient denies chest pain or shortness breath. Patient denies nausea vomiting or diarrhea. Patient denies any urinary burning or frequency On 09/08/2021 patient is alert and oriented 3. Patient remains on IV vancomycin and repeat cultures have been ordered per infectious disease. Current vitals temp 97.8, heart rate 78, respiratory 20. Patient denies chest pain or shortness breath. Patient denies nausea vomiting or diarrhea. Patient denies any urinary burning or frequency. On 09/09/2021 patient was seen and examined on the medical floor he is alert and oriented 3 in no apparent distress, he is complaining of generalized weakness otherwise no complaints at this time, there is no fever or chills no headache or dizziness no chest pain no shortness of breath no cough no nausea or vomiting no abdominal pain no diarrhea no blood in the stools no burning with urination no frequency or urgency no hematuria. His vital exam reveals a temperature of 97.6 pulse 76 respiration 18 blood pressure 163/76 pulse ox 93% on room air, laboratory data reveals a white blood count of 7.9 hemoglobin 12.9 platelet count 30 to BUN 14 creatinine 0.96. Objective - Vital Signs Vital signs: Vital Signs Temp 97.6 F 09/09/21 08:41 Pulse 76 09/09/21 10:51 Resp 18 09/09/21 10:51 BP 163/76 09/09/21 08:41 Pulse Ox 93 L 09/09/21 08:41 FiO2 Intake & Output 09/08/21 09/09/21 09/09/21 18:59 06:59 18:59 Intake Total 1950 118 Output Total 800 500 Balance 2899 -800 -302 Weight 94.3 kg Intake: IV 270 Invasive Line 4 20 Vancomycin 1,500 mg In 250 Sodium Chloride 0.9% 250 ml @ 125 mls/hr IVPB 0600 ,1800 [facility] Rx#:[id number] Oral 1680 118 Output: Urine 800 500 Other: Voiding Method Diaper Diaper Diaper External Catheter External Catheter # Voids 2 - Exam In general patient is alert and oriented x 3 in no distress HEENT head normocephalic and atraumatic Neck is supple no JVD no goiter no lymphadenopathy no carotid bruit Chest examination is clear to auscultation no crackles no wheezing Cardiac exam reveals irregular heart sounds S1 and S2 no gallops no murmurs Abdomen is soft nontender no organomegaly with normal bowel sounds Extremity exam reveals no edema no cyanosis or clubbing Neurological examination reveals no gross focal deficits - Labs CBC & Chem 7: 09/09/21 08:23 09/09/21 08:23 Labs: Abnormal Lab Results - Last 24 Hours (Table) 09/08/21 09/08/21 09/08/21 Range/Units 11:43 16:24 20:19 RBC (4.30-5.90) m/uL Hgb (13.0-17.5) gm/dL Lymphocytes # (1.0-4.8) k/uL Glucose (74-99) mg/dL POC Glucose (mg/dL) 238 H 172 H 228 H (75-99) mg/dL Total Protein (6.3-8.2) g/dL Albumin (3.5-5.0) g/dL 09/09/21 09/09/21 09/09/21 Range/Units 05:38 08:23 08:23 RBC 4.22 L (4.30-5.90) m/uL Hgb 12.9 L (13.0-17.5) gm/dL Lymphocytes # 0.7 L (1.0-4.8) k/uL Glucose 224 H (74-99) mg/dL POC Glucose (mg/dL) 145 H (75-99) mg/dL Total Protein 5.5 L (6.3-8.2) g/dL Albumin 2.7 L (3.5-5.0) g/dL Microbiology - Last 24 Hours (Table) 09/04/21 16:40 Blood Culture Gram Stain - Final Blood Blood Culture - Final Staphylococcus epidermidis Assessment and Plan Plan: New onset atrial fibrillation, patient started on IV heparin in the emergency room cardiology consultation was requested. Per cardiology services atrial fibrillation has been ruled out. EKG showing sinus rhythm with PACs heparin drip DC'd Evidence of urinary tract infection positive for enterococcus feculence. Antibiotics adjusted to vancomycin infectious disease service is consulted Recent cystoscopy and left urethral stent placement and laser light lithotripsy of left urethral stone Left sided hydronephrosis Underlying history of insulin-dependent diabetes mellitus Underlying history of hypertension Underlying history of coronary artery disease with previous history of coronary artery bypass graft surgery Previous history of atrial flutter Positive blood culture. Cardiology and neurology services following atrial fibrillation has been ruled out. Heparin drip DC'd per cardiology services Per nursing staff no further workup inpatient per urology services Infectious disease services have been consulted Patient currently maintained on vancomycin Case management and social work services following for discharge planning Will follow closely
[2021-09-09 16:30] LABS: Glucose,Whole Blood 179 mg/dL (75-99)
[2021-09-09] MEDS: AMOXICILLIN 500 MG CAP PO SCH ×2 (17:55→20:35)
[2021-09-09 20:28] LABS: Glucose,Whole Blood 208 mg/dL (75-99)
[2021-09-09] MEDS: INSULIN DETEMIR (LEVEMIR) 100 UNIT/ML SYR SQ SCH (20:33)
[2021-09-09] MEDS: ATORVASTATIN 40 MG TAB PO SCH (20:33)
[2021-09-10] MEDS: hydrALAZINE HCL 20 MG/ML 1 ML VIAL IVP PRN ×2 (00:05→12:15)
[2021-09-10 06:20] LABS: Glucose,Whole Blood 144 mg/dL (75-99)
[2021-09-10] MEDS: METOPROLOL TARTRATE 50 MG TAB PO SCH ×2 (06:49→15:57)
[2021-09-10] MEDS: INSULIN ASPART (NovoLOG) 100 UNIT/ML VIAL SQ SCH ×4 (06:49→21:14)
[2021-09-10] MEDS: LEVOTHYROXINE 25 MCG TAB PO SCH (06:49)
[2021-09-10 08:19] LABS: Basophils # (A) 0.1 k/uL (0-0.2); Basophils % (A) 1 %; Eosinophils # (A) 0.3 k/uL (0-0.7); Eosinophils % (A) 3 %; HCT 42.7 % (39.0-53.0); HGB 13.1 gm/dL (13.0-17.5); Hypochromasia Slight; Lymphocytes # (A) 1.1 k/uL (1.0-4.8); Lymphocytes % (A) 13 %; MCH 29.9 pg (25.0-35.0); MCHC 30.6 g/dL (31.0-37.0); MCV 97.8 fL (80.0-100.0); Mean Platelet Volume 7.9; Monocytes # (A) 0.4 k/uL (0-1.0); Monocytes % (A) 4 %; Neutrophils # (A) 6.9 k/uL (1.3-7.7); Neutrophils % (A) 78 %; Platelet Count 318 k/uL (150-450); RBC 4.37 m/uL (4.30-5.90); RDW 13.2 % (11.5-15.5); WBC 8.8 k/uL (3.8-10.6)
[2021-09-10 08:29] LABS: ALT 45 U/L (4-49); AST 40 U/L (17-59); African American GFR (CKD) >90 (>60 ml/min/1.73 sqM); Alkaline Phosphatase 106 U/L (38-126); Anion Gap 8 mmol/L; Blood Urea Nitrogen 12 mg/dL (9-20); Calcium 8.6 mg/dL (8.4-10.2); Carbon Dioxide 27 mmol/L (22-30); Chloride 103 mmol/L (98-107); Glucose 141 mg/dL (74-99); Non-African American GFR(CKD) 89 (>60 ml/min/1.73 sqM); Potassium 4.2 mmol/L (3.5-5.1); Sodium 138 mmol/L (137-145); Total Bilirubin 0.6 mg/dL (0.2-1.3); Total Protein 5.8 g/dL (6.3-8.2)
[2021-09-10] MEDS: metFORMIN 500 MG TAB PO SCH ×2 (09:28→21:14)
[2021-09-10] MEDS: FERROUS SULFATE 325 MG TAB PO SCH (09:29)
[2021-09-10] MEDS: PANTOPRAZOLE 40 MG TABLET PO SCH (09:29)
[2021-09-10] MEDS: hydrALAZINE HCL 25 MG TAB PO SCH ×3 (09:29→21:14)
[2021-09-10] MEDS: CHOLECALCIFEROL 125 MCG (5000 IU) TABLET PO SCH (09:29)
[2021-09-10] MEDS: ASPIRIN 81 MG PO SCH (09:29)
[2021-09-10] MEDS: AMOXICILLIN 500 MG CAP PO SCH ×3 (09:29→21:13)
[2021-09-10] MEDS: ENOXAPARIN 40 MG/0.4 ML SYRINGE SQ SCH (09:29)
[2021-09-10] MEDS: VANCOMYCIN 1,500 MG in SODIUM CHLORIDE 0.9% 250 ML IVPB SCH (09:29)
[2021-09-10] MEDS: VIT A,C & E-LUTEIN-MINERALS 1 EACH TAB PO SCH ×2 (09:30→21:12)
[2021-09-10] MEDS: lisinopriL 20 MG TAB PO SCH ×2 (09:30→21:13)
[2021-09-10 11:47] LABS: Glucose,Whole Blood 202 mg/dL (75-99)
--- NOTE | 2021-09-10 13:07 | P.PN ---
Subjective Progress Note Date: 09/10/21 Ranjan Pace, is an 81-year-old male who presented to [facility] emergency room with a chief complaint of generalized weakness. Patient slipped to the floor at home and was not able to get up EMS were called. He was evaluated in the emergency room vital examination on presentation reveale d a temperature of 97.6 pulse 95 respirations 16 blood pressure 136/80 pulse ox 95% on room air Laboratory data revealed a white blood count of 9.4 hemoglobin 12.6 platelet count 165 sodium 133 potassium 3.7 chloride 97 CO2 26 BUN 19 creatinine 0.76 glucose level was 295 urine analysis revealed evidence of urinary tract infection. Testing in the emergency room revealed chest x-ray done in the emergency room revealed evidence of chronic changes and cardiomegaly without acute pulmonary process no significant change from previous exam, EKG was done in the emergency room and revealed atrial fibrillation with rapid ventricular response heart rate 105 with aberrant conduction and left anterior fascicular block. Patient was admitted to medical floor for further evaluation and treatment, he was started on IV heparin, cardiology consultation was requested, patient was also started on IV Levaquin for urinary tract infection, and urology consultation was requested. Patient was recently admitted to the hospital due to obstructing calculus in the left ureteropelvic junction with severe left dorita ed hydronephrosis and multiple left sided renal calculi, he underwent cystoscopy with left urethral stent placement, on 08/10/2021, Patient was brought in on 08/20/2021 as outpatient and underwent cystoscopy left urethroscopy and laser light of drip seen stone manipulation and stent exchange. Patient was doing well for about a week after that then he started having worsening weakness. On 09/04/2021 patient was seen and examined on the medical floor he is alert and oriented 3 in no apparent distress he was having episodes of low-grade fever otherwise he denies any complaints There is no headache or dizziness no chest pain no shortness of breath no cough no nausea or vomiting no abdominal pain no diarrhea no blood in the stools no burning with urination no frequency or urgency and no hematuria. Vital exam reveals a temperature of 100.9 pulse 69 respiration 16 blood pressure 188/74 pulse ox 94% on room air Laboratory data reveals a white blood count of 8.0 hemoglobin 12.6 platelet cou nt 170 sodium 132 potassium 3.7 chloride 98 CO2 27 BUN 14 creatinine 0.65 At this time patient is maintained on IV Levaquin awaiting blood culture and urine culture results On 09/05/2021 patient is alert and oriented 3. Current vitals temp 97.3, heart rate 57, respiratory rate 16, blood pressure 133/64 with pulse ox 95% on room air. Per cardiology CHF fibrillation has been ruled out EKG revealing telemetry showing sinus mechanism with PACs. Heparin DC'd per cardiology. 2-D echo has been ordered. Awaiting urology services for further recommendations. At this time patient denies chest pain or shortness of breath. Patient denies nausea vomiting or diarrhea. Patient denies any urinary burning or frequency. On 09/06/2021 patient was seen and examined on the medical floor he is alert and oriented 3 in no apparent distress there is no fever or chills no headache or dizziness no chest pain no shortness of breath no nausea or vomiting no abdominal pain no diarrhea and no urinary symptoms. Blood culture was positive for gram-positive cocci ID and sensitivity still pending, urine culture is positive for Enterococcus faecalis, antibiotic will be changed to IV vancomycin pharmacy to dose. Cardiology note review, no evidence of atrial fibrillation, slight elevation in troponin level on presentation, no intervention recommended at this time, no cardiac catheterization plan, DC IV heparin at this time, he was subcu Lovenox for DVT prophylaxis On 09/07/2021 patient is alert and oriented 3. Patient remains on IV vancomycin awaiting infectious disease input. Per nursing staff urology services not planning any inpatient intervention at this time patient follow-up outpatient. Case management following for discharge planning. At this time patient denies chest pain or shortness breath. Patient denies nausea vomiting or diarrhea. Patient denies any urinary burning or frequency On 09/08/2021 patient is alert and oriented 3. Patient remains on IV vancomycin and repeat cultures have been ordered per infectious disease. Current vitals temp 97.8, heart rate 78, respiratory 20. Patient denies chest pain or shortness breath. Patient denies nausea vomiting or diarrhea. Patient denies any urinary burning or frequency. On 09/09/2021 patient was seen and examined on the medical floor he is alert and oriented 3 in no apparent distress, he is complaining of generalized weakness otherwise no complaints at this time, there is no fever or chills no headache or dizziness no chest pain no shortness of breath no cough no nausea or vomiting no abdominal pain no diarrhea no blood in the stools no burning with urination no frequency or urgency no hematuria. His vital exam reveals a temperature of 97.6 pulse 76 respiration 18 blood pressure 163/76 pulse ox 93% on room air, laboratory data reveals a white blood count of 7.9 hemoglobin 12.9 platelet count 30 to BUN 14 creatinine 0.96. On 09/10/2021 patient was seen and examined on the medical floor he is alert and oriented 3 in no apparent distress there is no fever or chills no headache or dizziness no chest pain no shortness of breath no cough no nausea or vomiting no abdominal pain no diarrhea and no urinary symptoms, patient was switched to oral antibiotic amoxicillin yesterday, although he has a listed penicillin ALLERGY, however Dr. Dow did not feel that this was a true ALLERGY he was started sta rted on amoxicillin and so far he is tolerating well. Patient will need rehab after this admission he was accepted at [facility] on the [facility] possible transfer to halfway for rehab tomorrow Objective - Vital Signs Vital signs: Vital Signs Temp 97.9 F 09/10/21 08:00 Pulse 66 09/10/21 08:00 Resp 18 09/10/21 08:00 BP 184/82 09/10/21 08:00 Pulse Ox 96 09/10/21 08:00 FiO2 Intake & Output 09/09/21 09/10/21 09/10/21 18:59 06:59 18:59 Intake Total 726 660 Output Total 900 1550 350 Balance -174 -1550 310 Intake: Intake, IV Titration 250 Amount Vancomycin 1,500 mg In 250 Sodium Chloride 0.9% 250 ml @ 125 mls/hr IVPB 0600 ,1800 [facility] Rx#:[id number] Oral 476 660 Output: Urine 900 1550 350 Other: Voiding Method Diaper Diaper External Catheter External Catheter # Voids 1 - Exam In general patient is alert and oriented x 3 in no distress HEENT head normocephalic and atraumatic Neck is supple no JVD no goiter no lymphadenopathy no carotid bruit Chest examination is clear to auscultation no crackles no wheezing Cardiac exam reveals irregular heart sounds S1 and S2 no gallops no murmurs Abdomen is soft nontender no organomegaly with normal bowel sounds Extremity exam reveals no edema no cyanosis or clubbing Neurological examination reveals no gross focal deficits - Labs CBC & Chem 7: 09/10/21 06:53 09/10/21 06:53 Labs: Abnormal Lab Results - Last 24 Hours (Table) 09/09/21 09/09/21 09/10/21 Range/Units 16:28 20:27 06:08 MCHC (31.0-37.0) g/dL Glucose (74-99) mg/dL POC Glucose (mg/dL) 179 H 208 H 144 H (75-99) mg/dL Total Protein (6.3-8.2) g/dL Albumin (3.5-5.0) g/dL 09/10/21 09/10/21 09/10/21 Range/Units 06:53 06:53 11:45 MCHC 30.6 L (31.0-37.0) g/dL Glucose 141 H (74-99) mg/dL POC Glucose (mg/dL) 202 H (75-99) mg/dL Total Protein 5.8 L (6.3-8.2) g/dL Albumin 3.0 L (3.5-5.0) g/dL Assessment and Plan Plan: New onset atrial fibrillation, patient started on IV heparin in the emergency room cardiology consultation was requested. Per cardiology services atrial fibrillation has been ruled out. EKG showing sinus rhythm with PACs heparin drip DC'd Evidence of urinary tract infection positive for enterococcus feculence. Antibiotics adjusted to vancomycin infectious disease service is consulted Recent cystoscopy and left urethral stent placement and laser light lithotripsy of left urethral stone Left sided hydronephrosis Underlying history of insulin-dependent diabetes mellitus Underlying history of hypertension Underlying history of coronary artery disease with previous history of coronary artery bypass graft surgery Previous history of atrial flutter Positive blood culture. Cardiology and neurology services following atrial fibrillation has been ruled out. Heparin drip DC'd per cardiology services Per nursing staff no further workup inpatient per urology services Infectious disease services have been consulted Patient currently maintained on vancomycin Case management and social work services following for discharge planning Will follow closely
[2021-09-10 16:47] LABS: Glucose,Whole Blood 170 mg/dL (75-99)
[2021-09-10 19:57] LABS: Glucose,Whole Blood 242 mg/dL (75-99)
[2021-09-10] MEDS: ATORVASTATIN 40 MG TAB PO SCH (21:12)
[2021-09-10] MEDS: INSULIN DETEMIR (LEVEMIR) 100 UNIT/ML SYR SQ SCH (21:14)
[2021-09-11] MEDS: VANCOMYCIN 1,500 MG in SODIUM CHLORIDE 0.9% 250 ML IVPB SCH (00:20)
[2021-09-11 06:18] LABS: Glucose,Whole Blood 114 mg/dL (75-99)
[2021-09-11] MEDS: INSULIN ASPART (NovoLOG) 100 UNIT/ML VIAL SQ SCH ×2 (06:26→12:50)
[2021-09-11] MEDS: METOPROLOL TARTRATE 50 MG TAB PO SCH (06:32)
[2021-09-11] MEDS: LEVOTHYROXINE 25 MCG TAB PO SCH (06:32)
[2021-09-11 07:50] LABS: Basophils # (A) 0.1 k/uL (0-0.2); Basophils % (A) 1 %; Eosinophils # (A) 0.3 k/uL (0-0.7); Eosinophils % (A) 3 %; HGB 12.5 gm/dL (13.0-17.5); Hypochromasia Slight; Lymphocytes # (A) 1.1 k/uL (1.0-4.8); Lymphocytes % (A) 13 %; MCH 29.6 pg (25.0-35.0); MCHC 30.4 g/dL (31.0-37.0); MCV 97.1 fL (80.0-100.0); Mean Platelet Volume 7.7; Monocytes # (A) 0.4 k/uL (0-1.0); Monocytes % (A) 5 %; Neutrophils # (A) 6.5 k/uL (1.3-7.7); Neutrophils % (A) 77 %; Platelet Count 325 k/uL (150-450); RBC 4.22 m/uL (4.30-5.90); RDW 13.4 % (11.5-15.5); WBC 8.5 k/uL (3.8-10.6)
[2021-09-11 08:51] LABS: ALT 56 U/L (4-49); AST 55 U/L (17-59); African American GFR (CKD) >90 (>60 ml/min/1.73 sqM); Albumin 2.8 g/dL (3.5-5.0); Alkaline Phosphatase 100 U/L (38-126); Anion Gap 8 mmol/L; Blood Urea Nitrogen 11 mg/dL (9-20); Calcium 8.5 mg/dL (8.4-10.2); Carbon Dioxide 27 mmol/L (22-30); Chloride 103 mmol/L (98-107); Glucose 118 mg/dL (74-99); Non-African American GFR(CKD) 89 (>60 ml/min/1.73 sqM); Sodium 138 mmol/L (137-145); Total Bilirubin 0.5 mg/dL (0.2-1.3); Total Protein 5.4 g/dL (6.3-8.2)
[2021-09-11] MEDS: hydrALAZINE HCL 25 MG TAB PO SCH (09:07)
[2021-09-11] MEDS: ASPIRIN 81 MG PO SCH (09:07)
[2021-09-11] MEDS: CHOLECALCIFEROL 125 MCG (5000 IU) TABLET PO SCH (09:07)
[2021-09-11] MEDS: ENOXAPARIN 40 MG/0.4 ML SYRINGE SQ SCH (09:07)
[2021-09-11] MEDS: PANTOPRAZOLE 40 MG TABLET PO SCH (09:07)
[2021-09-11] MEDS: lisinopriL 20 MG TAB PO SCH (09:07)
[2021-09-11 09:12] VITALS: RESP 16; TEMP 98.2
--- NOTE | 2021-09-11 09:56 | P.DS ---
Providers Date of admission: 09/03/21 15:45 Expected date of discharge: 09/11/21 Attending physician: Davy Eldridge Consults: 09/03/21 19:09 Consult Physician Routine Consulting Provider: Mark Kovacs Consult Reason/Comments: UTI, recent kidney stone Do you want consulting provider notified?: Yes 09/06/21 19:22 Consult Physician Routine Consulting Provider: Marleni Dow Consult Reason/Comments: Urinary tract infection Do you want consulting provider notified?: Yes Primary care physician: Davymalorie Eldridge [facility] Course: Discharge diagnosis New onset atrial fibrillation, patient started on IV heparin in the emergency room cardiology consultation was requested. Per cardiology services atrial fibrillation has been ruled out. EKG showing sinus rhythm with PACs heparin drip DC'd Evidence of urinary tract infection positive for enterococcus feculence. Antibiotics adjusted to vancomycin infectious disease service is consulted. Patient has been switched over to amoxicillin has been tolerating antibiotic will continue to monitor days Recent cystoscopy and left urethral stent placement and laser light lithotripsy of left urethral stone Left sided hydronephrosis Underlying history of insulin-dependent diabetes mellitus Underlying history of hypertension Underlying history of coronary artery disease with previous history of coronary artery bypass graft surgery Previous history of atrial flutter Positive blood culture. Hospital course Ranjan Pace, is an 81-year-old male who presented to [facility] emergency room with a chief complaint of generalized weakness. Patient slipped to the floor at home and was not able to get up EMS were called. He was evaluated in the emergency room vital examination on presentation revealed a temperature of 97.6 pulse 95 respirations 16 blood pressure 136/80 pulse ox 95% on room air Laboratory data revealed a white blood count of 9.4 hemoglobin 12.6 platelet count 165 sodium 133 potassium 3.7 chloride 97 CO2 26 BUN 19 creatinine 0.76 glucose level was 295 urine analysis revealed evidence of urinary tract infection. Testing in the emergency room revealed chest x-ray done in the emergency room revealed evidence of chronic changes and cardiomegaly without acute pulmonary process no significant change from previous exam, EKG was done in the emergency room and revealed atrial fibrillation with rapid ventricular response heart rate 105 with aberrant conduction and left anterior fascicular block. Patient was admitted to medical floor for further evaluation and treatment, he was started on IV heparin, cardiology consultation was requested, patient was also started on IV Levaquin for urinary tract infection, and urology consultation was requested. Patient was recently admitted to the hospital due to obstructing calculus in the left ureteropelvic junction with severe left sided hydronephrosis and multiple left sided renal calculi, he underwent cystoscopy with left urethral stent placement, on 08/10/2021, Patient was brought in on 08/20/2021 as outpatient and underwent cystoscopy left urethroscopy and laser light of drip seen stone manipulation and stent exchange. Patient was doing well for about a week after that then he started having worsening weakness. On 09/04/2021 patient was seen and examined on the medical floor he is alert and oriented 3 in no apparent distress he was having episodes of low-grade fever otherwise he denies any complaints There is no headache or dizziness no chest pain no shortness of breath no cough no nausea or vomiting no abdominal pain no diarrhea no blood in the stools no burning with urination no frequency or urgency and no hematuria. Vital exam reveals a temperature of 100.9 pulse 69 respiration 16 blood pressure 188/74 pulse ox 94% on room air Laboratory data reveals a white blood count of 8.0 hemoglobin 12.6 platelet count 170 sodium 132 potassium 3.7 chloride 98 CO2 27 BUN 14 creatinine 0.65 At this time patient is maintained on IV Levaquin awaiting blood culture and urine culture results On 09/05/2021 patient is alert and oriented 3. Current vitals temp 97.3, heart rate 57, respiratory rate 16, blood pressure 133/64 with pulse ox 95% on room air. Per cardiology CHF fibrillation has been ruled out EKG revealing telemetry showing sinus mechanism with PACs. Heparin DC'd per cardiology. 2-D echo has been ordered. Awaiting urology services for further recommendations. At this time patient denies chest pain or shortness of breath. Patient denies nausea vomiting or diarrhea. Patient denies any urinary burning or frequency. On 09/06/2021 patient was seen and examined on the medical floor he is alert and oriented 3 in no apparent distress there is no fever or chills no headache or dizziness no chest pain no shortness of breath no nausea or vomiting no abdominal pain no diarrhea and no urinary symptoms. Blood culture was positive for gram-positive cocci ID and sensitivity still pending, urine culture is positive for Enterococcus faecalis, antibiotic will be changed to IV vancomycin pharmacy to dose. Cardiology note review, no evidence of atrial fibrillation, slight elevation in troponin level on presentation, no intervention recommended at this time, no cardiac catheterization plan, DC IV heparin at this time, he was subcu Lovenox for DVT prophylaxis On 09/07/2021 patient is alert and oriented 3. Patient remains on IV vancomycin awaiting infectious disease input. Per nursing staff urology services not planning any inpatient intervention at this time patient follow-up outpatient. Case management following for discharge planning. At this time patient denies chest pain or shortness breath. Patient denies nausea vomiting or diarrhea. Patient denies any urinary burning or frequency On 09/08/2021 patient is alert and oriented 3. Patient remains on IV vancomycin and repeat cultures have been ordered per infectious disease. Current vitals temp 97.8, heart rate 78, respiratory 20. Patient denies chest pain or shortness breath. Patient denies nausea vomiting or diarrhea. Patient denies any urinary burning or frequency. On 09/09/2021 patient was seen and examined on the medical floor he is alert and oriented 3 in no apparent distress, he is complaining of generalized weakness otherwise no complaints at this time, there is no fever or chills no headache or dizziness no chest pain no shortness of breath no cough no nausea or vomiting no abdominal pain no diarrhea no blood in the stools no burning with urination no frequency or urgency no hematuria. His vital exam reveals a temperature of 97.6 pulse 76 respiration 18 blood pressure 163/76 pulse ox 93% on room air, laboratory data reveals a white blood count of 7.9 hemoglobin 12.9 platelet count 30 to BUN 14 creatinine 0.96. On 09/10/2021 patient was seen and examined on the medical floor he is alert and oriented 3 in no apparent distress there is no fever or chills no headache or dizziness no chest pain no shortness of breath no cough no nausea or vomiting no abdominal pain no diarrhea and no urinary symptoms, patient was switched to oral antibiotic amoxicillin yesterday, although he has a listed penicillin ALLERGY, however Dr. Dow did not feel that this was a true ALLERGY he was started started on amoxicillin and so far he is tolerating well. Patient will need rehab after this admission he was accepted at [facility] on the [place] [facility] tomorrow On 09/11/2021 patient is alert and oriented 3. Patient has been tolerating amoxicillin will continue for 10 more days patient has placement at [facility]. At this time patient denies chest pain or shortness of breath. Patient denies nausea vomiting or diarrhea. Patient denies any urinary burning or frequency. Patient to follow-up with urology services for further management. Patient Condition at Discharge: Stable Plan - Discharge Summary Discharge Rx Participant: No New Discharge Prescriptions: New Amoxicillin 500 mg PO TID 10 Days #30 cap INSULIN ASPART (NovoLOG) [NovoLOG (formulary)] 0 unit SQ ACHS each Continue metFORMIN HCL [Glucophage] 1,000 mg PO DAILY metFORMIN HCL [Glucophage] 500 mg PO HS Maxivision Whole Body Formula 1 cap PO BID Ferrous Sulfate [Iron (65 MG Elemental)] 325 mg PO Q48H Levothyroxine Sodium [Synthroid] 25 mcg PO DAILY hydrALAZINE HCL 25 mg PO TID Pantoprazole [Protonix] 40 mg PO DAILY Aspirin EC [Ecotrin Low Dose] 81 mg PO DAILY Cholecalciferol [Vitamin D3 (125 Mcg = 5000 Iu)] 125 mcg PO DAILY lisinopriL [Zestril] 20 mg PO BID Metoprolol Tartrate [Lopressor] 50 mg PO BID-W/MEALS Atorvastatin [Lipitor] 40 mg PO HS Insulin Glargine,Hum.rec.anlog [Lantus Solostar Pen] 14 unit SQ HS Discharge Medication List metFORMIN HCL [Glucophage] 1,000 mg PO DAILY 07/08/16 [History] metFORMIN HCL [Glucophage] 500 mg PO HS 07/08/16 [History] Aspirin EC [Ecotrin Low Dose] 81 mg PO DAILY 08/07/21 [History] Atorvastatin [Lipitor] 40 mg PO HS 08/07/21 [History] Cholecalciferol [Vitamin D3 (125 Mcg = 5000 Iu)] 125 mcg PO DAILY 08/07/21 [History] Ferrous Sulfate [Iron (65 MG Elemental)] 325 mg PO Q48H 08/07/21 [History] Insulin Glargine,Hum.rec.anlog [Lantus Solostar Pen] 14 unit SQ HS 08/07/21 [History] Levothyroxine Sodium [Synthroid] 25 mcg PO DAILY 08/07/21 [History] Maxivision Whole Body Formula 1 cap PO BID 08/07/21 [History] Metoprolol Tartrate [Lopressor] 50 mg PO BID-W/MEALS 08/07/21 [History] Pantoprazole [Protonix] 40 mg PO DAILY 08/07/21 [History] hydrALAZINE HCL 25 mg PO TID 08/07/21 [History] lisinopriL [Zestril] 20 mg PO BID 08/07/21 [History] Amoxicillin 500 mg PO TID 10 Days #30 cap 09/11/21 [Rx] INSULIN ASPART (NovoLOG) [NovoLOG (formulary)] 0 unit SQ ACHS each 09/11/21 [Rx] Follow up Appointment(s)/Referral(s): Davy Eldridge MD [Primary Care Provider] - 1-2 days Johnnie Parker MD [STAFF PHYSICIAN] - 1-2 Days Discharge/Stand Alone Forms: Who Do I Call?, Community Resources, Help In The Home Discharge Disposition: TRANSFER TO SNF/ECF
[2021-09-11 11:31] LABS: Glucose,Whole Blood 219 mg/dL (75-99)
[2021-09-11] MEDS: metFORMIN 500 MG TAB PO SCH (12:49)
[2021-09-11] MEDS: VIT A,C & E-LUTEIN-MINERALS 1 EACH TAB PO SCH (12:49)
[2021-09-11] MEDS: AMOXICILLIN 500 MG CAP PO SCH (12:49)
[2021-09-11 12:53] VITALS: BP 149/76; PULSE 66
[2021-09-11 16:25] LABS: Glucose,Whole Blood 214 mg/dL (75-99)
== END 2021-09-11 17:22 | DRG 690 ==
LOC: EC 13:41 → 3SCARD 15:45
PROVIDERS: ADMIT Internal Medicine; ATTEND Internal Medicine
DX: N13.6 Pyonephrosis (principal); R78.81 Bacteremia; E78.5 Hyperlipidemia, unspecified; I25.10 Atherosclerotic heart disease of native coronary artery without angina pectoris; I25.5 Ischemic cardiomyopathy; I10 Essential (primary) hypertension; B95.2 Enterococcus as the cause of diseases classified elsewhere; I44.4 Left anterior fascicular block; E11.9 Type 2 diabetes mellitus without complications; Z79.82 Long term (current) use of aspirin; Z79.4 Long term (current) use of insulin; Z79.899 Other long term (current) drug therapy; Z79.890 Hormone replacement therapy; Z88.0 Allergy status to penicillin; Z91.040 Latex allergy status; Z86.79 Personal history of other diseases of the circulatory system; Z98.42 Cataract extraction status, left eye; Z98.41 Cataract extraction status, right eye; Z87.19 Personal history of other diseases of the digestive system; Z90.49 Acquired absence of other specified parts of digestive tract; Z98.890 Other specified postprocedural states; Z86.010 Personal history of colon polyps; Z95.1 Presence of aortocoronary bypass graft; Z86.73 Personal history of transient ischemic attack (TIA), and cerebral infarction without residual deficits; Z85.820 Personal history of malignant melanoma of skin; Z82.49 Family history of ischemic heart disease and other diseases of the circulatory system
CPT/HCPCS: 36415; 71046; 74018; 80048; 80053; 80061; 80202; 81001; 83036; 83605; 83735; 83880; 84484; 85025; 85610; 85730; 87040; 87077; 87086; 87186; 93005; 93308; 96365; 96368; 99285

== ENCOUNTER → 2021-09-20 | Outpatient (CLI) | payer MEDICARE ==
--- NOTE | 2021-09-20 12:03 | XR ---
EXAMINATION TYPE: XR KUB DATE OF EXAM: 09/20/2021 COMPARISON: 09/04/2021 HISTORY: Kidney stone TECHNIQUE: One view abdominal series FINDINGS: Left-sided ureteral stent noted. There is a large calcification overlying the left upper quadrant lik javid within the kidney measuring 1 cm. Smaller 2 mm lower pole calcification suggested. Previously not ed calcifications along the course of the proximal ureteral stent are not seen with certainty on toda y's exam. Curvature of the spine with degenerative changes. Arthropathy of the hips. Bowel gas pattern nonspeci fic. Postsurgical changes in the right upper quadrant and sternotomy no change is also noted. IMPRESSION: 1. There are 2 left-sided renal calcifications largest measuring 1 cm. Ureteral stent noted in positi on. Previously noted faint calcifications along the proximal stent no longer seen.
== END | disposition home or self-care (01) ==
LOC: RADXRMAIN 11:23
PROVIDERS: ATTEND Urology
DX: N20.0 Calculus of kidney (principal)
CPT/HCPCS: 74018

== ENCOUNTER 2024-01-26 00:11 | Emergency (ER) | payer MEDICARE ==
--- NOTE | 2024-01-26 00:14 | ED ---
Fall HPI - General Stated Complaint: Fall on Thinners, Head Injury Time Seen by Provider: 01/26/24 00:13 Source: RN notes reviewed, old records reviewed, Caregiver Mode of arrival: EMS Limitations: no limitations, altered mental status - History of Present Illness Initial Comments: This is a 83-year-old male to the ER for evaluation of fall fall with head injury weakness, these event occurred about going out to take his trash out. Patient did hit his head during this fall. 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 Witnessed: yes, by family Place Fall Occurred: home Loss of Consciousness: none Prolonged Down Time?: no Symptoms Prior to Fall: none Location: head Severity: moderate Quality: burning Context: tripped/slipped Associated Symptoms: denies - Related Data Home Medications Medication Instructions Recorded Confirmed metFORMIN HCL [Glucophage] 500 mg PO BID-W/MEALS 07/08/16 09/03/21 Aspirin EC [Ecotrin Low Dose] 81 mg PO DAILY 08/07/21 09/03/21 Atorvastatin [Lipitor] 40 mg PO HS 08/07/21 09/03/21 Ferrous Sulfate [Iron (65 MG 325 mg PO Q48H 08/07/21 09/03/21 Elemental)] Insulin Glargine,Hum.rec.anlog 14 unit SQ HS 08/07/21 09/03/21 [Lantus Solostar Pen] Maxivision Whole Body Formula 1 cap PO BID 08/07/21 09/03/21 Metoprolol Tartrate [Lopressor] 50 mg PO BID-W/MEALS 08/07/21 09/03/21 Pantoprazole [Protonix] 40 mg PO DAILY 08/07/21 09/03/21 hydrALAZINE HCL 25 mg PO TID 08/07/21 09/03/21 lisinopriL [Zestril] 20 mg PO BID 08/07/21 09/03/21 Cholecalciferol (Vitamin D3) 125 mcg PO DAILY 01/26/24 [Vitamin D3 (125 MCG = 5,000 IU)] Dapagliflozin Propanediol [Farxiga] 10 mg PO 01/26/24 glipiZIDE [glipiZIDE ER] 5 mg PO DAILY 01/26/24 hydroCHLOROthiazide [Hydrodiuril] 25 mg PO DAILY 01/26/24 Allergies Allergy/AdvReac Type Severity Reaction Status Date / Time latex Allergy Unknown Verified 09/03/21 16:24 penicillin V Allergy Unknown Verified 09/03/21 16:24 Review of Systems ROS Statement: Those systems with pertinent positive or pertinent negative responses have been documented in the HPI. ROS Other: All systems not noted in ROS Statement are negative. Past Medical History Past Medical History: Atrial Flutter, Cancer, CVA/TIA, Diabetes Mellitus, Hypertension Additional Past Medical History / Comment(s): JUNE 2016: IP ADM FOR GI BLEED. 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 Past Anesthesia/Blood Transfusion Reactions: No Reported Reaction Past Psychological History: No Psychological Hx Reported Additional Psychological History / Comment(s): Pt resides with his spouse of 55 yrs. He used a walker a couple weeks ago for a brief time. He drives. Smoking Status: Never smoker Past Alcohol Use History: Rare Past Drug Use History: None Reported - Past Family History Father Additional Family Medical History / Comment(s): Father at the age of 33 yrs from encephalitis. Mother Family Medical History: Myocardial Infarction (KS) Additional Family Medical History / Comment(s): Mother had a KS at the age of 60yrs. She at the age of 90yrs. General Exam General appearance: alert, in no apparent distress Head exam: Present: atraumatic, normocephalic, normal inspection Eye exam: Present: normal appearance, PERRL, EOMI. Absent: scleral icterus, conjunctival injection, periorbital swelling ENT exam: Present: normal exam, mucous membranes moist Neck exam: Present: normal inspection. Absent: tenderness, meningismus, lymphadenopathy Respiratory exam: Present: normal lung sounds bilaterally. Absent: respiratory distress, wheezes, rales, rhonchi, stridor Cardiovascular Exam: Present: regular rate, normal rhythm, normal heart sounds. Absent: systolic murmur, diastolic murmur, rubs, gallop, clicks GI/Abdominal exam: Present: soft, normal bowel sounds. Absent: distended, tenderness, guarding, rebound, rigid Extremities exam: Present: normal inspection, full ROM, normal capillary refill. Absent: tenderness, pedal edema, joint swelling, calf tenderness Back exam: Present: normal inspection Neurological exam: Present: alert, oriented X3, CN II-XII intact Psychiatric exam: Present: normal affect, normal mood Skin exam: Present: warm, dry, intact, normal color. Absent: rash Course Vital Signs 01/26/24 01/26/24 00:15 00:41 Temperature 97.4 F L Pulse Rate 70 81 Respiratory 18 18 Rate Blood Pressure 167/97 O2 Sat by Pulse 95 93 L Oximetry - Reevaluation(s) Reevaluation #1: 01/26/24 00:29 Medical records reviewed Reevaluation #2: 01/26/24 00:29 Patient symptoms unchanged Reevaluation #3: 01/26/24 01:07 Informed of results and questions answered Reevaluation #4: Was pt. sent in by a medical professional or institution (, PA, PACKING LINE WORKER, urgent care, hospital, or intermediate...) When possible be specific @ -no Did you speak to anyone other than the patient for history (EMS, parent, family, police, friend...)? What history was obtained from this source @ -no Did you review nursing and triage notes (agree or disagree)? Why? @ -agree Are old charts reviewed (outside hosp., previous admission, EMS record, old EKG, old radiological studies, urgent care reports/EKG's, intermediate records)? Report findings @ -yes Differential Diagnosis (chest pain, altered mental status, abdominal pain women, abdominal pain men, vaginal bleeding, weakness, fever, dyspnea, syncope, headache, dizziness, GI bleed, back pain, seizure, CVA, palpatations, mental health, musculoskeletal)? @ -prior EKG interpreted by me (3pts min.). @ -yes X-rays interpreted by me (1pt min.). @ -yes negative for acute disease CT interpreted by me (1pt min.). @ -no U/S interpreted by me (1pt. min.). @ -no What testing was considered but not performed or refused? (CT, X-rays, U/S, labs)? Why? @ -none What meds were considered but not given or refused? Why? @ -none Did you discuss the management of the patient with other professionals (professionals i.e. , PA, PACKING LINE WORKER, lab, RT, psych nurse, school social worker, machine shop repair technician, teacher, business enterprise officer, insurance case manager)? Give summary @ -no Was smoking cessation discussed for >3mins.? @ -no Was critical care preformed (if so, how long)? @ -no Were there social determinants of health that impacted care today? How? (Homelessness, low income, unemployed, alcoholism, drug addiction, transportation, low edu. Level, literacy, decrease access to med. care, detention, rehab)? @ -none Was there de-escalation of care discussed even if they declined (Discuss DNR or withdrawal of care, Hospice)? DNR status @ -no What co-morbidities impacted this encounter? (DM, HTN, Smoking, COPD, CAD, Cancer, CVA, ARF, Chemo, Hep., AIDS, mental health diagnosis, sleep apnea, morbid obesity)? @ -none Was patient admitted / discharged? Hospital course, mention meds given and route, prescriptions, significant lab abnormalities, going to OR and other pertinent info. @ - Undiagnosed new problem with uncertain prognosis? @ -no Drug Therapy requiring intensive monitoring for toxicity (Heparin, Nitro, Insulin, Cardizem)? @ -no Were any procedures done? @ -no Diagnosis/symptom? @ - Acute, or Chronic, or Acute on Chronic? @ -Acute Uncomplicated (without systemic symptoms) or Complicated (systemic symptoms)? @ -Complicated Side effects of treatment? @ -no Exacerbation, Progression, or Severe Exacerbation? @ -exacerbation Poses a threat to life or bodily function? How? (Chest pain, [place], [place], pneumonia, PE, COPD, DKA, ARF, appy, cholecystitis, CVA, Diverticulitis, Homicidal, Suicidal, threat to staff... and all critical care pts) @ -yes Medical Decision Making - Medical Decision Making 83 male to the ER after a fall fall with a minor head injury but awake alert and has no complaints. Patient was unable to get up called EMS and EMS brings patient to the ER, no blood thinners no complaints patient can be discharged home able to ambulate here in the ER - EKG Data -: EKG Interpreted by Me (EKG is sinus 84 MI 216 QRS 124 QTc 444) Disposition Clinical Impression: Fall, Minor head injury Disposition: HOME SELF-CARE Condition: Good Instructions (If sedation given, give patient instructions): Fall Prevention for Older Adults (ED) Is patient prescribed a controlled substance at d/c from ED?: No Referrals: Davy Eldridge MD [Primary Care Provider] - 1-2 days Time of Disposition: 01:33
[2024-01-26 00:41] VITALS: TEMP 97.4
[2024-01-26 01:02] VITALS: PULSE 81
[2024-01-26 02:01] VITALS: BP 156/84; RESP 20
== END 2024-01-26 01:45 | disposition home or self-care (01) ==
LOC: EC 00:11
CPT/HCPCS: 93005; 99284